=== PATIENT | male | born 1950 | race Caucasian/White ===

== ENCOUNTER 2016-11-08 12:42 | Inpatient (IN) | payer OTHER ==
[~2016-11-08] VITALS: Ht 193 cm; Wt 137.9 kg
[~2016-11-08 12:42] MED LIST: CMD10 PO; CPR250 PO; CRG125 PO; FLM4 PO; LCTXP PO; LSN5 PO; Labs; MTR500 PO; RIZA10TA18 PO; TRIA0.1C20 TOP
--- NOTE | 2016-11-08 13:46 | DIAGNOSTIC IMAGING REPORT ---
SINGLE VIEW CHEST CLINICAL HISTORY: Dyspnea. FINDINGS: An AP, portable, upright chest radiograph is compared to study dated 05/29/2015. The examination is degraded by portable technique, large body habitus, and patient rotation. The heart is mildly enlarged. The pulmonary vasculature is noncongested. Minimal bibasilar atelectasis is observed. The lungs and pleural spaces are otherwise clear. No pneumothorax is seen. The bony thorax is grossly intact. IMPRESSION: Mild cardiac enlargement with no acute cardiopulmonary abnormality. Electronically signed by: Jason Villegas M.D. 11/08/2016 1:45 PM Dictated Date/Time: 11/08/2016 1:44 PM
[2016-11-08 13:55] LABS: BASO % 0.2 %; BASO ABS # 0.01 K/uL (0-0.2); COMPLETE YES; EOS % 1.6 %; HEMATOCRIT 46.2 % (42-52); IG% 0.4 %; LYMPH % 29.8 %; LYMPH ABS # 1.51 K/uL (1.2-3.4); MEAN CELL VOLUME 90.9 fL (80-100); MEAN CORPUSCULAR HEMOGLOBIN 29.5 pg (25-34); MEAN CORPUSCULAR HGB CONC 32.5 g/dl (32-36); MEAN PLATELET VOLUME 9.2 fL (7.4-10.4); MONO % 7.5 %; NEUT % 60.5 %; PLATELET COUNT 206 K/uL (130-400); RED BLOOD COUNT 5.08 M/uL (4.7-6.1); WHITE BLOOD COUNT 5.06 K/uL (4.8-10.8)
[2016-11-08 14:04] LABS: PARTIAL THROMBOPLASTIN RATIO 1.1; PROTHROMBIN TIME (PATIENT) 10.7 SECONDS (9.0-12.0)
[2016-11-08] MEDS ORDERED: ACETAMINOPHEN 500 MG TAB PO STA (14:08)
[2016-11-08 14:14] LABS: ALT/SGPT 42 U/L (12-78); AST/SGOT 25 U/L (15-37); BLOOD UREA NITROGEN 14 mg/dl (7-18); BUN/CREATININE RATIO 11.4 (10-20); CALCIUM 9.4 mg/dl (8.5-10.1); CARBON DIOXIDE 30 mmol/L (21-32); CHLORIDE 107 mmol/L (98-107); GLUCOSE 106 mg/dl (70-99); MAGNESIUM 1.9 mg/dl (1.8-2.4); POTASSIUM 4.4 mmol/L (3.5-5.1); SODIUM 141 mmol/L (136-145)
[2016-11-08 14:25] LABS: ALKALINE PHOSPHATASE 70 U/L (45-117); CKMB/CK RATIO 1.8 (0-3.0); THYROID STIMULATING HORMONE 0.275 uIu/ml (0.300-4.500)
--- NOTE | 2016-11-08 14:35 | DIAGNOSTIC IMAGING REPORT ---
ULTRASOUND RIGHT LOWER EXTREMITY VENOUS CLINICAL HISTORY: Right leg pain and swelling. COMPARISON STUDY: Bilateral lower extremity venous ultrasound dated 05/29/2015. TECHNIQUE: Real-time, grayscale, and color Doppler sonography of the deep veins of the right lower extremity was performed from the inguinal crease to the calf. Compression and augmentation were utilized. FINDINGS: There is chronic appearing nonocclusive deep venous thrombosis identified within the right popliteal vein. This is similar to the 05/29/2015 examination. Age indeterminant thrombus is also seen within the right calf in the peroneal vein. The remaining calf vessels are clear. The common femoral and superficial femoral veins are patent and normally compressible. The greater saphenous vein and the profunda femoris vein at the junction with the common femoral vein are clear. IMPRESSION: 1. There is chronic-appearing and nonocclusive deep venous thrombosis identified within the right popliteal vein. This is similar to the 05/29/2015 examination. 2. Age indeterminant thrombus is also seen in the right calf within the peroneal vein. Electronically signed by: Jason Villegas M.D. 11/08/2016 2:33 PM Dictated Date/Time: 11/08/2016 2:31 PM
[2016-11-08 14:36] LABS: URINE APPEARANCE CLEAR (CLEAR); URINE BILIRUBIN NEG (NEG); URINE COLOR YELLOW; URINE NITRITE NEG (NEG); URINE PH 5.5 (4.5-7.5); URINE SPECIFIC GRAVITY 1.021 (1.000-1.030); UROBILINOGEN NEG (NEG)
[2016-11-08 14:43] LABS: MANUAL MICROSCOPIC REQUIRED? NO; REVIEW REQ? NO
[2016-11-08] MEDS ORDERED: OPTIRAY 320 IV PRN (15:15)
--- NOTE | 2016-11-08 15:31 | DIAGNOSTIC IMAGING REPORT ---
CT ANGIOGRAM OF THE CHEST CLINICAL HISTORY: Atypical chest pain. COMPARISON STUDY: Chest x-ray dated 11/08/2016. TECHNIQUE: Following the IV administration of 94 cc of Optiray 320, CT angiogram of the chest was performed from the upper abdomen to the thoracic inlet utilizing the pulmonary embolus protocol. Images are reviewed in the axial, sagittal, and coronal planes. 3-D MIPS images are created and assessed. IV contrast was administered without complication. A dose lowering technique was utilized adhering to the principles of ALARA. The examination is degraded by motion artifact, as well as by streak artifact from the left arm which could not be elevated above the chest. CT DOSE: 718.78 mGy.cm FINDINGS: Thyroid: Imaged portions of the thyroid gland are normal in size and attenuation. Thoracic aorta: The thoracic aorta is normal in caliber and demonstrates standard 3-vessel arch anatomy. No dissection is seen. Pulmonary vasculature: The pulmonary trunk is normal in caliber. There are no filling defects identified in main, lobar, or segmental pulmonary branches to suggest pulmonary embolus. Heart: The heart is mildly enlarged and without pericardial effusion. The coronary arteries are densely calcified. Lungs and pleural spaces: Evaluation of the lung parenchyma is modestly degraded by respiratory motion artifact. There is no airspace consolidation or pleural effusion. The trachea and central airways are clear. Mediastinum: There is no mediastinal lymphadenopathy. Demi: Clear. Axillae: There is no axillary lymphadenopathy. Upper abdomen: The liver is steatotic. A tiny hiatal hernia is noted. Partially visualized upper abdominal viscera is otherwise within normal limits. Skeletal structures: The skeletal structures appear osteopenic. No lytic or blastic bony lesions are seen. IMPRESSION: 1. There is no evidence of pulmonary embolus in the main, lobar, or segmental pulmonary arteries. 2. There is no airspace consolidation or pleural effusion. 3. Mild cardiac enlargement. 4. Additional findings as above. Electronically signed by: Jason Villegas M.D. 11/08/2016 3:30 PM Dictated Date/Time: 11/08/2016 3:26 PM
[2016-11-08] MEDS ORDERED: LSX40 PO (15:43)
[2016-11-08] MEDS ORDERED: WARF-281 PO (15:43)
[2016-11-08] MEDS ORDERED: VNTHFA/IN INH (15:43)
[2016-11-08] MEDS ORDERED: FUROSEMIDE 40 MG TAB PO PRN (18:00)
[2016-11-08] MEDS ORDERED: ALUMINUM/MAGNESIUM/SIMETH (MAALOX MAX) 30 ML UDC PO PRN (18:00)
[2016-11-08] MEDS ORDERED: POLYETHYLENE (MIRALAX) 17 GM PACK PO PRN (18:00)
[2016-11-08] MEDS ORDERED: MAGNESIUM HYDROXIDE SUSP 30 ML UDC PO PRN (18:00)
[2016-11-08] MEDS ORDERED: ONDANSETRON INJ 2 MG/ML 2 ML VIAL IV PRN (18:00)
[2016-11-08] MEDS ORDERED: HEPARIN 25000 UNIT/500 ML D5W ONE (18:12)
[2016-11-08] MEDS ORDERED: HEPARIN SOD 5000 UNIT/0.5 ML CARP ONE (18:12)
[2016-11-08 19:15] VITALS: BP 160/106; PULSE 69; TEMP 36.3; O2SAT 97; Ht 193 cm; Wt 137.9 kg
--- NOTE | 2016-11-08 19:16 | DIAGNOSTIC IMAGING REPORT ---
LEFT SHOULDER 3 VIEWS CLINICAL HISTORY: Left shoulder pain. FINDINGS: 3 views of left shoulder are obtained. No prior studies are available for comparison at the time of dictation. The skeletal structures are well mineralized. No fracture or dislocation is seen. Mild productive degenerative change is identified at the acromioclavicular joint. The overlying soft tissues are within normal limits. The visualized left upper lobe lung parenchyma appears clear. IMPRESSION: No acute bony abnormality is seen in the left shoulder. Electronically signed by: Jason Villegas M.D. 11/08/2016 7:15 PM Dictated Date/Time: 11/08/2016 7:13 PM
--- NOTE | 2016-11-08 19:21 | History and Physical ---
History & Physical Date & Time of Service: Nov 08, 2016 at 18:40 Chief Complaint: Sob, Pain In Left Arm, John, Rt Leg Hard Primary Care Physician: Zna Monsalve M.D. 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 of migraines - presented to the ER due to L sided shoulder and neck pain, associated with some shortness of breath. States that the pain began three days ago, does not recall doing anything unusual or heavy lifting. States that he became worried today when his R leg became swollen and hard - he described it as the same type of pain when he had a clot. Came in to the ER for further eval. Had Chest CTA performed to r/ o PE, which was ruled out. Bilateral Doppler suggest an age indeterminate thrombus in the R calf and an old, chronic thrombus in the left. States that he' s had problems with Coumadin, and is taking a Coumadin dose of 70mg. Past Medical/Surgical History Medical Problems: (1) Arthritis Status: Chronic (2) DVT (deep venous thrombosis) Permanent Comment: After knee surgery Status: Chronic (3) Hyperhomocysteinemia Status: Chronic (4) Hypertension Status: Chronic (5) IBS (irritable bowel syndrome) Status: Chronic (6) Migraine Status: Chronic Surgical Problems: (1) H/O arthroscopic knee surgery Permanent Comment: for meniscus repair on 08/29/13 Status: Resolved (2) H/O hernia repair Permanent Comment: Incarcerated umbilical hernia 08/03/2014 Status: Chronic (3) History of carpal tunnel surgery Status: Chronic (4) S/P cholecystectomy Status: Resolved Family History Hypertension Social History Smoking Status: Former Smoker Drug Use: none Marital Status: Housing status: lives with family Occupational Status: retired Multi-Drug Resistant Organisms History of MDRO: No Allergies Coded Allergies: Morphine (Verified Allergy, Unknown, anxiety, 11/08/16) Home Medications Scheduled Lisinopril (Lisinopril), 5 MG PO QAM Warfarin Sodium (Warfarin Sodium), 65 MG PO QPM Scheduled PRN Albuterol Hfa (Ventolin Hfa), 2 PUFFS INH Q6H PRN for SOB/Wheezing Furosemide (Furosemide), 1 TAB PO BID PRN for FLUID ACCUMULATION Rizatriptan Benzoate (Maxalt), 10 MG PO Q2H PRN for Migraine Review of Systems Constitutional: No fever, No chills Respiratory: + shortness of breath, No cough, No sputum, No dyspnea on exertion , No dyspnea at rest Cardiovascular: + edema, No chest pain, No palpitations Abdomen: No pain, No nausea, No vomiting, No diarrhea Musculoskeletal: + joint pain (L shoulder pain), + muscle pain (L neck pain), + calf pain Genitourinary - Male: No hematuria, No dysuria, No urinary frequency, No urinary urgency Neurologic: + numbness/tingling (L arm), No vertigo, No balance problems Psychiatric: No depression symptoms, No anxiety, No insomnia Hematologic / Lymphatic: No abnormal bleeding/bruising Integumentary: No rash Allergic / Immunologic: No environmental allergies, No seasonal allergies Physical Exam Vital Signs Date Time Temp Pulse Resp B/P (MAP) Pulse Ox O2 Delivery O2 Flow Rate FiO2 11/08/16 17:47 66 20 142/73 94 Room Air 11/08/16 15:27 72 152/70 Room Air 11/08/16 14:34 71 20 156/89 95 Room Air 11/08/16 13:33 95 Room Air 11/08/16 13:08 97 Room Air 11/08/16 13:08 76 11/08/16 13:07 97 Room Air 11/08/16 12:43 36.5 80 18 164/91 97 General Appearance: no apparent distress, + obese Head: normocephalic, atraumatic Eyes: normal inspection ENT: hearing grossly normal Neck: supple Respiratory/Chest: chest non-tender, lungs clear, normal breath sounds, no respiratory distress, no accessory muscle use Cardiovascular: regular rate, rhythm, no murmur Abdomen/GI: normal bowel sounds, non tender, soft Back: no muscle spasm Extremities/Musculoskelatal: + calf tenderness, + swelling (swelling of the L lateral neck, pain ROM of the L upper extremity), + pertinent finding (R LE hard and swollen calf) Diagnostics Laboratory Results Results Past 24 Hours Test 11/08/16 13:37 11/08/16 14:00 Range/Units White Blood Count 5.06 4.8-10.8 K/uL Red Blood Count 5.08 4.7-6.1 M/uL Hemoglobin 15.0 14.0-18.0 g/dL Hematocrit 46.2 42-52 % Mean Corpuscular Volume 90.9 80-100 fL Mean Corpuscular Hemoglobin 29.5 25-34 pg Mean Corpuscular Hemoglobin Concent 32.5 32-36 g/dl Platelet Count 206 130-400 K/uL Mean Platelet Volume 9.2 7.4-10.4 fL Neutrophils (%) (Auto) 60.5 % Lymphocytes (%) (Auto) 29.8 % Monocytes (%) (Auto) 7.5 % Eosinophils (%) (Auto) 1.6 % Basophils (%) (Auto) 0.2 % Neutrophils # (Auto) 3.06 1.4-6.5 K/uL Lymphocytes # (Auto) 1.51 1.2-3.4 K/uL Monocytes # (Auto) 0.38 0.11-0.59 K/uL Eosinophils # (Auto) 0.08 0-0.5 K/uL Basophils # (Auto) 0.01 0-0.2 K/uL RDW Standard Deviation 43.9 36.4-46.3 fL RDW Coefficient of Variation 13.2 11.5-14.5 % Immature Granulocyte % (Auto) 0.4 % Immature Granulocyte # (Auto) 0.02 0.00-0.02 K/uL Prothrombin Time 10.7 9.0-12.0 SECONDS Prothromb Time International Ratio 1.0 0.9-1.1 Activated Partial Thromboplast Time 27.8 21.0-31.0 SECONDS Partial Thromboplastin Ratio 1.1 Sodium Level 141 136-145 mmol/L Potassium Level 4.4 3.5-5.1 mmol/L Chloride Level 107 98-107 mmol/L Carbon Dioxide Level 30 21-32 mmol/L Anion Gap 4.0 3-11 mmol/L Blood Urea Nitrogen 14 7-18 mg/dl Creatinine 1.20 0.60-1.40 mg/dl Est Creatinine Clear Calc Drug Dose 89.4 ml/min Estimated GFR () 71.6 Estimated GFR (Non- 61.8 BUN/Creatinine Ratio 11.4 10-20 Random Glucose 106 70-99 mg/dl Calcium Level 9.4 8.5-10.1 mg/dl Magnesium Level 1.9 1.8-2.4 mg/dl Total Bilirubin 0.8 0.2-1 mg/dl Direct Bilirubin 0.2 0-0.2 mg/dl Aspartate Amino Transf (AST/SGOT) 25 15-37 U/L Alanine Aminotransferase (ALT/SGPT) 42 12-78 U/L Alkaline Phosphatase 70 45-117 U/L Total Creatine Kinase 177 39-308 U/L Creatine Kinase MB 3.1 0.5-3.6 ng/ml Creatine Kinase MB Ratio 1.8 0-3.0 Troponin I < 0.015 0-0.045 ng/ml Total Protein 7.7 6.4-8.2 gm/dl Albumin 3.8 3.4-5.0 gm/dl Thyroid Stimulating Hormone (TSH) 0.275 0.300-4.500 uIu/ml Free Thyroxine 1.07 0.80-1.60 ng/dl Free Triiodothyronine 3.21 2.30-4.20 pg/ml Urine Color YELLOW Urine Appearance CLEAR CLEAR Urine pH 5.5 4.5-7.5 Urine Specific [place] 1.021 1.000-1.030 Urine Protein NEG NEG Urine Glucose (UA) NEG NEG Urine Ketones NEG NEG Urine Occult Blood NEG NEG Urine Nitrite NEG NEG Urine Bilirubin NEG NEG Urine Urobilinogen NEG NEG Urine Leukocyte Esterase NEG NEG Diagnostic Radiology CT ANGIOGRAM OF THE CHEST CLINICAL HISTORY: Atypical chest pain. COMPARISON STUDY: Chest x-ray dated 11/08/2016. TECHNIQUE: Following the IV administration of 94 cc of Optiray 320, CT angiogram of the chest was performed from the upper abdomen to the thoracic inlet utilizing the pulmonary embolus protocol. Images are reviewed in the axial, sagittal, and coronal planes. 3-D MIPS images are created and assessed. IV contrast was administered without complication. A dose lowering technique was utilized adhering to the principles of ALARA. The examination is degraded by motion artifact, as well as by streak artifact from the left arm which could not be elevated above the chest. CT DOSE: 718.78 mGy.cm FINDINGS: Thyroid: Imaged portions of the thyroid gland are normal in size and attenuation. Thoracic aorta: The thoracic aorta is normal in caliber and demonstrates standard 3-vessel arch anatomy. No dissection is seen. Pulmonary vasculature: The pulmonary trunk is normal in caliber. There are no filling defects identified in main, lobar, or segmental pulmonary branches to suggest pulmonary embolus. Heart: The heart is mildly enlarged and without pericardial effusion. The coronary arteries are densely calcified. Lungs and pleural spaces: Evaluation of the lung parenchyma is modestly degraded by respiratory motion artifact. There is no airspace consolidation or pleural effusion. The trachea and central airways are clear. Mediastinum: There is no mediastinal lymphadenopathy. Demi: Clear. Axillae: There is no axillary lymphadenopathy. Upper abdomen: The liver is steatotic. A tiny hiatal hernia is noted. Partially visualized upper abdominal viscera is otherwise within normal limits. Skeletal structures: The skeletal structures appear osteopenic. No lytic or blastic bony lesions are seen. IMPRESSION: 1. There is no evidence of pulmonary embolus in the main, lobar, or segmental pulmonary arteries. 2. There is no airspace consolidation or pleural effusion. 3. Mild cardiac enlargement. 4. Additional findings as above. ULTRASOUND RIGHT LOWER EXTREMITY VENOUS CLINICAL HISTORY: Right leg pain and swelling. COMPARISON STUDY: Bilateral lower extremity venous ultrasound dated 05/29/2015. TECHNIQUE: Real-time, grayscale, and color Doppler sonography of the deep veins of the right lower extremity was performed from the inguinal crease to the calf. Compression and augmentation were utilized. FINDINGS: There is chronic appearing nonocclusive deep venous thrombosis identified within the right popliteal vein. This is similar to the 05/29/2015 examination. Age indeterminant thrombus is also seen within the right calf in the peroneal vein. The remaining calf vessels are clear. The common femoral and superficial femoral veins are patent and normally compressible. The greater saphenous vein and the profunda femoris vein at the junction with the common femoral vein are clear. IMPRESSION: 1. There is chronic-appearing and nonocclusive deep venous thrombosis identified within the right popliteal vein. This is similar to the 05/29/2015 examination. 2. Age indeterminant thrombus is also seen in the right calf within the peroneal vein. SINGLE VIEW CHEST CLINICAL HISTORY: Dyspnea. FINDINGS: An AP, portable, upright chest radiograph is compared to study dated 05/29/2015. The examination is degraded by portable technique, large body habitus, and patient rotation. The heart is mildly enlarged. The pulmonary vasculature is noncongested. Minimal bibasilar atelectasis is observed. The lungs and pleural spaces are otherwise clear. No pneumothorax is seen. The bony thorax is grossly intact. IMPRESSION: Mild cardiac enlargement with no acute cardiopulmonary abnormality. 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 of migraines - presented to the ER due to L sided shoulder and neck pain, associated with some shortness of breath. Acute R DVT Doppler: IMPRESSION: 1. There is chronic-appearing and nonocclusive deep venous thrombosis identified within the right popliteal vein. This is similar to the 05/29/2015 examination. 2. Age indeterminant thrombus is also seen in the right calf within the peroneal vein. INR is 1.0 patient has had issues with Coumadin in the past, takes up to 70mg of Coumadin daily has had INR of 4.0 and was told to decrease to 65mg daily - now INR is 1.0 plan is to start IV heparin will discuss with case management regarding Lovenox injections cannot use NOAC due to patient's weight L shoulder pain unsure of the cause of the L shoulder pain CT chest did not show anything new does have muscle spasms/swelling of the L lateral neck will start baclofen check shoulder radiograph PT for shoulder HTN BP stable, continue Lisinopril DVT ppx IV heparin FULL CODE VTE Prophylaxis VTE Risk Assessment Done? Y/N: Yes Risk Level: Moderate Given or contraindicated: Other Anticoagulation
--- NOTE | 2016-11-08 19:25 | EMERGENCY ROOM VISIT NOTE ---
History Report prepared by Tiburcio: Chapincito Patel Under the Supervision of: Dr. Jeff Sadler M.D. First contact with patient: 13:09 Chief Complaint: SHORTNESS OF BREATH Stated Complaint: SOB, PAIN IN LEFT ARM, DYE, RT LEG HARD Nursing Triage Summary: pt to the ED with c/o left arm pain and shoulder around neck with SOB and bad DYE since last night "not like a migriane", selling in left side of neck and c/o teeth and jaw pain has hx of DVT in right leg and now its "hard as a rock", started 2 days ago INR was 5 on the 10th see orange sheet History of Present Illness The patient is a 66 year old male who presents to the Emergency Room with complaints of persistent shortness of breath beginning a few days ago. The patient also complains of left chest and arm pain that radiates into his neck, jaw and around to his right arm. He states that he has had some swelling in his left neck area. He has a history of similar symptoms occurring with blood clots. The patient is on Coumadin for his previous blood clots. He also states "my right leg is hard". The patient also notes some left-sided headache which feels like it may develop into a migraine. He has a history of migraines but this is not quite there yet. He did not take his migraine medication as he notes it makes him sleepy. He states that it feels like the pain is in the area above the left clavicle and radiates up into the left side of his head. He does note that the pain is worsened by taking a deep breath in the left chest , shoulder, and side of his neck. He has had difficulty in the past with being therapeutic on Coumadin and has been on very high doses, up to 70 mg daily. He states that he occasionally gets dizzy with exertion. Pt denies LOC, fevers, chills, diaphoresis, visual changes, neck pain, chest pain, breathing difficulties, nausea, vomiting, abdominal pain, back pain, melena, hematochezia , urinary symptoms, numbness, weakness, rash, or other complaints. His INR was most recently checked 10 days ago. Source of History: patient Onset: A few days ago Quality: other (shortness of breath) Timing: other (persistent) Note: Additional symptoms: left arm pain that radiates into his neck, jaw and around to his right arm. Dizziness with exertion. Review of Systems See HPI for pertinent positives and negatives. A total of ten systems were reviewed and were otherwise negative. Past Medical & Surgical Medical Problems: (1) Arthritis (2) DVT (deep venous thrombosis) (3) Homocysteinemia (4) Hyperhomocysteinemia (5) Hypertension (6) IBS (irritable bowel syndrome) (7) Migraine Surgical Problems: (1) H/O arthroscopic knee surgery (2) H/O hernia repair (3) History of carpal tunnel surgery (4) S/P cholecystectomy Family History Hypertension Social History Smoking Status: Former Smoker Alcohol Use: none Drug Use: none Marital Status: Housing Status: lives with significant other Occupation Status: retired Current/Historical Medications Scheduled Lisinopril (Lisinopril), 5 MG PO QAM Warfarin Sodium (Warfarin Sodium), 65 MG PO QPM Scheduled PRN Albuterol Hfa (Ventolin Hfa), 2 PUFFS INH Q6H PRN for SOB/Wheezing Furosemide (Furosemide), 1 TAB PO BID PRN for FLUID ACCUMULATION Rizatriptan Benzoate (Maxalt), 10 MG PO Q2H PRN for Migraine Allergies Coded Allergies: Morphine (Verified Allergy, Unknown, anxiety, 11/08/16) Physical Exam Vital Signs Date Time Temp Pulse Resp B/P (MAP) Pulse Ox O2 Delivery O2 Flow Rate FiO2 11/08/16 17:47 66 20 142/73 94 Room Air 11/08/16 15:27 72 152/70 Room Air 11/08/16 14:34 71 20 156/89 95 Room Air 11/08/16 13:33 95 Room Air 11/08/16 13:08 97 Room Air 11/08/16 13:08 76 11/08/16 13:07 97 Room Air 11/08/16 12:43 36.5 80 18 164/91 97 Physical Exam GENERAL: Awake, alert, well-appearing, in no distress HENT: Normocephalic, atraumatic. Oropharynx unremarkable. EYES: Normal conjunctiva. Sclera non-icteric. NECK: Supple. No nuchal rigidity. FROM. No JVD. RESPIRATORY: Clear to auscultation. CARDIAC: Regular rate, normal rhythm. Extremities warm and well perfused. Pulses equal. ABDOMEN: Soft, non-distended. No tenderness to palpation. No rebound or guarding. No masses. RECTAL: Deferred. MUSCULOSKELETAL: Chest examination reveals no tenderness. Mild swelling to the left supraclavicular area. The back is symmetrical on inspection without obvious abnormality. There is no CVA tenderness to palpation. No joint edema. LOWER EXTREMITIES: Calves are equal size bilaterally and non-tender. 1+ pitting edema to the left leg. 2+ pitting edema to the right leg. No discoloration. NEURO: Normal sensorium. No sensory or motor deficits noted. SKIN: No rash or jaundice noted. Medical Decision & Procedures ER Provider Diagnostic Interpretation: Radiology results as stated below per my review and radiologist interpretation: SINGLE VIEW CHEST FINDINGS: An AP, portable, upright chest radiograph is compared to study dated 05/29/2015. The examination is degraded by portable technique, large body habitus, and patient rotation. The heart is mildly enlarged. The pulmonary vasculature is noncongested. Minimal bibasilar atelectasis is observed. The lungs and pleural spaces are otherwise clear. No pneumothorax is seen. The bony thorax is grossly intact. IMPRESSION: Mild cardiac enlargement with no acute cardiopulmonary abnormality. Electronically signed by: Jason Villegas M.D. ULTRASOUND RIGHT LOWER EXTREMITY VENOUS FINDINGS: There is chronic appearing nonocclusive deep venous thrombosis identified within the right popliteal vein. This is similar to the 05/29/2015 examination. Age indeterminant thrombus is also seen within the right calf in the peroneal vein. The remaining calf vessels are clear. The common femoral and superficial femoral veins are patent and normally compressible. The greater saphenous vein and the profunda femoris vein at the junction with the common femoral vein are clear. IMPRESSION: 1. There is chronic-appearing and nonocclusive deep venous thrombosis identified within the right popliteal vein. This is similar to the 05/29/2015 examination. 2. Age indeterminant thrombus is also seen in the right calf within the peroneal vein. Electronically signed by: Jason Villegas M.D. CT ANGIOGRAM OF THE CHEST FINDINGS: Thyroid: Imaged portions of the thyroid gland are normal in size and attenuation. Thoracic aorta: The thoracic aorta is normal in caliber and demonstrates standard 3-vessel arch anatomy. No dissection is seen. Pulmonary vasculature: The pulmonary trunk is normal in caliber. There are no filling defects identified in main, lobar, or segmental pulmonary branches to suggest pulmonary embolus. Heart: The heart is mildly enlarged and without pericardial effusion. The coronary arteries are densely calcified. Lungs and pleural spaces: Evaluation of the lung parenchyma is modestly degraded by respiratory motion artifact. There is no airspace consolidation or pleural effusion. The trachea and central airways are clear. Mediastinum: There is no mediastinal lymphadenopathy. Demi: Clear. Axillae: There is no axillary lymphadenopathy. Upper abdomen: The liver is steatotic. A tiny hiatal hernia is noted. Partially visualized upper abdominal viscera is otherwise within normal limits. Skeletal structures: The skeletal structures appear osteopenic. No lytic or blastic bony lesions are seen. IMPRESSION: 1. There is no evidence of pulmonary embolus in the main, lobar, or segmental pulmonary arteries. 2. There is no airspace consolidation or pleural effusion. 3. Mild cardiac enlargement. 4. Additional findings as above. Electronically signed by: Jason Villegas M.D. Laboratory Results 11/08/16 13:37 Red Blood Count 5.08, Mean Corpuscular Volume 90.9, Mean Corpuscular Hemoglobin 29.5, Mean Corpuscular Hemoglobin Concent 32.5, Mean Platelet Volume 9.2, Neutrophils (%) (Auto) 60.5, Lymphocytes (%) (Auto) 29.8, Monocytes (%) (Auto) 7.5, Eosinophils (%) (Auto) 1.6, Basophils (%) (Auto) 0.2, Neutrophils # (Auto) 3.06, Lymphocytes # (Auto) 1.51, Monocytes # (Auto) 0.38, Eosinophils # (Auto) 0.08, Basophils # (Auto) 0.01 11/08/16 13:37 Test 11/08/16 13:37 11/08/16 14:00 White Blood Count 5.06 K/uL (4.8-10.8) Red Blood Count 5.08 M/uL (4.7-6.1) Hemoglobin 15.0 g/dL (14.0-18.0) Hematocrit 46.2 % (42-52) Mean Corpuscular Volume 90.9 fL (80-100) Mean Corpuscular Hemoglobin 29.5 pg (25-34) Mean Corpuscular Hemoglobin Concent 32.5 g/dl (32-36) Platelet Count 206 K/uL (130-400) Mean Platelet Volume 9.2 fL (7.4-10.4) Neutrophils (%) (Auto) 60.5 % Lymphocytes (%) (Auto) 29.8 % Monocytes (%) (Auto) 7.5 % Eosinophils (%) (Auto) 1.6 % Basophils (%) (Auto) 0.2 % Neutrophils # (Auto) 3.06 K/uL (1.4-6.5) Lymphocytes # (Auto) 1.51 K/uL (1.2-3.4) Monocytes # (Auto) 0.38 K/uL (0.11-0.59) Eosinophils # (Auto) 0.08 K/uL (0-0.5) Basophils # (Auto) 0.01 K/uL (0-0.2) RDW Standard Deviation 43.9 fL (36.4-46.3) RDW Coefficient of Variation 13.2 % (11.5-14.5) Immature Granulocyte % (Auto) 0.4 % Immature Granulocyte # (Auto) 0.02 K/uL (0.00-0.02) Prothrombin Time 10.7 SECONDS (9.0-12.0) Prothromb Time International Ratio 1.0 (0.9-1.1) Activated Partial Thromboplast Time 27.8 SECONDS (21.0-31.0) Partial Thromboplastin Ratio 1.1 Anion Gap 4.0 mmol/L (3-11) Est Creatinine Clear Calc Drug Dose 89.4 ml/min Estimated GFR () 71.6 Estimated GFR (Non- 61.8 BUN/Creatinine Ratio 11.4 (10-20) Calcium Level 9.4 mg/dl (8.5-10.1) Magnesium Level 1.9 mg/dl (1.8-2.4) Total Bilirubin 0.8 mg/dl (0.2-1) Direct Bilirubin 0.2 mg/dl (0-0.2) Aspartate Amino Transf (AST/SGOT) 25 U/L (15-37) Alanine Aminotransferase (ALT/SGPT) 42 U/L (12-78) Alkaline Phosphatase 70 U/L (45-117) Total Creatine Kinase 177 U/L (39-308) Creatine Kinase MB 3.1 ng/ml (0.5-3.6) Creatine Kinase MB Ratio 1.8 (0-3.0) Troponin I < 0.015 ng/ml (0-0.045) Total Protein 7.7 gm/dl (6.4-8.2) Albumin 3.8 gm/dl (3.4-5.0) Thyroid Stimulating Hormone (TSH) 0.275 uIu/ml (0.300-4.500) Free Thyroxine 1.07 ng/dl (0.80-1.60) Free Triiodothyronine 3.21 pg/ml (2.30-4.20) Urine Color YELLOW Urine Appearance CLEAR (CLEAR) Urine pH 5.5 (4.5-7.5) Urine Specific [place] 1.021 (1.000-1.030) Urine Protein NEG (NEG) Urine Glucose (UA) NEG (NEG) Urine Ketones NEG (NEG) Urine Occult Blood NEG (NEG) Urine Nitrite NEG (NEG) Urine Bilirubin NEG (NEG) Urine Urobilinogen NEG (NEG) Urine Leukocyte Esterase NEG (NEG) Laboratory results reviewed by me Medications Administered Medications (Trade) Dose Ordered Sig/Denny Route Start Time Stop Time Status Last Admin Dose Admin Acetaminophen (Tylenol Tab) 1,000 mg NOW STAT PO 11/08/16 14:08 11/08/16 14:09 DC 11/08/16 14:33 1,000 MG ECG Indication: SOB/dyspnea Rate (beats per minute): 70 Rhythm: normal sinus Findings: RBBB (incomplete), no acute ischemic change ED Course 1319: The patient was evaluated in room C12B. A complete history and physical exam was performed. 1408: Ordered Tylenol Tab 1000 mg PO. 1457: I reassessed the patient and discussed his test results with him. 1746: Ordered Heparin Sodium/Dextrose. 1748: Upon reexamination, the patient was resting comfortably. I discussed the test results and treatment plan with him. The patient will be evaluated for further management. Medical Decision Triage Nursing notes reviewed. The patient's presentation and history were concerning for leg swelling, chest pain, shortness of breath, and neck pain. Etiologies such as DVT, PE, infection, trauma, muscular, lymphedema, idiopathic , cardiac ischemia, herniated disc, migraine, as well as others were entertained. The patient was evaluated. Neurologically he was intact. His right leg symptoms were reproducible. Given his history this is concerning. His left arm and shoulder symptoms were reproducible with movement, especially abduction greater than 45. The patient had normal internal and external rotation as long as his arm was fully adducted. The patient declined analgesia at first but then asked for some Tylenol. He did not want anything stronger. I offered analgesia several times. Blood work was obtained. His CBC was unremarkable. Chemstrip panel, cardiac markers, magnesium, LFTs and coags were unremarkable as well. His INR was normal at 1.0. He notes that he recently went from 70 mg to 65 mg of Coumadin. The patient underwent ultrasound imaging as well as CT imaging of the chest. The ultrasound was concerning for a chronic thrombus as well as an age-indeterminate thrombus. The patient had no clear evidence of pulmonary emboli but there was some respiratory motion. The left shoulder area appeared to be normal. There is no evidence of tumor or mass. There is no evidence of dissection. I discussed the case with the resident surgeon on-call, Dr. Garcia. Given the findings of the patient's difficult outpatient management she recommended inpatient treatment for anticoagulation. IV heparin ordered. I discussed this with the patient and family. They were in agreement. The patient had a consultation placed with internal medicine. The patient was evaluated in the Emergency Room for further management. Consults Time Called: 1710 Consulting Physician: Dr. Garcia -Hematology Returned Call: [phone] Discussed the patient's case. Dr. Garcia. She recommends that the patient be admitted to the hospital to regulate his INR. Additional Consults: Time Called: 1740 Consulted Physician: Dr. Cristino Rivera Returned Call: 1748 Additional Comments: Discussed the patient's case. The patient will be evaluated for further treatment and disposition. Impression Primary Impression: Left sided chest pain Additional Impressions: Left shoulder pain Right leg DVT Scribe Attestation The scribe's documentation has been prepared under my direction and personally reviewed by me in its entirety. I confirm that the note above accurately reflects all work, treatment, procedures, and medical decision making performed by me. Departure Information Dispostion Being Evaluated By Hospitalist Referrals Zan Monsalve M.D. (PCP) Patient Instructions [facility] Problem Qualifiers
[2016-11-08] MEDS: BACLOFEN 10 MG TAB PO SCH (20:09)
[2016-11-08] MEDS: ACETAMINOPHEN 325 MG TAB PO PRN (23:06)
[2016-11-09] VITALS (8 sets, daily range): BP systolic 129–156; BP diastolic 60–82; PULSE 54–79; TEMP 36.4–36.8; O2SAT 95–99
[2016-11-09 00:50] LABS: CKMB/CK RATIO 1.4 (0-3.0)
[2016-11-09 01:06] LABS: PARTIAL THROMBOPLASTIN RATIO 1.9
[2016-11-09] MEDS: ACETAMINOPHEN 325 MG TAB PO PRN (05:24)
[2016-11-09 05:51] LABS: CALCIUM 8.9 mg/dl (8.5-10.1); CREATININE 1.2 mg/dl (0.60-1.40); POTASSIUM 4.4 mmol/L (3.5-5.1)
[2016-11-09 05:54] LABS: PARTIAL THROMBOPLASTIN RATIO 2.8
[2016-11-09] MEDS: HEPARIN 25,000 UNIT/500ML D5W 500 ML IV PRN ×4 (06:04→21:17)
[2016-11-09 06:11] LABS: HEMATOCRIT 41.3 % (42-52); MEAN CELL VOLUME 90.6 fL (80-100); MEAN CORPUSCULAR HEMOGLOBIN 31.6 pg (25-34); MEAN CORPUSCULAR HGB CONC 34.9 g/dl (32-36); MEAN PLATELET VOLUME 9.7 fL (7.4-10.4); PLATELET COUNT 204 K/uL (130-400); RED BLOOD COUNT 4.56 M/uL (4.7-6.1); WHITE BLOOD COUNT 6.37 K/uL (4.8-10.8)
[2016-11-09] MEDS ORDERED: PERFLUTREN LIPID MICROSPHERE (DEFINITY) IV ONE (07:22)
[2016-11-09] MEDS: BACLOFEN 10 MG TAB PO SCH ×2 (08:19→20:00)
[2016-11-09] MEDS: LISINOPRIL 5 MG TAB PO SCH (08:20)
[2016-11-09 08:21] LABS: CKMB/CK RATIO 1.7 (0-3.0)
[2016-11-09] MEDS ORDERED: RIZATRIPTAN BENZOATE 10 MG TAB PO PRN (11:30)
[2016-11-09 12:32] LABS: PARTIAL THROMBOPLASTIN RATIO 2.5
--- NOTE | 2016-11-09 13:13 | Progress Note ---
Subjective Date of Service: Nov 09, 2016. Subjective Pt evaluation today including: conversation w/ patient, physical exam, lab review, review of studies, review of inpatient medication list Saw/examined the patient in room 232 L shoulder pain improving slightly, down to 7/10 does c/o headache R LE calf pain persists no fevers/chills Problem List Medical Problems: (1) Acute renal failure Status: Acute (2) Left shoulder pain Status: Acute (3) Left sided chest pain Status: Acute (4) Right leg DVT Status: Acute Review of Systems Constitutional: No fever, No chills Respiratory: No cough, No sputum, No shortness of breath Cardiac: No chest pain Abdomen: No pain, No nausea Musculoskeletal: + joint pain (L shoulder, R calf), + muscle pain Heme: No abnormal bleeding/bruising Medications Current Inpatient Medications Medications (Trade) Dose Ordered Sig/Denny Route Start Time Stop Time Status Last Admin Dose Admin Ioversol (Optiray 320) 100 ml UD PRN IV 11/08/16 15:15 11/12/16 15:14 Acetaminophen (Tylenol Tab) 650 mg Q4H PRN PO 11/08/16 18:00 12/08/16 17:59 11/09/16 05:24 650 MG Al Hydrox/Mg Hydrox/Simethicone (Maalox Max Susp) 15 ml Q4H PRN PO 11/08/16 18:00 12/08/16 17:59 Magnesium Hydroxide (Milk Of Magnesia Susp) 30 ml Q12H PRN PO 11/08/16 18:00 12/08/16 17:59 Ondansetron HCl (Zofran Inj) 4 mg Q6H PRN IV 11/08/16 18:00 12/08/16 17:59 Polyethylene (Miralax Powder Packet) 17 gm DAILY PRN PO 11/08/16 18:00 12/08/16 17:59 Furosemide (Lasix Tab) 40 mg BID PRN PO 11/08/16 18:00 12/08/16 17:59 Lisinopril (Zestril Tab) 5 mg QAM PO 11/09/16 09:00 12/09/16 08:59 11/09/16 08:20 5 MG Baclofen (Lioresal Tab) 10 mg BID PO 11/08/16 21:00 12/08/16 20:59 11/09/16 08:19 10 MG Heparin Sodium/ Dextrose 500 ml @ 37 mls/hr [id number] PRN IV 11/08/16 22:00 12/08/16 21:59 11/09/16 08:19 37 MLS/HR Rizatriptan Benzoate (Maxalt Tab) 10 mg Q2H PRN PO 11/09/16 11:30 12/09/16 11:29 Warfarin Sodium (Coumadin Tab) 20 mg DAILY@16 PO 11/09/16 16:00 12/09/16 15:59 Objective Vital Signs Date Time Temp Pulse Resp B/P (MAP) Pulse Ox O2 Delivery O2 Flow Rate FiO2 11/09/16 12:13 36.8 73 18 129/64 (85) 96 11/09/16 12:00 96 Room Air 11/09/16 08:02 36.8 79 18 141/60 (87) 99 11/09/16 08:00 99 Room Air 11/09/16 04:08 36.4 54 20 156/82 (106) 95 Room Air 11/09/16 04:00 Room Air 11/09/16 00:00 36.7 63 19 154/68 (96) 96 Room Air 11/08/16 23:59 Room Air 11/08/16 20:00 Room Air 11/08/16 19:15 36.3 69 20 160/106 97 Room Air 11/08/16 17:47 66 20 142/73 94 Room Air 11/08/16 15:27 72 152/70 Room Air 11/08/16 14:34 71 20 156/89 95 Room Air 11/08/16 13:33 95 Room Air 11/08/16 13:08 97 Room Air 11/08/16 13:08 76 11/08/16 13:07 97 Room Air Physical Exam General Appearance: no apparent distress, + obese Respiratory/Chest: chest non-tender, lungs clear, normal breath sounds, no respiratory distress, no accessory muscle use Cardiovascular: regular rate, rhythm, no edema, no murmur Extremities: + pertinent finding (L shoulder pain, decreased and painful ROM - R calf, mildly swollen, tight) Laboratory Results Last 24 Hours Test 11/08/16 13:37 11/08/16 14:00 11/08/16 23:48 11/09/16 00:33 White Blood Count 5.06 K/uL Red Blood Count 5.08 M/uL Hemoglobin 15.0 g/dL Hematocrit 46.2 % Mean Corpuscular Volume 90.9 fL Mean Corpuscular Hemoglobin 29.5 pg Mean Corpuscular Hemoglobin Concent 32.5 g/dl Platelet Count 206 K/uL Mean Platelet Volume 9.2 fL Neutrophils (%) (Auto) 60.5 % Lymphocytes (%) (Auto) 29.8 % Monocytes (%) (Auto) 7.5 % Eosinophils (%) (Auto) 1.6 % Basophils (%) (Auto) 0.2 % Neutrophils # (Auto) 3.06 K/uL Lymphocytes # (Auto) 1.51 K/uL Monocytes # (Auto) 0.38 K/uL Eosinophils # (Auto) 0.08 K/uL Basophils # (Auto) 0.01 K/uL RDW Standard Deviation 43.9 fL RDW Coefficient of Variation 13.2 % Immature Granulocyte % (Auto) 0.4 % Immature Granulocyte # (Auto) 0.02 K/uL Prothrombin Time 10.7 SECONDS Prothromb Time International Ratio 1.0 Activated Partial Thromboplast Time 27.8 SECONDS 50.0 SECONDS Partial Thromboplastin Ratio 1.1 1.9 Sodium Level 141 mmol/L Potassium Level 4.4 mmol/L Chloride Level 107 mmol/L Carbon Dioxide Level 30 mmol/L Anion Gap 4.0 mmol/L Blood Urea Nitrogen 14 mg/dl Creatinine 1.20 mg/dl Est Creatinine Clear Calc Drug Dose 89.4 ml/min Estimated GFR () 71.6 Estimated GFR (Non- 61.8 BUN/Creatinine Ratio 11.4 Random Glucose 106 mg/dl Calcium Level 9.4 mg/dl Magnesium Level 1.9 mg/dl Total Bilirubin 0.8 mg/dl Direct Bilirubin 0.2 mg/dl Aspartate Amino Transf (AST/SGOT) 25 U/L Alanine Aminotransferase (ALT/SGPT) 42 U/L Alkaline Phosphatase 70 U/L Total Creatine Kinase 177 U/L 190 U/L Creatine Kinase MB 3.1 ng/ml 2.6 ng/ml Creatine Kinase MB Ratio 1.8 1.4 Troponin I < 0.015 ng/ml < 0.015 ng/ml Total Protein 7.7 gm/dl Albumin 3.8 gm/dl Thyroid Stimulating Hormone (TSH) 0.275 uIu/ml Free Thyroxine 1.07 ng/dl Free Triiodothyronine 3.21 pg/ml Hepatitis C Antibody Screen NEG Urine Color YELLOW Urine Appearance CLEAR Urine pH 5.5 Urine Specific [place] 1.021 Urine Protein NEG Urine Glucose (UA) NEG Urine Ketones NEG Urine Occult Blood NEG Urine Nitrite NEG Urine Bilirubin NEG Urine Urobilinogen NEG Urine Leukocyte Esterase NEG Test 11/09/16 05:06 11/09/16 07:47 11/09/16 12:03 White Blood Count 6.37 K/uL Red Blood Count 4.56 M/uL Hemoglobin 14.4 g/dL Hematocrit 41.3 % Mean Corpuscular Volume 90.6 fL Mean Corpuscular Hemoglobin 31.6 pg Mean Corpuscular Hemoglobin Concent 34.9 g/dl RDW Standard Deviation 43.6 fL RDW Coefficient of Variation 13.3 % Platelet Count 204 K/uL Mean Platelet Volume 9.7 fL Prothrombin Time 11.0 SECONDS Prothromb Time International Ratio 1.0 Activated Partial Thromboplast Time 71.7 SECONDS 64.4 SECONDS Partial Thromboplastin Ratio 2.8 2.5 Sodium Level 140 mmol/L Potassium Level 4.4 mmol/L Chloride Level 106 mmol/L Carbon Dioxide Level 30 mmol/L Anion Gap 4.0 mmol/L Blood Urea Nitrogen 14 mg/dl Creatinine 1.20 mg/dl Est Creatinine Clear Calc Drug Dose 89.7 ml/min Estimated GFR () 71.6 Estimated GFR (Non- 61.8 BUN/Creatinine Ratio 12.0 Random Glucose 109 mg/dl Calcium Level 8.9 mg/dl Total Creatine Kinase 177 U/L Creatine Kinase MB 3.0 ng/ml Creatine Kinase MB Ratio 1.7 Troponin I < 0.015 ng/ml Assessment and Plan This is a 66 year old obese male with a 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 of migraines - presented to the ER due to L sided shoulder and neck pain, associated with some shortness of breath. Acute R DVT 11/09 continue IV heparin for now spoke with Dr. Garcia, compliance may be an issue due to the dose of Coumadin will load the patient with 20mg of Coumadin for two days and check INR daily attempted to call [facility] - he is away today, and will return to the office in AM 8/22; will call him in the AM ([phone]) can transfer from tele to med/surg 11/08 Doppler: IMPRESSION: 1. There is chronic-appearing and nonocclusive deep venous thrombosis identified within the right popliteal vein. This is similar to the 05/29/2015 examination. 2. Age indeterminant thrombus is also seen in the right calf within the peroneal vein. INR is 1.0 patient has had issues with Coumadin in the past, takes up to 70mg of Coumadin daily has had INR of 4.0 and was told to decrease to 65mg daily - now INR is 1.0 plan is to start IV heparin will discuss with case management regarding Lovenox injections cannot use NOAC due to patient's weight L shoulder pain 11/09 continue PT L shoulder radiograph negative Toradol PRN baclofen K-pad 11/08 unsure of the cause of the L shoulder pain CT chest did not show anything new does have muscle spasms/swelling of the L lateral neck will start baclofen check shoulder radiograph PT for shoulder HTN BP stable, continue Lisinopril DVT ppx IV heparin FULL CODE
[2016-11-09] MEDS ORDERED: KETOROLAC TROMETHAMINE 15 MG/ML VIAL IV. PRN (13:15)
--- NOTE | 2016-11-09 13:30 | ECHOCARDIOGRAM REPORT ---
*NOTICE TO RECEIVING [facility] This information is strictly Confidential and protected under [place] law. [place] law prohibits you from making any further disclosure of this information unless further disclosure is expressly permitted by the written consent of the person to whom it pertains or is authorized by law. A general authorization for the release of medical or other information is not sufficient for this purpose. Hospital accepts no responsibility if the information is made available to any other person, INCLUDING THE PATIENT. Interpretation Summary * Name: RENETTA WITT Study Date: 11/09/2016 06:52 AM BP: 141/60 mmHg * Patient Location: C.2T\S\S232\S\1 HR: 79 * : 1950 (M/d/yyyy) Gender: Male Height: 76 in * Age: 66 yrs Ethnicity: [place] Weight: 304 lb * Ordering Physician: William Gregg * Referring Physician: Self, Referred * Performed By: Justina Houston RDCS * * Reason For Study: CHEST PAIN * BSA: 2.6 m2 * The study was technically adequate. * Compared to prior study, there is no significant change. * -- Conclusions -- * Ejection Fraction = 55-60%. * The left ventricular wall motion is normal. * There is mild concentric left ventricular hypertrophy. * Diastolic dysfunction, Grade II (pseudonormalization pattern). Procedure Details * A contrast injection of Definity was performed to improve assessment of LV function. * Contrast was injected into an intravenous site in the right arm. * One vial of Definity ultrasound contrast was diluted in normal saline to a total volume of 10 ml. A total of '2' ml of solution was administered during imaging. * Lot # [id number] of Definity utilized for procedure. * Expiration date NOV 06. * The attending nurse who injected the contrast agent was RIZWAN ZHONG RN. * A complete two-dimensional transthoracic echocardiogram was performed (2D, M-mode, Doppler and color flow Doppler). Left Ventricle * The left ventricle is normal in size. * There is no thrombus. * There is mild concentric left ventricular hypertrophy. * Ejection Fraction = 55-60%. * Left ventricular systolic function is normal. * The left ventricular wall motion is normal. Right Ventricle * The right ventricle is normal size. * The right ventricular systolic function is normal as assessed by tricuspid annular plane systolic excursion (TAPSE) (normal >1.5 cm). Atria * The left atrial size is normal. * Right atrial size is normal. * There is no evidence of atrial septal defect, but resolution does not allow assessment for a patent foramen ovale. Mitral Valve * There is mild mitral annular calcification. * There is no mitral valve stenosis. * Significant mitral regurgitation is absent. Tricuspid Valve * The tricuspid valve is normal. * There is no tricuspid stenosis. * Significant tricuspid regurgitation is absent. Aortic Valve * The aortic valve is trileaflet. * Aortic stenosis is absent. * There is no significant aortic regurgitation. Pulmonic Valve * The pulmonary valve is not well seen, but the Doppler examination is normal without significant regurgitation or stenosis. Great Vessels * The aortic root and proximal ascending aorta are normal sized. Pericardium/Pleural * There is no pericardial effusion. Great Vessels * Normal inferior vena cava diameter and respiratory variation suggests normal central venous pressure. Left Ventricular Diastolic Function * Diastolic dysfunction, Grade II (pseudonormalization pattern). MMode 2D Measurements and Calculations IVSd 1.4 cm IVSs 1.9 cm LVIDd 4.0 cm LVIDs 2.8 cm LVPWd 1.4 cm LVPWs 1.8 cm IVS/LVPW 0.99 FS 30.0 % EDV(Teich) 69.9 ml ESV(Teich) 29.5 ml EF(Teich) 57.8 % EDV(cubed) 63.8 ml ESV(cubed) 21.9 ml EF(cubed) 65.8 % % IVS thick 33.7 % % LVPW thick 29.1 % LV mass(C)d 211.2 grams LV mass(C)dI 79.8 grams/m\S\2 LV mass(C)s 211.3 grams LV mass(C)sI 79.8 grams/m\S\2 SV(Teich) 40.4 ml SI(Teich) 15.3 ml/m\S\2 SV(cubed) 42.0 ml SI(cubed) 15.9 ml/m\S\2 Ao root diam 3.8 cm Ao root area 11.4 cm\S\2 LA dimension 3.4 cm LA/Ao 0.90 LVAd ap4 38.2 cm\S\2 LVLd ap4 9.8 cm EDV(MOD-sp4) 119.1 ml EDV(sp4-el) 125.8 ml LVAs ap4 23.0 cm\S\2 LVLs ap4 8.3 cm ESV(MOD-sp4) 52.0 ml ESV(sp4-el) 54.6 ml EF(MOD-sp4) 56.4 % EF(sp4-el) 56.6 % LVAd ap2 35.5 cm\S\2 LVLd ap2 9.6 cm EDV(MOD-sp2) 105.1 ml EDV(sp2-el) 111.5 ml LVAs ap2 22.1 cm\S\2 LVLs ap2 8.2 cm ESV(MOD-sp2) 47.7 ml ESV(sp2-el) 50.6 ml EF(MOD-sp2) 54.6 % EF(sp2-el) 54.7 % LVLd %diff -2.90 % EDV(MOD-bp) 113.8 ml LVLs %diff -0.53 % ESV(MOD-bp) 50.6 ml EF(MOD-bp) 55.6 % SV(MOD-sp4) 67.1 ml SI(MOD-sp4) 25.4 ml/m\S\2 SV(MOD-sp2) 57.4 ml SI(MOD-sp2) 21.7 ml/m\S\2 SV(MOD-bp) 63.3 ml SI(MOD-bp) 23.9 ml/m\S\2 SV(sp4-el) 71.1 ml SI(sp4-el) 26.9 ml/m\S\2 SV(sp2-el) 61.0 ml SI(sp2-el) 23.0 ml/m\S\2 Doppler Measurements and Calculations MV E max petr 68.9 cm/sec MV A max petr 53.4 cm/sec MV E/A 1.3 MV dec time 0.23 sec Ao V2 max 98.2 cm/sec Ao max PG 3.9 mmHg Ao max PG (full) 0.05 mmHg LV V1 max PG 3.8 mmHg LV V1 max 97.5 cm/sec
[2016-11-09] MEDS: WARFARIN SOD 10 MG TAB PO SCH (17:13)
[2016-11-10 00:20] VITALS: BP 162/98; PULSE 68; TEMP 36.5; O2SAT 95
[2016-11-10 04:16] LABS: HEMATOCRIT 43.1 % (42-52); MEAN CELL VOLUME 90.4 fL (80-100); MEAN CORPUSCULAR HEMOGLOBIN 30.4 pg (25-34); MEAN PLATELET VOLUME 9.3 fL (7.4-10.4); PLATELET COUNT 201 K/uL (130-400); RED BLOOD COUNT 4.77 M/uL (4.7-6.1); WHITE BLOOD COUNT 6.24 K/uL (4.8-10.8)
[2016-11-10 04:39] LABS: PARTIAL THROMBOPLASTIN RATIO 2.7; PROTHROMBIN TIME (PATIENT) 11.1 SECONDS (9.0-12.0)
[2016-11-10 04:43] LABS: MEAN CORPUSCULAR HGB CONC 33.6 g/dl (32-36)
[2016-11-10 05:14] LABS: BLOOD UREA NITROGEN 17 mg/dl (7-18); BUN/CREATININE RATIO 12.8 (10-20); CALCIUM 8.9 mg/dl (8.5-10.1); CARBON DIOXIDE 31 mmol/L (21-32); CHLORIDE 106 mmol/L (98-107); GLUCOSE 114 mg/dl (70-99); SODIUM 139 mmol/L (136-145)
[2016-11-10 07:37] VITALS: BP 125/80; PULSE 68; TEMP 36.4; O2SAT 93
[2016-11-10] MEDS: BACLOFEN 10 MG TAB PO SCH ×2 (08:00→20:40)
[2016-11-10] MEDS: LISINOPRIL 5 MG TAB PO SCH (08:46)
[2016-11-10] MEDS: ACETAMINOPHEN 325 MG TAB PO PRN (08:46)
[2016-11-10] MEDS: HEPARIN 25,000 UNIT/500ML D5W 500 ML IV PRN (11:17)
--- NOTE | 2016-11-10 15:08 | Progress Note ---
Subjective Date of Service: Nov 10, 2016. Subjective Pt evaluation today including: conversation w/ patient, physical exam, lab review, review of studies, review of inpatient medication list Saw/examined the patient in room 457 L shoulder pain persists around a 6/10 Has come cervical neck pain and decreased ROM Problem List Medical Problems: (1) Acute renal failure Status: Acute (2) Left shoulder pain Status: Acute (3) Left sided chest pain Status: Acute (4) Right leg DVT Status: Acute Review of Systems Respiratory: No shortness of breath Cardiac: No chest pain Musculoskeletal: + joint pain (L shoulder/neck) Medications Current Inpatient Medications Medications (Trade) Dose Ordered Sig/Denny Route Start Time Stop Time Status Last Admin Dose Admin Ioversol (Optiray 320) 100 ml UD PRN IV 11/08/16 15:15 11/12/16 15:14 Acetaminophen (Tylenol Tab) 650 mg Q4H PRN PO 11/08/16 18:00 12/08/16 17:59 11/10/16 08:46 650 MG Al Hydrox/Mg Hydrox/Simethicone (Maalox Max Susp) 15 ml Q4H PRN PO 11/08/16 18:00 12/08/16 17:59 Magnesium Hydroxide (Milk Of Magnesia Susp) 30 ml Q12H PRN PO 11/08/16 18:00 12/08/16 17:59 Ondansetron HCl (Zofran Inj) 4 mg Q6H PRN IV 11/08/16 18:00 12/08/16 17:59 Polyethylene (Miralax Powder Packet) 17 gm DAILY PRN PO 11/08/16 18:00 12/08/16 17:59 Furosemide (Lasix Tab) 40 mg BID PRN PO 11/08/16 18:00 12/08/16 17:59 Lisinopril (Zestril Tab) 5 mg QAM PO 11/09/16 09:00 12/09/16 08:59 11/10/16 08:46 5 MG Baclofen (Lioresal Tab) 10 mg BID PO 11/08/16 21:00 12/08/16 20:59 11/09/16 08:19 10 MG Heparin Sodium/ Dextrose 500 ml @ 37 mls/hr [id number] PRN IV 11/08/16 22:00 12/08/16 21:59 11/10/16 11:17 37 MLS/HR Warfarin Sodium (Coumadin Tab) 20 mg DAILY@16 PO 11/09/16 16:00 12/09/16 15:59 11/09/16 17:13 20 MG Ketorolac Tromethamine (Toradol Inj) 15 mg Q6H PRN IV. 11/09/16 13:15 11/14/16 13:14 Rizatriptan Benzoate (Maxalt Tab) 10 mg DAILY PRN PO 11/11/16 08:00 12/09/16 11:29 Objective Vital Signs Date Time Temp Pulse Resp B/P (MAP) Pulse Ox O2 Delivery O2 Flow Rate FiO2 11/10/16 08:00 Room Air 11/10/16 07:37 36.4 68 18 125/80 (95) 93 Room Air 11/10/16 00:20 36.5 68 18 162/98 (119) 95 Room Air 11/10/16 00:00 Room Air 11/09/16 16:00 Room Air 11/09/16 15:53 36.6 71 18 145/78 (100) 96 Room Air Physical Exam General Appearance: no apparent distress, + obese Respiratory/Chest: lungs clear, normal breath sounds, no respiratory distress, no accessory muscle use Cardiovascular: regular rate, rhythm, no edema, no murmur Abdomen: normal bowel sounds, non tender, soft Laboratory Results Last 24 Hours Test 11/10/16 04:06 11/10/16 05:18 White Blood Count 6.24 K/uL Red Blood Count 4.77 M/uL Hemoglobin 14.5 g/dL Hematocrit 43.1 % Mean Corpuscular Volume 90.4 fL Mean Corpuscular Hemoglobin 30.4 pg Mean Corpuscular Hemoglobin Concent 33.6 g/dl RDW Standard Deviation 43.2 fL RDW Coefficient of Variation 13.1 % Platelet Count 201 K/uL Mean Platelet Volume 9.3 fL Prothrombin Time 11.1 SECONDS Prothromb Time International Ratio 1.0 Activated Partial Thromboplast Time 69.9 SECONDS Partial Thromboplastin Ratio 2.7 Sodium Level 139 mmol/L Potassium Level mmol/L 3.9 mmol/L Chloride Level 106 mmol/L Carbon Dioxide Level 31 mmol/L Anion Gap 2.0 mmol/L Blood Urea Nitrogen 17 mg/dl Creatinine 1.30 mg/dl Est Creatinine Clear Calc Drug Dose 82.8 ml/min Estimated GFR () 65.0 Estimated GFR (Non- 56.1 BUN/Creatinine Ratio 12.8 Random Glucose 114 mg/dl Calcium Level 8.9 mg/dl Assessment and Plan This is a 66 year old obese male with a 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 of migraines - presented to the ER due to L sided shoulder and neck pain, associated with some shortness of breath. Acute R DVT 11/10 continue IV heparin Coumadin 20mg tonight recheck INR in AM 11/09 continue IV heparin for now spoke with Dr. Garcia, compliance may be an issue due to the dose of Coumadin will load the patient with 20mg of Coumadin for two days and check INR daily attempted to call Som Arizmendi [facility] - he is away today, and will return to the office in AM 11/10; will call him in the AM ([phone]) can transfer from tele to med/surg 11/08 Doppler: IMPRESSION: 1. There is chronic-appearing and nonocclusive deep venous thrombosis identified within the right popliteal vein. This is similar to the 05/29/2015 examination. 2. Age indeterminant thrombus is also seen in the right calf within the peroneal vein. INR is 1.0 patient has had issues with Coumadin in the past, takes up to 70mg of Coumadin daily has had INR of 4.0 and was told to decrease to 65mg daily - now INR is 1.0 plan is to start IV heparin will discuss with case management regarding Lovenox injections cannot use NOAC due to patient's weight L shoulder pain 11/10 check cervical spine radiograph continue baclofen, Toradol PRN, heat pack 11/09 continue PT L shoulder radiograph negative Toradol PRN baclofen K-pad 11/08 unsure of the cause of the L shoulder pain CT chest did not show anything new does have muscle spasms/swelling of the L lateral neck will start baclofen check shoulder radiograph PT for shoulder HTN BP stable, continue Lisinopril DVT ppx IV heparin FULL CODE
--- NOTE | 2016-11-10 15:41 | DIAGNOSTIC IMAGING REPORT ---
CERVICAL SPINE 5 VIEWS HISTORY: decreased, painful ROM, radiating neck pain COMPARISON: None. FINDINGS: The cervical spine is visualized from C1 through the superior endplate of T1. There is no fracture. No subluxation. Mild reversal of the normal lordotic curvature. Moderate disc space narrowing at C3-C4, C4-C5, and C6-C7 with small endplate osteophytes. There is congenital fusion of the C5-C6 vertebral bodies. Mild to moderate bilateral neural foraminal narrowing at C3-C4, C4-C5, and C6-C7. Prevertebral soft tissues and the atlantodens interval are intact. IMPRESSION: 1. No fracture or subluxation within the cervical spine. 2. Multilevel [id number]-[id number]-[id number] degenerative changes as described above. 3. 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 4. Mild reversal of the normal lordotic curvature. Electronically signed by: Francis Logan M.D. 11/10/2016 3:40 PM Dictated Date/Time: 11/10/2016 3:37 PM
[2016-11-10] MEDS: WARFARIN SOD 10 MG TAB PO SCH (15:54)
[2016-11-10 16:51] VITALS: BP 166/72; PULSE 72; TEMP 36.8; O2SAT 94
[2016-11-11] MEDS: HEPARIN 25,000 UNIT/500ML D5W 500 ML IV PRN ×3 (00:22→16:57)
[2016-11-11 00:45] VITALS: BP 133/70; PULSE 72; TEMP 36.6; O2SAT 96
[2016-11-11 05:49] LABS: PARTIAL THROMBOPLASTIN RATIO 3.4
[2016-11-11 07:23] VITALS: BP 124/75; PULSE 60; TEMP 36.5; O2SAT 95
[2016-11-11] MEDS: BACLOFEN 10 MG TAB PO SCH ×2 (07:54→20:00)
[2016-11-11] MEDS: LISINOPRIL 5 MG TAB PO SCH (07:54)
[2016-11-11] MEDS ORDERED: RIZATRIPTAN BENZOATE 10 MG TAB PO PRN (08:00)
[2016-11-11 08:30] LABS: INR 1.2 (0.9-1.1); PROTHROMBIN TIME (PATIENT) 13.1 SECONDS (9.0-12.0)
[2016-11-11 13:35] LABS: PARTIAL THROMBOPLASTIN RATIO 2.4
--- NOTE | 2016-11-11 13:54 | Progress Note ---
Subjective Date of Service: Nov 11, 2016. Subjective Pt evaluation today including: conversation w/ patient, physical exam, lab review, review of studies, review of inpatient medication list Saw/examined the patient in room 457 He's doing okay today; L shoulder pain persists No R LE pain, no shortness of breath or chest pain Problem List Medical Problems: (1) Acute renal failure Status: Acute (2) Right leg DVT Status: Acute Review of Systems Constitutional: No fever, No chills Respiratory: No shortness of breath Cardiac: No chest pain Abdomen: No pain, No nausea, No vomiting, No diarrhea Musculoskeletal: + joint pain (L shoulder) Medications Current Inpatient Medications Medications (Trade) Dose Ordered Sig/Denny Route Start Time Stop Time Status Last Admin Dose Admin Ioversol (Optiray 320) 100 ml UD PRN IV 11/08/16 15:15 11/12/16 15:14 Acetaminophen (Tylenol Tab) 650 mg Q4H PRN PO 11/08/16 18:00 12/08/16 17:59 11/10/16 08:46 650 MG Al Hydrox/Mg Hydrox/Simethicone (Maalox Max Susp) 15 ml Q4H PRN PO 11/08/16 18:00 12/08/16 17:59 Magnesium Hydroxide (Milk Of Magnesia Susp) 30 ml Q12H PRN PO 11/08/16 18:00 12/08/16 17:59 Ondansetron HCl (Zofran Inj) 4 mg Q6H PRN IV 11/08/16 18:00 12/08/16 17:59 Polyethylene (Miralax Powder Packet) 17 gm DAILY PRN PO 11/08/16 18:00 12/08/16 17:59 Furosemide (Lasix Tab) 40 mg BID PRN PO 11/08/16 18:00 12/08/16 17:59 Lisinopril (Zestril Tab) 5 mg QAM PO 11/09/16 09:00 12/09/16 08:59 11/11/16 07:54 5 MG Baclofen (Lioresal Tab) 10 mg BID PO 11/08/16 21:00 12/08/16 20:59 11/11/16 07:54 10 MG Heparin Sodium/ Dextrose 500 ml @ 33 mls/hr [id number] PRN IV 11/08/16 22:00 12/08/16 21:59 11/11/16 06:49 33 MLS/HR Ketorolac Tromethamine (Toradol Inj) 15 mg Q6H PRN IV. 11/09/16 13:15 11/14/16 13:14 Rizatriptan Benzoate (Maxalt Tab) 10 mg DAILY PRN PO 11/11/16 08:00 12/09/16 11:29 Warfarin Sodium (Coumadin Tab) 25 mg DAILY@16 PO 11/11/16 16:00 12/11/16 15:59 Objective Vital Signs Date Time Temp Pulse Resp B/P (MAP) Pulse Ox O2 Delivery O2 Flow Rate FiO2 11/11/16 08:00 Room Air 11/11/16 07:23 36.5 60 17 124/75 (91) 95 Room Air 11/11/16 00:45 36.6 72 18 133/70 (91) 96 Room Air 11/11/16 00:00 Room Air 11/10/16 19:19 Room Air 11/10/16 16:51 36.8 72 17 166/72 (103) 94 Room Air Physical Exam General Appearance: no apparent distress, + obese Respiratory/Chest: lungs clear, normal breath sounds, no respiratory distress, no accessory muscle use Cardiovascular: regular rate, rhythm, no edema, no murmur Extremities: + pertinent finding (decreased ROM of the L shoulder secondary to pain, tenderness at the AC joint area) Laboratory Results Last 24 Hours Test 11/11/16 04:59 11/11/16 07:58 11/11/16 12:52 Activated Partial Thromboplast Time 88.5 SECONDS Partial Thromboplastin Ratio 3.4 Prothrombin Time 13.1 SECONDS Prothromb Time International Ratio 1.2 Assessment and Plan This is a 66 year old obese male with a 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 of migraines - presented to the ER due to L sided shoulder and neck pain, associated with some shortness of breath. Acute R DVT 11/11 continue IV heparin Coumadin 25mg tonight INR is ~ 1.2 check INR in AM 11/10 continue IV heparin Coumadin 20mg tonight recheck INR in AM 11/09 continue IV heparin for now spoke with Dr. Garcia, compliance may be an issue due to the dose of Coumadin will load the patient with 20mg of Coumadin for two days and check INR daily attempted to call Som Arizmendi, [facility] - he is away today, and will return to the office in AM 11/10; will call him in the AM ([phone]) can transfer from tele to med/surg 11/08 Doppler: IMPRESSION: 1. There is chronic-appearing and nonocclusive deep venous thrombosis identified within the right popliteal vein. This is similar to the 05/29/2015 examination. 2. Age indeterminant thrombus is also seen in the right calf within the peroneal vein. INR is 1.0 patient has had issues with Coumadin in the past, takes up to 70mg of Coumadin daily has had INR of 4.0 and was told to decrease to 65mg daily - now INR is 1.0 plan is to start IV heparin will discuss with case management regarding Lovenox injections cannot use NOAC due to patient's weight L shoulder pain 11/11 baclofen, Toradol PRN C-spine no acute issues PT of the shoulder 11/10 check cervical spine radiograph continue baclofen, Toradol PRN, heat pack 11/09 continue PT L shoulder radiograph negative Toradol PRN baclofen K-pad 11/08 unsure of the cause of the L shoulder pain CT chest did not show anything new does have muscle spasms/swelling of the L lateral neck will start baclofen check shoulder radiograph PT for shoulder HTN BP stable, continue Lisinopril DVT ppx IV heparin FULL CODE
[2016-11-11 15:48] VITALS: BP 112/71; PULSE 78; TEMP 36.7; O2SAT 92
[2016-11-11] MEDS: WARFARIN PO SCH ×2 (15:49)
[2016-11-11 16:00] VITALS: O2SAT 94
[2016-11-11] MEDS ORDERED: WARFARIN SOD 10 MG TAB PO SCH (16:00)
[2016-11-12 00:14] VITALS: BP 135/80; PULSE 72; TEMP 36.4; O2SAT 95
[2016-11-12 05:06] LABS: HEMATOCRIT 42.3 % (42-52); MEAN CELL VOLUME 91.8 fL (80-100); MEAN CORPUSCULAR HEMOGLOBIN 30.8 pg (25-34); MEAN CORPUSCULAR HGB CONC 33.6 g/dl (32-36); MEAN PLATELET VOLUME 9.2 fL (7.4-10.4); PLATELET COUNT 186 K/uL (130-400); RED BLOOD COUNT 4.61 M/uL (4.7-6.1); WHITE BLOOD COUNT 6.33 K/uL (4.8-10.8)
[2016-11-12 05:24] LABS: BUN/CREATININE RATIO 15.6 (10-20); CALCIUM 8.9 mg/dl (8.5-10.1); CREATININE 1.3 mg/dl (0.60-1.40); INR 1.6 (0.9-1.1); PARTIAL THROMBOPLASTIN RATIO 2.5; POTASSIUM 4.4 mmol/L (3.5-5.1); PROTHROMBIN TIME (PATIENT) 17.5 SECONDS (9.0-12.0)
[2016-11-12] MEDS: LISINOPRIL 5 MG TAB PO SCH (07:47)
[2016-11-12] MEDS: BACLOFEN 10 MG TAB PO SCH ×2 (07:47→20:00)
[2016-11-12 07:51] VITALS: BP 124/79; PULSE 72; TEMP 36.6; O2SAT 94
[2016-11-12] MEDS: HEPARIN 25,000 UNIT/500ML D5W 500 ML IV PRN (08:38)
[2016-11-12] MEDS ORDERED: LOVENOX TEACHING KIT PRN (15:00)
--- NOTE | 2016-11-12 15:06 | Progress Note ---
Subjective Date of Service: Nov 12, 2016. Subjective Pt evaluation today including: conversation w/ patient, physical exam, lab review, review of studies, review of inpatient medication list Saw/examined the patient in room 457 He's doing well today No complaints; eager to get home L shoulder is doing okay R LE pain is improved Problem List Medical Problems: (1) Acute renal failure Status: Acute (2) Right leg DVT Status: Acute Review of Systems Constitutional: No fever, No chills Respiratory: No cough, No sputum, No shortness of breath Cardiac: No chest pain Heme: No abnormal bleeding/bruising Medications Current Inpatient Medications Medications (Trade) Dose Ordered Sig/Denny Route Start Time Stop Time Status Last Admin Dose Admin Ioversol (Optiray 320) 100 ml UD PRN IV 11/08/16 15:15 11/12/16 15:14 Acetaminophen (Tylenol Tab) 650 mg Q4H PRN PO 11/08/16 18:00 12/08/16 17:59 11/10/16 08:46 650 MG Al Hydrox/Mg Hydrox/Simethicone (Maalox Max Susp) 15 ml Q4H PRN PO 11/08/16 18:00 12/08/16 17:59 Magnesium Hydroxide (Milk Of Magnesia Susp) 30 ml Q12H PRN PO 11/08/16 18:00 12/08/16 17:59 Ondansetron HCl (Zofran Inj) 4 mg Q6H PRN IV 11/08/16 18:00 12/08/16 17:59 Polyethylene (Miralax Powder Packet) 17 gm DAILY PRN PO 11/08/16 18:00 12/08/16 17:59 Furosemide (Lasix Tab) 40 mg BID PRN PO 11/08/16 18:00 12/08/16 17:59 Lisinopril (Zestril Tab) 5 mg QAM PO 11/09/16 09:00 12/09/16 08:59 11/12/16 07:47 5 MG Baclofen (Lioresal Tab) 10 mg BID PO 11/08/16 21:00 12/08/16 20:59 11/11/16 07:54 10 MG Heparin Sodium/ Dextrose 500 ml @ 33 mls/hr [id number] PRN IV 11/08/16 22:00 12/08/16 21:59 11/12/16 08:38 33 MLS/HR Ketorolac Tromethamine (Toradol Inj) 15 mg Q6H PRN IV. 11/09/16 13:15 11/14/16 13:14 Rizatriptan Benzoate (Maxalt Tab) 10 mg DAILY PRN PO 11/11/16 08:00 12/09/16 11:29 Warfarin Sodium (Coumadin Tab) 25 mg DAILY@16 PO 11/11/16 16:00 12/11/16 15:59 11/11/16 15:49 25 MG Objective Vital Signs Date Time Temp Pulse Resp B/P (MAP) Pulse Ox O2 Delivery O2 Flow Rate FiO2 11/12/16 08:00 Room Air 11/12/16 07:51 36.6 72 20 124/79 (94) 94 Room Air 11/12/16 00:14 36.4 72 20 135/80 (98) 95 Room Air 11/12/16 00:00 Room Air 11/11/16 16:00 94 Room Air 11/11/16 15:48 36.7 78 18 112/71 (85) 92 Room Air Physical Exam General Appearance: no apparent distress Respiratory/Chest: chest non-tender, lungs clear, normal breath sounds, no respiratory distress, no accessory muscle use Cardiovascular: regular rate, rhythm, no edema, no murmur Laboratory Results Last 24 Hours Test 11/12/16 04:56 White Blood Count 6.33 K/uL Red Blood Count 4.61 M/uL Hemoglobin 14.2 g/dL Hematocrit 42.3 % Mean Corpuscular Volume 91.8 fL Mean Corpuscular Hemoglobin 30.8 pg Mean Corpuscular Hemoglobin Concent 33.6 g/dl RDW Standard Deviation 44.7 fL RDW Coefficient of Variation 13.5 % Platelet Count 186 K/uL Mean Platelet Volume 9.2 fL Prothrombin Time 17.5 SECONDS Prothromb Time International Ratio 1.6 Activated Partial Thromboplast Time 65.3 SECONDS Partial Thromboplastin Ratio 2.5 Sodium Level 138 mmol/L Potassium Level 4.4 mmol/L Chloride Level 107 mmol/L Carbon Dioxide Level 29 mmol/L Anion Gap 2.0 mmol/L Blood Urea Nitrogen 20 mg/dl Creatinine 1.30 mg/dl Est Creatinine Clear Calc Drug Dose 82.5 ml/min Estimated GFR () 65.0 Estimated GFR (Non- 56.1 BUN/Creatinine Ratio 15.6 Random Glucose 129 mg/dl Calcium Level 8.9 mg/dl Assessment and Plan This is a 66 year old obese male with a 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 of migraines - presented to the ER due to L sided shoulder and neck pain, associated with some shortness of breath. Acute R DVT 11/12 plan to keep patient overnight d/c IV heparin start Lovenox 1mg/kg q12 dosing Lovenox teaching kit plan for d/c tomorrow with Lovenox and Coumadin bridge spoke with Som Arizmendi who is the pharmacist at [facility], who manages his Coumadin - plan is to d/c with Coumadin 25mg daily with Lovenox, outpatient f/u on November 16 for an INR check 11/11 continue IV heparin Coumadin 25mg tonight INR is ~ 1.2 check INR in AM 11/10 continue IV heparin Coumadin 20mg tonight recheck INR in AM 11/09 continue IV heparin for now spoke with Dr. Garcia, compliance may be an issue due to the dose of Coumadin will load the patient with 20mg of Coumadin for two days and check INR daily attempted to call Som Arizmendi, [facility] - he is away today, and will return to the office in AM 11/10; will call him in the AM ([phone]) can transfer from tele to med/surg 11/08 Doppler: IMPRESSION: 1. There is chronic-appearing and nonocclusive deep venous thrombosis identified within the right popliteal vein. This is similar to the 05/29/2015 examination. 2. Age indeterminant thrombus is also seen in the right calf within the peroneal vein. INR is 1.0 patient has had issues with Coumadin in the past, takes up to 70mg of Coumadin daily has had INR of 4.0 and was told to decrease to 65mg daily - now INR is 1.0 plan is to start IV heparin will discuss with case management regarding Lovenox injections cannot use NOAC due to patient's weight L shoulder pain 11/11 baclofen, Toradol PRN C-spine no acute issues PT of the shoulder 11/10 check cervical spine radiograph continue baclofen, Toradol PRN, heat pack 11/09 continue PT L shoulder radiograph negative Toradol PRN baclofen K-pad 11/08 unsure of the cause of the L shoulder pain CT chest did not show anything new does have muscle spasms/swelling of the L lateral neck will start baclofen check shoulder radiograph PT for shoulder HTN BP stable, continue Lisinopril DVT ppx IV heparin FULL CODE
[2016-11-12 16:00] VITALS: O2SAT 94
[2016-11-12] MEDS: ENOXAPARIN 150 MG/1ML SYR SQ SCH (16:10)
[2016-11-12] MEDS: WARFARIN PO SCH ×2 (16:13)
[2016-11-12 16:24] VITALS: BP 125/78; PULSE 68; TEMP 36.3; O2SAT 95
[2016-11-13 00:19] VITALS: BP 129/81; PULSE 69; TEMP 36.6; O2SAT 96
[2016-11-13] MEDS: ENOXAPARIN 150 MG/1ML SYR SQ SCH ×2 (04:14→15:49)
[2016-11-13 05:30] LABS: INR 2.7 (0.9-1.1); PARTIAL THROMBOPLASTIN RATIO 1.8; PROTHROMBIN TIME (PATIENT) 29.6 SECONDS (9.0-12.0)
[2016-11-13 07:46] VITALS: BP 116/63; PULSE 66; TEMP 36.6; O2SAT 95
[2016-11-13] MEDS: BACLOFEN 10 MG TAB PO SCH (08:00)
[2016-11-13] MEDS: LISINOPRIL 5 MG TAB PO SCH (08:34)
[2016-11-13] MEDS: ACETAMINOPHEN 325 MG TAB PO PRN (13:28)
--- NOTE | 2016-11-13 15:16 | Progress Note ---
Subjective Date of Service: Nov 13, 2016. Subjective Pt evaluation today including: conversation w/ patient, physical exam, lab review, review of studies, review of inpatient medication list Saw/examined the patient in room 457 He is doing well, no problems/issues to note today no bleeding/bruising, pain subsided, eager to go home Problem List Medical Problems: (1) Acute renal failure Status: Acute (2) Right leg DVT Status: Acute Review of Systems Constitutional: No fever, No chills Respiratory: No shortness of breath Cardiac: No chest pain Abdomen: No pain, No nausea, No vomiting, No diarrhea Heme: No abnormal bleeding/bruising Medications Current Inpatient Medications Medications (Trade) Dose Ordered Sig/Denny Route Start Time Stop Time Status Last Admin Dose Admin Acetaminophen (Tylenol Tab) 650 mg Q4H PRN PO 11/08/16 18:00 12/08/16 17:59 11/13/16 13:28 650 MG Al Hydrox/Mg Hydrox/Simethicone (Maalox Max Susp) 15 ml Q4H PRN PO 11/08/16 18:00 12/08/16 17:59 Magnesium Hydroxide (Milk Of Magnesia Susp) 30 ml Q12H PRN PO 11/08/16 18:00 12/08/16 17:59 Ondansetron HCl (Zofran Inj) 4 mg Q6H PRN IV 11/08/16 18:00 12/08/16 17:59 Polyethylene (Miralax Powder Packet) 17 gm DAILY PRN PO 11/08/16 18:00 12/08/16 17:59 Furosemide (Lasix Tab) 40 mg BID PRN PO 11/08/16 18:00 12/08/16 17:59 Lisinopril (Zestril Tab) 5 mg QAM PO 11/09/16 09:00 12/09/16 08:59 11/13/16 08:34 5 MG Baclofen (Lioresal Tab) 10 mg BID PO 11/08/16 21:00 12/08/16 20:59 11/11/16 07:54 10 MG Ketorolac Tromethamine (Toradol Inj) 15 mg Q6H PRN IV. 11/09/16 13:15 11/14/16 13:14 Rizatriptan Benzoate (Maxalt Tab) 10 mg DAILY PRN PO 11/11/16 08:00 12/09/16 11:29 Warfarin Sodium (Coumadin Tab) 25 mg DAILY@16 PO 11/11/16 16:00 12/11/16 15:59 11/12/16 16:13 25 MG Enoxaparin Sodium (Lovenox Inj) 141 mg Q12@0400,1600 SQ 11/12/16 16:00 12/12/16 15:59 11/13/16 04:14 141 MG Miscellaneous (Lovenox Teaching Kit) 1 ea PRN PRN N/A 11/12/16 15:00 12/12/16 14:59 Objective Vital Signs Date Time Temp Pulse Resp B/P (MAP) Pulse Ox O2 Delivery O2 Flow Rate FiO2 11/13/16 14:33 36.6 66 20 95 Room Air 11/13/16 08:00 Room Air 11/13/16 07:46 36.6 66 20 116/63 (80) 95 Room Air 11/13/16 00:19 36.6 69 20 129/81 (97) 96 Room Air 11/13/16 00:00 Room Air 11/12/16 16:24 36.3 68 20 125/78 (94) 95 Room Air 11/12/16 16:00 94 Room Air Physical Exam General Appearance: no apparent distress, + obese Cardiovascular: regular rate, rhythm, no edema, no murmur Abdomen: normal bowel sounds, non tender, soft Laboratory Results Last 24 Hours Test 11/13/16 04:58 Prothrombin Time 29.6 SECONDS Prothromb Time International Ratio 2.7 Activated Partial Thromboplast Time 46.5 SECONDS Partial Thromboplastin Ratio 1.8 Assessment and Plan This is a 66 year old obese male with a 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 of migraines - presented to the ER due to L sided shoulder and neck pain, associated with some shortness of breath. Acute R DVT 11/13 INR is now up to 2.7 with the following doses: 20mg, 20mg, 25mg and 25mg will decrease to 20mg compliance may be an issue as he was taking up to 65-70mg as outpatient which does not correlate with what he is taking here will also d/c with Lovenox injections to overlap with Coumadin close follow-up with Som Arizmendi, pharmacist at [facility] 11/12 plan to keep patient overnight d/c IV heparin start Lovenox 1mg/kg q12 dosing Lovenox teaching kit plan for d/c tomorrow with Lovenox and Coumadin bridge spoke with Som Arizmendi who is the pharmacist at [facility], who manages his Coumadin - plan is to d/c with Coumadin 25mg daily with Lovenox, outpatient f/u on November 16 for an INR check 11/11 continue IV heparin Coumadin 25mg tonight INR is ~ 1.2 check INR in AM 11/10 continue IV heparin Coumadin 20mg tonight recheck INR in AM 11/09 continue IV heparin for now spoke with Dr. Garcia, compliance may be an issue due to the dose of Coumadin will load the patient with 20mg of Coumadin for two days and check INR daily attempted to call Som Arizmendi, [facility] - he is away today, and will return to the office in AM 11/10; will call him in the AM ([phone]) can transfer from tele to med/surg 11/08 Doppler: IMPRESSION: 1. There is chronic-appearing and nonocclusive deep venous thrombosis identified within the right popliteal vein. This is similar to the 05/29/2015 examination. 2. Age indeterminant thrombus is also seen in the right calf within the peroneal vein. INR is 1.0 patient has had issues with Coumadin in the past, takes up to 70mg of Coumadin daily has had INR of 4.0 and was told to decrease to 65mg daily - now INR is 1.0 plan is to start IV heparin will discuss with case management regarding Lovenox injections cannot use NOAC due to patient's weight L shoulder pain 11/11 baclofen, Toradol PRN C-spine no acute issues PT of the shoulder 11/10 check cervical spine radiograph continue baclofen, Toradol PRN, heat pack 11/09 continue PT L shoulder radiograph negative Toradol PRN baclofen K-pad 11/08 unsure of the cause of the L shoulder pain CT chest did not show anything new does have muscle spasms/swelling of the L lateral neck will start baclofen check shoulder radiograph PT for shoulder HTN BP stable, continue Lisinopril DVT ppx IV heparin FULL CODE
[2016-11-13] MEDS ORDERED: WARF10TA PO (15:17)
[2016-11-13] MEDS ORDERED: LVNIS150 SQ (15:17)
--- NOTE | 2016-11-13 15:25 | Discharge Instructions ---
Discharge Instructions Date of Service Nov 13, 2016. Admission Reason for Admission: Dvt, Homocysteinemia Discharge Discharge Diagnosis / Problem: acute right lower extremity dvt Discharge Goals Goal(s): Decrease discomfort, Improve function, Diagnostic testing, Therapeutic intervention Activity Recommendations Activity Limitations: resume your previous activity . Instructions / Follow-Up Instructions / Follow-Up Please follow-up with Dr. Monsalve on November 18 at 12:45PM Please follow-up with the INR clinic on November 16 at 5:15PM You will be discharged with 20mg of Coumadin daily You will be discharged on Lovenox twice a day Current Hospital Diet Patient's current hospital diet: Regular Diet Discharge Diet Recommended Diet: Regular Diet Pending Studies Studies pending at discharge: no Medical Emergencies . Who to Call and When: Medical Emergencies: If at any time you feel your situation is an emergency, please call 911 immediately. . Non-Emergent Contact Non-Emergency issues call your: Primary Care Provider . . "Provider Documentation" section prepared by William Gregg. . VTE Core Measure Inpt VTE Proph given/why not?: Warfarin (Coumadin), Other Anticoagulation (IV heparin and then Lovenox)
--- NOTE | 2016-11-13 15:33 | Discharge Summary ---
Discharge Summary Date of Service Nov 13, 2016. Discharge Summary Admission Date: Nov 08, 2016 at 18:11 Discharge Date: Nov 13, 2016 Discharge Disposition: Home Principal Diagnosis: Acute R popliteal DVT Medication Reconciliation New Medications: Warfarin Sodium (Coumadin) 10 Mg Tab 20 MG PO DAILY for 10 Days, #20 TAB Enoxaparin (Lovenox) 150 Mg/1 Ml Inj 141 MG SQ Q12 for 7 Days, #13 ML Continued Medications: Albuterol Hfa (Ventolin Hfa) 200 Puffs/43317 Mcg Aers 2 PUFFS INH Q6H PRN for SOB/Wheezing, #18 Furosemide (Furosemide) 40 Mg Tab 1 TAB PO BID PRN for FLUID ACCUMULATION, #60 Lisinopril (Lisinopril) 5 Mg Tab 5 MG PO QAM, #30 TAB Rizatriptan Benzoate (Maxalt) 10 Mg Tab 10 MG PO Q2H PRN for Migraine, #6 Discontinued Medications: Warfarin Sodium (Warfarin Sodium) 10 Mg Tab 65 MG PO QPM, #210 Admission Information HPI (per Admitting provider): This is a 66 year old obese male with a 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 of migraines - presented to the ER due to L sided shoulder and neck pain, associated with some shortness of breath. States that the pain began three days ago, does not recall doing anything unusual or heavy lifting. States that he became worried today when his R leg became swollen and hard - he described it as the same type of pain when he had a clot. Came in to the ER for further eval. Had Chest CTA performed to r/ o PE, which was ruled out. Bilateral Doppler suggest an age indeterminate thrombus in the R calf and an old, chronic thrombus in the left. States that he' s had problems with Coumadin, and is taking a Coumadin dose of 70mg. Physical Exam (per Admitting): General Appearance: no apparent distress, + obese Head: normocephalic, atraumatic Eyes: normal inspection ENT: hearing grossly normal Neck: supple Respiratory/Chest: chest non-tender, lungs clear, normal breath sounds, no respiratory distress, no accessory muscle use Cardiovascular: regular rate, rhythm, no murmur Abdomen/GI: normal bowel sounds, non tender, soft Back: no muscle spasm Extremities/Musculoskelatal: + calf tenderness, + swelling (swelling of the L lateral neck, pain ROM of the L upper extremity), + pertinent finding (R LE hard and swollen calf) Hospital Course This is a 66 year old obese male with a 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 of migraines - presented to the ER due to L sided shoulder and neck pain, associated with some shortness of breath. Acute R DVT 11/13 INR is now up to 2.7 with the following doses: 20mg, 20mg, 25mg and 25mg will decrease to 20mg compliance may be an issue as he was taking up to 65-70mg as outpatient which does not correlate with what he is taking here will also d/c with Lovenox injections to overlap with Coumadin close follow-up with Som Arizmendi, pharmacist at [facility] 11/12 plan to keep patient overnight d/c IV heparin start Lovenox 1mg/kg q12 dosing Lovenox teaching kit plan for d/c tomorrow with Lovenox and Coumadin bridge spoke with Som Arizmendi who is the pharmacist at [facility], who manages his Coumadin - plan is to d/c with Coumadin 25mg daily with Lovenox, outpatient f/u on November 16 for an INR check 11/11 continue IV heparin Coumadin 25mg tonight INR is ~ 1.2 check INR in AM 11/10 continue IV heparin Coumadin 20mg tonight recheck INR in AM 11/09 continue IV heparin for now spoke with Dr. Garcia, compliance may be an issue due to the dose of Coumadin will load the patient with 20mg of Coumadin for two days and check INR daily attempted to call Som Arizmendi, [facility] - he is away today, and will return to the office in AM 11/10; will call him in the AM ([phone]) can transfer from tele to med/surg 11/08 Doppler: IMPRESSION: 1. There is chronic-appearing and nonocclusive deep venous thrombosis identified within the right popliteal vein. This is similar to the 05/29/2015 examination. 2. Age indeterminant thrombus is also seen in the right calf within the peroneal vein. INR is 1.0 patient has had issues with Coumadin in the past, takes up to 70mg of Coumadin daily has had INR of 4.0 and was told to decrease to 65mg daily - now INR is 1.0 plan is to start IV heparin will discuss with case management regarding Lovenox injections cannot use NOAC due to patient's weight L shoulder pain 11/11 baclofen, Toradol PRN C-spine no acute issues PT of the shoulder 11/10 check cervical spine radiograph continue baclofen, Toradol PRN, heat pack 11/09 continue PT L shoulder radiograph negative Toradol PRN baclofen K-pad 11/08 unsure of the cause of the L shoulder pain CT chest did not show anything new does have muscle spasms/swelling of the L lateral neck will start baclofen check shoulder radiograph PT for shoulder HTN BP stable, continue Lisinopril DVT ppx IV heparin FULL CODE Total time spent on discharge = 40 minutes This includes examination of the patient, discharge planning, medication reconciliation, and communication with other providers. Discharge Instructions Please follow-up with Dr. Monsalve on November 18 at 12:45PM Please follow-up with the INR clinic on November 16 at 5:15PM You will be discharged with 20mg of Coumadin daily You will be discharged on Lovenox twice a day
[2016-11-13] MEDS: WARFARIN PO SCH ×2 (15:48)
[2016-11-13 15:54] VITALS: BP 139/84; PULSE 95; TEMP 36.2; O2SAT 96
== END 2016-11-13 16:00 | disposition home or self-care (01) | DRG 300 ==
LOC: C.EDB 12:46 → C.2T 18:11 → ENRESERV 18:20 → C.MS4W 11-09 14:28
PROVIDERS: ADMIT Family Medicine; ATTEND Family Medicine
DX: I82.431 Acute embolism and thrombosis of right popliteal vein (principal); E72.11 Homocystinuria; M25.512 Pain in left shoulder; I10 Essential (primary) hypertension; G43.909 Migraine, unspecified, not intractable, without status migrainosus; E66.9 Obesity, unspecified; Z51.81 Encounter for therapeutic drug level monitoring; Z79.899 Other long term (current) drug therapy; Z79.01 Long term (current) use of anticoagulants; Z86.718 Personal history of other venous thrombosis and embolism; Z68.37 Body mass index [BMI] 37.0-37.9, adult; Z87.891 Personal history of nicotine dependence; Z82.49 Family history of ischemic heart disease and other diseases of the circulatory system

== ENCOUNTER 2017-04-02 17:04 | Inpatient (IN) | payer OTHER ==
[~2017-04-02] VITALS: Ht 193 cm; Wt 132.5 kg
[~2017-04-02 17:04] MED LIST changes: -CMD10 PO; -CPR250 PO; -CRG125 PO; -FLM4 PO; -LCTXP PO; +LSX40 PO; +LVNIS150 SQ; -Labs; -MTR500 PO; -TRIA0.1C20 TOP; +VNTHFA/IN INH
[2017-04-02] MEDS ORDERED: BENZ100C84 PO (18:05)
[2017-04-02] MEDS ORDERED: WARF10TA4 PO (18:05)
[2017-04-02] MEDS ORDERED: ASPIRIN 81 MG CHEW PO STA (18:08)
[2017-04-02 18:59] LABS: BASO % 0.3 %; BASO ABS # 0.02 K/uL (0-0.2); EOS % 0.7 %; EOS ABS # 0.05 K/uL (0-0.5); HEMATOCRIT 44.5 % (42-52); HEMOGLOBIN 15.5 g/dL (14.0-18.0); IG# 0.01 K/uL (0.00-0.02); LYMPH % 29.9 %; LYMPH ABS # 2.26 K/uL (1.2-3.4); MEAN CELL VOLUME 90.4 fL (80-100); MEAN CORPUSCULAR HEMOGLOBIN 31.5 pg (25-34); MEAN CORPUSCULAR HGB CONC 34.8 g/dl (32-36); MEAN PLATELET VOLUME 9.6 fL (7.4-10.4); MONO % 8.5 %; MONO ABS # 0.64 K/uL (0.11-0.59); NEUT % 60.5 %; NEUT ABS # 4.58 K/uL (1.4-6.5); PLATELET COUNT 219 K/uL (130-400); RED CELL DISTRIBUTION WIDTH CV 13.5 % (11.5-14.5); RED CELL DISTRIBUTION WIDTH SD 44.3 fL (36.4-46.3); WHITE BLOOD COUNT 7.56 K/uL (4.8-10.8)
[2017-04-02 19:10] LABS: PTT PATIENT 27.8 SECONDS (21.0-31.0)
--- NOTE | 2017-04-02 19:16 | DIAGNOSTIC IMAGING REPORT ---
CHEST ONE VIEW PORTABLE CLINICAL HISTORY: CHEST PAIN dyspnea COMPARISON STUDY: 11/08/2016 FINDINGS: The bones soft tissues and hemidiaphragms are normal. The cardiomediastinal silhouette is normal. The lungs are clear. The pulmonary vasculature is normal. IMPRESSION: Negative chest. The above report was generated using voice recognition software. It may contain grammatical, syntax or spelling errors. Electronically signed by: Alexy Frank M.D. 04/02/2017 7:14 PM Dictated Date/Time: 04/02/2017 7:14 PM
[2017-04-02] MEDS ORDERED: OPTIRAY 320 IV PRN (19:30)
[2017-04-02 19:35] LABS: ALBUMIN 4.1 gm/dl (3.4-5.0); ALT/SGPT 46 U/L (12-78); AST/SGOT 36 U/L (15-37); BLOOD UREA NITROGEN 26 mg/dl (7-18); CALCIUM 9.4 mg/dl (8.5-10.1); CARBON DIOXIDE 25 mmol/L (21-32); CREATININE 1.34 mg/dl (0.60-1.40); GLUCOSE 98 mg/dl (70-99); LIPASE 160 U/L (73-393); POTASSIUM 4.2 mmol/L (3.5-5.1); SODIUM 135 mmol/L (136-145)
[2017-04-02 19:40] LABS: ALKALINE PHOSPHATASE 82 U/L (45-117); TOTAL PROTEIN 8.1 gm/dl (6.4-8.2)
[2017-04-02] MEDS ORDERED: LORAZEPAM 2 MG/ML 1 ML VIAL IV STA (20:49)
--- NOTE | 2017-04-02 21:49 | DIAGNOSTIC IMAGING REPORT ---
BILATERAL LOWER EXTREMITY VENOUS DOPPLER HISTORY: Shortness of breath. r/o DVT COMPARISON STUDY: Right leg venous Doppler 11/08/2016. FINDINGS: No significant change in the chronic thrombus seen within the right popliteal vein. There is also thrombus identified within one of 2 left posterior tibial veins. This was not present on the prior studies. No additional sites of trauma is identified within the bilateral lower extremities. IMPRESSION: 1. Thrombus identified within one of 2 left posterior tibial veins which is new from the prior studies. Therefore, this favors acute thrombus. 2. 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 Electronically signed by: Francis Logan M.D. 04/02/2017 9:48 PM Dictated Date/Time: 04/02/2017 9:39 PM
--- NOTE | 2017-04-02 22:14 | DIAGNOSTIC IMAGING REPORT ---
CHEST CTA for PULMONARY ARTERIES CT DOSE: 713.44 mGy.cm HISTORY: Short of breath. TECHNIQUE: Multiaxial CT images of the chest were performed following the intravenous administration of contrast to evaluate the pulmonary arteries. Maximal intensity projection images were also obtained. A dose lowering technique was utilized adhering to the principles of ALARA. COMPARISON STUDY: Chest CTA 11/08/2016. FINDINGS: Normal caliber thoracic aorta with no evidence for dissection. Hepatic steatosis. The visualized spleen and adrenal glands are unremarkable. No mediastinal or hilar lymphadenopathy. The heart is normal in size. No pleural or pericardial effusions. Respiratory motion artifact results in suboptimal evaluation of some of the segmental pulmonary arteries. However, no definite filling defects identified within the visualized pulmonary arteries to suggest pulmonary embolus. No suspicious lytic or blastic osseous lesions. No pneumothorax. The central airways are patent. Bibasilar linear densities likely represent subsegmental atelectasis. Otherwise, no focal lung consolidations to suggest pneumonia. IMPRESSION: Mild respiratory motion artifact. However, no definite evidence for pulmonary embolus. Electronically signed by: Francis Logan M.D. 04/02/2017 10:12 PM Dictated Date/Time: 04/02/2017 10:06 PM
[2017-04-02] MEDS ORDERED: ENOXAPARIN 1 MG/KG SQ SCH (23:30)
--- NOTE | 2017-04-02 23:45 | EMERGENCY ROOM VISIT NOTE ---
History Report prepared by Tiburcio: Chapincito Patel Under the Supervision of: Dr. Edison Chatterjee M.D. First contact with patient: 18:01 Chief Complaint: SHORTNESS OF BREATH Stated Complaint: SHORTNESS OF BREAT Nursing Triage Summary: Patient with SOB and cough and chest pain. States he has DVT in right leg , on coumadin. History of Present Illness The patient is a 66 year old male who presents to the Emergency Room with complaints of persistent shortness of breath beginning five days ago. He complains of a dry cough and chest pain additionally. Patient reports his pain occurs more with inspiration and coughing. Pain is sharp. He is on Coumadin for DVT of his right knee. His most recent INR was 1.8 last week, but he does not believe he had his dosage increased. The patient states that he has had a problem keeping his INR therapeutic since being started on Coumadin. He notes that he currently has some "burning" pain in his right knee around the area of his previous DVT. The patient also complains of generalized abdominal pain. He has a history of umbilical hernia and has had a hernia repair of the area. He states that his abdominal pain began four days ago. Source of History: patient Onset: Five days ago Quality: other (shortness of breath) Timing: other (persistent) Associated Symptoms: + cough (dry), + chest pain (with coughing) Review of Systems See HPI for pertinent positives and negatives. A total of ten systems were reviewed and were otherwise negative. Past Medical & Surgical Medical Problems: (1) Arthritis (2) Chronic prostatitis (3) CKD (chronic kidney disease), stage III (4) DVT (deep venous thrombosis) (5) Dyslipidemia (6) Fatty liver (7) GERD (gastroesophageal reflux disease) (8) History of Clostridium difficile colitis (9) History of Coumadin therapy (10) Hyperhomocysteinemia (11) Hypertension (12) IBS (irritable bowel syndrome) (13) Migraine (14) Obesity (BMI 30-39.9) (15) Shortness of breath Surgical Problems: (1) H/O arthroscopic knee surgery (2) H/O hernia repair (3) History of carpal tunnel surgery (4) S/P cholecystectomy Family History Hypertension Social History Smoking Status: Never Smoker Alcohol Use: none Drug Use: none Marital Status: Housing Status: lives with significant other Occupation Status: retired Current/Historical Medications Scheduled Lisinopril (Lisinopril), 5 MG PO QAM Warfarin Sod (Jantoven), 20 MG PO QPM Scheduled PRN Benzonatate (Tessalon Perles), 100 MG PO TID PRN for Cough Furosemide (Furosemide), 40 MG PO BID PRN for FLUID ACCUMULATION Rizatriptan Benzoate (Maxalt), 10 MG PO Q2H PRN for Migraine Allergies Coded Allergies: Morphine (Verified Allergy, Unknown, anxiety, 04/02/17) Physical Exam Vital Signs Date Time Temp Pulse Resp B/P (MAP) Pulse Ox O2 Delivery O2 Flow Rate FiO2 04/03/17 00:08 79 18 127/76 94 Room Air 04/02/17 22:56 72 04/02/17 22:30 81 28 110/76 94 Room Air 04/02/17 22:00 85 21 114/85 93 Room Air 04/02/17 21:39 87 20 134/81 96 Room Air 04/02/17 18:41 84 04/02/17 18:33 96 Room Air 04/02/17 18:29 89 20 143/83 95 Room Air 04/02/17 18:29 92 Room Air 04/02/17 17:11 Room Air 04/02/17 17:09 36.4 93 16 137/86 94 Room Air Physical Exam GENERAL: Awake, alert, well-appearing, in no distress HENT: Normocephalic, Atraumatic. no hemotympanum bilaterally, byers sign negative bilaterally. Oropharynx unremarkable. EYES: Normal conjunctiva. Sclera non-icteric. PERRL bilaterally. EOMI bilaterally. NECK: Supple. No nuchal rigidity. FROM. No JVD. No C-spine tenderness. RESPIRATORY: Clear to auscultation. No wheezes rales or rhonchi bilaterally. CARDIAC: Regular rate, normal rhythm. Extremities warm and well perfused. Equal palpable radial pulses to the bilateral upper extremities. Equal palpable DP pulses to the bilateral lower extremities. ABDOMEN: Soft, non-distended. No tenderness to palpation. No rebound or guarding. No masses. Rovsig Negative. RECTAL: Deferred. MUSCULOSKELETAL: Chest examination reveals no tenderness. The back is symmetrical on inspection without obvious abnormality. There is no CVA tenderness to palpation. No joint edema. LOWER EXTREMITIES: Calves are equal size bilaterally and non-tender. Mild swelling of the RLE. No discoloration. NEURO: Normal sensorium. No sensory or motor deficits noted. No pronator drift. No facial droop. No dysarthria. SKIN: No rash or jaundice noted. Medical Decision & Procedures ER Provider Diagnostic Interpretation: Radiology results as stated below per my review and radiologist interpretation: CHEST ONE VIEW PORTABLE FINDINGS: The bones soft tissues and hemidiaphragms are normal. The cardiomediastinal silhouette is normal. The lungs are clear. The pulmonary vasculature is normal. IMPRESSION: Negative chest. The above report was generated using voice recognition software. It may contain grammatical, syntax or spelling errors. Electronically signed by: Alexy Frank M.D. 04/02/2017 7:14 PM BILATERAL LOWER EXTREMITY VENOUS DOPPLER FINDINGS: No significant change in the chronic thrombus seen within the right popliteal vein. There is also thrombus identified within one of 2 left posterior tibial veins. This was not present on the prior studies. No additional sites of trauma is identified within the bilateral lower extremities. IMPRESSION: 1. Thrombus identified within one of 2 left posterior tibial veins which is new from the prior studies. Therefore, this favors acute thrombus. 2. 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 Electronically signed by: Francis Logan M.D. 04/02/2017 9:48 PM CHEST CTA for PULMONARY ARTERIES FINDINGS: Normal caliber thoracic aorta with no evidence for dissection. Hepatic steatosis. The visualized spleen and adrenal glands are unremarkable. No mediastinal or hilar lymphadenopathy. The heart is normal in size. No pleural or pericardial effusions. Respiratory motion artifact results in suboptimal evaluation of some of the segmental pulmonary arteries. However, no definite filling defects identified within the visualized pulmonary arteries to suggest pulmonary embolus. No suspicious lytic or blastic osseous lesions. No pneumothorax. The central airways are patent. Bibasilar linear densities likely represent subsegmental atelectasis. Otherwise, no focal lung consolidations to suggest pneumonia. IMPRESSION: Mild respiratory motion artifact. However, no definite evidence for pulmonary embolus. Electronically signed by: Francis Logan M.D. 04/02/2017 10:12 PM Laboratory Results 04/02/17 18:30 Red Blood Count 4.92, Mean Corpuscular Volume 90.4, Mean Corpuscular Hemoglobin 31.5, Mean Corpuscular Hemoglobin Concent 34.8, Mean Platelet Volume 9.6, Neutrophils (%) (Auto) 60.5, Lymphocytes (%) (Auto) 29.9, Monocytes (%) (Auto) 8.5, Eosinophils (%) (Auto) 0.7, Basophils (%) (Auto) 0.3, Neutrophils # (Auto) 4.58, Lymphocytes # (Auto) 2.26, Monocytes # (Auto) 0.64, Eosinophils # (Auto) 0.05, Basophils # (Auto) 0.02 04/02/17 18:30 Test 04/02/17 18:30 04/02/17 22:28 White Blood Count 7.56 K/uL (4.8-10.8) Red Blood Count 4.92 M/uL (4.7-6.1) Hemoglobin 15.5 g/dL (14.0-18.0) Hematocrit 44.5 % (42-52) Mean Corpuscular Volume 90.4 fL (80-100) Mean Corpuscular Hemoglobin 31.5 pg (25-34) Mean Corpuscular Hemoglobin Concent 34.8 g/dl (32-36) Platelet Count 219 K/uL (130-400) Mean Platelet Volume 9.6 fL (7.4-10.4) Neutrophils (%) (Auto) 60.5 % Lymphocytes (%) (Auto) 29.9 % Monocytes (%) (Auto) 8.5 % Eosinophils (%) (Auto) 0.7 % Basophils (%) (Auto) 0.3 % Neutrophils # (Auto) 4.58 K/uL (1.4-6.5) Lymphocytes # (Auto) 2.26 K/uL (1.2-3.4) Monocytes # (Auto) 0.64 K/uL (0.11-0.59) Eosinophils # (Auto) 0.05 K/uL (0-0.5) Basophils # (Auto) 0.02 K/uL (0-0.2) RDW Standard Deviation 44.3 fL (36.4-46.3) RDW Coefficient of Variation 13.5 % (11.5-14.5) Immature Granulocyte % (Auto) 0.1 % Immature Granulocyte # (Auto) 0.01 K/uL (0.00-0.02) Prothrombin Time 10.4 SECONDS (9.0-12.0) Prothromb Time International Ratio 1.0 (0.9-1.1) Activated Partial Thromboplast Time 27.8 SECONDS (21.0-31.0) Partial Thromboplastin Ratio 1.1 Anion Gap 6.0 mmol/L (3-11) Est Creatinine Clear Calc Drug Dose 79.7 ml/min Estimated GFR () 62.6 Estimated GFR (Non- 54.1 BUN/Creatinine Ratio 19.0 (10-20) Calcium Level 9.4 mg/dl (8.5-10.1) Total Bilirubin 1.1 mg/dl (0.2-1) Direct Bilirubin 0.3 mg/dl (0-0.2) Aspartate Amino Transf (AST/SGOT) 36 U/L (15-37) Alanine Aminotransferase (ALT/SGPT) 46 U/L (12-78) Alkaline Phosphatase 82 U/L (45-117) Total Protein 8.1 gm/dl (6.4-8.2) Albumin 4.1 gm/dl (3.4-5.0) Lipase 160 U/L (73-393) Troponin I < 0.015 ng/ml (0-0.045) Laboratory results reviewed by me Medications Administered Medications (Trade) Dose Ordered Sig/Denny Route Start Time Stop Time Status Last Admin Dose Admin Aspirin (Aspirin Chew) 324 mg NOW STAT PO 04/02/17 18:08 04/02/17 18:10 DC 04/02/17 18:28 324 MG Lorazepam (Ativan Inj) 1 mg NOW STAT IV 04/02/17 20:49 04/02/17 20:54 DC 04/02/17 20:49 1 MG Enoxaparin Sodium (Lovenox Inj) 141 mg NOW STAT SQ 04/02/17 23:51 04/02/17 23:52 DC 04/03/17 00:03 141 MG ECG Indication: SOB/dyspnea Rate (beats per minute): 90 Rhythm: sinus rhythm Findings: no acute ischemic change, no ectopy, other (ND, QRS, and QTC inervals within normal limits. No ST elevations or depressions. ) Comparison ECG Date: October 2016 Change: no significant change ED Course 1804: The patient was evaluated in room C1B. A complete history and physical exam was performed. 1808: Ordered Aspirin Chew 324 mg PO. 1814: I reviewed the patients EMR. He had an echocardiogram done on November 09 which showed an EF of 55-60%, normal LV wall motion, and grade II diastolic dysfunction. Additionally, the patient was seen in the ED in October and had a subtheraputic INR at this time. He had a negative CT chest, and was admitted to the hospital for DVT. He was discharged on Lovenox injections. 2224: I spoke with the on-call family medicine physician from [facility]. We discussed the patient's case. Given the patient's age, risk factors, presenting chief complaint of chest pain,chronic DVT, and inability to properly anticoagulate, he recommends the patient be admitted to the hospital to rule out ACS, and to help with setting up proper anticoagulation. 5: Upon reexamination, the patient was resting comfortably. I discussed the test results and treatment plan with him. The patient will be evaluated for further management. Medical Decision I reviewed the patients EMR. He had an echocardiogram done on November 09 which showed an EF of 55-60%, normal LV wall motion, and grade II diastolic dysfunction. Additionally, the patient was seen in the ED in October and had a subtheraputic INR at this time. He had a negative CT chest, and was admitted to the hospital for DVT. He was discharged on Lovenox injections. I spoke with the on-call family medicine physician from [facility]. We discussed the patient's case. Given the patient's age, risk factors, presenting chief complaint of chest pain,chronic DVT, and inability to properly anticoagulate, he recommends the patient be admitted to the hospital to rule out ACS, and to help with setting up proper anticoagulation. I spoke with Dr. Hadley of the [facility] Hospitalist Service. Given the patient's history with anticoagulation problems, the patient should be anticoagulated now with Lovenox. Dr. Hadley will assist with following up for proper senior care anticoagulation. Medication Reconcilliation Current Medication List: was personally reviewed by me Blood Pressure Screening Patient's blood pressure: Normal blood pressure Blood pressure disposition: Did not require urgent referral Consults Time Called: [phone] Consulting Physician: Dr. Hadley - [facility] Hospitalist Returned Call: [phone] Discussed the patient's case. The patient will be evaluated for further treatment and disposition. Impression Primary Impression: Chest pain, rule out acute myocardial infarction Scribe Attestation The scribe's documentation has been prepared under my direction and personally reviewed by me in its entirety. I confirm that the note above accurately reflects all work, treatment, procedures, and medical decision making performed by me. The chart was completed utilizing [employer] Speech voice recognition software. Grammatical errors, random word insertions, pronoun errors, and incomplete sentences are an occasional consequence of this system due to software limitations, ambient noise, and hardware issues. Any formal questions or concerns about the content, text, or information contained within the body of this dictation should be directly addressed to the physician for clarification. Departure Information Dispostion Being Evaluated By Hospitalist Referrals Zan Monslave M.D. (PCP) Patient Instructions My [facility]
[2017-04-02] MEDS ORDERED: ENOXAPARIN 150 MG/1ML SYR SQ STA (23:51)
[2017-04-03] VITALS (7 sets, daily range): BP systolic 116–149; BP diastolic 72–84; PULSE 63–81; TEMP 36.3–36.9; O2SAT 92–100; Ht 193 cm; Wt 132.5 kg
[2017-04-03] MEDS ORDERED: FUROSEMIDE 40 MG TAB PO PRN (00:30)
[2017-04-03] MEDS ORDERED: RIZATRIPTAN BENZOATE 10 MG TAB PO PRN (00:30)
[2017-04-03] MEDS ORDERED: BENZONATATE 100MG CAP PO PRN (00:30)
[2017-04-03] MEDS ORDERED: IV FLUIDS COMPLETED PRN (01:00)
[2017-04-03] MEDS ORDERED: NURSING DECISION MEDICATION ORDER SCH (01:15)
[2017-04-03] MEDS ORDERED: NITROGLYCERIN 0.4 MG SL PER TAB CHARGE ONE (01:17)
[2017-04-03] MEDS ORDERED: NITROGLYCERIN 0.4 MG SL PER TAB CHARGE SL PRN (01:30)
--- NOTE | 2017-04-03 03:30 | History and Physical ---
History & Physical Date & Time of Service: Apr 03, 2017 at 03:12 Chief Complaint: Dvt, Hx Of Coumadin Therapy, Sob Primary Care Physician: Zan Monsalve M.D. History of Present Illness Source: patient 66 year old M who reports that he has been having symptoms on exertion. Describes having difficulties ambulating short distances. Activities may lead to sensation of chest tightness and then dry cough and shortness of breath. Patient denies smoking history. In the ED, patient had CTA chest which did not find evidence of pulmonary embolism. However patient has history of recurrent deep vein thrombosis for which he has been on coumadin. Patient reports that he he has lower extremity DVTs since 2013. However, he has trouble with obtaining therapeutic coumadin levels and INR on this admission is 1 and the ultrasound of his legs shows "1) Thrombus identified within one of 2 left posterior tibial veins which is new from the prior studies. Therefore, this favors acute thrombus. 2. 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 " In the emergency room patient was given Lovenox 1 mg/kg. Patient also received aspirin 325 mg in the ED as there was concern whether patient was having acute coronary syndrome but troponins were negative x 2 when patient was evaluated by hospitalist physician. Of note, patient was previously admitted at [facility] in October 2016 with DVT of legs and subtherapeutic INR but patient reported that his insurance denied him Lovenox on discharge Past Medical/Surgical History Medical Problems: (1) Arthritis Status: Chronic (2) Chronic prostatitis Status: Chronic (3) CKD (chronic kidney disease), stage III Status: Chronic (4) DVT (deep venous thrombosis) Permanent Comment: After knee surgery Status: Chronic (5) Dyslipidemia Status: Chronic (6) Fatty liver Status: Chronic (7) GERD (gastroesophageal reflux disease) Status: Chronic (8) History of Clostridium difficile colitis Status: Chronic (9) Hyperhomocysteinemia Status: Chronic (10) Hypertension Status: Chronic (11) IBS (irritable bowel syndrome) Status: Chronic (12) Migraine Status: Chronic (13) Obesity (BMI 30-39.9) Status: Chronic Surgical Problems: (1) H/O arthroscopic knee surgery Permanent Comment: for meniscus repair on 08/29/13 Status: Resolved (2) H/O hernia repair Permanent Comment: Incarcerated umbilical hernia 08/03/2014 Status: Chronic (3) History of carpal tunnel surgery Status: Chronic (4) S/P cholecystectomy Status: Resolved Family History Hypertension Social History Smoking Status: Never Smoker Drug Use: none Marital Status: Housing status: lives with family Occupational Status: retired Multi-Drug Resistant Organisms History of MDRO: No Allergies Coded Allergies: Morphine (Verified Allergy, Unknown, anxiety, 04/02/17) Home Medications Scheduled Lisinopril (Lisinopril), 5 MG PO QAM Warfarin Sod (Jantoven), 20 MG PO QPM Scheduled PRN Benzonatate (Tessalon Perles), 100 MG PO TID PRN for Cough Furosemide (Furosemide), 40 MG PO BID PRN for FLUID ACCUMULATION Rizatriptan Benzoate (Maxalt), 10 MG PO Q2H PRN for Migraine Review of Systems Constitutional: No fever Eyes: No worsening of vision ENT: No hearing loss, No sore throat, No trouble swallowing Respiratory: + cough, + shortness of breath, + dyspnea on exertion, No sputum Cardiovascular: + chest pain, No edema, No palpitations Abdomen: No pain, No nausea, No vomiting, No diarrhea, No constipation Musculoskeletal: + joint pain (knee pain), + swelling (legs swelling), No muscle pain, No calf pain Genitourinary - Male: No hematuria, No dysuria Neurologic: No paralysis, No numbness/tingling Psychiatric: No substance abuse Endocrine: No fatigue Hematologic / Lymphatic: No abnormal bleeding/bruising Integumentary: No rash, No itch Physical Exam Vital Signs Date Time Temp Pulse Resp B/P (MAP) Pulse Ox O2 Delivery O2 Flow Rate FiO2 04/03/17 00:55 36.4 81 22 135/78 93 Room Air 04/03/17 00:55 36.4 80 22 135/78 (97) 93 Room Air 04/03/17 00:30 82 16 147/94 96 Room Air 04/03/17 00:08 79 18 127/76 94 Room Air 04/02/17 22:56 72 04/02/17 22:30 81 28 110/76 94 Room Air 04/02/17 22:00 85 21 114/85 93 Room Air 04/02/17 21:39 87 20 134/81 96 Room Air 04/02/17 18:41 84 04/02/17 18:33 96 Room Air 04/02/17 18:29 89 20 143/83 95 Room Air 04/02/17 18:29 92 Room Air 04/02/17 17:11 Room Air 04/02/17 17:09 36.4 93 16 137/86 94 Room Air General Appearance: no apparent distress, + obese Head: normocephalic, atraumatic Eyes: normal inspection, EOMI, sclerae normal ENT: normal ENT inspection, hearing grossly normal, pharynx normal Neck: supple, no adenopathy, no JVD, trachea midline Respiratory/Chest: chest non-tender, lungs clear, normal breath sounds, no respiratory distress, no accessory muscle use Cardiovascular: regular rate, rhythm, no edema, no JVD, no murmur, normal peripheral pulses Abdomen/GI: normal bowel sounds, non tender, soft, no organomegaly, no pulsatile mass Back: normal inspection, no CVA tenderness, no muscle spasm, normal range of motion Extremities/Musculoskelatal: no calf tenderness, normal capillary refill, normal range of motion, non-tender, pelvis stable, + swelling (right leg more swollen than left leg), + pertinent finding (no knee swelling or erythema) 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, no motor/sensory deficits, alert, normal mood/affect, oriented x 3 Skin: normal color, warm/dry, no rash Diagnostics Laboratory Results Results Past 24 Hours Test 04/02/17 18:30 04/02/17 22:28 Range/Units White Blood Count 7.56 4.8-10.8 K/uL Red Blood Count 4.92 4.7-6.1 M/uL Hemoglobin 15.5 14.0-18.0 g/dL Hematocrit 44.5 42-52 % Mean Corpuscular Volume 90.4 80-100 fL Mean Corpuscular Hemoglobin 31.5 25-34 pg Mean Corpuscular Hemoglobin Concent 34.8 32-36 g/dl Platelet Count 219 130-400 K/uL Mean Platelet Volume 9.6 7.4-10.4 fL Neutrophils (%) (Auto) 60.5 % Lymphocytes (%) (Auto) 29.9 % Monocytes (%) (Auto) 8.5 % Eosinophils (%) (Auto) 0.7 % Basophils (%) (Auto) 0.3 % Neutrophils # (Auto) 4.58 1.4-6.5 K/uL Lymphocytes # (Auto) 2.26 1.2-3.4 K/uL Monocytes # (Auto) 0.64 0.11-0.59 K/uL Eosinophils # (Auto) 0.05 0-0.5 K/uL Basophils # (Auto) 0.02 0-0.2 K/uL RDW Standard Deviation 44.3 36.4-46.3 fL RDW Coefficient of Variation 13.5 11.5-14.5 % Immature Granulocyte % (Auto) 0.1 % Immature Granulocyte # (Auto) 0.01 0.00-0.02 K/uL Prothrombin Time 10.4 9.0-12.0 SECONDS Prothromb Time International Ratio 1.0 0.9-1.1 Activated Partial Thromboplast Time 27.8 21.0-31.0 SECONDS Partial Thromboplastin Ratio 1.1 Sodium Level 135 136-145 mmol/L Potassium Level 4.2 3.5-5.1 mmol/L Chloride Level 104 98-107 mmol/L Carbon Dioxide Level 25 21-32 mmol/L Anion Gap 6.0 3-11 mmol/L Blood Urea Nitrogen 26 7-18 mg/dl Creatinine 1.34 0.60-1.40 mg/dl Est Creatinine Clear Calc Drug Dose 79.7 ml/min Estimated GFR () 62.6 Estimated GFR (Non- 54.1 BUN/Creatinine Ratio 19.0 10-20 Random Glucose 98 70-99 mg/dl Calcium Level 9.4 8.5-10.1 mg/dl Total Bilirubin 1.1 0.2-1 mg/dl Direct Bilirubin 0.3 0-0.2 mg/dl Aspartate Amino Transf (AST/SGOT) 36 15-37 U/L Alanine Aminotransferase (ALT/SGPT) 46 12-78 U/L Alkaline Phosphatase 82 45-117 U/L Troponin I < 0.015 < 0.015 0-0.045 ng/ml Total Protein 8.1 6.4-8.2 gm/dl Albumin 4.1 3.4-5.0 gm/dl Lipase 160 73-393 U/L Normal EKG Impression Assessment and Plan 66 year old M who reports that he has been having symptoms on exertion. Describes having difficulties ambulating short distances. Activities may lead to sensation of chest tightness and then dry cough and shortness of breath. Patient denies smoking history. In the ED, patient had CTA chest which did not find evidence of pulmonary embolism. However patient has history of recurrent deep vein thrombosis for which he has been on coumadin. Patient reports that he he has lower extremity DVTs since 2013. However, he has trouble with obtaining therapeutic coumadin levels and INR on this admission is 1 and the ultrasound of his legs shows "1) Thrombus identified within one of 2 left posterior tibial veins which is new from the prior studies. Therefore, this favors acute thrombus. 2. 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 " In the emergency room patient was given Lovenox 1 mg/kg. Patient also received aspirin 325 mg in the ED as there was concern whether patient was having acute coronary syndrome but troponins were negative x 2 when patient was evaluated by hospitalist physician. recurrent DVT of lower extremities and subtherapeutic INR while on warfarin -given Lovenox 1 mg/kg at night time on 04/02/17 -no pulmonary embolism identified -fecal occult blood to rule out bleeding from history of outpatient anticoagulants -further evaluation in anticoagulation management -patient was previously admitted at [facility] in October 2016 with DVT of legs and subtherapeutic INR but patient reported that his insurance denied him Lovenox on discharge Dyspnea on exertion /chest discomfort -no focal lung consolidations to suggest pneumonia -no pulmonary embolism identified -denies smoking history -October 2016 echocardiogram Ejection Fraction = 55-60%. left ventricular wall motion is normal. mild concentric left ventricular hypertrophy. 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 Y/N: Yes Risk Level: High
[2017-04-03] MEDS: LISINOPRIL 5 MG TAB PO SCH (08:11)
[2017-04-03 09:12] LABS: BASO % 0.3 %; BASO ABS # 0.02 K/uL (0-0.2); EOS % 1.2 %; EOS ABS # 0.07 K/uL (0-0.5); HEMATOCRIT 43.6 % (42-52); HEMOGLOBIN 14.8 g/dL (14.0-18.0); IG# 0.02 K/uL (0.00-0.02); LYMPH % 28.1 %; LYMPH ABS # 1.65 K/uL (1.2-3.4); MEAN CELL VOLUME 92.8 fL (80-100); MEAN CORPUSCULAR HEMOGLOBIN 31.5 pg (25-34); MEAN CORPUSCULAR HGB CONC 33.9 g/dl (32-36); MEAN PLATELET VOLUME 9.8 fL (7.4-10.4); MONO % 9.5 %; MONO ABS # 0.56 K/uL (0.11-0.59); NEUT % 60.6 %; NEUT ABS # 3.56 K/uL (1.4-6.5); PLATELET COUNT 200 K/uL (130-400); RED CELL DISTRIBUTION WIDTH CV 13.6 % (11.5-14.5); RED CELL DISTRIBUTION WIDTH SD 45.8 fL (36.4-46.3); WHITE BLOOD COUNT 5.88 K/uL (4.8-10.8)
[2017-04-03 09:50] LABS: ALBUMIN 3.8 gm/dl (3.4-5.0); ALT/SGPT 43 U/L (12-78); AST/SGOT 31 U/L (15-37); BLOOD UREA NITROGEN 24 mg/dl (7-18); CALCIUM 9.2 mg/dl (8.5-10.1); CARBON DIOXIDE 29 mmol/L (21-32); GLUCOSE 107 mg/dl (70-99); POTASSIUM 4.2 mmol/L (3.5-5.1); SODIUM 136 mmol/L (136-145)
[2017-04-03 09:56] LABS: ALKALINE PHOSPHATASE 78 U/L (45-117); TOTAL PROTEIN 7.5 gm/dl (6.4-8.2)
[2017-04-03] MEDS ORDERED: PERFLUTREN LIPID MICROSPHERE (DEFINITY) IV ONE (10:46)
--- NOTE | 2017-04-03 14:50 | ECHOCARDIOGRAM REPORT ---
*NOTICE TO RECEIVING [facility] This information is strictly Confidential and protected under [place] law. [place] law prohibits you from making any further disclosure of this information unless further disclosure is expressly permitted by the written consent of the person to whom it pertains or is authorized by law. A general authorization for the release of medical or other information is not sufficient for this purpose. Hospital accepts no responsibility if the information is made available to any other person, INCLUDING THE PATIENT. Interpretation Summary * Name: RENETTA WITT Study Date: 04/03/2017 10:14 AM BP: 116/73 mmHg * Patient Location: [facility]\S\N275\S\1 HR: 75 * : 1950 (M/d/yyyy) Gender: Male Height: 76 in * Age: 66 yrs Ethnicity: [place] Weight: 301 lb * Ordering Physician: Reji Hadley * Referring Physician: Self, Referred * Performed By: Scott Lala RDCS * * Reason For Study: Chest pain * BSA: 2.6 m2 * Compared to prior study, there is no significant change. * -- Conclusions -- * The left ventricle is normal in size. * There is mild concentric left ventricular hypertrophy. * The left ventricular wall motion is normal. * Ejection Fraction = 60-65%. * Aortic valve sclerosis mild, without significant aortic valvular stenosis. * Grade I diastolic dysfunction, (abnormal relaxation pattern). Procedure Details * A complete two-dimensional transthoracic echocardiogram was performed (2D, M-mode, Doppler and color flow Doppler). * The study was technically difficult, but visualization was adequate with the administration of Definity ultrasound contrast. * A contrast injection of Definity was performed to improve assessment of LV function. * Contrast was injected into an intravenous site in the left arm. * One vial of Definity ultrasound contrast was diluted in normal saline to a total volume of 10 ml. A total of '3' ml of solution was administered during imaging. * Lot # [id number] of Definity utilized for procedure. * Expiration date . * The attending nurse who injected the contrast agent was MARIA ISABEL Hastings. Left Ventricle * The left ventricle is normal in size. * There is mild concentric left ventricular hypertrophy. * Ejection Fraction = 60-65%. * Left ventricular systolic function is normal. * The left ventricular wall motion is normal. Right Ventricle * The right ventricle is normal in size and function. Atria * The left atrial size is normal. * Right atrial size is normal. * No ASD detected; PFO is not assessed. Mitral Valve * The mitral valve anatomy is normal. * There is no mitral valve stenosis. * There is trace mitral regurgitation. Tricuspid Valve * The tricuspid valve anatomy is normal. * There is no tricuspid stenosis. * There is trace tricuspid regurgitation. Aortic Valve * The aortic valve is trileaflet. * Aortic valve sclerosis mild, without significant aortic valvular stenosis. * No aortic regurgitation is present. Pulmonic Valve * The pulmonic valve is not well visualized. Great Vessels * The aortic root is normal size. Pericardium/Pleural * There is no pericardial effusion. Great Vessels * Normal inferior vena cava diameter and respiratory variation suggests normal central venous pressure. Left Ventricular Diastolic Function * Grade I diastolic dysfunction, (abnormal relaxation pattern). MMode 2D Measurements and Calculations IVSd 1.3 cm IVSs 1.9 cm LVIDd 4.9 cm LVIDs 2.5 cm LVPWd 1.3 cm LVPWs 1.9 cm IVS/LVPW 0.99 FS 49.9 % EDV(Teich) 113.3 ml ESV(Teich) 21.4 ml EF(Teich) 81.1 % EDV(cubed) 118.3 ml ESV(cubed) 14.9 ml EF(cubed) 87.4 % % IVS thick 42.8 % % LVPW thick 41.1 % LV mass(C)d 266.0 grams LV mass(C)dI 100.9 grams/m\S\2 LV mass(C)s 192.9 grams LV mass(C)sI 73.2 grams/m\S\2 SV(Teich) 91.9 ml SI(Teich) 34.8 ml/m\S\2 SV(cubed) 103.4 ml SI(cubed) 39.2 ml/m\S\2 Ao root diam 3.9 cm Ao root area 11.7 cm\S\2 ACS 2.6 cm LA dimension 3.9 cm asc Aorta Diam 3.4 cm LA/Ao 1.0 LVOT diam 2.1 cm LVOT area 3.6 cm\S\2 LVAd ap4 22.9 cm\S\2 LVLd ap4 7.2 cm EDV(MOD-sp4) 58.3 ml EDV(sp4-el) 61.6 ml LVAs ap4 10.0 cm\S\2 LVLs ap4 4.7 cm ESV(MOD-sp4) 17.5 ml ESV(sp4-el) 17.8 ml EF(MOD-sp4) 70.0 % EF(sp4-el) 71.1 % LVAd ap2 20.6 cm\S\2 LVLd ap2 6.7 cm EDV(MOD-sp2) 50.6 ml EDV(sp2-el) 53.4 ml LVAs ap2 11.1 cm\S\2 LVLs ap2 7.0 cm ESV(MOD-sp2) 15.1 ml ESV(sp2-el) 15.1 ml EF(MOD-sp2) 70.1 % EF(sp2-el) 71.8 % LVLd %diff -7.02 % EDV(MOD-bp) 56.0 ml LVLs %diff 32.4 % ESV(MOD-bp) 18.0 ml EF(MOD-bp) 67.9 % SV(MOD-sp4) 40.9 ml SI(MOD-sp4) 15.5 ml/m\S\2 SV(MOD-sp2) 35.5 ml SI(MOD-sp2) 13.5 ml/m\S\2 SV(MOD-bp) 38.0 ml SI(MOD-bp) 14.4 ml/m\S\2 SV(sp4-el) 43.9 ml SI(sp4-el) 16.6 ml/m\S\2 SV(sp2-el) 38.3 ml SI(sp2-el) 14.5 ml/m\S\2 Doppler Measurements and Calculations MV E max petr 57.8 cm/sec MV A max petr 60.6 cm/sec MV E/A 0.95 Ao V2 max 113.2 cm/sec Ao max PG 5.1 mmHg Ao max PG (full) 1.5 mmHg TOSIN(V,A) 3.0 cm\S\2 TOSIN(V,D) 3.0 cm\S\2 LV V1 max PG 3.6 mmHg LV V1 max 95.3 cm/sec PA V2 max 109.6 cm/sec PA max PG 4.8 mmHg PI end-d petr 107.8 cm/sec
[2017-04-03] MEDS ORDERED: WARFARIN SOD 5 MG TAB PO SCH (16:00)
--- NOTE | 2017-04-03 19:38 | Progress Note ---
Medicine Progress Note Date & Time of Visit: Apr 03, 2017 at 18:59 . Subjective CC: Follow-up visit for dyspnea, DVT, and other problems. HPI: Admitted last night with dyspnea on exertion. Found to have DVT left calf, but CTA chest negative for PE or other obvious pulmonary disease. Continues to have dyspnea on exertion in room. Experiencing mid / upper sternal discomfort that has been fairly constant for last 5 days. Coughs when he eats / drinks. Has not been eating solids for several days, but able to swallow meds. No emesis, melena, hematochezia. ROS: General- no fever, no chills; no wt loss Resp- as noted above in HPI Cardiac- as noted above in HPI GI- as noted above in HPI . Objective Last 8 Hrs Date Time Temp Pulse Resp B/P (MAP) Pulse Ox O2 Delivery O2 Flow Rate FiO2 04/03/17 15:20 36.6 68 18 128/84 (99) 94 04/03/17 12:00 Room Air 04/03/17 11:28 36.9 63 18 131/84 (100) 93 Physical Exam: General- lying in bed, no acute distress Eyes- anicteric Lungs- clear; no respiratory distress Cardiovascular- RRR, no gallop; no JVD; no pretibial edema Abdomen- + BS, soft, nontender Extremities- no cyanosis; mild left calf tenderness Neuro- alert Skin- warm & dry . Laboratory Results: Last 24 Hours Test 04/02/17 22:28 04/03/17 07:55 Troponin I < 0.015 ng/ml < 0.015 ng/ml White Blood Count 5.88 K/uL Red Blood Count 4.70 M/uL Hemoglobin 14.8 g/dL Hematocrit 43.6 % Mean Corpuscular Volume 92.8 fL Mean Corpuscular Hemoglobin 31.5 pg Mean Corpuscular Hemoglobin Concent 33.9 g/dl Platelet Count 200 K/uL Mean Platelet Volume 9.8 fL Neutrophils (%) (Auto) 60.6 % Lymphocytes (%) (Auto) 28.1 % Monocytes (%) (Auto) 9.5 % Eosinophils (%) (Auto) 1.2 % Basophils (%) (Auto) 0.3 % Neutrophils # (Auto) 3.56 K/uL Lymphocytes # (Auto) 1.65 K/uL Monocytes # (Auto) 0.56 K/uL Eosinophils # (Auto) 0.07 K/uL Basophils # (Auto) 0.02 K/uL RDW Standard Deviation 45.8 fL RDW Coefficient of Variation 13.6 % Immature Granulocyte % (Auto) 0.3 % Immature Granulocyte # (Auto) 0.02 K/uL Prothrombin Time 10.7 SECONDS Prothromb Time International Ratio 1.0 Sodium Level 136 mmol/L Potassium Level 4.2 mmol/L Chloride Level 102 mmol/L Carbon Dioxide Level 29 mmol/L Anion Gap 5.0 mmol/L Blood Urea Nitrogen 24 mg/dl Creatinine 1.30 mg/dl Est Creatinine Clear Calc Drug Dose 81.1 ml/min Estimated GFR () 65.0 Estimated GFR (Non- 56.1 BUN/Creatinine Ratio 18.3 Random Glucose 107 mg/dl Calcium Level 9.2 mg/dl Total Bilirubin 1.2 mg/dl Aspartate Amino Transf (AST/SGOT) 31 U/L Alanine Aminotransferase (ALT/SGPT) 43 U/L Alkaline Phosphatase 78 U/L Total Protein 7.5 gm/dl Albumin 3.8 gm/dl Globulin 3.7 gm/dl Albumin/Globulin Ratio 1.0 Other Studies: EKG performed at 09:45 reviewed and demonstrated baseline artifact, NSR at 70 / minute, early repolarization, no acute changes. . Assessment & Plan CHEST DISCOMFORT Troponins neg x 3. EKG without acute findings. No segmental wall motion abnormalities on echo. PE ruled out per CTA chest. Suspect esophageal pathology as discussed below. DYSPHAGIA Seems to be experiencing dysphagia to solids, associated with coughing. Consider mass, stricture, dysmotility. Nothing apparent on CTA chest. Will need GI evaluation- ? barium esophogram vs EGD. Discuss with GI. DYSPNEA ON EXERTION O2 sats good on RA. Chest exam unremarkable. No pulmonary emboli or infiltrates on CT. Has diastolic dysfunction per echo, but no overt CHF clinically or radiographically. May be aspirating due to esophageal disease. Consider stress test or PFT's if ongoing symptoms. DVT (present on admission) Found to have DVT left calf. CTA chest negative for PE. 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 INR subtherapeutic @ 1.0. Patient reports that he has been taking warfarin as prescribed despite GI symptoms. Received SQ enoxaparin last night. Will treat with IV heparin pending GI evaluation. alf management to be determined. VTE PROPHYLAXIS Management of acute DVT as discussed above. DISPOSITION Expected discharge to home. Family Medicine follow-up with Dr. Monsalve. . Current Inpatient Medications: Current Inpatient Medications Medications (Trade) Dose Ordered Sig/Denny Route Start Time Stop Time Status Last Admin Dose Admin Ioversol (Optiray 320) 100 ml UD PRN IV 04/02/17 19:30 04/06/17 19:29 Benzonatate (Tessalon Perles Cap) 100 mg TID PRN PO 04/03/17 00:30 05/03/17 00:29 Furosemide (Lasix Tab) 40 mg BID PRN PO 04/03/17 00:30 05/03/17 00:29 Lisinopril (Zestril Tab) 5 mg QAM PO 04/03/17 09:00 05/03/17 08:59 04/03/17 08:11 5 MG Rizatriptan Benzoate (Maxalt Tab) 10 mg Q2H PRN PO 04/03/17 00:30 05/03/17 00:29 Warfarin Sodium (Coumadin Tab) 10 mg DAILY@16 PO 04/03/17 16:00 05/03/17 15:59 04/03/17 16:02 10 MG Miscellaneous (Iv Fluids Completed) 1 ea PRN PRN N/A 04/03/17 01:00 04/03/18 00:59 Nitroglycerin (Nitrostat Tab) 0.4 mg UD PRN SL 04/03/17 01:30 05/03/17 01:29
[2017-04-03 19:39] LABS: BASO % 0.3 %; BASO ABS # 0.02 K/uL (0-0.2); EOS % 2.4 %; EOS ABS # 0.14 K/uL (0-0.5); HEMATOCRIT 43.5 % (42-52); IG# 0.01 K/uL (0.00-0.02); LYMPH % 28.9 %; LYMPH ABS # 1.66 K/uL (1.2-3.4); MEAN CELL VOLUME 91.6 fL (80-100); MEAN CORPUSCULAR HEMOGLOBIN 31.6 pg (25-34); MEAN PLATELET VOLUME 9.3 fL (7.4-10.4); MONO % 11.5 %; MONO ABS # 0.66 K/uL (0.11-0.59); NEUT % 56.7 %; NEUT ABS # 3.26 K/uL (1.4-6.5); PLATELET COUNT 195 K/uL (130-400); RED CELL DISTRIBUTION WIDTH CV 13.3 % (11.5-14.5); RED CELL DISTRIBUTION WIDTH SD 44.4 fL (36.4-46.3); WHITE BLOOD COUNT 5.75 K/uL (4.8-10.8)
[2017-04-03 19:43] LABS: MEAN CORPUSCULAR HGB CONC 34.5 g/dl (32-36)
[2017-04-03 19:55] LABS: PTT PATIENT 29.3 SECONDS (21.0-31.0)
[2017-04-03] MEDS ORDERED: HEPARIN IV BOLUS 8,000 UNIT in SYRINGE 0 ML IV ONE (20:00)
[2017-04-03] MEDS: HEPARIN 25,000 UNIT/500ML D5W 500 ML IV PRN (20:13)
[2017-04-04 02:49] LABS: PTT PATIENT 105.5 SECONDS (21.0-31.0)
[2017-04-04] MEDS: HEPARIN 25,000 UNIT/500ML D5W 500 ML IV PRN ×2 (04:07→11:15)
[2017-04-04 04:53] VITALS: BP 115/68; PULSE 67; TEMP 36.5; O2SAT 96
[2017-04-04 06:45] LABS: HEMATOCRIT 43.1 % (42-52); HEMOGLOBIN 14.8 g/dL (14.0-18.0); MEAN CELL VOLUME 90.9 fL (80-100); MEAN CORPUSCULAR HEMOGLOBIN 31.2 pg (25-34); MEAN CORPUSCULAR HGB CONC 34.3 g/dl (32-36); MEAN PLATELET VOLUME 9.7 fL (7.4-10.4); PLATELET COUNT 182 K/uL (130-400); RED CELL DISTRIBUTION WIDTH CV 13.3 % (11.5-14.5); RED CELL DISTRIBUTION WIDTH SD 43.8 fL (36.4-46.3); WHITE BLOOD COUNT 6.08 K/uL (4.8-10.8)
[2017-04-04 07:00] VITALS: BP 128/81; PULSE 67; TEMP 36.5; O2SAT 97
[2017-04-04 07:19] LABS: CALCIUM 8.6 mg/dl (8.5-10.1); CREATININE 1.15 mg/dl (0.60-1.40)
[2017-04-04 07:50] LABS: PTT PATIENT 68.2 SECONDS (21.0-31.0)
[2017-04-04] MEDS: LISINOPRIL 5 MG TAB PO SCH (08:11)
[2017-04-04 10:40] LABS: PTT PATIENT 66.9 SECONDS (21.0-31.0)
[2017-04-04 11:28] VITALS: BP 122/77; PULSE 75; TEMP 36.5; O2SAT 94
[2017-04-04 14:17] VITALS: BP 138/75; PULSE 70; TEMP 36.6; O2SAT 96
[2017-04-04 18:49] VITALS: BP 120/80; PULSE 73; TEMP 36.8; O2SAT 94
[2017-04-04 22:39] VITALS: BP 113/69; PULSE 71; TEMP 36.7; O2SAT 97
--- NOTE | 2017-04-04 23:31 | Progress Note ---
Medicine Progress Note Date & Time of Visit: Apr 04, 2017 at 16:20 . Subjective CC: Follow-up visit for chest discomfort and dyspnea. HPI: Feels the same. Persistent substernal chest pressure. Persistent coughing when drinking. Still dyspneic with exertion. No nausea or vomiting. No melena or hematochezia. ROS: General- no fever, no chills Resp- as noted above in HPI Cardiac- as noted above in HPI GI- as noted above in HPI - no dysuria, no difficulty voiding . Objective Last 8 Hrs Date Time Temp Pulse Resp B/P (MAP) Pulse Ox O2 Delivery O2 Flow Rate FiO2 04/04/17 22:39 36.7 71 18 113/69 (84) 97 Room Air 04/04/17 20:00 Room Air 04/04/17 18:49 36.8 73 20 120/80 (93) 94 Room Air 04/04/17 16:00 Room Air Physical Exam: General- lying in bed, no acute distress Lungs- clear; no respiratory distress Cardiovascular- RRR, no gallop; no JVD; no pretibial edema Abdomen- + BS, soft, nontender Extremities- no cyanosis; no calf tenderness Neuro- alert Skin- warm & dry . Laboratory Results: Last 24 Hours Test 04/04/17 02:12 04/04/17 06:02 04/04/17 10:08 Activated Partial Thromboplast Time 105.5 SECONDS 68.2 SECONDS 66.9 SECONDS Partial Thromboplastin Ratio 4.1 2.6 2.6 White Blood Count 6.08 K/uL Red Blood Count 4.74 M/uL Hemoglobin 14.8 g/dL Hematocrit 43.1 % Mean Corpuscular Volume 90.9 fL Mean Corpuscular Hemoglobin 31.2 pg Mean Corpuscular Hemoglobin Concent 34.3 g/dl RDW Standard Deviation 43.8 fL RDW Coefficient of Variation 13.3 % Platelet Count 182 K/uL Mean Platelet Volume 9.7 fL Sodium Level 135 mmol/L Potassium Level 4.0 mmol/L Chloride Level 102 mmol/L Carbon Dioxide Level 27 mmol/L Anion Gap 6.0 mmol/L Blood Urea Nitrogen 18 mg/dl Creatinine 1.15 mg/dl Est Creatinine Clear Calc Drug Dose 91.8 ml/min Estimated GFR () 75.4 Estimated GFR (Non- 65.0 BUN/Creatinine Ratio 15.7 Random Glucose 111 mg/dl Calcium Level 8.6 mg/dl Assessment & Plan CHEST DISCOMFORT Troponins neg x 3. EKG without acute findings. No segmental wall motion abnormalities on echo. PE ruled out per CTA chest. Possible esophageal pathology as discussed below. DYSPHAGIA Seems to be experiencing dysphagia to solids, associated with coughing. Consider food impaction, mass, stricture, dysmotility. Nothing apparent on CTA chest. Will need GI evaluation- ? barium esophogram vs EGD. Discussed with GI. EGD recommended. DYSPNEA ON EXERTION O2 sats good on RA. Chest exam unremarkable. No pulmonary emboli or infiltrates on CT. Has diastolic dysfunction per echo, but no overt CHF clinically or radiographically. May be aspirating due to esophageal disease. Consider stress test or PFT's if ongoing symptoms. DVT (present on admission) Found to have DVT left calf. CTA chest negative for PE. 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 INR subtherapeutic @ 1.0. Patient reports that he has been taking warfarin as prescribed despite GI symptoms. Received SQ enoxaparin initially, then transitioned to IV heparin. Hold heparin tonight for possible EGD tomorrow. 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 VTE PROPHYLAXIS Management of acute DVT as discussed above. DISPOSITION Expected discharge to home. Family Medicine follow-up with Dr. Monsalve. . Current Inpatient Medications: Current Inpatient Medications Medications (Trade) Dose Ordered Sig/Denny Route Start Time Stop Time Status Last Admin Dose Admin Ioversol (Optiray 320) 100 ml UD PRN IV 04/02/17 19:30 04/06/17 19:29 Benzonatate (Tessalon Perles Cap) 100 mg TID PRN PO 04/03/17 00:30 05/03/17 00:29 Lisinopril (Zestril Tab) 5 mg QAM PO 04/03/17 09:00 05/03/17 08:59 04/04/17 08:11 5 MG Rizatriptan Benzoate (Maxalt Tab) 10 mg Q2H PRN PO 04/03/17 00:30 05/03/17 00:29 Miscellaneous (Iv Fluids Completed) 1 ea PRN PRN N/A 04/03/17 01:00 04/03/18 00:59 Nitroglycerin (Nitrostat Tab) 0.4 mg UD PRN SL 04/03/17 01:30 05/03/17 01:29 Heparin Sodium/ Dextrose 500 ml @ 34 mls/hr [id number] PRN IV 04/03/17 20:00 05/03/17 19:59 04/04/17 11:15 34 MLS/HR
[2017-04-05] VITALS (10 sets, daily range): BP systolic 122–143; BP diastolic 73–89; PULSE 63–138; TEMP 36.2–37; O2SAT 91–96
[2017-04-05] MEDS: D5W AND LACTATED RINGERS 1,000 ML IV SCH ×2 (00:28→08:11)
[2017-04-05] MEDS: LISINOPRIL 5 MG TAB PO SCH ×2 (07:39→12:24)
[2017-04-05 08:00] LABS: HEMATOCRIT 44.1 % (42-52); HEMOGLOBIN 14.9 g/dL (14.0-18.0); MEAN CORPUSCULAR HEMOGLOBIN 30.4 pg (25-34); MEAN CORPUSCULAR HGB CONC 33.8 g/dl (32-36); MEAN PLATELET VOLUME 9.6 fL (7.4-10.4); PLATELET COUNT 186 K/uL (130-400); RED CELL DISTRIBUTION WIDTH CV 13.1 % (11.5-14.5); RED CELL DISTRIBUTION WIDTH SD 42.8 fL (36.4-46.3); WHITE BLOOD COUNT 4.96 K/uL (4.8-10.8)
[2017-04-05 08:27] LABS: PTT PATIENT 28.5 SECONDS (21.0-31.0)
[2017-04-05 08:31] LABS: CALCIUM 8.8 mg/dl (8.5-10.1); CREATININE 1.02 mg/dl (0.60-1.40); POTASSIUM 3.8 mmol/L (3.5-5.1)
--- NOTE | 2017-04-05 10:03 | Endo History and Physical ---
History & Physical Date of Service: Apr 05, 2017. Chief Complaint: SOB while eating Referring Physician: History of Present Illness SOB while eating Past Medical History Hypertension Past Surgical History Hx Cardiac Surgery: No Hx Abdominal Surgery: Yes Hx Post-Op Nausea and Vomiting: No Hx Cancer Surgery: No Hx Thoracic Surgery: No Hx Orthopedic: Yes Hx Urinary Tract Surgery: No Social History Smoking Status: Never Smoker Hx Substance Use: No Hx Alcohol Use: No Allergies Coded Allergies: Morphine (Verified Allergy, Unknown, anxiety, 04/02/17) Current Medications Reported Home Medications Medications Dose Route/Sig Max Daily Dose Days Date Category Dose Instructions Tessalon Perles (Benzonatate) 100 Mg Cap 100 Mg PO TID PRN 04/02/17 Reported Jantoven (Warfarin Sodium) 10 Mg Tab 20 Mg PO QPM 04/02/17 Reported TWO 10 MG TABLETS Furosemide 40 Mg Tab 40 Mg PO BID PRN 11/08/16 Reported Lisinopril 5 Mg Tab 5 Mg PO QAM 06/05/15 Rx Maxalt (Rizatriptan Benzoate) 10 Mg Tab 10 Mg PO Q2H PRN 05/29/15 Reported Vital Signs Weight (Kilograms): 134.400 Height (Feet): 6 Height (Inches): 4.00 Date Time Temp Pulse Resp B/P (MAP) Pulse Ox O2 Delivery O2 Flow Rate FiO2 04/05/17 09:52 36.5 76 18 165/84 (111) 97 Room Air 04/05/17 08:00 Room Air 04/05/17 06:48 36.5 64 18 137/75 (95) 92 Room Air 04/05/17 04:44 36.5 63 18 125/73 (90) 96 Room Air 04/05/17 04:00 Room Air 04/05/17 00:00 Room Air 04/04/17 22:39 36.7 71 18 113/69 (84) 97 Room Air 04/04/17 20:00 Room Air 04/04/17 18:49 36.8 73 20 120/80 (93) 94 Room Air 04/04/17 16:00 Room Air 04/04/17 14:17 36.6 70 18 138/75 (96) 96 Room Air 04/04/17 12:00 Room Air 04/04/17 11:28 36.5 75 18 122/77 (92) 94 Room Air Physical Exam General Appearance: no apparent distress Respiratory/Chest: Respiratory effort: no dyspnea Auscultation: breath sounds normal Cardiovascular: Heart Auscultation: RRR Abdomen: Inspection & Palpation: soft Assessment and Plan EGD
--- NOTE | 2017-04-05 10:06 | Gastrointestinal Consultation ---
Gastrointestinal Consultation Date of Consultation: Apr 05, 2017 Attending Physician: Isaak Consulting Physician: Huey Reason for Consultation: dysphagia History of Present Illness Patient is a 66 year old male w/ history of DVT on coumadin, IBS, HTN other listed below who presented through the ED for evaluation of chest tightness, SOB and new onset dysphagia. Pt was seen and evaluated, chart reviewed. Cardiac and pulmonary source of discomfort have been ruled out given his history. Pt notes chronic lower abdominal pain, at site of previously repaired hernia, this is unchanged, but can flare at times. Notes he continues to have alternating BM , was feeling bloated over the weekend w/ constipation. Had a BM this morning, that was small, brown, non-bloody. He notes over the past week he has developed acute UGI symptoms. He does have a history of GERD. He notes he ate last Wednesday , felt sensation of food sticking and some SOB, this has since persisted. He tells me he did not feel the food drop but did drink a lot of water. Tells me has had not had any food since because he was afraid of this occurring again. Is tolerating liquids, but can have coughing after. No nausea, vomiting. No change in voice, hoarseness. + chronic cough. No weight loss. Chest CTA: Mild respiratory motion artifact. However, no definite evidence for pulmonary embolus. Venous Duplex: Thrombus identified within one of 2 left posterior tibial veins which is new from the prior studies. Therefore, this favors acute thrombus. 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 Chest XR: negative Past Medical/Surgical History Medical Problems: (1) Acute renal failure Status: Acute (2) Chest pain, rule out acute myocardial infarction Status: Acute (3) Right leg DVT Status: Acute Past Medical History: CKD, DVT, dyslipdemia, fatty liver, GERD, history c.diff, IBS, HTN, Past Surgical History: Colonoscopy, H/O hernia repair, carpal tunnel surgery, cholecystectomy Family History Hypertension Social History Smoking Status: Never Smoker Alcohol Use: none Drug Use: none Marital Status: Housing Status: lives with significant other Occupation Status: retired Allergies Coded Allergies: Morphine (Verified Allergy, Unknown, anxiety, 04/02/17) Current Medications Home Meds and Scripts Medications Dose Route/Sig Max Daily Dose Days Date Category Dose Instructions Tessalon Perles (Benzonatate) 100 Mg Cap 100 Mg PO TID PRN 04/02/17 Reported Jantoven (Warfarin Sodium) 10 Mg Tab 20 Mg PO QPM 04/02/17 Reported TWO 10 MG TABLETS Furosemide 40 Mg Tab 40 Mg PO BID PRN 11/08/16 Reported Lisinopril 5 Mg Tab 5 Mg PO QAM 06/05/15 Rx Maxalt (Rizatriptan Benzoate) 10 Mg Tab 10 Mg PO Q2H PRN 05/29/15 Reported Review of Systems Constitutional: No fever Respiratory: No cough, No shortness of breath Cardiac: No chest pain Abdomen: No pain, No nausea, No vomiting, No GI bleeding Physical Exam Date Time Temp Pulse Resp B/P (MAP) Pulse Ox O2 Delivery O2 Flow Rate FiO2 04/05/17 09:52 36.5 76 18 165/84 (111) 97 Room Air 04/05/17 08:00 Room Air 04/05/17 06:48 36.5 64 18 137/75 (95) 92 Room Air 04/05/17 04:44 36.5 63 18 125/73 (90) 96 Room Air 04/05/17 04:00 Room Air 04/05/17 00:00 Room Air 04/04/17 22:39 36.7 71 18 113/69 (84) 97 Room Air 04/04/17 20:00 Room Air 04/04/17 18:49 36.8 73 20 120/80 (93) 94 Room Air 04/04/17 16:00 Room Air 04/04/17 14:17 36.6 70 18 138/75 (96) 96 Room Air 04/04/17 12:00 Room Air 04/04/17 11:28 36.5 75 18 122/77 (92) 94 Room Air General Appearance: no apparent distress Eyes: normal inspection ENT: hearing grossly normal Neck: supple Respiratory/Chest: lungs clear, normal breath sounds Cardiovascular: regular rate, rhythm Abdomen: normal bowel sounds, soft, no organomegaly Neurologic/Psych: alert, normal mood/affect, oriented x 3 Skin: normal color, warm/dry Laboratory Results Last 24 Hours Test 04/04/17 10:08 04/05/17 07:21 Activated Partial Thromboplast Time 66.9 SECONDS 28.5 SECONDS Partial Thromboplastin Ratio 2.6 1.1 White Blood Count 4.96 K/uL Red Blood Count 4.90 M/uL Hemoglobin 14.9 g/dL Hematocrit 44.1 % Mean Corpuscular Volume 90.0 fL Mean Corpuscular Hemoglobin 30.4 pg Mean Corpuscular Hemoglobin Concent 33.8 g/dl RDW Standard Deviation 42.8 fL RDW Coefficient of Variation 13.1 % Platelet Count 186 K/uL Mean Platelet Volume 9.6 fL Prothrombin Time 10.6 SECONDS Prothromb Time International Ratio 1.0 Sodium Level 135 mmol/L Potassium Level 3.8 mmol/L Chloride Level 102 mmol/L Carbon Dioxide Level 23 mmol/L Anion Gap 11.0 mmol/L Blood Urea Nitrogen 14 mg/dl Creatinine 1.02 mg/dl Est Creatinine Clear Calc Drug Dose 103.7 ml/min Estimated GFR () 87.1 Estimated GFR (Non- 75.2 BUN/Creatinine Ratio 13.4 Random Glucose 125 mg/dl Calcium Level 8.8 mg/dl Impression Patient is a 66 year old male w/ history DVT on coumadin, imaging suggest of new DVT, who was on heparin given subtherapeutic response to coumadin, admitted through the ED for chest pressure, SOB w/ eating and acute onset dysphagia. Pt notes sensation of food sticking last Wednesday, associated w/ cough. Has been tolerating liquids since. Plan NPO for EGD today. Additional recommendation pending results of EGD.
[2017-04-05] MEDS ORDERED: LIDOCAINE HCL 2% 2 ML VIAL (20MG/ML) ONE (10:54)
[2017-04-05] MEDS ORDERED: KETAMINE HCL INJ 50 MG/ML 10 ML VIAL ONE (10:54)
[2017-04-05] MEDS ORDERED: PROPOFOL IV EMULSION 10 MG/ML 20 ML VIAL IV ONE (10:54)
[2017-04-05] MEDS ORDERED: MIDAZOLAM HCL 1 MG/ML 2ML VIAL ONE (11:02)
--- NOTE | 2017-04-05 11:36 | GI REPORT ---
Procedure Date: 04/05/2017 11:01 AM Procedure: Upper GI endoscopy Indications: Dysphagia Medicines: General Anesthesia Complications: No immediate complications. Estimated Blood Loss: Estimated blood loss: none. Procedure: Pre-Anesthesia Assessment: - ASA Grade Assessment: III - A patient with severe systemic disease. After obtaining informed consent, the endoscope was passed under direct vision. Throughout the procedure, the patient's blood pressure, pulse, and oxygen saturations were monitored continuously. The scope was introduced through the mouth, and advanced to the second part of duodenum. The upper GI endoscopy was accomplished without difficulty. The patient tolerated the procedure well. Findings: There was a mild to moderate ring at the GE junction that is not likely causing the patients symptoms. There was no esophagitis. There was a small hiatal hernia. There was patchy linear erosions in the fundus of the stomach, likely related to retching. The remainder of the stomach was normal. The duodenum was normal. Recommendation: - Discharge patient to floor. Joe Barney MD 04/05/2017 11:36:31 AM This report has been signed electronically. Note Initiated On: 04/05/2017 11:01 AM I attest to the content of the Intraoperative Record and orders documented therein, exceptions below
--- NOTE | 2017-04-05 12:11 | Anesthesiology Progress Note ---
Anesthesia Post Op Note Date & Time Apr 05, 2017 at 12:11 Vital Signs Pain Intensity: 0.0 Vital Signs Past 12 Hours Date Time Temp Pulse Resp B/P (MAP) Pulse Ox O2 Delivery O2 Flow Rate FiO2 04/05/17 12:00 Room Air 04/05/17 11:51 71 18 146/94 (111) 95 Room Air 04/05/17 11:36 91 18 148/85 (106) 95 Room Air 04/05/17 11:21 87 16 151/88 (109) 98 Mask 10 04/05/17 09:52 36.5 76 18 165/84 (111) 97 Room Air 04/05/17 08:00 Room Air 04/05/17 06:48 36.5 64 18 137/75 (95) 92 Room Air 04/05/17 04:44 36.5 63 18 125/73 (90) 96 Room Air 04/05/17 04:00 Room Air Notes Mental Status: alert / awake / arousable, participated in evaluation Pt Amnestic to Procedure: Yes Nausea / Vomiting: adequately controlled Pain: adequately controlled Airway Patency, RR, SpO2: stable & adequate BP & HR: stable & adequate Hydration State: stable & adequate Anesthetic Complications: no major complications apparent
[2017-04-05] MEDS: HEPARIN 25,000 UNIT/500ML D5W 500 ML IV PRN ×2 (12:58→21:20)
[2017-04-05] MEDS ORDERED: HEPARIN IV BOLUS 8,000 UNIT in SYRINGE 0 ML IV ONE (13:00)
[2017-04-05 13:02] LABS: BASO % 0.2 %; BASO ABS # 0.01 K/uL (0-0.2); EOS % 1.2 %; EOS ABS # 0.07 K/uL (0-0.5); HEMATOCRIT 43.5 % (42-52); HEMOGLOBIN 15.1 g/dL (14.0-18.0); IG# 0.01 K/uL (0.00-0.02); LYMPH % 16.8 %; LYMPH ABS # 1.01 K/uL (1.2-3.4); MEAN CELL VOLUME 90.4 fL (80-100); MEAN CORPUSCULAR HEMOGLOBIN 31.4 pg (25-34); MEAN PLATELET VOLUME 9.8 fL (7.4-10.4); MONO % 9.3 %; MONO ABS # 0.56 K/uL (0.11-0.59); NEUT % 72.3 %; NEUT ABS # 4.34 K/uL (1.4-6.5); PLATELET COUNT 174 K/uL (130-400); RED CELL DISTRIBUTION WIDTH CV 13.2 % (11.5-14.5); RED CELL DISTRIBUTION WIDTH SD 43.2 fL (36.4-46.3)
[2017-04-05 13:07] LABS: MEAN CORPUSCULAR HGB CONC 34.7 g/dl (32-36)
--- NOTE | 2017-04-05 18:05 | PULMONARY CONSULTATION ---
DATE OF CONSULTATION: 04/05/2017 REASON FOR CONSULTATION: Progressive dyspnea/postprandial chronic cough. HISTORY OF PRESENT ILLNESS: A 66-year-old obese white male who was admitted on 04/03/2017 through the Emergency Room because of progressive dyspnea with exertion and a chronic cough. He states 5 days prior to admission, he developed this dry cough that was often postprandial in nature. He would chew food and tried to swallow or even liquids, he would hear a gurgling sound in his throat and then start to cough. He would try to forced cough in order to clear his throat. He some time has noted 2-pillow orthopnea and cannot lay flat without severe shortness of breath. He states that prior to a week ago, he did not have this cough and postprandial issue, although his who was sitting by the bedside confirmed that he has had a chronic cough for some time now. He is a nonsmoker. He has had a history of chronic DVT involving the deep veins of his right calf, has a history of umbilical hernia with an infected mesh that required additional surgery in the remote past. He said he has been on and off anticoagulant therapy since 2013 and has had trouble having his PT/INR achieved in the therapeutic range without high dose of Coumadin. He has also been on a combination of Lovenox/Coumadin. His troponins have been negative x3. There are no EKG changes to suggest ischemia and no segmental wall motion abnormalities by echo. Because of this dysphagia and possible food impaction or stricture, Dr. Miles was asked to see patient in consultation and did so and performed upper endoscopy today. There was a mild to moderate ring at the GE junction that he felt was not causing the patient's symptoms. There was no evidence for esophagitis or obstruction and perhaps a small hiatal hernia was noted. There were some patchy linear erosions in the fundus of the stomach, possibly related to frequent emesis. The patient complains of lower retrosternal chest soreness that appears to be from severe coughing, and not exertional in nature. He states even walking to the bathroom some 10 feet away makes him dyspnea with exertion. He does have a history of GERD. His chronic lower abdominal pain exists at the previous site of a repaired hernia by Dr. Stuart Douglass in the [place] area. The patient underwent a CTA on April 02 with no evidence of acute pulmonary thromboembolic disease. There was some evidence of bibasilar subsegmental atelectasis but no other significant abnormalities were noted. As stated earlier, the patient was a nonsmoker. The DVT study done also on the showed thrombus within the 2 left posterior tibial veins on the right but with no acute findings noted. Previous CTA in October of 2016 showed no evidence of pulmonary thromboembolic disease or evidence for consolidation. The patient's H&H was 15 and 43.5 today; BUN and creatinine 14 and 1. His PT and PTT/INR was 1.0 and 1.1 respectively this morning. I was asked to see the patient in consultation because of ongoing symptomatology. For details of past medical history, medications, family and social history, I refer you to current and past record. PHYSICAL EXAMINATION: GENERAL: Reveals a well-developed, obese white male in no obvious distress at rest. CURRENT VITAL SIGNS: Temperature 36.2, pulse 73 and regular, respiratory rate 17, blood pressure 134/81, O2 sat 94% on room air. SKIN: Without lesion. HEENT: Atraumatic, normocephalic. PERRLA, EOMI. Conjunctivae pale. Sclerae nonicteric. Fundi poorly visualized. NECK: Neck veins are not distended at 45 degrees. No evidence of adenopathy in the supra or infraclavicular areas. LUNGS: Distant P&A. No obvious inspiratory stridor or palpable stridor, tender in the lower retrosternal area to palpation. CARDIAC: Regular rate and rhythm. I do not appreciate a gallop. ABDOMEN: Soft, protuberant. EXTREMITIES: Trace to +1 pitting edema, right greater than the left. NEUROLOGIC: No obvious calf tenderness. NEUROLOGIC: Intact. No lateralizing signs. IMAGING DATA: Echocardiogram shows grade 1 diastolic dysfunction, EF of 60-65%, no ASD detected, the right ventricle was normal in size and function, there was no obvious indirect evidence to suggest pulmonary hypertension, and grade 1 diastolic dysfunction noted. OVERALL ASSESSMENT AND PLAN: A 66-year-old morbidly obese white male with a history of chronic deep venous thrombosis, right lower extremity; previous right umbilical hernia repair with infected mesh, now with progressive symptoms of dyspnea with exertion as well as a chronic cough that appears to be postprandial in nature to some degree. A 66-year-old with progressive symptoms, well enumerated above. It is unclear to me what is transpiring. His cough appears to be for the most part postprandial in nature, but there is no evidence for esophageal lesion or stricture or food impaction. I think what remains to be done is to take a good look at his vocal cords, pharynx and tracheobronchial tree to see we can determine where this cough and persistent symptom complex is coming from. I believe the chest pain is costochondral in nature given his strong paroxysms of coughing and does not represent any cardiopulmonary etiology. We will hold his anticoagulant therapy and consider bronchoscopy for either tomorrow or the next day. Thank you very much for this consultation. ANASTASIA
[2017-04-05 20:03] LABS: PTT PATIENT 95.6 SECONDS (21.0-31.0)
--- NOTE | 2017-04-05 20:24 | Progress Note ---
Medicine Progress Note Date & Time of Visit: Apr 05, 2017 at 14:03 . Subjective CC: Follow-up visit for chest discomfort, dyspnea, dysphagia. HPI: EGD performed today- only significant finding was Schatzki ring. Experienced significant coughing during the procedure. Ongoing swallowing difficulties. Ongoing chest discomfort and dyspnea with minimal exertion. ROS: General- no fever, no chills Resp- as noted above in HPI Cardiac- as noted above in HPI GI- as noted above in HPI - no dysuria, no difficulty voiding . Objective Last 8 Hrs Date Time Temp Pulse Resp B/P (MAP) Pulse Ox O2 Delivery O2 Flow Rate FiO2 04/05/17 13:00 36.2 73 17 134/81 (98) 94 Room Air 04/05/17 12:43 36.5 68 18 127/89 (102) 95 Room Air 04/05/17 12:25 36.5 77 17 134/84 (101) 92 Room Air 04/05/17 12:05 36.5 71 18 143/87 (105) 94 Room Air 04/05/17 12:00 Room Air 04/05/17 11:51 71 18 146/94 (111) 95 Room Air 04/05/17 11:36 91 18 148/85 (106) 95 Room Air 04/05/17 11:21 87 16 151/88 (109) 98 Mask 10 04/05/17 09:52 36.5 76 18 165/84 (111) 97 Room Air 04/05/17 08:00 Room Air 04/05/17 06:48 36.5 64 18 137/75 (95) 92 Room Air Physical Exam: General- lying in bed, no acute distress Lungs- clear; no respiratory distress Cardiovascular- RRR, no gallop; no JVD; no pretibial edema Abdomen- + BS, soft, nontender Extremities- no cyanosis; no calf tenderness Neuro- alert Skin- warm & dry . Laboratory Results: Last 24 Hours Test 04/05/17 07:21 04/05/17 12:48 White Blood Count 4.96 K/uL 6.00 K/uL Red Blood Count 4.90 M/uL 4.81 M/uL Hemoglobin 14.9 g/dL 15.1 g/dL Hematocrit 44.1 % 43.5 % Mean Corpuscular Volume 90.0 fL 90.4 fL Mean Corpuscular Hemoglobin 30.4 pg 31.4 pg Mean Corpuscular Hemoglobin Concent 33.8 g/dl 34.7 g/dl RDW Standard Deviation 42.8 fL 43.2 fL RDW Coefficient of Variation 13.1 % 13.2 % Platelet Count 186 K/uL 174 K/uL Mean Platelet Volume 9.6 fL 9.8 fL Prothrombin Time 10.6 SECONDS 10.8 SECONDS Prothromb Time International Ratio 1.0 1.0 Activated Partial Thromboplast Time 28.5 SECONDS 28.0 SECONDS Partial Thromboplastin Ratio 1.1 1.1 Sodium Level 135 mmol/L Potassium Level 3.8 mmol/L Chloride Level 102 mmol/L Carbon Dioxide Level 23 mmol/L Anion Gap 11.0 mmol/L Blood Urea Nitrogen 14 mg/dl Creatinine 1.02 mg/dl Est Creatinine Clear Calc Drug Dose 103.7 ml/min Estimated GFR () 87.1 Estimated GFR (Non- 75.2 BUN/Creatinine Ratio 13.4 Random Glucose 125 mg/dl Calcium Level 8.8 mg/dl Neutrophils (%) (Auto) 72.3 % Lymphocytes (%) (Auto) 16.8 % Monocytes (%) (Auto) 9.3 % Eosinophils (%) (Auto) 1.2 % Basophils (%) (Auto) 0.2 % Neutrophils # (Auto) 4.34 K/uL Lymphocytes # (Auto) 1.01 K/uL Monocytes # (Auto) 0.56 K/uL Eosinophils # (Auto) 0.07 K/uL Basophils # (Auto) 0.01 K/uL Immature Granulocyte % (Auto) 0.2 % Immature Granulocyte # (Auto) 0.01 K/uL Assessment & Plan CHEST DISCOMFORT Troponins neg x 3. EKG without acute findings. No segmental wall motion abnormalities on echo. PE ruled out per CTA chest. GI evaluation as discussed below. DYSPHAGIA Seems to be experiencing dysphagia to solids, associated with coughing. Considered food impaction, mass, stricture, dysmotility. Nothing apparent on CTA chest. GI consulted. EGD demonstrated Schatzki ring; dilatation not attempted due to severe coughing during procedure. Start PPI. May need dilatation in future once pulmonary symptoms improve. DYSPNEA ON EXERTION / COUGH O2 sats good on RA. Chest exam unremarkable. No pulmonary emboli or infiltrates on CT. Has diastolic dysfunction per echo, but no overt CHF clinically or radiographically. May be aspirating due to esophageal disease. Consult Pulmonary Medicine. DVT (present on admission) Found to have DVT left calf. CTA chest negative for PE. 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 INR subtherapeutic @ 1.0. Patient reports that he has been taking warfarin as prescribed despite GI symptoms. Received SQ enoxaparin initially, then transitioned to IV heparin. Hold heparin for procedures. FDC management to be determined. VTE PROPHYLAXIS Management of acute DVT as discussed above. DISPOSITION Expected discharge to home. Family Medicine follow-up with Dr. Monsalve. . Current Inpatient Medications: Current Inpatient Medications Medications (Trade) Dose Ordered Sig/Denny Route Start Time Stop Time Status Last Admin Dose Admin Ioversol (Optiray 320) 100 ml UD PRN IV 04/02/17 19:30 04/06/17 19:29 Benzonatate (Tessalon Perles Cap) 100 mg TID PRN PO 04/03/17 00:30 05/03/17 00:29 Lisinopril (Zestril Tab) 5 mg QAM PO 04/03/17 09:00 05/03/17 08:59 04/05/17 12:24 5 MG Rizatriptan Benzoate (Maxalt Tab) 10 mg Q2H PRN PO 04/03/17 00:30 05/03/17 00:29 Miscellaneous (Iv Fluids Completed) 1 ea PRN PRN N/A 04/03/17 01:00 04/03/18 00:59 Nitroglycerin (Nitrostat Tab) 0.4 mg UD PRN SL 04/03/17 01:30 05/03/17 01:29 Heparin Sodium/ Dextrose 1 ea Q10M N/A 04/05/17 12:15 05/05/17 12:14 04/05/17 12:58 1 EA Heparin Sodium/ Dextrose 500 ml @ 38 mls/hr [id number] PRN IV 04/05/17 12:45 05/05/17 12:44 04/05/17 12:58 38 MLS/HR
[2017-04-06] VITALS (9 sets, daily range): BP systolic 117–151; BP diastolic 70–84; PULSE 64–97; TEMP 36.3–37; O2SAT 91–95
[2017-04-06 06:34] LABS: HEMATOCRIT 42.6 % (42-52); HEMOGLOBIN 14.5 g/dL (14.0-18.0); MEAN PLATELET VOLUME 9.7 fL (7.4-10.4); PLATELET COUNT 168 K/uL (130-400); RED CELL DISTRIBUTION WIDTH CV 13.4 % (11.5-14.5); RED CELL DISTRIBUTION WIDTH SD 43.6 fL (36.4-46.3); WHITE BLOOD COUNT 5.04 K/uL (4.8-10.8)
[2017-04-06 06:46] LABS: PTT PATIENT 28.8 SECONDS (21.0-31.0)
[2017-04-06 07:01] LABS: CALCIUM 8.4 mg/dl (8.5-10.1); CREATININE 1.11 mg/dl (0.60-1.40)
[2017-04-06] MEDS ORDERED: LIDOCAINE HCL 2% LOCAL 50ML VIAL INSTIL ONE (10:30)
[2017-04-06] MEDS ORDERED: LEVALBUTEROL 1.25MG/3ML NEB INH ONE (10:30)
[2017-04-06] MEDS ORDERED: LIDOCAINE 4% INH SOLN 4 ML BTL TOP ONE (10:30)
[2017-04-06] MEDS ORDERED: MIDAZOLAM HCL 5 MG/ML 1 ML VIAL IV ONE (10:30)
[2017-04-06] MEDS ORDERED: LIDOCAINE VISCOUS 2% 100ML TOP ONE (10:30)
[2017-04-06] MEDS ORDERED: OXYMETAZOLINE HCL 0.05% NA SPR 15 ML BTL ONE (10:30)
[2017-04-06] MEDS ORDERED: FENTANYL CITRATE INJ 50 MCG/1 ML 2 ML VIAL IV ONE (10:30)
--- NOTE | 2017-04-06 10:32 | Clinical Documentation Query ---
CLINICAL DOCUMENTATION QUERY 66 yo male admitted with chest pain. Echocardiogram results with Mild concentric left ventricular hypertrophy and Grade II diastolic dysfunction. EF = 60-65%. In your clinical opinion is this patient being managed for: ( ) Chronic diastolic CHF ( x ) Not Agree ( ) Other explanation of clinical findings (Please Explain) ( ) Unable to determine (Please Define) ( ) Need to Discuss The medical record reflects the following clinical findings, treatment, and risk factors. Clinical Indicators: As above Treatment: Home Lasix 40mg PO PRN, CXR, Echo Risk Factors: Age, HTN, obesity, CKD III Please clarify and document your clinical opinion in the progress notes and discharge summary. Terms such as "probable", "suspected", "likely", "questionable", "possible", or "still to be ruled out" are acceptable. IF IN AGREEMENT, YOU MUST DOCUMENT ABOVE DIAGNOSTIC STATEMENT IN DAILY PROGRESS NOTES AND DISCHARGE SUMMARY. This document is not part of the patient's record. Thank You, Lorri Macdonald RN [phone]
--- NOTE | 2017-04-06 11:35 | History & Physical Bridge Note ---
H&P Re-Evaluation Bridge Note: I have examined the patient, reviewed the History & Physical and in the interval since the performance of the History & Physical I have noted the following changes of clinical significance: No changes noted
--- NOTE | 2017-04-06 11:36 | Pre Sedation Assessment ---
Pre Sedation Assessment General Date of Sedation: Apr 06, 2017. Vital Signs Past 12 Hours Date Time Temp Pulse Resp B/P (MAP) Pulse Ox O2 Delivery O2 Flow Rate FiO2 04/06/17 11:25 85 20 118/76 (90) 92 Nasal Cannula 4.0 04/06/17 10:51 36.5 97 20 148/83 (104) 91 Nasal Cannula 4.0 04/06/17 10:35 97 16 146/89 95 Nasal Cannula 4 04/06/17 10:30 99 16 154/91 95 Nasal Cannula 4 04/06/17 10:25 89 14 151/83 97 Mask 6 04/06/17 10:20 93 14 158/96 92 Mask 6 04/06/17 10:15 90 16 157/90 96 Mask 6 04/06/17 10:10 95 24 178/95 98 Mask 6 04/06/17 10:05 93 26 175/96 98 Mask 6 04/06/17 10:00 95 26 155/97 96 Mask 6 04/06/17 09:39 94 22 150/85 99 Mask 6 04/06/17 08:00 Room Air 04/06/17 06:38 36.5 64 18 130/76 (94) 95 Room Air 04/06/17 04:41 36.6 69 22 151/71 (97) 95 Room Air 04/06/17 04:00 Room Air 04/06/17 00:00 Room Air Pre-Sedation Airway Assessment Smoking Status: Never Smoker Hx of Sleep Apnea: No Short Thick Neck: No Thyro-mental Distance: > 3 Finger Breadths Oral Cavity: WNL Mallampati Classification: Class III ASA Classification: Class III NPO Status Date of Last Intake of Fluids: Apr 05, 2017 Time of Last Intake of Fluids: 1700 Date of Last Intake of Solids: Mar 29, 2017 Time of Last Intake of Solids: 0900 Procedure Planning Contraindications for Sedation: None Current Medications Reviewed: Yes Notes The planned sedation has been discussed with the patient. Informed Consent was obtained. I have identified the patient, determined the appropriateness of sedation and have assessed the patient immediately prior to the procedure. All medicine(s) and interventions are by my order.
--- NOTE | 2017-04-06 11:53 | PULMONARY PROGRESS NOTE ---
DATE: 04/06/2017 PULMONARY MEDICINE PROGRESS NOTE REASON FOR CONSULTATION: Progressive dyspnea/post prandial chronic cough. SUBJECTIVE: The patient was seen immediately post-bronchoscopy. I discussed with him the findings of the bronchoscopy. While there was no demonstrable area of obstruction. The vocal cords were mobile and the upper airway or oropharynx and nasopharynx looked well within normal limits. The area involving the subglottic region down to close to the jamee showed areas of endoscopic dynamic airway collapse or EDAC that was significant in my opinion and may very well be contributing to patient's symptomatology. I believe the patient would be a candidate for BiPAP therapy, both nocturnally and p.r.n. during the day. This may help him alleviate some of his symptoms of air hunger and chest tightness and allow him to resume daily activities including eating which is critical given that he has not had any significant calorie consumption in a week's time. While cultures were taken from the right and left tracheobronchial tree and sent off to the lab, I do not believe patient showed signs of active infection, although there was some mild global inflammatory with mucosal change seen throughout the right and left tracheobronchial tree. 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
--- NOTE | 2017-04-06 12:19 | OPERATIVE REPORT ---
DATE OF OPERATION: 04/06/2017 PROCEDURE: Fiberoptic bronchoscopy with bronchoalveolar lavage. INDICATIONS: Persistent postprandial cough/air hunger refractory to aggressive inpatient management. ANESTHESIA PREOPERATIVELY: None. ANESTHESIA DURING PROCEDURE: 5 mg IV Versed, 50 mcg IV fentanyl, 20 mL 2% Xylocaine spray above and below the cords, 4% viscous Xylocaine intranasally. PROCEDURE: Fiberoptic bronchoscope was inserted into the left naris without difficulty and passed to the level of the true vocal cords. The cords appeared to approximate normally with phonation without evidence for lesions or paralysis. No upper airway obstruction was noted. There was no stridorous breathing encountered. The cords were freely mobile and there was no sign of vocal cord dyskinesia. Once anesthetized the scope was safely passed to the area of the cords into the subglottic region. Immediately visible was a significant EDAC or endoscopic dynamic airway collapse involving the posterior tracheal wall with a "ballooning" of the posterior wall in several areas suggesting significant tracheomalacia. The airway never fully was obstructed, but appeared to be compromised maximally at 80% of his usual customary diameter. The scope was able to be navigated past these areas into the right and left tracheobronchial tree. The jamee was sharp. The right main stem bronchus was entered and no endobronchial lesions were seen. The right upper lobe, the apical posterior and anterior segments, bronchus intermedius, right middle lobe and the medial and lateral segments and all basilar segments right lower lobe were found to be free of endobronchial lesions. A moderate amount of secretion was lavaged from all lobar segments, especially right lower lobe until clear. A mild degree of global inflammatory mucosal change was seen but no endobronchial lesions were seen. The left tracheobronchial tree was explored and no endobronchial lesion was seen. Thin secretions were seen pooling at the base of the arch of the left lower lobe bronchus and lavaged until clear and sent for appropriate studies. Left upper lobe, the apical-posterior and anterior segments, lingual subdivision and left lower lobe were free of endobronchial lesions down to the segmental and subsegmental bronchi. The scope was then withdrawn to the level of the subglottic region and once again this area of endoscopic dynamic airway compromise was noted and photographed and the procedure was then terminated with the patient being administered a nebulizer treatment with Xopenex 1.25 mg and then transferred back to the medical floor, hemodynamically stable with no signs of respiratory compromise. Will await microbiological and cytologic examination of the bronchial washings. I attest to the content of the Intraoperative Record and any orders documented therein. Any exception s are noted below.
[2017-04-06] MEDS ORDERED: FENTANYL CITRATE INJ 50 MCG/1 ML 2 ML VIAL ONE (15:47)
[2017-04-06] MEDS ORDERED: PROPOFOL IV EMULSION 10 MG/ML 20 ML VIAL IV ONE (15:47)
[2017-04-06] MEDS ORDERED: LIDOCAINE HCL 2% 2 ML VIAL (20MG/ML) ONE (15:47)
[2017-04-06] MEDS ORDERED: EpHEDrine SULFATE 50MG/5ML SYR ONE (15:47)
--- NOTE | 2017-04-06 20:51 | Progress Note ---
Medicine Progress Note Date & Time of Visit: Apr 06, 2017 at ~ 20:00 . Subjective CC: Follow-up visit for dyspnea, cough, difficulty swallowing. HPI: Bronchoscopy went well this morning. Persistent dyspnea with minimal exertion. Persistent nonproductive cough. Intermittent substernal pressure. No pleuritic chest pain. Ongoing difficulty with swallowing. No emesis. ROS: General- no fever, no chills Resp- as noted above in HPI Cardiac- as noted above in HPI GI- as noted above in HPI - no dysuria, no difficulty voiding . Objective Last 8 Hrs Date Time Temp Pulse Resp B/P (MAP) Pulse Ox O2 Delivery O2 Flow Rate FiO2 04/06/17 20:00 Room Air 04/06/17 19:28 36.3 87 22 143/84 (103) 94 Room Air 04/06/17 16:00 92 Room Air 04/06/17 15:01 37.0 85 20 120/76 (91) 92 Physical Exam: General- lying in bed, no acute distress Lungs- clear; no respiratory distress Cardiovascular- RRR, no gallop; no JVD; no pretibial edema Abdomen- + BS, soft, nontender Extremities- no cyanosis; no calf tenderness Neuro- alert Skin- warm & dry . Laboratory Results: Last 24 Hours Test 04/06/17 06:14 04/06/17 10:20 White Blood Count 5.04 K/uL Red Blood Count 4.68 M/uL Hemoglobin 14.5 g/dL Hematocrit 42.6 % Mean Corpuscular Volume 91.0 fL Mean Corpuscular Hemoglobin 31.0 pg Mean Corpuscular Hemoglobin Concent 34.0 g/dl RDW Standard Deviation 43.6 fL RDW Coefficient of Variation 13.4 % Platelet Count 168 K/uL Mean Platelet Volume 9.7 fL Activated Partial Thromboplast Time 28.8 SECONDS Partial Thromboplastin Ratio 1.1 Sodium Level 135 mmol/L Potassium Level 4.0 mmol/L Chloride Level 104 mmol/L Carbon Dioxide Level 25 mmol/L Anion Gap 6.0 mmol/L Blood Urea Nitrogen 12 mg/dl Creatinine 1.11 mg/dl Est Creatinine Clear Calc Drug Dose 95.2 ml/min Estimated GFR () 78.7 Estimated GFR (Non- 67.9 BUN/Creatinine Ratio 10.9 Random Glucose 99 mg/dl Calcium Level 8.4 mg/dl Date/Time Source Procedure Growth Status 04/06/17 10:20 Bronchial Washings Right & Left Lower Lobe Fungal Smear Pending Received 04/06/17 10:20 Bronchial Washings Right & Left Lower Lobe Fungal Culture Pending Received 04/06/17 10:20 Bronchial Washings Right & Left Lower Lobe Acid Fast Stain Pending Received 04/06/17 10:20 Bronchial Washings Right & Left Lower Lobe Mycobacterial Culture Pending Received 04/06/17 10:20 Bronchial Washings Right & Left Lower Lobe Gram Stain Pending Received 04/06/17 10:20 Bronchial Washings Right & Left Lower Lobe Bronchoalveolar Lavage Culture Pending Received Assessment & Plan CHEST DISCOMFORT Troponins neg x 3. EKG without acute findings. No segmental wall motion abnormalities on echo. PE ruled out per CTA chest. GI and pulmonary evaluations as discussed below. DYSPHAGIA Seems to be experiencing dysphagia to solids, associated with coughing. Considered food impaction, mass, stricture, dysmotility. Nothing apparent on CTA chest. GI consulted. EGD demonstrated Schatzki ring; dilatation not attempted due to severe coughing during procedure. Start PPI. May need dilatation in future once pulmonary symptoms improve. Bronchoscopy demonstrated tracheomalacia. Could tracheomalacia be affecting swallowing?? Consult MODEL MAKER APPRENTICE. DYSPNEA ON EXERTION / COUGH O2 sats good on RA. Chest exam unremarkable. No pulmonary emboli or infiltrates on CT. Has diastolic dysfunction per echo, but no overt CHF clinically or radiographically. May be aspirating due to esophageal disease. Pulmonary Medicine consulted. Bronchoscopy demonstrated tracheomalacia, no other significant findings. Trial of BiPAP recommended. May need to consider further options if significant symptoms persist. DVT (present on admission) Found to have DVT left calf. CTA chest negative for PE. 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 INR subtherapeutic @ 1.0. Patient reports that he has been taking warfarin as prescribed despite GI symptoms. Received SQ enoxaparin initially, then transitioned to IV heparin. Held heparin for procedures. Resume SQ enoxaparin tonight. 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 VTE PROPHYLAXIS Management of acute DVT as discussed above. DISPOSITION Expected discharge to home. Family Medicine follow-up with Dr. Monsalve. . Current Inpatient Medications: Current Inpatient Medications Medications (Trade) Dose Ordered Sig/Denny Route Start Time Stop Time Status Last Admin Dose Admin Benzonatate (Tessalon Perles Cap) 100 mg TID PRN PO 04/03/17 00:30 05/03/17 00:29 Lisinopril (Zestril Tab) 5 mg QAM PO 04/03/17 09:00 05/03/17 08:59 04/05/17 12:24 5 MG Rizatriptan Benzoate (Maxalt Tab) 10 mg Q2H PRN PO 04/03/17 00:30 05/03/17 00:29 Miscellaneous (Iv Fluids Completed) 1 ea PRN PRN N/A 04/03/17 01:00 04/03/18 00:59 Nitroglycerin (Nitrostat Tab) 0.4 mg UD PRN SL 04/03/17 01:30 05/03/17 01:29 Enoxaparin Sodium (Lovenox 1 Mg/Kg) 1 ea Q12@0900,2100 SQ 04/06/17 21:00 05/06/17 20:59 UNV Lansoprazole (Prevacid Solutab) 30 mg BID PO 04/06/17 21:00 05/06/17 20:59 UNV
[2017-04-06] MEDS: LANSOPRAZOLE SOLUTAB 30 MG PO SCH (21:48)
[2017-04-06] MEDS: ENOXAPARIN 150 MG/1ML SYR SQ SCH (21:49)
[2017-04-07 03:00] VITALS: BP 129/72; PULSE 66; TEMP 36.6; O2SAT 94
[2017-04-07 07:36] VITALS: BP 135/80; PULSE 65; TEMP 36.4; O2SAT 95
[2017-04-07 08:18] LABS: PTT PATIENT 32.7 SECONDS (21.0-31.0)
[2017-04-07] MEDS: LISINOPRIL 5 MG TAB PO SCH (08:51)
[2017-04-07] MEDS: ENOXAPARIN 150 MG/1ML SYR SQ SCH ×2 (08:52→21:10)
[2017-04-07] MEDS: LANSOPRAZOLE SOLUTAB 30 MG PO SCH ×2 (09:41→21:10)
[2017-04-07 11:34] VITALS: BP 118/74; PULSE 63; TEMP 36.7
[2017-04-07 15:26] VITALS: BP 108/69; PULSE 69; TEMP 36.4; O2SAT 94
[2017-04-07 19:36] VITALS: BP 138/84; PULSE 66; TEMP 36.7; O2SAT 95
[2017-04-07] MEDS ORDERED: ACETAMINOPHEN 325 MG TAB PO PRN (21:30)
[2017-04-07 23:19] VITALS: BP 121/77; PULSE 67; TEMP 36.7; O2SAT 95
--- NOTE | 2017-04-07 23:40 | Progress Note ---
Medicine Progress Note Date & Time of Visit: Apr 07, 2017 . Subjective CC: Follow-up visit for dyspnea, cough, difficulty swallowing. HPI: Persistent dyspnea with exertion. Occasional nonproductive cough. Intermittent substernal pressure. Ongoing difficulty with swallowing. No emesis. ROS: General- no fever, no chills Resp- as noted above in HPI Cardiac- as noted above in HPI GI- as noted above in HPI - no dysuria . Objective Last 8 Hrs Date Time Temp Pulse Resp B/P (MAP) Pulse Ox O2 Delivery O2 Flow Rate FiO2 04/07/17 23:19 36.7 67 19 121/77 (92) 95 Room Air 04/07/17 20:06 Room Air 04/07/17 19:36 36.7 66 18 138/84 (102) 95 Room Air 04/07/17 16:08 Room Air Physical Exam: General- sitting in chair; no distress Lungs- clear; no respiratory distress Cardiovascular- RRR, no gallop; no JVD; no pretibial edema Abdomen- + BS, soft, nontender Extremities- no cyanosis; no calf tenderness Neuro- alert Skin- warm & dry . Laboratory Results: Last 24 Hours Test 04/07/17 07:53 Activated Partial Thromboplast Time 32.7 SECONDS Partial Thromboplastin Ratio 1.3 Assessment & Plan CHEST DISCOMFORT Troponins neg x 3. EKG without acute findings. No segmental wall motion abnormalities on echo. PE ruled out per CTA chest. GI and pulmonary evaluations as discussed below. DYSPHAGIA Seems to be experiencing dysphagia to solids, associated with coughing. Considered food impaction, mass, stricture, dysmotility. Nothing apparent on CTA chest. GI consulted. EGD demonstrated Schatzki ring; dilatation not attempted due to severe coughing during procedure. Start PPI. May need dilatation in future once pulmonary symptoms improve. Bronchoscopy demonstrated tracheomalacia. Could tracheomalacia be affecting swallowing?? Consulted FINANCIAL SECRETARY. Barium esophagram and possible video swallow recommended. DYSPNEA ON EXERTION / COUGH O2 sats good on RA. Chest exam unremarkable. No pulmonary emboli or infiltrates on CT. Has diastolic dysfunction per echo, but no overt CHF clinically or radiographically. May be aspirating due to esophageal disease. Pulmonary Medicine consulted. Bronchoscopy demonstrated tracheomalacia, no other significant findings. Trial of BiPAP recommended. May need to consider further options if significant symptoms persist. DVT (present on admission) Found to have DVT left calf. CTA chest negative for PE. 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 INR subtherapeutic @ 1.0. Patient reports that he has been taking warfarin as prescribed despite GI symptoms. Received SQ enoxaparin initially, then transitioned to IV heparin. Held heparin for procedures. Resumed SQ enoxaparin. detention management to be determined. VTE PROPHYLAXIS Management of acute DVT as discussed above. DISPOSITION Expected discharge to home. Family Medicine follow-up with Dr. Monsalve. . Current Inpatient Medications: Current Inpatient Medications Medications (Trade) Dose Ordered Sig/Denny Route Start Time Stop Time Status Last Admin Dose Admin Benzonatate (Tessalon Perles Cap) 100 mg TID PRN PO 04/03/17 00:30 05/03/17 00:29 Lisinopril (Zestril Tab) 5 mg QAM PO 04/03/17 09:00 05/03/17 08:59 04/07/17 08:51 5 MG Rizatriptan Benzoate (Maxalt Tab) 10 mg Q2H PRN PO 04/03/17 00:30 05/03/17 00:29 Miscellaneous (Iv Fluids Completed) 1 ea PRN PRN N/A 04/03/17 01:00 04/03/18 00:59 Nitroglycerin (Nitrostat Tab) 0.4 mg UD PRN SL 04/03/17 01:30 05/03/17 01:29 Enoxaparin Sodium (Lovenox Inj) 129 mg Q12@0900,2100 SQ 04/06/17 21:30 05/06/17 21:29 04/07/17 21:10 129 MG Lansoprazole (Prevacid Solutab) 30 mg BID PO 04/06/17 22:00 05/06/17 21:59 04/07/17 21:10 30 MG Acetaminophen (Tylenol Tab) 650 mg Q6H PRN PO 04/07/17 21:30 05/07/17 21:29 04/07/17 22:00 650 MG
[2017-04-08 05:17] VITALS: BP 109/75; PULSE 68; TEMP 36.8; O2SAT 94
[2017-04-08 06:39] LABS: HEMATOCRIT 42.4 % (42-52); HEMOGLOBIN 14.8 g/dL (14.0-18.0); MEAN CORPUSCULAR HEMOGLOBIN 31.8 pg (25-34); MEAN CORPUSCULAR HGB CONC 34.9 g/dl (32-36); MEAN PLATELET VOLUME 9.9 fL (7.4-10.4); PLATELET COUNT 175 K/uL (130-400); RED CELL DISTRIBUTION WIDTH CV 13.6 % (11.5-14.5); RED CELL DISTRIBUTION WIDTH SD 44.7 fL (36.4-46.3); WHITE BLOOD COUNT 5.53 K/uL (4.8-10.8)
[2017-04-08 07:32] VITALS: BP 121/77; PULSE 66; TEMP 36.4; O2SAT 95
[2017-04-08] MEDS: LISINOPRIL 5 MG TAB PO SCH (08:43)
[2017-04-08] MEDS: LANSOPRAZOLE SOLUTAB 30 MG PO SCH ×2 (08:43→20:25)
[2017-04-08] MEDS: ENOXAPARIN 150 MG/1ML SYR SQ SCH ×2 (08:45→20:27)
[2017-04-08 11:48] VITALS: BP 119/74; PULSE 69; TEMP 36.7; O2SAT 91
--- NOTE | 2017-04-08 14:24 | DIAGNOSTIC IMAGING REPORT ---
(BARIUM SWALLOW) ESOPHAGUS CLINICAL HISTORY: dysphagia. Chest tightness. COMPARISON STUDY: Chest CTA 04/02/2017. FLUOROSCOPY TIME: 0.9 minutes.. FINDINGS: 21 fluoroscopic spot images submitted. The patient swallowed barium without difficulty. The esophagus is normal in course and caliber. There is mild esophageal dysmotility. The contours of the hypopharynx are within normal limits. No hiatus hernia. No gastroesophageal reflux. The barium tablet passed without difficulty. IMPRESSION: Mild esophageal dysmotility. Otherwise, normal barium swallow. Electronically signed by: Francis Logan M.D. 04/08/2017 2:23 PM Dictated Date/Time: 04/08/2017 2:20 PM
[2017-04-08 14:40] LABS: HERPES SIMPLEX VIRUS CULT NOT ISOLATED (NOT ISOLATED)
[2017-04-08 15:42] VITALS: BP 115/73; PULSE 64; TEMP 36.3; O2SAT 93
[2017-04-08 16:00] VITALS: O2SAT 93
--- NOTE | 2017-04-08 16:00 | PULMONARY PROGRESS NOTE ---
DATE: 04/08/2017 SUBJECTIVE: The patient was sleeping in bed comfortably. He states that the retrosternal chest tightness that he experiences is less that has been in the past and he is having no postprandial symptoms. He is scheduled for a video swallow later today. He did go to the bathroom and come back and said that the retrosternal tightness was present. He appears to be intolerant of the BiPAP, utilizing a full face mask at current settings and states that he could never sleep with that device and took the mask off after 20 minutes. He felt claustrophobic. OBJECTIVE: CURRENT VITAL SIGNS: Temperature 36.7, pulse 69 and regular, respiratory rate 16, blood pressure 119/74, and O2 sat 91% on room air. SKIN: Without lesion. HEENT: Atraumatic and normocephalic. PERRLA. LUNGS: Distant P&A. CARDIAC: Unchanged. ABDOMEN: Soft. EXTREMITIES: No pedal edema. Video swallow pending. 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 It may be possible to try the patient on a nasal mask or nasal pillows with a chin strap, so that he can better tolerate the BiPAP therapy, although it is questionable to me whether he will tolerate it given his current bias against the device. I would ask respiratory if they can try to accommodate the patient with a nasal device or nasal mask and/or pillow to assure better compliance.
--- NOTE | 2017-04-08 19:57 | Progress Note ---
Medicine Progress Note Date & Time of Visit: Apr 08, 2017 at 19:20 . Subjective CC: Follow-up visit for dyspnea, cough, difficulty swallowing. HPI: Tried BiPAP, but could not tolerate it because of claustrophobia. Persistent dyspnea with minimal exertion. Occasional nonproductive cough. Intermittent substernal pressure. Ongoing difficulty with swallowing, but eating some solids. No emesis. ROS: General- no fever, no chills Resp- as noted above in HPI Cardiac- as noted above in HPI GI- as noted above in HPI - no dysuria . Objective Last 8 Hrs Date Time Temp Pulse Resp B/P (MAP) Pulse Ox O2 Delivery O2 Flow Rate FiO2 04/08/17 16:00 93 Room Air BiPAP 04/08/17 15:42 36.3 64 18 115/73 (87) 93 04/08/17 12:00 Room Air Physical Exam: General- lying in bed; no distress Lungs- clear; no respiratory distress Cardiovascular- RRR, no gallop; no JVD; no pretibial edema Abdomen- + BS, soft, nontender Extremities- no cyanosis; no calf tenderness Neuro- alert Skin- warm & dry . Laboratory Results: Last 24 Hours Test 04/08/17 06:06 White Blood Count 5.53 K/uL Red Blood Count 4.66 M/uL Hemoglobin 14.8 g/dL Hematocrit 42.4 % Mean Corpuscular Volume 91.0 fL Mean Corpuscular Hemoglobin 31.8 pg Mean Corpuscular Hemoglobin Concent 34.9 g/dl RDW Standard Deviation 44.7 fL RDW Coefficient of Variation 13.6 % Platelet Count 175 K/uL Mean Platelet Volume 9.9 fL Assessment & Plan CHEST DISCOMFORT Troponins neg x 3. EKG without acute findings. No segmental wall motion abnormalities on echo. PE ruled out per CTA chest. GI and pulmonary evaluations as discussed below. Check treadmill stress echo tomorrow. DYSPHAGIA Seems to be experiencing dysphagia to solids, associated with coughing. Considered food impaction, mass, stricture, dysmotility. Nothing apparent on CTA chest. GI consulted. EGD demonstrated Schatzki ring; dilatation not attempted due to severe coughing during procedure. Start PPI. May need dilatation in future once pulmonary symptoms improve. Bronchoscopy demonstrated tracheomalacia. Could tracheomalacia be affecting swallowing?? Consulted SUPERVISOR HOME ENERGY CONSULTANT. Barium esophagram showed esophageal dysmotility, no reflux, no aspiration. Slippery diet, aspiration precautions, GERD precautions recommended. DYSPNEA ON EXERTION / COUGH O2 sats good on RA. Chest exam unremarkable. No pulmonary emboli or infiltrates on CT. Has diastolic dysfunction per echo, but no overt CHF clinically or radiographically. May be aspirating due to esophageal disease. Pulmonary Medicine consulted. Bronchoscopy demonstrated tracheomalacia, no other significant findings. BiPAP recommended, but pt could not tolerate it. Check 2-step pulse oximetry prior to discharge. Outpt PFT's recommended. DVT (present on admission) Found to have DVT left calf. CTA chest negative for PE. 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 INR subtherapeutic @ 1.0. Patient reports that he has been taking warfarin as prescribed despite GI symptoms. Received SQ enoxaparin initially, then transitioned to IV heparin. Held heparin for procedures. Resumed SQ enoxaparin. superintendent terminal management discussed with pt's clinic pharmacist. Will discharge on rivaroxaban since therapeutic INR's have been very difficult to maintain. VTE PROPHYLAXIS Management of acute DVT as discussed above. DISPOSITION Expected discharge to home. Family Medicine follow-up with Dr. Monsalve. . Current Inpatient Medications: Current Inpatient Medications Medications (Trade) Dose Ordered Sig/Denny Route Start Time Stop Time Status Last Admin Dose Admin Benzonatate (Tessalon Perles Cap) 100 mg TID PRN PO 04/03/17 00:30 05/03/17 00:29 Lisinopril (Zestril Tab) 5 mg QAM PO 04/03/17 09:00 05/03/17 08:59 04/08/17 08:43 5 MG Rizatriptan Benzoate (Maxalt Tab) 10 mg Q2H PRN PO 04/03/17 00:30 05/03/17 00:29 Miscellaneous (Iv Fluids Completed) 1 ea PRN PRN N/A 04/03/17 01:00 04/03/18 00:59 Nitroglycerin (Nitrostat Tab) 0.4 mg UD PRN SL 04/03/17 01:30 05/03/17 01:29 Enoxaparin Sodium (Lovenox Inj) 129 mg Q12@0900,2100 SQ 04/06/17 21:30 05/06/17 21:29 04/08/17 08:45 129 MG Lansoprazole (Prevacid Solutab) 30 mg BID PO 04/06/17 22:00 05/06/17 21:59 04/08/17 08:43 30 MG Acetaminophen (Tylenol Tab) 650 mg Q6H PRN PO 04/07/17 21:30 05/07/17 21:29 04/07/17 22:00 650 MG
[2017-04-08 23:22] VITALS: BP 115/77; PULSE 72; TEMP 36.6; O2SAT 95
[2017-04-09 03:58] VITALS: BP 130/83; PULSE 77; TEMP 36.6; O2SAT 99
[2017-04-09] MEDS ORDERED: TRAMADOL HCL 50 MG TAB PO PRN (04:15)
[2017-04-09] MEDS ORDERED: TRAMADOL HCL 50 MG TAB ONE (04:28)
[2017-04-09 05:09] LABS: PTT PATIENT 43.2 SECONDS (21.0-31.0)
[2017-04-09 07:41] VITALS: BP 118/77; PULSE 76; TEMP 36.9; O2SAT 97
[2017-04-09] MEDS: RIVAROXABAN TAB 15 MG TAB PO SCH ×2 (07:57→18:14)
[2017-04-09] MEDS: LANSOPRAZOLE SOLUTAB 30 MG PO SCH (07:58)
[2017-04-09 08:00] VITALS: O2SAT 97
[2017-04-09] MEDS ORDERED: ATROPINE SULFATE 0.1 MG/ML 5ML SYR ONE (12:30)
[2017-04-09] MEDS ORDERED: METOPROLOL TARTRATE 1 MG/ML VIAL ONE (12:30)
[2017-04-09] MEDS ORDERED: DOBUTamine HCL 12.5 MG/ML 20 ML VIAL ONE (12:30)
--- NOTE | 2017-04-09 13:30 | DOBUTAMINE ECHO ---
*NOTICE TO RECEIVING CONSTITUTION PARTY AGENCY This information is strictly Confidential and protected under [place] law. [place] law prohibits you from making any further disclosure of this information unless further disclosure is expressly permitted by the written consent of the person to whom it pertains or is authorized by law. A general authorization for the release of medical or other information is not sufficient for this purpose. Hospital accepts no responsibility if the information is made available to any other person, INCLUDING THE PATIENT. Interpretation Summary * Name: RENETTA WITT Study Date: 04/09/2017 11:52 AM BP: 167/90 mmHg * Patient Location: [facility]\S\N275\S\1 HR: 79 * : 1950 (M/d/yyyy) Gender: Male Height: 76 in * Age: 66 yrs Ethnicity: [place] Weight: 292 lb * Ordering Physician: Jeff Mulligan * Referring Physician: Self, Referred * Performed By: Bryant Lacy RCS * * Reason For Study: SOL * BSA: 2.6 m2 * -- Conclusions -- * Nonischemic dobutamine stress echocardiogram. * No arrhythmias. * Normal HR and BP response to dobutamine infusion. * No symptoms were reproduced with dobutamine infusion. * Resting images suggest enlargement of RV chamber size. Procedure Details * DOBUTAMINE ECHO, CPT#46983 * A contrast injection of Definity was performed to improve assessment of LV function. * Contrast was injected into an intravenous site in the left arm. * One vial of Definity ultrasound contrast was diluted in normal saline to a total volume of 10 ml. A total of '4' ml of solution was administered during imaging. * Lot # [id number] of Definity utilized for procedure. * Expiration date . * The attending nurse who injected the contrast agent was Ross Finney RN. Stress Parameters * Normal baseline electrocardiogram. * No arrhythmia were noted with stress. * Stress ECG: No ST changes. No arrhythmias. * The stress portion of this study was personally supervised by the undersigned interpreting physician. * Rest heart rate was '79' BPM. * Rest blood pressure was '167/90' * Maximum heart rate achieved was 141 bpm. * Maximum heart rate was 92 % of maximum age-predicted heart rate. * Maximum blood pressure was '184/34' * Maximum Dobutamine infusion rate was '40' mcg/kg/min. * Dobutamine infusion was terminated due to achieving target heart rate * A total of 5 mg of IV Metoprolol was administered to reverse Dobutamine-induced tachycardia. * The patient did not exhibit any symptoms during drug infusion. * Normal blood pressure response to exercise.
[2017-04-09] MEDS ORDERED: PERFLUTREN LIPID MICROSPHERE (DEFINITY) IV ONE (14:20)
[2017-04-09 15:35] VITALS: BP 123/79; PULSE 72; TEMP 36.7; O2SAT 96
[2017-04-09 16:00] VITALS: O2SAT 96
--- NOTE | 2017-04-09 17:14 | Progress Note ---
Medicine Progress Note Date & Time of Visit: Apr 09, 2017 at 17:14 . Subjective Dyspnea on exertion unchanged. Occasional nonproductive cough. No oxygen desaturation with ambulation during 2-step assessment. Dobutamine stress echo performed- no stress-induced ischemia. Eating with mild discomfort, no significant dysphagia. . Objective Last 8 Hrs Date Time Temp Pulse Resp B/P (MAP) Pulse Ox O2 Delivery O2 Flow Rate FiO2 04/09/17 16:00 96 Room Air 04/09/17 15:35 36.7 72 20 123/79 (94) 96 Room Air Physical Exam: General- no distress Lungs- clear; no respiratory distress Cardiovascular- RRR, no gallop; no JVD; no pretibial edema Abdomen- + BS, soft, nontender Extremities- no cyanosis; no calf tenderness Neuro- alert Skin- warm & dry . Laboratory Results: Last 24 Hours Test 04/09/17 04:35 Activated Partial Thromboplast Time 43.2 SECONDS Partial Thromboplastin Ratio 1.7 Troponin I < 0.015 ng/ml Assessment & Plan CHEST DISCOMFORT Troponins neg x 3. EKG without acute findings. No segmental wall motion abnormalities on echo. PE ruled out per CTA chest. GI and pulmonary evaluations as discussed below. Dobutamine stress echo did not show any evidence of ischemia. DYSPHAGIA Seemed to be experiencing dysphagia to solids, associated with coughing. Considered food impaction, mass, stricture, dysmotility. Nothing apparent on CTA chest. GI consulted. EGD demonstrated Schatzki ring; dilatation not attempted due to severe coughing during procedure. Started PPI. May need dilatation in future once pulmonary symptoms improve. Bronchoscopy demonstrated tracheomalacia. Consulted WAREHOUSE ASSOCIATE DRIVER. Barium esophagram showed esophageal dysmotility, no reflux, no aspiration. Slippery diet, aspiration precautions, GERD precautions recommended. DYSPNEA ON EXERTION / COUGH O2 sats good on RA. Chest exam unremarkable. No pulmonary emboli or infiltrates on CT. Has diastolic dysfunction per echo, but no overt CHF clinically or radiographically. May be aspirating due to esophageal disease. Pulmonary Medicine consulted. Bronchoscopy demonstrated tracheomalacia, no other significant findings. BiPAP recommended, but pt could not tolerate it. 2-step pulse oximetry performed; O2 sats remained in 90's during exercise. Discontinue lisinopril. Outpt PFT's recommended. HYPERTENSION Discontinue lisinopril because of persistent cough. Follow and titrate therapy. DVT (present on admission) Found to have DVT left calf. CTA chest negative for PE. 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 INR subtherapeutic @ 1.0. Patient reports that he has been taking warfarin as prescribed despite GI symptoms. Received SQ enoxaparin initially, then transitioned to IV heparin. Held heparin for procedures. Resumed SQ enoxaparin. actimize architect management discussed with pt's clinic pharmacist. Changed therapy to rivaroxaban since therapeutic INR's have been very difficult to maintain. VTE PROPHYLAXIS Management of acute DVT as discussed above. DISPOSITION Discharge to home. Family Medicine follow-up with Dr. Monsalve. Pulmonary follow-up with Dr. Dukes. . Current Inpatient Medications: Current Inpatient Medications Medications (Trade) Dose Ordered Sig/Denny Route Start Time Stop Time Status Last Admin Dose Admin Benzonatate (Tessalon Perles Cap) 100 mg TID PRN PO 04/03/17 00:30 05/03/17 00:29 Rizatriptan Benzoate (Maxalt Tab) 10 mg Q2H PRN PO 04/03/17 00:30 05/03/17 00:29 Miscellaneous (Iv Fluids Completed) 1 ea PRN PRN N/A 04/03/17 01:00 04/03/18 00:59 Nitroglycerin (Nitrostat Tab) 0.4 mg UD PRN SL 04/03/17 01:30 05/03/17 01:29 Lansoprazole (Prevacid Solutab) 30 mg BID PO 04/06/17 22:00 05/06/17 21:59 04/09/17 07:58 30 MG Acetaminophen (Tylenol Tab) 650 mg Q6H PRN PO 04/07/17 21:30 05/07/17 21:29 04/07/17 22:00 650 MG Rivaroxaban (Xarelto Tab) 15 mg BID PO 04/09/17 08:00 05/09/17 07:59 04/09/17 07:57 15 MG Tramadol HCl (Ultram Tab) not relieved by tylenol @ Q6H PRN PO 04/09/17 04:15 05/09/17 04:14
[2017-04-09] MEDS ORDERED: RIVA1TAB4 PO (17:20)
[2017-04-09] MEDS ORDERED: OMEP40CA41 PO (17:20)
[2017-04-09] MEDS ORDERED: TRAM-10 PO (17:20)
[2017-04-09] MEDS ORDERED: RIVA1TAB7 PO (17:20)
[2017-04-09] MEDS ORDERED: ACET-1257 PO (17:20)
--- NOTE | 2017-04-09 17:32 | Discharge Instructions ---
Discharge Instructions Date of Service Apr 09, 2017. Admission Reason for Admission: chest discomfort, trouble breathing, trouble swallowing . Discharge Discharge Diagnosis / Problem: no sign of heart attack or blood clot in lungs Discharge Goals Goal(s): Decrease discomfort Activity Recommendations Activity Limitations: resume your previous activity . Instructions / Follow-Up Instructions / Follow-Up APPOINTMENTS: FAMILY MEDICINE 04/16/2017 10:00 AM Zan Monsalve MD OTHER INSTRUCTIONS: Eat slowly with small bites. Avoid eating or drinking extremely cold food or beverages too quickly. Soft / slippery foods. Keep head elevated when sleeping. Dr. Dukes's office will contact you with follow-up appointment. Stop warfarin (Coumadin) - it has been too difficult to regulate. Start rivaroxaban (Xarelto) for blood clots. Take 15 mg twice a day with food for 21 days, then 20 mg once a day with food. No need to check INR. Lisinopril (Prinivil or Zestril) can cause coughing. Stop it for now. Dr. Monsalve will check your blood pressure when you see him. Seek medical attention if you have: * temperature above 101 * severe chest pain or trouble breathing * abdominal pain, nausea, vomiting, food getting stuck * diarrhea, dark stools or bloody stools * any unanswered questions or concerns Call 911 if symptoms are severe. Call if you have any questions or problems. My cell # is [phone]. You can also reach a [facility] hospitalist on duty at [facility] 24 hours a day by calling [phone]. Please take good care of yourself. Jeff Mulligan . Current Hospital Diet Patient's current hospital diet: AHA Diet (Heart Healthy) Discharge Diet Recommended Diet: AHA Diet (Heart Healthy) (soft / slippery) Procedures Procedures Performed: CT scan of chest- no blood clots ultrasound of legs- small blood clot in left calf blood tests- no sign of heart attack endoscopy- ring in lower esophagus bronchoscopy- tracheomalacia (partial collapse of windpipe) barium swallow- poor coordination of muscles in esophagus Pending Studies Studies pending at discharge: no Medical Emergencies . Who to Call and When: Medical Emergencies: If at any time you feel your situation is an emergency, please call 911 immediately. . Non-Emergent Contact Non-Emergency issues call your: Primary Care Provider, Hospital Doctor, Technical Account Representative . . "Provider Documentation" section prepared by Jeff Mulligan. . VTE Core Measure Inpt VTE Proph given/why not?: Enoxaparin (Lovenox)SQ, Unfractionated heparin SQ [place] Drug Monitoring Program Search Results: patient reviewed within database, no issues identified
[2017-04-09 17:58] VITALS: BP 123/79; PULSE 72; TEMP 36.7; O2SAT 96
--- NOTE | 2017-04-10 18:29 | Discharge Summary ---
Discharge Summary Date of Service Apr 10, 2017. Discharge Summary Admission Date: Apr 03, 2017 at 00:38 Discharge Date: Apr 09, 2017 Discharge Disposition: Home Principal Diagnosis: chest pain- NV and pulmonary embolism ruled out OTHER ACUTE / NEW DIAGNOSES: dyspnea on exertion cough tracheomalacia dysphagia secondary to esophageal dysmotility DVT left calf (present on admission) . Secondary Diagnoses/Problems: Chronic and Resolved Medical Problems: (1) Arthritis Status: Chronic (2) Chronic prostatitis Status: Chronic (3) CKD (chronic kidney disease), stage III Status: Chronic (4) DVT (deep venous thrombosis), history of Permanent Comment: After knee surgery Status: Chronic (5) Dyslipidemia Status: Chronic (6) Fatty liver Status: Chronic (7) GERD (gastroesophageal reflux disease) Status: Chronic (8) History of Clostridium difficile colitis Status: Chronic (9) Hyperhomocysteinemia Status: Chronic (10) Hypertension Status: Chronic (11) IBS (irritable bowel syndrome) Status: Chronic (12) Migraine Status: Chronic (13) Obesity (BMI 30-39.9) Status: Chronic Surgical Problems: (1) H/O arthroscopic knee surgery Permanent Comment: for meniscus repair on 08/29/13 Status: Resolved (2) H/O hernia repair Permanent Comment: Incarcerated umbilical hernia 08/03/2014 Status: Chronic (3) History of carpal tunnel surgery Status: Chronic (4) S/P cholecystectomy Status: Resolved . Procedures: cardiac monitoring echo CTA chest venous duplex lower extremities EGD bronchoscopy barium esophagram dobutamine stress echo . Consultations: GI with BALDO Pulido and Dr. Miles. Pulmonary with Dr. Dukes. . Medication Reconciliation New Medications: Acetaminophen (Tylenol Extra Strength) 500 Mg Tab 1000 MG PO Q8 PRN for Pain, #60 TAB take 2 pills every 8 hrs as needed for moderate pain Omeprazole (Prilosec) 40 Mg Cap 40 MG PO DAILY, #30 CAP 5 Refills Rivaroxaban (Xarelto Starter Pack 15 & 20 mg) 1 Tab Tab 0 PO UD, #1 PKT 15 mg twice a day for 21 days then 20 mg once a day take with food Rivaroxaban (Xarelto) 20 Mg Tab 20 MG PO DAILY, #30 TAB 5 Refills take with food Tramadol (Ultram) 50 Mg Tab 100 MG PO Q8H PRN for Pain, #20 TAB 1 Refill take 2 pills every 8 hrs as needed for severe pain Continued Medications: Benzonatate (Tessalon Perles) 100 Mg Cap 100 MG PO TID PRN for Cough Furosemide (Furosemide) 40 Mg Tab 40 MG PO BID PRN for FLUID ACCUMULATION Rizatriptan Benzoate (Maxalt) 10 Mg Tab 10 MG PO Q2H PRN for Migraine, #6 Discontinued Medications: Lisinopril (Lisinopril) 5 Mg Tab 5 MG PO QAM, #30 TAB Warfarin Sod (Jantoven) 10 Mg Tab 20 MG PO QPM TWO 10 MG TABLETS Admission Information HPI (per Admitting provider): 66 year old M who reports that he has been having symptoms on exertion. Describes having difficulties ambulating short distances. Activities may lead to sensation of chest tightness and then dry cough and shortness of breath. Patient denies smoking history. In the ED, patient had CTA chest which did not find evidence of pulmonary embolism. However patient has history of recurrent deep vein thrombosis for which he has been on coumadin. Patient reports that he he has lower extremity DVTs since 2013. However, he has trouble with obtaining therapeutic coumadin levels and INR on this admission is 1 and the ultrasound of his legs shows "1) Thrombus identified within one of 2 left posterior tibial veins which is new from the prior studies. Therefore, this favors acute thrombus. 2. 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 " In the emergency room patient was given Lovenox 1 mg/kg. Patient also received aspirin 325 mg in the ED as there was concern whether patient was having acute coronary syndrome but troponins were negative x 2 when patient was evaluated by hospitalist physician. Of note, patient was previously admitted at [facility] in October 2016 with DVT of legs and subtherapeutic INR but patient reported that his insurance denied him Lovenox on discharge . Physical Exam (per Admitting): General Appearance: no apparent distress, + obese Head: normocephalic, atraumatic Eyes: normal inspection, EOMI, sclerae normal ENT: normal ENT inspection, hearing grossly normal, pharynx normal Neck: supple, no adenopathy, no JVD, trachea midline Respiratory/Chest: chest non-tender, lungs clear, normal breath sounds, no respiratory distress, no accessory muscle use Cardiovascular: regular rate, rhythm, no edema, no JVD, no murmur, normal peripheral pulses Abdomen/GI: normal bowel sounds, non tender, soft, no organomegaly, no pulsatile mass Back: normal inspection, no CVA tenderness, no muscle spasm, normal range of motion Extremities/Musculoskelatal: no calf tenderness, normal capillary refill, normal range of motion, non-tender, pelvis stable, + swelling (right leg more swollen than left leg), + pertinent finding (no knee swelling or erythema) Neurologic/Psych: personal injury paralegal II-XII nml as tested, no motor/sensory deficits, alert , normal mood/affect, oriented x 3 Skin: normal color, warm/dry, no rash Hospital Course CHEST DISCOMFORT Troponins neg x 3. EKG without acute findings. No segmental wall motion abnormalities on echo. PE ruled out per CTA chest. GI and pulmonary evaluations as discussed below. Dobutamine stress echo did not show any evidence of ischemia. DYSPHAGIA Seemed to be experiencing dysphagia to solids, associated with coughing. Considered food impaction, mass, stricture, dysmotility. Nothing apparent on CTA chest. GI consulted. EGD demonstrated Schatzki ring; dilatation not attempted due to severe coughing during procedure. Started PPI. May need dilatation in future once pulmonary symptoms improve. Bronchoscopy demonstrated tracheomalacia. Consulted DENTAL SURGEON. Barium esophagram showed esophageal dysmotility, no reflux, no aspiration. Slippery diet, aspiration precautions, GERD precautions recommended. DYSPNEA ON EXERTION / COUGH O2 sats good on RA. Chest exam unremarkable. No pulmonary emboli or infiltrates on CT. Has diastolic dysfunction per echo, but no overt CHF clinically or radiographically. May be aspirating due to esophageal disease. Pulmonary Medicine consulted. Bronchoscopy demonstrated tracheomalacia, no other significant findings. BiPAP recommended, but pt could not tolerate it. 2-step pulse oximetry performed; O2 sats remained in 90's during exercise. Discontinue lisinopril. Outpt PFT's recommended. HYPERTENSION Discontinue lisinopril because of persistent cough. Follow and titrate therapy. DVT (present on admission) Found to have DVT left calf. CTA chest negative for PE. 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 INR subtherapeutic @ 1.0. Patient reports that he has been taking warfarin as prescribed. Received SQ enoxaparin initially, then transitioned to IV heparin. Held heparin for procedures, then resumed SQ enoxaparin. correction management discussed with pt's clinic pharmacist. Changed anticoagulation therapy to rivaroxaban since therapeutic INR's have been very difficult to maintain. VTE PROPHYLAXIS Management of acute DVT as discussed above. DISPOSITION Discharge to home. Family Medicine follow-up with Dr. Monsalve. Pulmonary follow-up with Dr. Dukes. . Total time spent on discharge = 40 min. This includes examination of the patient, discharge planning, medication reconciliation, and communication with other providers. . Discharge Instructions Date of Service Apr 09, 2017. Admission Reason for Admission: chest discomfort, trouble breathing, trouble swallowing . Discharge Discharge Diagnosis / Problem: no sign of heart attack or blood clot in lungs Discharge Goals Goal(s): Decrease discomfort Activity Recommendations Activity Limitations: resume your previous activity . Instructions / Follow-Up Instructions / Follow-Up APPOINTMENTS: FAMILY MEDICINE 04/16/2017 10:00 AM Zan Monsalve MD OTHER INSTRUCTIONS: Eat slowly with small bites. Avoid eating or drinking extremely cold food or beverages too quickly. Soft / slippery foods. Keep head elevated when sleeping. Dr. Dukes's office will contact you with follow-up appointment. Stop warfarin (Coumadin) - it has been too difficult to regulate. Start rivaroxaban (Xarelto) for blood clots. Take 15 mg twice a day with food for 21 days, then 20 mg once a day with food. No need to check INR. Lisinopril (Prinivil or Zestril) can cause coughing. Stop it for now. Dr. Monsalve will check your blood pressure when you see him. Seek medical attention if you have: * temperature above 101 * severe chest pain or trouble breathing * abdominal pain, nausea, vomiting, food getting stuck * diarrhea, dark stools or bloody stools * any unanswered questions or concerns Call 911 if symptoms are severe. Call if you have any questions or problems. My cell # is [phone]. You can also reach a [facility] hospitalist on duty at [facility] 24 hours a day by calling [phone]. Please take good care of yourself. Jeff Mulligan . Current Hospital Diet Patient's current hospital diet: AHA Diet (Heart Healthy) Discharge Diet Recommended Diet: AHA Diet (Heart Healthy) (soft / slippery) Procedures Procedures Performed: CT scan of chest- no blood clots ultrasound of legs- small blood clot in left calf blood tests- no sign of heart attack endoscopy- ring in lower esophagus bronchoscopy- tracheomalacia (partial collapse of windpipe) barium swallow- poor coordination of muscles in esophagus Pending Studies Studies pending at discharge: no Medical Emergencies . Who to Call and When: Medical Emergencies: If at any time you feel your situation is an emergency, please call 911 immediately. . Non-Emergent Contact Non-Emergency issues call your: Primary Care Provider, Hospital Doctor, Wine Sales Representative . . "Provider Documentation" section prepared by Jeff Mulligan. . VTE Core Measure Inpt VTE Proph given/why not?: Enoxaparin (Lovenox)SQ, Unfractionated heparin SQ [place] Drug Monitoring Program Search Results: patient reviewed within database, no issues identified Additional Copies To Zan Monsalve M.D.; Catrachito Dukes M.D.
--- NOTE | 2017-04-13 14:52 | EDITING REQUIRED CODING QUERY ---
CODING QUERY To promote full compliance with coding requirements relating to patient care, provider participation is requested in all cases of bulb assembler uncertainty. Please assist us with the question(s) below: Coding Question(s): Patient admitted with cough, shortness of breath and dyspnea on exertion. Bronchoscopy revealed tracheomalacia. Please document the etiology of patient's admitting symptoms , if known or suspected. Thank you. Tommie Mari [facility] Physician's Response(s): Unusual presentation with multiple symptoms. Exact cause(s) of presenting symptoms not determined after extensive evaluation and consultation. Principal Diagnosis: "_that condition established after study, to be chiefly responsible for occasioning the admission of the patient to the hospital for care." Co-Existing Principal Diagnosis: "_when two or more diagnoses equally meet the criteria for principal diagnosis as determined by the circumstances of admission, diagnostic work up, and/or therapy provided, and the Alphabetic Index, Tabular List, or another coding guideline does not provide sequencing direction, any one of the diagnoses may be sequenced first." "When the physician has documented what appears to be a current diagnosis in the body of the record, but has not included the diagnosis in the final diagnostic statement, the physician should be asked whether the diagnosis should be added." (Source Coding Clinic 2 QTR90. p3-4)
== END 2017-04-09 18:39 | disposition home or self-care (01) | DRG 167 ==
LOC: C.EDB 17:05 → ENRESERV 04-03 00:37 → C.MED 04-03 00:38 → EDBEDREQ 04-03 00:45 → C.4E 04-08 22:05
PROVIDERS: ADMIT Hospitalist; ATTEND Hospitalist
PROC: 0DJ08ZZ Inspection of Upper Intestinal Tract, Via Natural or Artificial Opening Endoscopic (ICD-10-PCS; 2017-04-05)
PROC: 0B9J8ZX Drainage of Left Lower Lung Lobe, Via Natural or Artificial Opening Endoscopic, Diagnostic (ICD-10-PCS; principal; 2017-04-06 08:59)
PROC: 0B9K8ZX Drainage of Right Lung, Via Natural or Artificial Opening Endoscopic, Diagnostic (ICD-10-PCS; principal; 2017-04-06 08:59)
DX: R05 Cough (principal); I82.532 Chronic embolism and thrombosis of left popliteal vein; R07.9 Chest pain, unspecified; N41.1 Chronic prostatitis; Z86.718 Personal history of other venous thrombosis and embolism; K76.0 Fatty (change of) liver, not elsewhere classified; K21.9 Gastro-esophageal reflux disease without esophagitis; I12.9 Hypertensive chronic kidney disease with stage 1 through stage 4 chronic kidney disease, or unspecified chronic kidney disease; Z79.01 Long term (current) use of anticoagulants; R06.00 Dyspnea, unspecified; J39.8 Other specified diseases of upper respiratory tract; N18.3 Chronic kidney disease, stage 3 (moderate); K58.9 Irritable bowel syndrome, unspecified; E66.9 Obesity, unspecified; Z68.30 Body mass index [BMI] 30.0-30.9, adult; K22.2 Esophageal obstruction; R79.1 Abnormal coagulation profile

== ENCOUNTER 2020-04-11 12:11 | Inpatient (IN) ==
[2020-04-11] MEDS ORDERED: ASPIRIN CHEW 324 MG PO STA (12:24)
[2020-04-11 12:34] LABS: Basophils # (auto) 0.01 K/uL (0-0.2); Basophils % (auto) 0.1 %; Eosinophils # (auto) 0.05 K/uL (0-0.5); Eosinophils % (auto) 0.7 %; Hemoglobin 15.7 g/dL (14.0-18.0); Immature Granulocytes # (auto) 0.01 K/uL (0.00-0.02); Immature Granulocytes % (auto) 0.1 %; Lymphocytes # (auto) 1.24 K/uL (1.2-3.4); Lymphocytes % (auto) 16.9 %; Mean Corpuscular Hemoglobin 31.2 pg (25-34); Mean Corpuscular Hgb Conc 34.1 g/dL (32-36); Mean Corpuscular Volume 91.5 fL (80-100); Mean Platelet Volume 9.3 fL (7.4-10.4); Monocytes # (auto) 0.47 K/uL (0.11-0.59); Monocytes % (auto) 6.4 %; Neutrophils # (auto) 5.56 K/uL (1.4-6.5); Neutrophils % (auto) 75.8 %; Platelet Count 203 K/uL (130-400); RDW Coefficient of Variation 13.4 % (11.5-14.5); RDW Standard Deviation 45.1 fL (36.4-46.3); Red Blood Count 5.03 M/uL (4.7-6.1); White Blood Count 7.34 K/uL (4.8-10.8)
[2020-04-11 12:48] LABS: D Dimer 280 ug/L FEU (0-500); INR 1.1 (0.9-1.1); Partial Thromboplastin Time 27.6 Seconds (21.0-31.0); Prothrombin Time 11.1 Seconds (9.0-12.0)
--- NOTE | 2020-04-11 12:49 | XRay Report ---
XR chest 1V portable HISTORY: Atypical Chest Pain COMPARISON: None. FINDINGS: The lungs are clear. Cardiac silhouette is normal in size. No pleural effusions. No pneumot horax. IMPRESSION: No acute process. ACT 112: Negative or not required by law. Electronically signed by: Francis Logan M.D. 04/11/2020 12:48 PM
[2020-04-11 12:57] LABS: BUN Creatinine Ratio 12.7 (10-20); Blood Urea Nitrogen 20 mg/dl (7-18); Calcium 9.4 mg/dl (8.5-10.1); Carbon Dioxide 30 mmol/L (21-32); Chloride 102 mmol/L (98-107); Creatinine Clr Calc Pharmacy 62.9 ml/min; Est GFR (African American) 49.5; Est GFR (Non-African American) 42.7; Glucose 104 mg/dl (70-99); Lipase 137 U/L (73-393); Sodium 137 mmol/L (136-145)
[2020-04-11 13:01] LABS: Troponin I < 0.015 ng/ml (0-0.045)
--- NOTE | 2020-04-11 13:40 | Emergency Department Note ---
History of Present Illness General Chief Complaint: Chest Pain Time Seen by Provider: 04/11/20 12:17 History of Present Illness Provider Complaint: chest pain Onset (ago): week(s) Onset (Weeks): 3 Duration: intermittent Onset: during rest Pain Location: substernal Pain Radiation: none Maximum Pain Intensity: 8 Current Pain Intensity: 2 Quality: + aching Relieved By: + nothing Exacerbated By: + nothing Associated symptoms: + dyspnea; no nausea, no vomiting, no diaphoresis, no syncope, no palpitations, no fever, no cough and no leg swelling Home Medications Medication Instructions Recorded Confirmed Type chlorthalidone 25 mg PO QAM 03/26/18 04/03/20 History furosemide 40 mg PO BID PRN 03/26/18 04/03/20 History warfarin 25 mg PO DAILY 03/26/18 04/03/20 History cimetidine 400 mg PO BID 03/23/20 04/03/20 History omeprazole magnesium [Prilosec OTC] 20 mg PO DAILY 42 Days #42 tab 03/23/20 04/03/20 Rx rizatriptan [Maxalt-HOME INSURANCE AGENT] 10 mg PO DIRECTED PRN 04/03/20 04/03/20 History Allergies Allergy/AdvReac Type Severity Reaction Status Date / Time morphine AdvReac Intermediate anxiety Verified 04/03/20 15:57 Past Med/Surg History Medical History Arthritis Chronic prostatitis CKD (chronic kidney disease), stage III Claustrophobia DVT (deep venous thrombosis) "After knee surgery" Dyslipidemia Fatty liver GERD (gastroesophageal reflux disease) History of Clostridium difficile colitis Hyperhomocysteinemia Hypertension IBS (irritable bowel syndrome) Migraine Obesity (BMI 30-39.9) Surgical History H/O arthroscopic knee surgery "for meniscus repair on 08/29/13" H/O hernia repair "Incarcerated umbilical hernia 08/03/2014" History of carpal tunnel surgery S/P cholecystectomy Social History Smoking Status: Never smoker Preferred Language: Bengali Communication Ability: Effective Visual Impairment: No Limitations Hearing Ability: Normal marital status: current occupational status: retired Feels Safe at Home: Yes Review of Systems A total of 10 systems reviewed and were otherwise negative Physical Exam Vital Signs Vital Signs - 24 hr 04/11/20 12:18 04/11/20 13:35 Temperature 36.7 C Temperature Source Oral Pulse Rate 79 Pulse Rate [Right Finger] 72 Respiratory Rate 18 18 Respiratory Effort / Characteristics Non-Labored Non-Labored Spontaneous Respiratory Depth Normal Normal Blood Pressure 176/90 H Blood Pressure [Right Arm] 142/85 H Blood Pressure Mean 118 Blood Pressure Mean [Right Arm] 104 Blood Pressure Position [Right Arm] Sitting Pulse Oximetry 98 95 Oxygen Delivery Method Room Air Room Air Sepsis Recent Fever Within 48 Hours No Sepsis New/Unexplained Change in Mental Status No Sepsis Action Taken by Nursing No Action Required Physical Exam GENERAL: He is oriented to person, place, and time. He appears well-developed and well-nourished. He does not appear distressed. HENT: Exam performed. - Head: Normocephalic and atraumatic. - Right Ear: External ear normal. No mastoid tenderness. - Left Ear: External ear normal. No mastoid tenderness. - Mouth/Throat: The oropharynx is clear and moist. No trismus in the jaw. No dental abscesses or uvula swelling. No oropharyngeal exudate or tonsillar abscesses. EYES: Conjunctivae and EOM are normal. Pupils are equal, round, and reactive to light. Right eye exhibits no discharge. Left eye exhibits no discharge. No scleral icterus. NECK: Normal range of motion. Neck supple. No JVD present. No spinous process tenderness present. No carotid bruit present. No rigidity. No tracheal deviation and normal range of motion present. No Brudzinski's sign and no Kernig's sign noted. CV: Normal rate, regular rhythm, normal heart sounds and intact distal pulses. There is no peripheral edema. Palpable radial pulses bue. PULM/CHEST: Effort normal and breath sounds normal. No respiratory distress. No stridor. He has no wheezes. He has no rales. - Chest Wall: He exhibits no tenderness. ABD: The abdomen is soft. Bowel sounds are normal. He has no distension. No mass is present. There is no tenderness. There is no rebound, no guarding, no Bloom's sign and no tenderness at McBurney's point. Rovsig negative. MUSC/SKEL: Normal range of motion. There is no peripheral edema, tenderness or deformity. LYMPH: No cervical adenopathy. NEURO: He is alert and oriented to person, place, and time. He has normal strength. No cranial nerve deficit or sensory deficit. Coordination and gait normal. GCS eye subscore is 4. GCS verbal subscore is 5. GCS motor subscore is 6. Cerebellar tests wnl. SKIN: Skin is warm and dry. He is not diaphoretic. PSYCH: He has a normal mood and affect. Behavior is normal. Judgment and thought content normal. Course Course 1217: The patient was evaluated in room C12. A complete history and physical exam was performed. Cardiac monitoring: An order was placed for continuous cardiac monitoring. The monitor shows a rate of 80 with sinus rhythm EMR reviewed. 1330: Vital signs stable. Labs and imaging within normal limits including negative D-dimer and negative troponin. Given that this is the patient's third visit for chest pain to the ER in the last 3 weeks, the patient will be admitted to the hospital service for rule out ACS. The [facility] hospitalist Anjali Buck states to admit to Dr. López. Administered Medications Discontinued Medications Aspirin (Aspirin Chew 324 Mg) 324 mg PO NOW STA Stop: 04/11/20 12:25 Last Admin: 04/11/20 12:57 Dose: 324 mg Documented by: [id number] Medical Decision Making Laboratory Data Result diagrams: 04/11/20 12:24 04/11/20 12:24 Labs: Lab Results 04/11/20 04/11/20 04/11/20 Range/Units 12:24 12:24 12:24 WBC 7.34 (4.8-10.8) K/uL RBC 5.03 (4.7-6.1) M/uL Hgb 15.7 (14.0-18.0) g/dL Hct 46.0 (42-52) % MCV 91.5 (80-100) fL MCH 31.2 (25-34) pg MCHC 34.1 (32-36) g/dL RDW Std Deviation 45.1 (36.4-46.3) fL RDW Coeff of Ed 13.4 (11.5-14.5) % Plt Count 203 (130-400) K/uL MPV 9.3 (7.4-10.4) fL Immature Gran % (Auto) 0.1 % Neut % (Auto) 75.8 % Lymph % (Auto) 16.9 % Converse % (Auto) 6.4 % Eos % (Auto) 0.7 % Baso % (Auto) 0.1 % Neut # (Auto) 5.56 (1.4-6.5) K/uL Lymph # (Auto) 1.24 (1.2-3.4) K/uL Converse # (Auto) 0.47 (0.11-0.59) K/uL Eos # (Auto) 0.05 (0-0.5) K/uL Baso # (Auto) 0.01 (0-0.2) K/uL Immature Gran # (Auto) 0.01 (0.00-0.02) K/uL PT 11.1 (9.0-12.0) Seconds INR 1.1 (0.9-1.1) APTT 27.6 (21.0-31.0) Seconds PTT Ratio 1.0 D-Dimer 280 (0-500) ug/L FEU Sodium 137 (136-145) mmol/L Potassium 4.0 (3.5-5.1) mmol/L Chloride 102 (98-107) mmol/L Carbon Dioxide 30 (21-32) mmol/L Anion Gap 5.0 (3-11) BUN 20 H (7-18) mg/dl Creatinine 1.60 H (0.6-1.4) mg/dl Est Cr Clr Drug Dosing 62.9 ml/min Est GFR ( Amer) 49.5 Est GFR (Non-Af Amer) 42.7 BUN/Creatinine Ratio 12.7 (10-20) Glucose 104 H (70-99) mg/dl Calcium 9.4 (8.5-10.1) mg/dl Troponin I < 0.015 (0-0.045) ng/ml Lipase 137 (73-393) U/L COVID-19 Eval Order 04/11/20 Range/Units 13:37 WBC (4.8-10.8) K/uL RBC (4.7-6.1) M/uL Hgb (14.0-18.0) g/dL Hct (42-52) % MCV (80-100) fL MCH (25-34) pg MCHC (32-36) g/dL RDW Std Deviation (36.4-46.3) fL RDW Coeff of Ed (11.5-14.5) % Plt Count (130-400) K/uL MPV (7.4-10.4) fL Immature Gran % (Auto) % Neut % (Auto) % Lymph % (Auto) % Converse % (Auto) % Eos % (Auto) % Baso % (Auto) % Neut # (Auto) (1.4-6.5) K/uL Lymph # (Auto) (1.2-3.4) K/uL Converse # (Auto) (0.11-0.59) K/uL Eos # (Auto) (0-0.5) K/uL Baso # (Auto) (0-0.2) K/uL Immature Gran # (Auto) (0.00-0.02) K/uL PT (9.0-12.0) Seconds INR (0.9-1.1) APTT (21.0-31.0) Seconds PTT Ratio D-Dimer (0-500) ug/L FEU Sodium (136-145) mmol/L Potassium (3.5-5.1) mmol/L Chloride (98-107) mmol/L Carbon Dioxide (21-32) mmol/L Anion Gap (3-11) BUN (7-18) mg/dl Creatinine (0.6-1.4) mg/dl Est Cr Clr Drug Dosing ml/min Est GFR ( Amer) Est GFR (Non-Af Amer) BUN/Creatinine Ratio (10-20) Glucose (70-99) mg/dl Calcium (8.5-10.1) mg/dl Troponin I (0-0.045) ng/ml Lipase (73-393) U/L COVID-19 Eval Order Covid19 to [facility] Imaging Data Chest x-ray: Radiologist's impression: XR chest 1V portable HISTORY: Atypical Chest Pain COMPARISON: None. FINDINGS: The lungs are clear. Cardiac silhouette is normal in size. No pleural effusions. No pneumothorax. IMPRESSION: No acute process. ACT 112: Negative or not required by law. Electronically signed by: Francis Logan M.D. 04/11/2020 12:48 PM Dictated: 04/11/20 1246Transcribed: 04/11/20 1246 ECG Data Indication: chest pain Rate (beats per minute): 76 Rhythm: normal sinus Findings: no ST depression, no ST elevation and no prolonged QT [facility] Narrative 1217: The patient was evaluated in room C12. A complete history and physical exam was performed. Cardiac monitoring: An order was placed for continuous cardiac monitoring. The monitor shows a rate of 80 with sinus rhythm EMR reviewed. 1330: Vital signs stable. Labs and imaging within normal limits including negative D-dimer and negative troponin. Given that this is the patient's third visit for chest pain to the ER in the last 3 weeks, the patient will be admitted to the hospital service for rule out ACS. The [facility] hospitalist Anjali Buck states to admit to Dr. López. Impression & Plan Chest pain Discharge Plan Visit Data Chief Complaint: Chest Pain ED Provider: Edison Chatterjee Discharge Problem: Chest pain Patient Disposition: Being Evaluated by Hospitalist Forms Stand Alone Forms: [facility] Prescriptions Prescriptions: No Action furosemide 40 mg tablet 40 mg PO BID PRN (Reason: Fluid Accumulation or Weight Gain) RF: 0 warfarin 10 mg tablet 25 mg PO DAILY RF: 0 chlorthalidone 25 mg tablet 25 mg PO QAM RF: 0 cimetidine 400 mg tablet 400 mg PO BID RF: 0 omeprazole magnesium [Prilosec OTC] 20 mg tablet,delayed release (DR/EC) 20 mg PO DAILY 42 Days Qty: 42 RF: 2 rizatriptan [Maxalt-HOME INSURANCE AGENT] 10 mg Tablet,Disintegrating 10 mg PO DIRECTED PRN (Reason: Migraine Headache) RF: 0 Referrals Referrals: Zan Monsalve MD [Primary Care Provider] - Discharge Problem: Chest pain Qualifiers: Chest pain type: unspecified Qualified Code(s): R07.9 - Chest pain, unspecified
--- NOTE | 2020-04-11 14:11 | History & Physical Report ---
Date of Service April 11, 2020 Assessment & Plan (1) Chest pain: (2) Epigastric burning sensation: (3) Tracheomalacia: (4) GERD (gastroesophageal reflux disease): This is a 69 yr old M who has a significant pmh of HTN, HLD, hx of DVT, hyper homocysteinemia, tracheomalacia, IBS, Fibromyalgia, CKD 3, hx of migraine, GERD who presents to ED 2/ to off an on chest pain and burning in stomach x several weeks. Work-up in ED generally unremarkable. Mildly hypertensive with a BP of 142/85. He also appears anxious. Initial troponin unremarkable and EKG without ischemic change. Symptoms have been ongoing for several weeks. Appears that chest pain is different than the burning sensation he describes in his stomach. Chest pain does appear to have musculoskeletal component as it is reproducible. Not related to exertion. Feel ACS less likely but does need ruled out. Last stress echo 2018 unremarkable. He does have history of tracheomalacia which he does follow with pulmonology/ENT. Last scope and hospitalization was 04/2019 at [facility] [place]. Appears he does not have adequate control of GERD, which is the current recommendation for tracheomalacia. We will give GI cocktail x1 now and start on IV PPI. Monitor for benefit. His home regimen consist of Tagamet, and inconsistent PPI intake Cycle troponin and monitor EKG CT scan of chest without contrast given creatinine to rule out any musculoskeletal abnormality given history of fall (5) History of DVT (deep vein thrombosis): (6) Hyperhomocysteinemia: hx of DVT has been on warfarin therapy, very difficult to control INR INR today 1.1 on 25mg Wednesday and Wed and 30mg all other days last dose 2 days ago Ddimer negative continue current warfarin regimen, monitor INR daily he may need to follow up with hematology as outpt for anticoagulation management and possible DOAC (7) CKD (chronic kidney disease), stage III: baseline cr 1.4 bun/cr 20 and 1.60 today Avoid nephrotoxic agents FULL CODE Disposition: Admit to med telemetry; pt likely will need outpatient follow up with GI Follow-up: PCP Dr. Andrea upon discharge Patient was seen and examined in collaboration with Dr. Manzo, please see addendum History of Present Illness Chief Complaint: Off an on chest pain and burning in stomach x several weeks. Primary Care Provider: Zan Monsalve MD This is a 69 yr old M who has a significant pmh of HTN, HLD, hx of DVT, hyper homocysteinemia, tracheomalacia, IBS, Fibromyalgia, CKD 3, hx of migraine, GERD who presents to ED 2/2 to off an on chest pain and burning in stomach x several weeks. Was seen 3 weeks ago due to burning in stomach and having burning chest pain to right and left side. He was prescribed prilosec and has been taking it with out relief. Was then seen in clinic by Dr. Monsalve and Vivien Moreno. He had a full lab work up and CXR which was negative for fracture. He was recently treated with azithromycin and prednisone for possible infection. He started to feel better but then came back. He states chest pain is left sided an radiates to R side and goes down into abdomen. Feels burning in his epigastrum constantly for the past 3 days ago. The chest pain comes and goes. Does not get worse with activity or laying down. He hasn't ate since Wednesday ( 4 days ago) and has not slept either. When he lays down feels like he can't breathe. When we had snow storm several weeks ago symptoms started a week after. He thought maybe he pulled something, but never improved. He denies fever, chills, cough, nausea, vomit, change in stool, melena, hematochezia, dysuria, increased urg/freq with urination. Overall poor appetite because of the burning. Nothing makes him symptoms better or worse. He has tried peptobismal and PPI and no relief. Sx worse at night. "I feel like burning in stomach is causing tightness in chest." He does admit to a fall and hit head after falling backwards on step. Chest pain occurred prior to this fall. He takes coumadin 2/2 to hx of DVT. Dx with dvt in 2014 after knee surgery. Last dose was 2 days ago. Dx with tracheomalacia 1 year ago and was felt 2/2 to prolonged GERD. He did not have any surgical procedure to correct. He had a dobutamine stress test in 2018 which was unremarkable. Allergies Allergy/AdvReac Type Severity Reaction Status Date / Time morphine AdvReac Intermediate anxiety Verified 04/03/20 15:57 Home Medications Medication Instructions Recorded Confirmed Type chlorthalidone 25 mg PO DAILY 04/11/20 04/11/20 History cimetidine [Tagamet] 400 mg PO BID 04/11/20 04/11/20 History omeprazole 20 mg PO DAILY 04/11/20 04/11/20 History warfarin 25 mg PO MOFR 04/11/20 04/11/20 History warfarin 30 mg PO SUTUWETHSA 04/11/20 04/11/20 History Past Med/Surg History Medical History Arthritis Chronic prostatitis CKD (chronic kidney disease), stage III Claustrophobia DVT (deep venous thrombosis) "After knee surgery" Dyslipidemia Fatty liver GERD (gastroesophageal reflux disease) History of Clostridium difficile colitis Hyperhomocysteinemia Hypertension IBS (irritable bowel syndrome) Migraine Obesity (BMI 30-39.9) Surgical History H/O arthroscopic knee surgery "for meniscus repair on 08/29/13" H/O hernia repair "Incarcerated umbilical hernia 08/03/2014" History of carpal tunnel surgery S/P cholecystectomy Family History (Updated 04/11/20 @ 14:26 by Anjali Schreiber PA-C) Father , 97 No problems noted. Mother , 90 No problems noted. Social History (Updated 04/11/20 @ 14:21 by Anjali Schreiber PA-C) Smoking Status: Never smoker Hx Alcohol Use: No Hx Substance Use: No Preferred Language: Georgian Communication Ability: Effective Visual Impairment: No Limitations Hearing Ability: Normal Beliefs That Will Affect Care: None marital status: Current Living Situation: Spouse current occupational status: retired Other Information That Helps Us Care for You: No Feels Safe at Home: Yes Safety Concerns: Feels Safe At This Time Assistive Devices: None Review of Systems Review of Systems: All systems reviewed & are unremarkable except as noted in HPI & below Physical Exam Physical Exam: Constitutional: WD/WN, vitals as above, NAD, sitting up in bed, pleasant, conversing easily Head: Normocephalic, Atraumatic Eyes: PERRL, conjunctivae normal, anicteric sclerae ENMT: external ear and nose normal, oropharynx normal Neck: trachea midline, no thyromegaly normal visual inspection Respiratory: normal respiratory effort, lungs clear to auscultation, no wheeze, rales, rhonchi. Normal insp/exp effort, no accessory muscle use Cardiovascular: RRR, no murmur, no edema Vessels: no JVD or carotid bruit Chest: Pain to palpation to left upper chest wall and left posterior thorax, normal inspection of chest Abdomen: normal bowel sounds, soft, nontender, no hepatosplenomegaly Musculoskeletal: no cyanosis or clubbing, extremities motor strength 5/5 Skin: no rashes, warm and dry normal turgor Neurologic: PERRL, EOMI, accommodation nl, no face palsy, no dysarthria CN's II-XI intact bilaterally and moves all extremities Psychiatric: A+Ox3, euthymic affect : deferred Results & Data Results & Data ([facility]) Vital Signs (Past 12 Hours) Vital Signs Temp Pulse Pulse Resp BP BP Pulse Ox 04/11/20 13:35 72 18 142/85 H 95 04/11/20 12:18 36.7 C 79 18 176/90 H 98 Diagnostic Findings CXR: IMPRESSION: No acute process. Medications Administered Discontinued Medications Aspirin (Aspirin Chew 324 Mg) 324 mg PO NOW STA Stop: 04/11/20 12:25 Last Admin: 04/11/20 12:57 Dose: 324 mg Documented by: [id number] ECG Rate (beats per minute): 76 Rhythm: normal sinus COVID-19 Results Results COVID-19 Adm Lab Results: RBC 5.03 M/uL (4.7-6.1) 04/11/20 WBC 7.34 K/uL (4.8-10.8) 04/11/20 Hgb 15.7 g/dL (14.0-18.0) 04/11/20 Hct 46.0 % (42-52) 04/11/20 Plt Count 203 K/uL (130-400) 04/11/20 Neutrophils (%) (Auto) 75.8 % 04/11/20 Lymphocytes (%) (Auto) 16.9 % 04/11/20 Monocytes # (Auto) 0.47 K/uL (0.11-0.59) 04/11/20 Eosinophils # (Auto) 0.05 K/uL (0-0.5) 04/11/20 Immature Granulocyte % (Auto) 0.1 % 04/11/20 Neutrophils # (Auto) 5.56 K/uL (1.4-6.5) 04/11/20 Lymphocytes # (Auto) 1.24 K/uL (1.2-3.4) 04/11/20 Monocytes # (Auto) 0.47 K/uL (0.11-0.59) 04/11/20 Eosinophils # (Auto) 0.05 K/uL (0-0.5) 04/11/20 Basophils # (Auto) 0.01 K/uL (0-0.2) 04/11/20 Immature Granulocyte # (Auto) 0.01 K/uL (0.00-0.02) 04/11/20 Na 137 mmol/L (136-145) 04/11/20 K 4.0 mmol/L (3.5-5.1) 04/11/20 Cl 102 mmol/L (98-107) 04/11/20 CO2 30 mmol/L (21-32) 04/11/20 Anion Gap 5.0 (3-11) 04/11/20 BUN 20 mg/dl (7-18) H 04/11/20 Creatinine 1.60 mg/dl (0.6-1.4) H 04/11/20 BUN/Creatinine Ratio 12.7 (10-20) 04/11/20 Glucose Level 104 mg/dl (70-99) H 04/11/20 Ca 9.4 mg/dl (8.5-10.1) 04/11/20 Troponin I < 0.015 ng/ml (0-0.045) 04/11/20 D-Dimer 280 ug/L FEU (0-500) 04/11/20 PTT 27.6 Seconds (21.0-31.0) 04/11/20 INR 1.1 (0.9-1.1) 04/11/20 COVID-19 PCR NEGATIVE (Negative) 04/11/20 Influenza Virus Type A (PCR) Negative (Neg) 04/11/20 Influenza Virus Type B (PCR) Negative (Neg) 04/11/[address] 04/11/20 Chest X-Ray 04/11/20 Code Status & VTE Plan Code Status Full Code VTE Prophylaxis Plan VTE Prophylaxis will be ordered: Yes Supervising Physician Co-Signing Physician Notes 69 yr old M who has a significant pmh of HTN, HLD, hx of DVT, hyper homocysteinemia, tracheomalacia, IBS, Fibromyalgia, CKD 3, hx of migraine, GERD who presents to ED 2/2 to intermittent chest pain and burning in stomach x several weeks History as detailed above, notable for intermittent chest pain, occasionally presents as "chest tightness", not associated with activity, associated occasionally with SOB. Chest pain occasionally appears to be independent and occasionally related to epigastric pain. Denied relief with home Prilosec. Physical exam notable for left-sided chest wall tenderness, mild epigastric tenderness Lab work only notable for creatinine of 1.6 [from baseline of 1.4] -Chest pain, atypical Differentials include GERD, musculoskeletal Review of the previous work-up showed negative stress test in 2018 D-dimers is 280, hence unlikely PE Patient was diagnosed with tracheomalacia last year by PCP records and was extensively evaluated in [place]. Records also show history of GERD Will do IV PPI twice daily for now with Maalox and see if this helps CT chest did not show any acute process within the chest but reported a severe calcified plaque within the left coronary artery. Will appreciate cardiology evaluation based on this as patient may need further evaluation Patient takes high doses of warfarin INR has surprisingly been subtherapeutic. May be a case of warfarin resistance. May need to follow-up with hematology on discharge for proper management and anticoagulation Other plans as above (1) Chest pain Chest pain type: unspecified Qualified Code(s): R07.9 - Chest pain, unspecified
[2020-04-11] MEDS ORDERED: LORazepam 0.5 MG/1 ML VIAL IV SCH (14:30)
--- NOTE | 2020-04-11 15:14 | CT Scan Report ---
CT chest diagnostic wo con CT DOSE: 914.26 mGy.cm HISTORY: Atypical chest pain TECHNIQUE: Multiaxial CT images of the chest were performed without contrast. A dose lowering techni que was utilized adhering to the principles of ALARA. COMPARISON: Chest CTA 04/02/2017. FINDINGS: No mediastinal or hilar lymphadenopathy. Normal caliber thoracic aorta. Severe calcified pl aque within the left coronary artery. The heart is normal in size. No pleural or pericardial effusion s. Normal esophagus. Hepatic steatosis. The visualized unenhanced spleen and adrenal glands are unrem arkable. There is a partially visualized exophytic hypodense lesion within the upper pole the right k idney. This is likely stable compared to 09/29/[address] No suspicious lytic or eber tic osseous lesions. No pneumothorax. The central airways are patent. There is a punctate calcified g ranuloma within the left lower lobe. Otherwise, the lungs are clear. No focal lung consolidations to suggest pneumonia. IMPRESSION: 1. No acute process within the chest. 2. Hepatic steatosis. 3. Severe calcified plaque within the left coronary artery. ACT 112: Negative or not required by law. Electronically signed by: Francis Logan M.D. 04/11/2020 3:13 PM
[2020-04-11] MEDS: PANTOprazole 40 MG in SYRINGE 0 ML IV SCH ×2 (15:33→21:53)
[2020-04-11 15:42] LABS: Influenza A virus by PCR Negative (Neg); Influenza B virus by PCR Negative (Neg); RSV by PCR Negative (Neg); SARS CoV2 RNA(COVID-19) InHosp NEGATIVE (Negative)
[2020-04-11] MEDS ORDERED: ONDANSETRON INJ 2 MG/ML 2 ML VIAL IV PRN (18:34)
[2020-04-11] MEDS ORDERED: MAGNESIUM HYDROXIDE SUSP 30 ML UDC PO PRN (18:34)
[2020-04-11] MEDS ORDERED: ALUMINUM/MAGNESIUM SUSP 30 ML UDC PO PRN (18:34)
[2020-04-11] MEDS ORDERED: POLYETHYLENE (MIRALAX) 17 GM PACK PO PRN (18:34)
[2020-04-11] MEDS ORDERED: ACETAMINOPHEN 325 MG TAB PO PRN (18:34)
[2020-04-11] MEDS ORDERED: WARFARIN SOD 10 MG TAB PO SCH (19:30)
[2020-04-11] MEDS ORDERED: SODIUM CHLORIDE 0.9% 1000ML 1,000 ML IV SCH (23:15)
[2020-04-12 04:50] LABS: Appearance Urine Clear (Clear); Bilirubin Urine Negative (Negative); Blood Urine Negative (Negative); Color Urine Yellow; Glucose Urine UA Negative (Negative); Ketones Urine 1+ (Negative); Leukocyte Esterase Urine Negative (Negative); Nitrite Urine Negative (Negative); Protein Urine Negative (Negative); Specific Gravity Urine 1.022 (1.000-1.030); Urobilinogen Urine Negative (Negative)
--- NOTE | 2020-04-12 06:13 | Electrocardiogram Report ---
Test Reason : Blood Pressure : / mmHG Vent. Rate : 076 BPM Atrial Rate : 076 BPM P-R Int : 172 ms QRS Dur : 094 ms QT Int : 388 ms P-R-T Axes : 034 034 041 degrees QTc Int : 436 ms Normal sinus rhythm Normal ECG When compared with ECG of 24-MAR-2020 00:47, No significant change was found Confirmed by Vincent Dominique ([id number]) on 04/12/2020 6:13:17 AM Referred By: Confirmed By:Vincent Dominique
[2020-04-12 06:40] LABS: Hematocrit (blood only) 46.7 % (42-52); Hemoglobin 16.1 g/dL (14.0-18.0); Mean Corpuscular Hemoglobin 31.3 pg (25-34); Mean Corpuscular Hgb Conc 34.5 g/dL (32-36); Mean Corpuscular Volume 90.9 fL (80-100); Mean Platelet Volume 9.5 fL (7.4-10.4); Platelet Count 181 K/uL (130-400); RDW Coefficient of Variation 13.3 % (11.5-14.5); RDW Standard Deviation 44.1 fL (36.4-46.3); Red Blood Count 5.14 M/uL (4.7-6.1)
[2020-04-12 06:49] LABS: INR 1.1 (0.9-1.1); Prothrombin Time 11.5 Seconds (9.0-12.0)
[2020-04-12 07:02] LABS: Albumin Level 4.1 gm/dl (3.4-5.0); Calcium 9.5 mg/dl (8.5-10.1); Creatinine Clr Calc Pharmacy 74.8 ml/min; Est GFR (African American) 61.9; Est GFR (Non-African American) 53.4; Magnesium 2.1 mg/dl (1.8-2.4); Potassium 3.6 mmol/L (3.5-5.1)
[2020-04-12 07:05] LABS: Bilirubin,Total 1.6 mg/dl (0.2-1); Globulin 4.1 gm/dl (2.5-4.0); Total Protein 8.2 gm/dl (6.4-8.2)
[2020-04-12] MEDS ORDERED: PERFLUTREN LIPID MICROSPHERE (DEFINITY) IV ONE (07:08)
[2020-04-12] MEDS: PANTOprazole 40 MG in SYRINGE 0 ML IV SCH (08:38)
[2020-04-12] MEDS ORDERED: FAMOTIDINE 40 MG TABLET PO SCH (09:00)
--- NOTE | 2020-04-12 09:11 | Gastrointestinal Consultation ---
Date of Consultation April 12, 2020 Assessment & Plan (1) Epigastric burning sensation: Differentials considered include esophagitis, ulcer disease, esophageal spasms (causing episodes of worsened chest pain). Biliary colic is also considered but less likely as pt has normal LFTs, lipase and is post cholecystectomy. Will check urgent biliary US and abd x-ray prior to EGD. EGD this afternoon by Dr. Evans. Further recommendations to follow. Present on Admission?: Yes Supervising Physician Co-Signing Physician Notes I performed a history and physical examination of the patient today, including specifically on physical exam - soft abdomen. I have discussed the patient's management with the advanced practitioner. Please refer to the nurse practitioner's note for the documented findings and plan of care. History of Present Illness Reason for Consultation: Esophagitis Requesting Physician: Dr. Leyva Attending Physician: Dot Leyva, DO History of Present Illness Mr Hill is a 69 yr old male pt of Dr. Andrea with a hx of HTN, prostatitis, migraines, fibromyalgia, hyperhomocysteinemia, PE, DVT on coumadin who presented to the ED yesterday for chest and epigastric pain. The pt tells me that "this all started," with a pain under his left arm 3 wks ago, then pain changed to 2 different areas: a central anterior, lower chest tightness that is constantly present x 3 wks and an epigastric burning constantly present x 2 wks. He had worsened chest and abdominal pain yesterday while he was trying to sleep (non exertional) and this prompted his presentation to the ED. He denies any nausea/vomiting, black or red BMs. He does not have a feeling of reflux into the throat or chest and has not had any chest burning. He mentions being told by an ENT that he has reflux. He is maintained on Tagament 400mg BID and omeprazole 20mg daily was added 2 wks ago w/o change in symptoms. He was placed on a brief prednisone taper recently treating possibly pleuritis - also w/o change in symptoms. He tells me that he is very anxious in general. On arrival, though on Coumadin, his INR is only 1.1 today. Also, CBC, CMP, LFTs, Lipase w/o significant abnormalities. Chest CT w/o acute changes. Troponins and EGD normal. I spoke with Dr. Batista (cardiology) who evaluated the pt this morning and provided verbal clearance to go forward with EGD today. Most recent EGD in [address] Miles for dysphagia was normal. Allergies Allergy/AdvReac Type Severity Reaction Status Date / Time morphine AdvReac Intermediate anxiety Verified 04/03/20 15:57 Home Medications Medication Instructions Recorded Confirmed Type chlorthalidone 25 mg PO DAILY 04/11/20 04/11/20 History cimetidine [Tagamet] 400 mg PO BID 04/11/20 04/11/20 History omeprazole 20 mg PO DAILY 04/11/20 04/11/20 History warfarin 25 mg PO MOFR 04/11/20 04/11/20 History warfarin 30 mg PO SUTUWETHSA 04/11/20 04/11/20 History Patient History Medical History Arthritis Chronic prostatitis CKD (chronic kidney disease), stage III Claustrophobia DVT (deep venous thrombosis) "After knee surgery" Dyslipidemia Fatty liver GERD (gastroesophageal reflux disease) History of Clostridium difficile colitis Hyperhomocysteinemia Hypertension IBS (irritable bowel syndrome) Migraine Obesity (BMI 30-39.9) Surgical History H/O arthroscopic knee surgery "for meniscus repair on 08/29/13" H/O hernia repair "Incarcerated umbilical hernia 08/03/2014" History of carpal tunnel surgery S/P cholecystectomy Family History Father , 97 No problems noted. Mother , 90 No problems noted. Social History Smoking Status: Never smoker Hx Alcohol Use: No Hx Substance Use: No Preferred Language: Montserratian Communication Ability: Effective Visual Impairment: No Limitations Hearing Ability: Normal Beliefs That Will Affect Care: None marital status: Current Living Situation: Spouse current occupational status: retired Other Information That Helps Us Care for You: No Feels Safe at Home: Yes Safety Concerns: Feels Safe At This Time Assistive Devices: None Review of Systems Review of Systems: ROS: Gen: Denies weakness, fevers, weight loss Eyes:No eye redness, or pain, no recent vision changes Resp: No SOB, no cough Cardio: No palpitations/irregular beats GI: See HPI : Denies pain on urination Skin: No jaundice, itching or new rashes Physical Exam Constitutional: WD/WN, vitals as above + overweight Eyes: PERRL, conjunctivae normal, anicteric sclerae ENMT: external ear and nose normal, oropharynx normal Neck: trachea midline, no thyromegaly Respiratory: normal respiratory effort, lungs clear to auscultation Cardiovascular: RRR, no murmur, no edema Gastrointestinal (Abdomen): Inspection/Auscultation: abdomen not distended Percussion/Palpation: + abdomen tender (epigastric area) and abdomen soft Skin: no rashes, warm and dry Neurologic: PERRL, EOMI, accommodation nl, no face palsy, no dysarthria Psychiatric: Orientation: alert and oriented x 3 Eye Contact: good eye contact Affect: + anxious affect Lymphatic: no cervical or axillary lymphadenopathy Results & Data ([facility]) Vital Signs (Past 12 Hours) Vital Signs Temp Pulse Pulse Resp BP Pulse Ox 04/12/20 08:33 77 04/12/20 07:00 36.4 C L 65 20 114/79 96 04/12/20 03:21 36.5 C 67 20 149/79 H 96 04/11/20 23:04 36.3 C L 72 18 122/80 94 04/11/20 22:20 70 Laboratory Results INR 1.1. WBC 8, Hb 16, Hct 46, Platlets 181, Na 133, K 3.6, Cl 101 CO2 24, BUN 20, Cr 1.33, glucose 114. Diagnostic Findings CT chest 04/11/20: 1. No acute process within the chest. 2. Hepatic steatosis. 3. Severe calcified plaque within the left coronary artery.
--- NOTE | 2020-04-12 09:32 | Cardiology Consultation ---
Date of Consultation April 12, 2020 Assessment & Plan (1) Epigastric burning sensation: (2) Chest pain: (3) Tracheomalacia: (4) History of DVT (deep vein thrombosis): I believe this is noncardiac chest pain. It does have somewhat of a pleuritic component and for completeness I am going to order an echocardiogram. With his longstanding history of GERD and tracheomalacia I think it is reasonable to have a GI service see and evaluate him. If the patient requires endoscopy then he should proceed with an acceptable low risk of cardiovascular event. History of Present Illness Attending Physician: Dot Leyva DO History of Present Illness This is a 69-year-old male patient with no prior history of heart disease. He does have a history of a DVT approximately 5 or 6 years ago following arthroscopic knee surgery. He was placed on Coumadin for several months and then it was discontinued. Approximately a year later he had a second DVT in the same lower extremity and now he has been on lifetime warfarin. He also has a history of GERD and esophagitis with associated tracheal malacia. The patient has had more or less continuous chest pain for approximately a month. At times it seems to be in the epigastric area with fullness and radiating into the chest. He also describes chest pain on the left side of his chest which is increased with movement and deep inspiration. He has had no nausea or vomiting. He denies dysphagia. No melena or hematochezia. He is not short of breath. After admission his EKGs have been normal. His cardiac troponins are negative. Allergies Allergy/AdvReac Type Severity Reaction Status Date / Time morphine AdvReac Intermediate anxiety Verified 04/03/20 15:57 Home Medications Medication Instructions Recorded Confirmed Type chlorthalidone 25 mg PO DAILY 04/11/20 04/11/20 History cimetidine [Tagamet] 400 mg PO BID 04/11/20 04/11/20 History omeprazole 20 mg PO DAILY 04/11/20 04/11/20 History warfarin 25 mg PO MOFR 04/11/20 04/11/20 History warfarin 30 mg PO SUTUWETHSA 04/11/20 04/11/20 History Patient History Medical History Arthritis Chronic prostatitis CKD (chronic kidney disease), stage III Claustrophobia DVT (deep venous thrombosis) "After knee surgery" Dyslipidemia Fatty liver GERD (gastroesophageal reflux disease) History of Clostridium difficile colitis Hyperhomocysteinemia Hypertension IBS (irritable bowel syndrome) Migraine Obesity (BMI 30-39.9) Surgical History H/O arthroscopic knee surgery "for meniscus repair on 08/29/13" H/O hernia repair "Incarcerated umbilical hernia 08/03/2014" History of carpal tunnel surgery S/P cholecystectomy Family History Father , 97 No problems noted. Mother , 90 No problems noted. Social History Smoking Status: Never smoker Hx Alcohol Use: No Hx Substance Use: No Preferred Language: Romansh Communication Ability: Effective Visual Impairment: No Limitations Hearing Ability: Normal Beliefs That Will Affect Care: None marital status: Current Living Situation: Spouse current occupational status: retired Other Information That Helps Us Care for You: No Feels Safe at Home: Yes Safety Concerns: Feels Safe At This Time Assistive Devices: None Review of Systems Review of Systems: All systems reviewed & are unremarkable except as noted in HPI & below Nothing additional to add. Physical Exam Physical Exam: General: no acute distress and stated age Head: normocephalic, no masses, lesions, tenderness or abnormalities Eyes: conjunctiva are pink and non-injected, sclera clear Neck: supple, no adenopathy, no bruits, normal jugular venous pulse, no hepatojugular reflux Chest: normal shape and normal respiratory effort Lungs: clear to auscultation and percussion Cardiac Exam: - regular rate & rhythm, no murmurs gallops or rubs - normal S1, normal S2 Pulses: 2(+) throughout Abdomen: abdomen soft, non-tender, no abnormal masses and no hepatosplenomegaly Musculoskeletal: no gait disturbance, no joint inflammation, no deforming arthritis Extremities: no edema and no cyanosis Neuro: grossly normal exam Results & Data ([facility]) Vital Signs (Past 12 Hours) Vital Signs Temp Pulse Pulse Resp BP Pulse Ox 04/12/20 08:33 77 04/12/20 07:00 36.4 C L 65 20 114/79 96 04/12/20 03:21 36.5 C 67 20 149/79 H 96 04/11/20 23:04 36.3 C L 72 18 122/80 94 04/11/20 22:20 70 Laboratory Results Laboratory Results - last 24 hr 04/11/20 04/11/20 04/11/20 12:24 12:24 12:24 WBC 7.34 RBC 5.03 Hgb 15.7 Hct 46.0 MCV 91.5 MCH 31.2 MCHC 34.1 RDW Std Deviation 45.1 RDW Coeff of Ed 13.4 Plt Count 203 MPV 9.3 Immature Gran % (Auto) 0.1 Neut % (Auto) 75.8 Lymph % (Auto) 16.9 [place] % (Auto) 6.4 Eos % (Auto) 0.7 Baso % (Auto) 0.1 Neut # (Auto) 5.56 Lymph # (Auto) 1.24 [place] # (Auto) 0.47 Eos # (Auto) 0.05 Baso # (Auto) 0.01 Immature Gran # (Auto) 0.01 PT 11.1 INR 1.1 APTT 27.6 PTT Ratio 1.0 D-Dimer 280 Sodium 137 Potassium 4.0 Chloride 102 Carbon Dioxide 30 Anion Gap 5.0 BUN 20 H Creatinine 1.60 H Est Cr Clr Drug Dosing 62.9 Est GFR ( Amer) 49.5 Est GFR (Non-Af Amer) 42.7 BUN/Creatinine Ratio 12.7 Glucose 104 H Calcium 9.4 Magnesium Total Bilirubin AST ALT Alkaline Phosphatase Troponin I < 0.015 Total Protein Albumin Globulin Albumin/Globulin Ratio Lipase 137 Urine Color Urine Appearance Urine pH Ur Specific [place] Urine Protein Urine Glucose (UA) Urine Ketones Urine Blood Urine Nitrite Urine Bilirubin Urine Urobilinogen Ur Leukocyte Esterase COVID-19 Eval Order SARS-CoV-2 (PCR) Influenza Type A (PCR) Influenza Type B (PCR) RSV (RT-PCR) 04/11/20 04/11/20 04/11/20 13:37 13:37 13:37 WBC RBC Hgb Hct MCV MCH MCHC RDW Std Deviation RDW Coeff of Ed Plt Count MPV Immature Gran % (Auto) Neut % (Auto) Lymph % (Auto) [place] % (Auto) Eos % (Auto) Baso % (Auto) Neut # (Auto) Lymph # (Auto) [place] # (Auto) Eos # (Auto) Baso # (Auto) Immature Gran # (Auto) PT INR APTT PTT Ratio D-Dimer Sodium Potassium Chloride Carbon Dioxide Anion Gap BUN Creatinine Est Cr Clr Drug Dosing Est GFR ( Amer) Est GFR (Non-Af Amer) BUN/Creatinine Ratio Glucose Calcium Magnesium Total Bilirubin AST ALT Alkaline Phosphatase Troponin I Total Protein Albumin Globulin Albumin/Globulin Ratio Lipase Urine Color Urine Appearance Urine pH Ur Specific [place] Urine Protein Urine Glucose (UA) Urine Ketones Urine Blood Urine Nitrite Urine Bilirubin Urine Urobilinogen Ur Leukocyte Esterase COVID-19 Eval Order Covid19 to [facility] SARS-CoV-2 (PCR) Cancelled NEGATIVE Influenza Type A (PCR) Negative Influenza Type B (PCR) Negative RSV (RT-PCR) Negative 04/11/20 04/12/20 04/12/20 18:32 00:40 04:32 WBC RBC Hgb Hct MCV MCH MCHC RDW Std Deviation RDW Coeff of Ed Plt Count MPV Immature Gran % (Auto) Neut % (Auto) Lymph % (Auto) [place] % (Auto) Eos % (Auto) Baso % (Auto) Neut # (Auto) Lymph # (Auto) [place] # (Auto) Eos # (Auto) Baso # (Auto) Immature Gran # (Auto) PT INR APTT PTT Ratio D-Dimer Sodium Potassium Chloride Carbon Dioxide Anion Gap BUN Creatinine Est Cr Clr Drug Dosing Est GFR ( Amer) Est GFR (Non-Af Amer) BUN/Creatinine Ratio Glucose Calcium Magnesium Total Bilirubin AST ALT Alkaline Phosphatase Troponin I < 0.015 < 0.015 Total Protein Albumin Globulin Albumin/Globulin Ratio Lipase Urine Color Yellow Urine Appearance Clear Urine pH 5.0 Ur Specific [place] 1.022 Urine Protein Negative Urine Glucose (UA) Negative Urine Ketones 1+ H Urine Blood Negative Urine Nitrite Negative Urine Bilirubin Negative Urine Urobilinogen Negative Ur Leukocyte Esterase Negative COVID-19 Eval Order SARS-CoV-2 (PCR) Influenza Type A (PCR) Influenza Type B (PCR) RSV (RT-PCR) 04/12/20 04/12/20 04/12/20 06:18 06:18 06:18 WBC 8.20 RBC 5.14 Hgb 16.1 Hct 46.7 MCV 90.9 MCH 31.3 MCHC 34.5 RDW Std Deviation 44.1 RDW Coeff of Ed 13.3 Plt Count 181 MPV 9.5 Immature Gran % (Auto) Neut % (Auto) Lymph % (Auto) [place] % (Auto) Eos % (Auto) Baso % (Auto) Neut # (Auto) Lymph # (Auto) [place] # (Auto) Eos # (Auto) Baso # (Auto) Immature Gran # (Auto) PT 11.5 INR 1.1 APTT PTT Ratio D-Dimer Sodium 133 L Potassium 3.6 Chloride 101 Carbon Dioxide 24 Anion Gap 8.0 BUN 20 H Creatinine 1.33 Est Cr Clr Drug Dosing 74.8 Est GFR ( Amer) 61.9 Est GFR (Non-Af Amer) 53.4 BUN/Creatinine Ratio 15.0 Glucose 114 H Calcium 9.5 Magnesium 2.1 Total Bilirubin 1.6 H AST 22 ALT 40 Alkaline Phosphatase 75 Troponin I Total Protein 8.2 Albumin 4.1 Globulin 4.1 H Albumin/Globulin Ratio 1.0 Lipase Urine Color Urine Appearance Urine pH Ur Specific [place] Urine Protein Urine Glucose (UA) Urine Ketones Urine Blood Urine Nitrite Urine Bilirubin Urine Urobilinogen Ur Leukocyte Esterase COVID-19 Eval Order SARS-CoV-2 (PCR) Influenza Type A (PCR) Influenza Type B (PCR) RSV (RT-PCR) Medications Administered Current Inpatient Medications Acetaminophen (Acetaminophen 325 Mg Tab) 650 mg PO Q4H PRN PRN Reason: Pain or Fever Stop: 05/11/20 18:33 Last Admin: 04/12/20 06:05 Dose: 650 mg Documented by: Al Hydrox/Mg Hydrox/Simethicone (Aluminum/Magnesium Susp 30 Ml Udc) 15 ml PO Q4H PRN PRN Reason: Dyspepsia Stop: 05/11/20 18:33 Chlorthalidone (Chlorthalidone 25 Mg Tab) 25 mg PO DAILY [facility] Stop: 05/12/20 08:59 Famotidine (Famotidine 40 Mg Tablet) 40 mg PO DAILY [facility] Stop: 05/12/20 08:59 Last Admin: 04/12/20 08:01 Dose: 40 mg Documented by: Pantoprazole Sodium 40 mg/ (Syringe) 10 mls @ 5 mls/min IV BID [facility] Stop: 05/11/20 14:19 Last Admin: 04/12/20 08:38 Dose: 5 mls/min Documented by: Magnesium Hydroxide (Magnesium Hydroxide Susp 30 Ml Udc) 30 ml PO Q12H PRN PRN Reason: Constipation Stop: 05/11/20 18:33 Ondansetron HCl (Ondansetron Inj 2 Mg/Ml 2 Ml Vial) 4 mg IV Q6H PRN PRN Reason: Nausea Stop: 05/11/20 18:33 Polyethylene Glycol (Polyethylene (Miralax) 17 Gm Pack) 17 gm PO DAILY PRN PRN Reason: Constipation Stop: 05/11/20 18:33 Warfarin Sodium (Warfarin Sod 5 Mg Tab) 25 mg PO MoFr@1600 [facility] Stop: 05/12/20 15:59 Warfarin Sodium (Warfarin Sod 10 Mg Tab) 30 mg PO SuTuWeThSa@1600 [facility] Stop: 05/11/20 19:29 Last Admin: 04/11/20 21:16 Dose: 30 mg Documented by: (1) Chest pain Chest pain type: unspecified Qualified Code(s): R07.9 - Chest pain, unspecified
--- NOTE | 2020-04-12 10:52 | Anesthesiology Consultation ---
Date of Service April 12, 2020 Covid 19 negative on 04/11/20. Assessment & Plan (1) Encounter for pre-operative examination: Chart Review Chart Review: Acceptable Risk for Surgery and Patient NOT seen in Pre Admission Testing Consults Requested none History Surgery Operation Date: 04/12/20 16:00 Proposed Procedures p Esophagogastroduodenoscopy Dr Evans - Zoey Evans MD Height/Weight Height: 6 ft 4 in Weight: 129.3 kg Allergies Allergy/AdvReac Type Severity Reaction Status Date / Time morphine AdvReac Intermediate anxiety Verified 04/03/20 15:57 Medications Home Medications Medication Instructions Recorded Confirmed Last Taken chlorthalidone 25 mg PO DAILY 04/11/20 04/11/20 Unknown cimetidine [Tagamet] 400 mg PO BID 04/11/20 04/11/20 Unknown omeprazole 20 mg PO DAILY 04/11/20 04/11/20 Unknown warfarin 25 mg PO MOFR 04/11/20 04/11/20 Unknown warfarin 30 mg PO SUTUWETHSA 04/11/20 04/11/20 Unknown Active Medications Generic Name Dose Route Start Last Admin Trade Name Freq PRN Reason Stop Dose Admin Acetaminophen 650 mg 04/11/20 18:34 04/12/20 06:05 Acetaminophen 325 Mg Tab PO 05/11/20 18:33 650 mg Q4H PRN Administration Pain or Fever Famotidine 40 mg 04/12/20 09:00 04/12/20 08:01 Famotidine 40 Mg Tablet PO 05/12/20 08:59 40 mg DAILY TRACY Administration Pantoprazole Sodium 40 mg/ 10 mls @ 5 mls/min 04/11/20 14:20 04/12/20 08:38 Syringe IV 05/11/20 14:19 5 mls/min BID TRACY Administration Warfarin Sodium 30 mg 04/11/20 19:30 04/11/20 21:16 Warfarin Sod 10 Mg Tab PO 05/11/20 19:29 30 mg [id number]@1600 TRACY Administration Past Medical History Medical History Arthritis Chronic prostatitis CKD (chronic kidney disease), stage III Claustrophobia DVT (deep venous thrombosis) "After knee surgery" Dyslipidemia Fatty liver GERD (gastroesophageal reflux disease) History of Clostridium difficile colitis Hyperhomocysteinemia Hypertension IBS (irritable bowel syndrome) Migraine Obesity (BMI 30-39.9) Past Family History Family History Father , 97 No problems noted. Mother , 90 No problems noted. Past Surgical History Surgical History H/O arthroscopic knee surgery "for meniscus repair on 08/29/13" H/O hernia repair "Incarcerated umbilical hernia 08/03/2014" History of carpal tunnel surgery S/P cholecystectomy Social History Smoking Status: Never smoker Hx Alcohol Use: No Hx Substance Use: No Physical Exam Vital Signs Last Vital Signs Temp 36.4 C L 04/12/20 07:00 Pulse 77 04/12/20 08:33 Resp 20 04/12/20 07:00 BP 114/79 04/12/20 07:00 Pulse Ox 96 04/12/20 07:00 Testing Laboratory Results 04/12/20 06:18 04/12/20 06:18 PT 11.5 Seconds (9.0-12.0) 04/12/20 06:18 INR 1.1 (0.9-1.1) 04/12/20 06:18 APTT 27.6 Seconds (21.0-31.0) 04/11/20 12:24 Urine Color Yellow 04/12/20 04:32 Urine Appearance Clear (Clear) 04/12/20 04:32 Urine pH 5.0 (4.5-7.5) 04/12/20 04:32 Ur Specific [place] 1.022 (1.000-1.030) 04/12/20 04:32 Urine Protein Negative (Negative) 04/12/20 04:32 Urine Glucose (UA) Negative (Negative) 04/12/20 04:32 Urine Ketones 1+ (Negative) H 04/12/20 04:32 Urine Nitrite Negative (Negative) 04/12/20 04:32 Ur Leukocyte Esterase Negative (Negative) 04/12/20 04:32 Electrocardiogram Date: 04/12/20 Findings: + NSR @ (64) Other Testing CT chest diagnostic wo con CT DOSE: 914.26 mGy.cm HISTORY: Atypical chest pain TECHNIQUE: Multiaxial CT images of the chest were performed without contrast. A dose lowering technique was utilized adhering to the principles of ALARA. COMPARISON: Chest CTA 04/02/2017. FINDINGS: No mediastinal or hilar lymphadenopathy. Normal caliber thoracic aorta. Severe calcified plaque within the left coronary artery. The heart is normal in size. No pleural or pericardial effusions. Normal esophagus. Hepatic steatosis. The visualized unenhanced spleen and adrenal glands are unremarkable. There is a partially visualized exophytic hypodense lesion within the upper pole the right kidney. This is likely stable compared to 09/29/[address] No suspicious lytic or blastic osseous lesions. No pneumothorax. The central airways are patent. There is a punctate calcified granuloma within the left lower lobe. Otherwise, the lungs are clear. No focal lung consolidations to suggest pneumonia. IMPRESSION: 1. No acute process within the chest. 2. Hepatic steatosis. 3. Severe calcified plaque within the left coronary artery. ACT 112: Negative or not required by law. Electronically signed by: Francis Logan M.D. 04/11/2020 3:13 PM Dictated: 04/11/20 1502
[2020-04-12] MEDS ORDERED: PROPOFOL IV EMULSION 10 MG/ML 20 ML VIAL IV ONE (11:17)
[2020-04-12] MEDS ORDERED: LIDOCAINE HCL 2% 2 ML VIAL/AMP(20MG/ML) INFIL ONE (11:17)
--- NOTE | 2020-04-12 11:38 | History & Physical Bridge Note ---
Date of Service April 12, 2020 History & Physical Bridge Note I have examined the patient, reviewed the History & Physical and in the interval since the performance of the History & Physical I have noted the following changes of clinical significance: no changes noted EGD today
--- NOTE | 2020-04-12 11:56 | Gastroenterology Progress Note ---
Date of Service April 12, 2020 Assessment & Plan Admission and Anticipated Discharge Date Admission Date: April 11, 2020 Subjective EGD normal. Please recall GI if needed. Results & Data ([facility]) Vital Signs (Past 12 Hours) Vital Signs Temp Pulse Pulse Resp BP Pulse Ox 04/12/20 10:56 36.5 C 72 20 173/87 H 98 04/12/20 08:33 77 04/12/20 07:00 36.4 C L 65 20 114/79 96 04/12/20 03:21 36.5 C 67 20 149/79 H 96
--- NOTE | 2020-04-12 11:59 | GI REPORT ---
Patient Name: Valerio Hill Procedure Date: 04/12/2020 11:36 AM Date of : 1950 Admit Type: Inpatient Age: 69 Gender: Male Attending MD: Zoey Evans MD Procedure: Upper GI endoscopy Providers: Zoey Evans MD Referring MD: Dot Leyva Do Indications: Suspected gastro-esophageal reflux disease, chest pain Medicines: Propofol per Anesthesia Complications: No immediate complications. Estimated Blood Loss: Estimated blood loss: none. Procedure: Pre-Anesthesia Assessment: - Prior to the procedure, a History and Physical was performed, and patient medications, allergies and sensitivities were reviewed. The patient's tolerance of previous anesthesia was reviewed. - The risks and benefits of the procedure and the sedation options and risks were discussed with the patient. All questions were answered and informed consent was obtained. - Patient identification and proposed procedure were verified prior to the procedure by the physician and the nurse. The procedure was verified in the procedure room. - Pre-procedure physical examination revealed no contraindications to sedation. After obtaining informed consent, the endoscope was passed under direct vision. Throughout the procedure, the patient's blood pressure, pulse, and oxygen saturations were monitored continuously. The Endoscope was introduced through the mouth, and advanced to the second part of duodenum. The upper GI endoscopy was accomplished without difficulty. The patient tolerated the procedure well. Findings: The examined esophagus was normal. Mildly erythematous mucosa was found in the gastric antrum. Biopsies were taken with a cold forceps for Helicobacter pylori testing. Verification of patient identification for the specimen was done by the physician and nurse using the patient's name and date. The duodenal bulb and second portion of the duodenum were normal. Biopsies were taken with a cold forceps for histology. Impression: - Normal esophagus. - Erythematous mucosa in the antrum. Biopsied. - Normal duodenal bulb and second portion of the duodenum. Biopsied. Recommendation: - Await pathology results. - Return patient to [facility] for ongoing care. - Recall Gi if needed. Zoey Evans MD 04/12/2020 11:58:42 AM This report has been signed electronically. Note Initiated On: 04/12/2020 11:36 AM Number of Addenda: 0 I attest to the content of the Intraoperative Record and orders documented therein, exceptions below {[id number]}
--- NOTE | 2020-04-12 12:16 | Anesthesiology Progress Note ---
Date of Service April 12, 2020 Anesthesia Post Procedure Vital Signs Vital Signs: Temp Pulse Pulse Resp BP BP BP 04/12/20 12:10 69 16 132/82 04/12/20 11:58 36.5 C 72 16 119/69 04/12/20 10:56 36.5 C 72 20 173/87 H 04/12/20 08:33 77 04/12/20 07:00 36.4 C L 65 20 114/79 04/12/20 03:21 36.5 C 67 20 149/79 H 04/11/20 23:04 36.3 C L 72 18 122/80 04/11/20 22:20 70 04/11/20 19:58 36.6 C 71 20 134/80 04/11/20 19:20 04/11/20 17:33 36.9 C 84 18 167/82 H 04/11/20 16:30 69 20 157/88 H 04/11/20 16:00 77 18 164/88 H 04/11/20 15:30 69 18 139/80 04/11/20 15:05 75 20 160/76 H 04/11/20 14:30 75 25 H 145/89 H 04/11/20 14:00 76 18 150/77 H 04/11/20 13:35 72 18 142/85 H 04/11/20 13:30 72 25 H 142/85 H 04/11/20 13:00 72 23 150/88 H 04/11/20 12:30 75 25 H 148/88 H 04/11/20 12:18 36.7 C 79 18 176/90 H Pulse Ox 04/12/20 12:10 95 04/12/20 11:58 97 04/12/20 10:56 98 04/12/20 08:33 04/12/20 07:00 96 04/12/20 03:21 96 04/11/20 23:04 94 04/11/20 22:20 04/11/20 19:58 97 04/11/20 19:20 97 04/11/20 17:33 97 04/11/20 16:30 98 04/11/20 16:00 98 04/11/20 15:30 97 04/11/20 15:05 98 04/11/20 14:30 96 04/11/20 14:00 96 04/11/20 13:35 95 04/11/20 13:30 94 04/11/20 13:00 96 04/11/20 12:30 96 04/11/20 12:18 98 Pain Intensity Chest: Pain Intensity: 2 Transfer of Care Handoff Completed per policy Notes Mental Status: alert / awake / arousable Patient Amnestic to Procedure: Yes Nausea / Vomiting: adequately controlled Pain: adequately controlled Airway Patency, RR, SpO2: stable & adequate BP & HR: stable & adequate Hydration State: stable & adequate Anesthetic Complications: no major complications apparent and Pt Satisfied with anesthetic care
[2020-04-12] MEDS: CHLORTHALIDONE 25 MG TAB PO SCH (12:46)
--- NOTE | 2020-04-12 12:46 | XRay Report ---
KUB HISTORY: Acute epigastric abdominal pain epigastric pain; r/o abnormal before EGD COMPARISON: CT abdomen and pelvis 09/29/2019 FINDINGS: Nonobstructive bowel gas pattern. Nondilated air-filled loops of large and small bowel. Olivier ateral nephrolithiasis without ureteral calculi identified. Pelvic basin calcifications redemonstrate d. No renal calculi. No ureteral calculi. No pneumoperitoneum or pneumatosis. No fracture. IMPRESSION: 1. Nonobstructive bowel gas pattern. 2. Bilateral nephrolithiasis. ACT 112: Negative or not required by law. The above report was generated using voice recognition software. It may contain grammatical, syntax o r spelling errors. Electronically signed by: Vamsi Rosales M.D. 04/12/2020 12:45 PM
[2020-04-12] MEDS ORDERED: FAMOTIDINE 20 MG TAB PO PRN (15:33)
--- NOTE | 2020-04-12 15:35 | Hospitalist Progress Note ---
Date of Service April 12, 2020 Assessment & Plan (1) Chest pain: Lateral side wall pain is likely a musculoskeletal etiology per history and clinical TTP on palpation. CT chest performed last night without contrast without evidence of acute or displaced rib fractures. No pleural or pericardial effusions present. Will treat supportively with Myoflex sports cream, scheduled Tylenol and heat PRN (2) Epigastric burning sensation: This is an atypical abdominal burning discomfort described by the patient as radiating into his substernal area for the past two weeks. This started "out of nowhere." He is significantly short of breath with exertion and exertion worsens his symptoms. Overnight ACS was ruled out with negative serial troponins, and serial EKGs are not revealing acute ischemia. However, this patient has clear coronary artery calcification on CT imaging, meaning he has at least some stable plaque present in his coronaries. Will obtain echo to evaluate for pump function and also look for any valvulopathies that may be cont ributing. He did have some gastritis seen on EGD imaging today and a biopsy was taken to rule out H pylori, but no ulcers were seen or other pathology. It is still uncertain if the cause of this pain may be GI related. GI cocktail PRN ordered and he will continue on scheduled PPI with PRN H2 blockers for reflux or burning symptoms. He did suggest that food seemed to make the burning worse to some degree and appears to be avoiding food because of this. Also, this patient has a h/o incarcerated umbilical hernia in July 2014 and underwent a hernia repair at that time. He has some sensitivity around this scar area that he says is chronic. CT abd pel with IV contrast tonight and surgery consultation requested. (3) Chronic deep vein thrombosis (DVT): chronic DVT present in RLE. Continues on warfarin with subtherapeutic INR. Heparin drip while hospitalized. Of note, despite h/o hyperhomocysteinemia,per my review of outpatient records, the patient underwent a hypercoagulable workup per Dr. Dickson ([facility]) in 2013 that was negative. Will discuss with hematology whether or not persistent, long-term anticoagulation is needed. Pt appears to be a high metabolizer of warfarin, typically requiring very high doses. He states that NOACs were offered in the past but not covered under insurance. (4) GERD (gastroesophageal reflux disease): cont PPI scheduled with H2 osorio PRN (5) CKD (chronic kidney disease), stage III: at baseline and improved creatinine since admission. (6) Tracheomalacia: chronic (7) HTN (hypertension): at goal, cont chlorthalidone per home regimen. (8) Obesity (BMI 30.0-34.9): (9) DVT prophylaxis: heparin/warfarin Full Code Dispo-uncertain at this time with ongoing workup of symptom etiology. Would like to see him reliably eating food and symptoms improved prior to returning home. Dot Leyva DO [facility] Hospitalist Admission and Anticipated Discharge Date Admission Date: April 11, 2020 Subjective cc: burning sensation in central chest region with involvement of abdomen x 2-3 weeks 69-year-old man non-smoker with history of hypertension presented with substernal burning in his chest associated with generalized abdominal burning discomfort. The burning discomfort is consistently present and per history, this appears to be worse with exertion, better with rest, and possibly worse with food. He has been avoiding food per his report since Wednesday, approximately 5 days ago now. He reports when he steps out into the cold or tries to exert himself in the last couple of weeks, he has become profoundly short of breath with chest discomfort worsening and it is taking him a couple of hours to recover from this. For this reason he has been more averse to performing tasks such as walking the dog. Separate from this 4 weeks ago he developed a lateral chest sidewall discomfort from using the snowblower excessively during a heavy snow. This improved but then became worse after a repeat fall in his daughter's basement 2 weeks ago. This lateral chest sidewall discomfort appears to be separate issue from the central burning abdominal/chest pain which is new and persistent as of the last 2 weeks. No other classic ACS symptoms are associated with this centralized chest pain including no diaphoresis palpitations nausea, vomiting, lightheadedness. He denies a history of CAD or chest pain in the past, however, CT scan reveals calcified coronary arteries. He reports being a lifelong non-smoker. Cardiology evaluated him and felt that current symptoms were not consistent with a cardiac etiology. Gastroenterology performed EGD on him this morning revealing mild erythematous mucosa in the gastric antrum with biopsies taken for H. pylori testing. Outside of this erythema the esophagus and stomach as well as the duodenum were normal. Review of Systems Review of Systems: All systems reviewed & are unremarkable except as noted in Subjective Physical Exam Physical Exam: CONSTITUTIONAL: WNWD, vitals as above, generally well- appearing EYES: normal conjunctivae, no scleral icterus ENT: external ear and nose normal, oropharynx clear, MMM RESPIRATORY: clear to auscultation bilaterally, no crackles, rales or wheezes, normal respiratory effort CARDIOVASCULAR: regular rate and rhythm, S1 and 2 heard without murmurs, gallops or rubs, no JVD, no peripheral edema CHEST: inspection of chest was normal GASTROINTESTINAL: soft, TTP over well-healed scar in RLQ, some guarding, nondistended MUSCULOSKELETAL: strength 5/5 throughout, head is normocephalic and atraumatic, left lateral chest wall very TTP in intercostal spaces laterally along mid- axillary line and around to the posterior intercostal area. SKIN: warm and dry, no ecchymosis. NEUROLOGIC: CN 2-12 grossly intact, normal cognition, normal speech, no gross focal deficits. PSYCHIATRIC: alert cooperative and oriented Results & Data Results & Data ([facility]) Vital Signs (Past 12 Hours) Vital Signs Temp Pulse Pulse Resp BP Pulse Ox 04/12/20 12:26 68 16 140/86 99 04/12/20 12:10 69 16 132/82 95 04/12/20 11:58 36.5 C 72 16 119/69 97 04/12/20 10:56 36.5 C 72 20 173/87 H 98 04/12/20 08:33 77 04/12/20 07:00 36.4 C L 65 20 114/79 96 Laboratory Results Short CBC 04/11/20 04/11/20 04/11/20 Range/Units 12:24 12:24 12:24 WBC (4.8-10.8) K/uL RBC 5.03 (4.7-6.1) M/uL Hgb (14.0-18.0) g/dL Hct (42-52) % MCV 91.5 (80-100) fL MCH 31.2 (25-34) pg MCHC 34.1 (32-36) g/dL RDW Std Deviation 45.1 (36.4-46.3) fL RDW Coeff of Ed 13.4 (11.5-14.5) % Plt Count (130-400) K/uL MPV 9.3 (7.4-10.4) fL Immature Gran % (Auto) 0.1 % Neut % (Auto) 75.8 % Lymph % (Auto) 16.9 % Cannon % (Auto) 6.4 % Eos % (Auto) 0.7 % Baso % (Auto) 0.1 % Neut # (Auto) 5.56 (1.4-6.5) K/uL Lymph # (Auto) 1.24 (1.2-3.4) K/uL Cannon # (Auto) 0.47 (0.11-0.59) K/uL Eos # (Auto) 0.05 (0-0.5) K/uL Baso # (Auto) 0.01 (0-0.2) K/uL Immature Gran # (Auto) 0.01 (0.00-0.02) K/uL PT 11.1 (9.0-12.0) Seconds INR 1.1 (0.9-1.1) APTT 27.6 (21.0-31.0) Seconds PTT Ratio 1.0 D-Dimer 280 (0-500) ug/L FEU Sodium 137 (136-145) mmol/L Potassium 4.0 (3.5-5.1) mmol/L Chloride 102 (98-107) mmol/L Carbon Dioxide 30 (21-32) mmol/L Anion Gap 5.0 (3-11) BUN 20 H (7-18) mg/dl Creatinine 1.60 H (0.6-1.4) mg/dl Est Cr Clr Drug Dosing 62.9 ml/min Est GFR ( Amer) 49.5 Est GFR (Non-Af Amer) 42.7 BUN/Creatinine Ratio 12.7 (10-20) Glucose 104 H (70-99) mg/dl Calcium 9.4 (8.5-10.1) mg/dl Magnesium (1.8-2.4) mg/dl Total Bilirubin (0.2-1) mg/dl AST (15-37) U/L ALT (12-78) U/L Alkaline Phosphatase (45-117) U/L Troponin I < 0.015 (0-0.045) ng/ml Total Protein (6.4-8.2) gm/dl Albumin (3.4-5.0) gm/dl Globulin (2.5-4.0) gm/dl Albumin/Globulin Ratio (0.9-2) Lipase 137 (73-393) U/L Urine Color Urine Appearance (Clear) Urine pH (4.5-7.5) Ur Specific [place] (1.000-1.030) Urine Protein (Negative) Urine Glucose (UA) (Negative) Urine Ketones (Negative) Urine Blood (Negative) Urine Nitrite (Negative) Urine Bilirubin (Negative) Urine Urobilinogen (Negative) Ur Leukocyte Esterase (Negative) COVID-19 Eval Order SARS-CoV-2 (PCR) Influenza Type A (PCR) (Neg) Influenza Type B (PCR) (Neg) RSV (RT-PCR) (Neg) 04/11/20 04/11/20 04/11/20 Range/Units 13:37 13:37 13:37 WBC (4.8-10.8) K/uL RBC (4.7-6.1) M/uL Hgb (14.0-18.0) g/dL Hct (42-52) % MCV (80-100) fL MCH (25-34) pg MCHC (32-36) g/dL RDW Std Deviation (36.4-46.3) fL RDW Coeff of Ed (11.5-14.5) % Plt Count (130-400) K/uL MPV (7.4-10.4) fL Immature Gran % (Auto) % Neut % (Auto) % Lymph % (Auto) % Cannon % (Auto) % Eos % (Auto) % Baso % (Auto) % Neut # (Auto) (1.4-6.5) K/uL Lymph # (Auto) (1.2-3.4) K/uL Cannon # (Auto) (0.11-0.59) K/uL Eos # (Auto) (0-0.5) K/uL Baso # (Auto) (0-0.2) K/uL Immature Gran # (Auto) (0.00-0.02) K/uL PT (9.0-12.0) Seconds INR (0.9-1.1) APTT (21.0-31.0) Seconds PTT Ratio D-Dimer (0-500) ug/L FEU Sodium (136-145) mmol/L Potassium (3.5-5.1) mmol/L Chloride (98-107) mmol/L Carbon Dioxide (21-32) mmol/L Anion Gap (3-11) BUN (7-18) mg/dl Creatinine (0.6-1.4) mg/dl Est Cr Clr Drug Dosing ml/min Est GFR ( Amer) Est GFR (Non-Af Amer) BUN/Creatinine Ratio (10-20) Glucose (70-99) mg/dl Calcium (8.5-10.1) mg/dl Magnesium (1.8-2.4) mg/dl Total Bilirubin (0.2-1) mg/dl AST (15-37) U/L ALT (12-78) U/L Alkaline Phosphatase (45-117) U/L Troponin I (0-0.045) ng/ml Total Protein (6.4-8.2) gm/dl Albumin (3.4-5.0) gm/dl Globulin (2.5-4.0) gm/dl Albumin/Globulin Ratio (0.9-2) Lipase (73-393) U/L Urine Color Urine Appearance (Clear) Urine pH (4.5-7.5) Ur Specific [place] (1.000-1.030) Urine Protein (Negative) Urine Glucose (UA) (Negative) Urine Ketones (Negative) Urine Blood (Negative) Urine Nitrite (Negative) Urine Bilirubin (Negative) Urine Urobilinogen (Negative) Ur Leukocyte Esterase (Negative) COVID-19 Eval Order Covid19 to [facility] SARS-CoV-2 (PCR) Cancelled NEGATIVE Influenza Type A (PCR) Negative (Neg) Influenza Type B (PCR) Negative (Neg) RSV (RT-PCR) Negative (Neg) 04/11/20 04/12/20 04/12/20 Range/Units 18:32 00:40 04:32 WBC (4.8-10.8) K/uL RBC (4.7-6.1) M/uL Hgb (14.0-18.0) g/dL Hct (42-52) % MCV (80-100) fL MCH (25-34) pg MCHC (32-36) g/dL RDW Std Deviation (36.4-46.3) fL RDW Coeff of Ed (11.5-14.5) % Plt Count (130-400) K/uL MPV (7.4-10.4) fL Immature Gran % (Auto) % Neut % (Auto) % Lymph % (Auto) % Cannon % (Auto) % Eos % (Auto) % Baso % (Auto) % Neut # (Auto) (1.4-6.5) K/uL Lymph # (Auto) (1.2-3.4) K/uL Cannon # (Auto) (0.11-0.59) K/uL Eos # (Auto) (0-0.5) K/uL Baso # (Auto) (0-0.2) K/uL Immature Gran # (Auto) (0.00-0.02) K/uL PT (9.0-12.0) Seconds INR (0.9-1.1) APTT (21.0-31.0) Seconds PTT Ratio D-Dimer (0-500) ug/L FEU Sodium (136-145) mmol/L Potassium (3.5-5.1) mmol/L Chloride (98-107) mmol/L Carbon Dioxide (21-32) mmol/L Anion Gap (3-11) BUN (7-18) mg/dl Creatinine (0.6-1.4) mg/dl Est Cr Clr Drug Dosing ml/min Est GFR ( Amer) Est GFR (Non-Af Amer) BUN/Creatinine Ratio (10-20) Glucose (70-99) mg/dl Calcium (8.5-10.1) mg/dl Magnesium (1.8-2.4) mg/dl Total Bilirubin (0.2-1) mg/dl AST (15-37) U/L ALT (12-78) U/L Alkaline Phosphatase (45-117) U/L Troponin I < 0.015 < 0.015 (0-0.045) ng/ml Total Protein (6.4-8.2) gm/dl Albumin (3.4-5.0) gm/dl Globulin (2.5-4.0) gm/dl Albumin/Globulin Ratio (0.9-2) Lipase (73-393) U/L Urine Color Yellow Urine Appearance Clear (Clear) Urine pH 5.0 (4.5-7.5) Ur Specific [place] 1.022 (1.000-1.030) Urine Protein Negative (Negative) Urine Glucose (UA) Negative (Negative) Urine Ketones 1+ H (Negative) Urine Blood Negative (Negative) Urine Nitrite Negative (Negative) Urine Bilirubin Negative (Negative) Urine Urobilinogen Negative (Negative) Ur Leukocyte Esterase Negative (Negative) COVID-19 Eval Order SARS-CoV-2 (PCR) Influenza Type A (PCR) (Neg) Influenza Type B (PCR) (Neg) RSV (RT-PCR) (Neg) 04/12/20 04/12/20 04/12/20 Range/Units 06:18 06:18 06:18 WBC 8.20 (4.8-10.8) K/uL RBC 5.14 (4.7-6.1) M/uL Hgb 16.1 (14.0-18.0) g/dL Hct 46.7 (42-52) % MCV 90.9 (80-100) fL MCH 31.3 (25-34) pg MCHC 34.5 (32-36) g/dL RDW Std Deviation 44.1 (36.4-46.3) fL RDW Coeff of Ed 13.3 (11.5-14.5) % Plt Count 181 (130-400) K/uL MPV 9.5 (7.4-10.4) fL Immature Gran % (Auto) % Neut % (Auto) % Lymph % (Auto) % Cannon % (Auto) % Eos % (Auto) % Baso % (Auto) % Neut # (Auto) (1.4-6.5) K/uL Lymph # (Auto) (1.2-3.4) K/uL Cannon # (Auto) (0.11-0.59) K/uL Eos # (Auto) (0-0.5) K/uL Baso # (Auto) (0-0.2) K/uL Immature Gran # (Auto) (0.00-0.02) K/uL PT 11.5 (9.0-12.0) Seconds INR 1.1 (0.9-1.1) APTT (21.0-31.0) Seconds PTT Ratio D-Dimer (0-500) ug/L FEU Sodium 133 L (136-145) mmol/L Potassium 3.6 (3.5-5.1) mmol/L Chloride 101 (98-107) mmol/L Carbon Dioxide 24 (21-32) mmol/L Anion Gap 8.0 (3-11) BUN 20 H (7-18) mg/dl Creatinine 1.33 (0.6-1.4) mg/dl Est Cr Clr Drug Dosing 74.8 ml/min Est GFR ( Amer) 61.9 Est GFR (Non-Af Amer) 53.4 BUN/Creatinine Ratio 15.0 (10-20) Glucose 114 H (70-99) mg/dl Calcium 9.5 (8.5-10.1) mg/dl Magnesium 2.1 (1.8-2.4) mg/dl Total Bilirubin 1.6 H (0.2-1) mg/dl AST 22 (15-37) U/L ALT 40 (12-78) U/L Alkaline Phosphatase 75 (45-117) U/L Troponin I (0-0.045) ng/ml Total Protein 8.2 (6.4-8.2) gm/dl Albumin 4.1 (3.4-5.0) gm/dl Globulin 4.1 H (2.5-4.0) gm/dl Albumin/Globulin Ratio 1.0 (0.9-2) Lipase (73-393) U/L Urine Color Urine Appearance (Clear) Urine pH (4.5-7.5) Ur Specific [place] (1.000-1.030) Urine Protein (Negative) Urine Glucose (UA) (Negative) Urine Ketones (Negative) Urine Blood (Negative) Urine Nitrite (Negative) Urine Bilirubin (Negative) Urine Urobilinogen (Negative) Ur Leukocyte Esterase (Negative) COVID-19 Eval Order SARS-CoV-2 (PCR) Influenza Type A (PCR) (Neg) Influenza Type B (PCR) (Neg) RSV (RT-PCR) (Neg) BMP 04/12/20 06:18 Sodium 133 L Potassium 3.6 Chloride 101 Carbon Dioxide 24 BUN 20 H Creatinine 1.33 Glucose 114 H Calcium 9.5 Cardiac Enzymes 04/11/20 04/12/20 Range/Units 18:32 00:40 Troponin I < 0.015 < 0.015 (0-0.045) ng/ml Liver Function 04/12/20 Range/Units 06:18 Total Bilirubin 1.6 H (0.2-1) mg/dl AST 22 (15-37) U/L ALT 40 (12-78) U/L Alkaline Phosphatase 75 (45-117) U/L Albumin 4.1 (3.4-5.0) gm/dl Urine 04/12/20 Range/Units 04:32 Urine Color Yellow Urine Appearance Clear (Clear) Urine pH 5.0 (4.5-7.5) Ur Specific [place] 1.022 (1.000-1.030) Urine Protein Negative (Negative) Urine Glucose (UA) Negative (Negative) Medications Administered Current Inpatient Medications Acetaminophen (Acetaminophen 325 Mg Tab) 650 mg PO Q4H PRN PRN Reason: Pain or Fever Stop: 05/11/20 18:33 Last Admin: 04/12/20 06:05 Dose: 650 mg Documented by: Acetaminophen (Acetaminophen 500 Mg Tab) 1,000 mg PO Q8H [facility] Stop: 05/12/20 15:29 Al Hydrox/Mg Hydrox/Simethicone (Aluminum/Magnesium Susp 30 Ml Udc) 15 ml PO Q4H PRN PRN Reason: Dyspepsia Stop: 05/11/20 18:33 Chlorthalidone (Chlorthalidone 25 Mg Tab) 25 mg PO DAILY [facility] Stop: 05/12/20 08:59 Last Admin: 04/12/20 12:46 Dose: 25 mg Documented by: Al Hydrox/Mg Hydrox/Simethicone 72 ml/ Lidocaine HCl 24 ml/ BARCODE IDENTIFIER 1 ea 0 ml PO Q8H PRN PRN Reason: abdominal burning Stop: 05/12/20 15:29 Famotidine (Famotidine 20 Mg Tab) 20 mg PO Q12H PRN PRN Reason: breakthrough heartburn Stop: 05/12/20 15:32 Magnesium Hydroxide (Magnesium Hydroxide Susp 30 Ml Udc) 30 ml PO Q12H PRN PRN Reason: Constipation Stop: 05/11/20 18:33 Ondansetron HCl (Ondansetron Inj 2 Mg/Ml 2 Ml Vial) 4 mg IV Q6H PRN PRN Reason: Nausea Stop: 05/11/20 18:33 Pantoprazole Sodium (Pantoprazole 40 Mg Tab) 40 mg PO BID [facility] Stop: 05/12/20 20:59 Polyethylene Glycol (Polyethylene (Miralax) 17 Gm Pack) 17 gm PO DAILY PRN PRN Reason: Constipation Stop: 02/20/21 18:33 Trolamine Salicylate (Trolamine Salicylate 10% Crm 255 Appln/85 Gm Tube) 1 appln EXT BID [facility] Stop: 05/12/20 20:59 Warfarin Sodium (Warfarin Sod 5 Mg Tab) 25 mg PO [id number]@1600 [facility] Stop: 05/12/20 15:59 Warfarin Sodium (Warfarin Sod 10 Mg Tab) 30 mg PO [id number]@1600 [facility] Stop: 05/11/20 19:29 Last Admin: 04/11/20 21:16 Dose: 30 mg Documented by: (1) Chest pain Chest pain type: unspecified Qualified Code(s): R07.9 - Chest pain, unspecified
[2020-04-12] MEDS ORDERED: WARFARIN SOD 5 MG TAB PO SCH (16:00)
[2020-04-12] MEDS: ACETAMINOPHEN 500 MG TAB PO SCH (16:07)
--- NOTE | 2020-04-12 17:09 | Ultrasound Report ---
BILATERAL LOWER EXTREMITY VENOUS DOPPLER HISTORY: Follow up study in a patient with history of DVT. History of prior thrombus within the left posterior tibial vein with chronic thrombus of the right popliteal vein h/o recurrent DVT, r/o dvt COMPARISON STUDY: Duplex venous Doppler study 04/02/2017 FINDINGS: Chronic nonocclusive thrombus of the right popliteal vein redemonstrated. Chronic nonocclus iglesia thrombus is also again noted involving one of the duplicated left posterior tibial veins. No acut e deep venous thrombosis identified. IMPRESSION: 1. No acute deep venous thrombus. 2. Chronic nonocclusive deep venous thrombi of the right popliteal and left posterior tibial veins re demonstrated. ACT 112: Negative or not required by law. Electronically signed by: Vamsi Rosales M.D. 04/12/2020 5:08 PM
[2020-04-12] MEDS ORDERED: LORazepam 1 MG TAB SL PRN (18:30)
--- NOTE | 2020-04-12 18:36 | Ultrasound Report ---
ULTRASOUND RIGHT UPPER QUADRANT ABDOMEN CLINICAL HISTORY: Epigastric abdominal pain. COMPARISON STUDY: Abdominal CT dated 09/29/2019. TECHNIQUE: Real-time, grayscale, and color flow sonography of the right upper quadrant of the abdomen was performed. Images are reviewed in the transverse and longitudinal planes. FINDINGS: Liver: The liver is normal in size and demonstrates heterogeneously increased echotexture consistent with hepatic steatosis. There is no intrahepatic biliary ductal dilatation. The main portal vein is p atent. Gallbladder: The gallbladder is surgically absent. The common bile duct measures up to 0.4 cm in diam eter. Pancreas: Not visualized due to overlying bowel gas. Right kidney: Survey images of the right kidney demonstrate mild cortical atrophy. Renal calculi are noted. There is no hydronephrosis. Ascites: None. IMPRESSION: 1. No acute sonographic abnormality is seen in the right upper quadrant noting status post cholecyste ctomy. 2. Right-sided nephrolithiasis. 3. Hepatic steatosis. ACT 112: Negative or not required by law. Electronically signed by: Jason Villegas M.D. 04/12/2020 6:35 PM
[2020-04-12] MEDS ORDERED: OPTIRAY 320 125ml IV ONE ×2 (18:56→19:03)
--- NOTE | 2020-04-12 19:22 | CT Scan Report ---
CT ANGIOGRAM OF THE CHEST; CT SCAN OF THE ABDOMEN AND PELVIS WITH IV CONTRAST CLINICAL HISTORY: Generalized abdominal pain. Atypical chest pain. COMPARISON STUDY: Chest CT scans dated 04/11/2020 and 04/02/2017. Abdominal CT dated 09/29/2019. Abdomi nal ultrasound dated 04/12/2020. TECHNIQUE: Following the IV administration of 119 of Optiray 320, CT angiogram of the chest is perfor med from the upper abdomen to the thoracic inlet utilizing the pulmonary embolus protocol. Images are reviewed in the axial, sagittal, coronal planes. 3-D MIPS images are created and assessed. Subsequen tly, CT scan of the abdomen and pelvis was performed from the lung bases to the proximal femora. Imag es are reviewed in the axial, sagittal, and coronal planes. IV contrast was administered without comp lication. A dose lowering technique was utilized adhering to the principles of ALARA. CT DOSE: 2328.41 mGy.cm FINDINGS: CHEST: Thyroid: Imaged portions of the thyroid gland are normal in size and attenuation. Thoracic aorta: The thoracic aorta is normal in caliber and demonstrates standard 3-vessel arch anato my. No dissection is seen. Pulmonary vasculature: The pulmonary trunk is normal in caliber. There are no filling defects identif ied in the main, lobar, or segmental pulmonary arteries to indicate pulmonary embolus. Heart: The heart is top normal in size and without pericardial effusion. The coronary arteries are de nsely calcified. Lungs and pleural spaces: Evaluation of the lung parenchyma is modestly degraded by motion artifact. There is no airspace consolidation or pleural effusion. The trachea and central airways are clear. Mi ld scarring/atelectasis is seen at the lung bases. Mediastinum: There is no mediastinal lymphadenopathy. Demi: Clear. Axillae: There is no axillary lymphadenopathy. Bony thorax: The skeletal structures are osteopenic. No lytic or blastic lesions are identified. ABDOMEN AND PELVIS: Liver: The contrast-enhanced liver is normal in size and contour. The liver demonstrates diffusely di minished attenuation consistent with hepatic steatosis. There is no intrahepatic biliary ductal dilat ation. The hepatic veins and portal veins are patent. Gallbladder: Surgically absent. Spleen: Normal in size and attenuation. Pancreas: Unremarkable. Adrenal glands: Unremarkable. Kidneys: The contrast enhanced kidneys demonstrate cortical atrophy and are without hydronephrosis. T he kidneys enhance symmetrically. Numerous small renal cysts measure up to 2.4 cm. Additional subcent imeter cortical hypodensities also likely represent cysts but are too small for definitive characteri zation. There are bilateral nonobstructing renal calculi (at least 4 on the right and at least 2 on t he left). No ureteral stone is seen. Abdominal vasculature: The abdominal aorta is normal in course and caliber noting mild atheroscleroti c calcification. Stomach and bowel: There is a small hiatal hernia. No bowel obstruction is seen. There is mild to mod erate colonic diverticulosis without CT evidence of acute diverticulitis. Residual enteric contrast i s noted in the colon. The appendix is well-visualized and normal. Peritoneum: There is no intraperitoneal free air or abdominal ascites. There is a small fat-containin g supraumbilical hernia. Findings suggest previous umbilical hernia repair. Lymphadenopathy: None. Pelvic viscera: The prostate gland is markedly enlarged and heterogeneous, measuring 6.7 cm in transv erse diameter. There is median lobe hypertrophy. The bladder wall is thickened and trabeculated indic ating chronic outlet obstruction. There are numerous small bladder calculi. There are right larger th an left fat-containing inguinal hernias. Skeletal structures: The skeletal structures are osteopenic. Mild to moderate lumbosacral spondylosis is observed. No lytic or blastic lesions are seen. IMPRESSION: 1. There is no evidence of pulmonary embolus in the main, lobar, or segmental pulmonary arteries. 2. There is no airspace consolidation or pleural effusion. 3. There are no acute infectious or inflammatory findings in the abdomen or pelvis. 4. Hepatic steatosis. 5. Bilateral nephrolithiasis. 6. There are small bladder calculi. 7. Marked prostatomegaly with evidence of chronic bladder outlet obstruction. 8. Mild to moderate colonic diverticulosis without CT evidence of acute diverticulitis. 9. There are right larger than left fat-containing inguinal hernias. 10. Additional findings as above. ACT 112: Positive. There are findings on this exam that require communication between the performing entity and the patient following Patient Test Result Information Act ([place] Act 112) guidelines. Electronically signed by: Jason Villegas M.D. 04/12/2020 7:21 PM
[2020-04-12] MEDS: HEPARIN SODIUM/DEXTROSE 25,000 UNITS/500 ML BAG IV SCH (20:18)
[2020-04-12] MEDS: Heparin IV Standard *NO* Bolus IV SCH ×3 (20:19→20:28)
[2020-04-12] MEDS: PANTOprazole 40 MG TAB PO SCH (20:26)
[2020-04-12] MEDS: TROLAMINE SALICYLATE 10% CRM 255 APPLN/85 GM TUBE EXT SCH (20:27)
[2020-04-13] MEDS: ACETAMINOPHEN 500 MG TAB PO SCH ×3 (01:47→15:43)
[2020-04-13 02:36] LABS: INR 1.5 (0.9-1.1); Prothrombin Time 15.6 Seconds (9.0-12.0)
[2020-04-13 02:46] LABS: Partial Thromboplastin Ratio 4.4
[2020-04-13 02:48] LABS: Calcium 8.9 mg/dl (8.5-10.1); Creatinine Clr Calc Pharmacy 72.6 ml/min; Est GFR (African American) 59.7; Est GFR (Non-African American) 51.5; Potassium 3.9 mmol/L (3.5-5.1)
[2020-04-13 02:50] LABS: Partial Thromboplastin Time 124.1 Seconds (21.0-31.0)
[2020-04-13] MEDS: HEPARIN SODIUM/DEXTROSE 25,000 UNITS/500 ML BAG IV SCH ×2 (05:08→13:19)
--- NOTE | 2020-04-13 07:03 | Electrocardiogram Report ---
Test Reason : Blood Pressure : / mmHG Vent. Rate : 074 BPM Atrial Rate : 074 BPM P-R Int : 188 ms QRS Dur : 098 ms QT Int : 404 ms P-R-T Axes : 031 030 024 degrees QTc Int : 448 ms Normal sinus rhythm Normal ECG When compared with ECG of 11-APR-2020 12:18, No significant change was found Confirmed by Vincent Dominique ([id number]) on 04/13/2020 7:03:28 AM Referred By: REFERRED SELF Confirmed By:Vincent Dominique
--- NOTE | 2020-04-13 07:16 | Electrocardiogram Report ---
Test Reason : Blood Pressure : / mmHG Vent. Rate : 064 BPM Atrial Rate : 064 BPM P-R Int : 194 ms QRS Dur : 100 ms QT Int : 424 ms P-R-T Axes : 056 062 064 degrees QTc Int : 437 ms Normal sinus rhythm Normal ECG When compared with ECG of 11-APR-2020 21:03, No significant change was found Confirmed by Vincent Dominique ([id number]) on 04/13/2020 7:16:06 AM Referred By: REFERRED SELF Confirmed By:Vincent Dominique
[2020-04-13] MEDS: TROLAMINE SALICYLATE 10% CRM 255 APPLN/85 GM TUBE EXT SCH ×2 (08:56→20:21)
[2020-04-13] MEDS: PANTOprazole 40 MG TAB PO SCH ×2 (08:56→20:20)
[2020-04-13] MEDS: CHLORTHALIDONE 25 MG TAB PO SCH (08:56)
--- NOTE | 2020-04-13 10:42 | Surgery Consultation ---
Date of Consultation April 13, 2020 Assessment & Plan (1) Musculoskeletal pain: no abdominal wall hernias abdomen benign would treat gastritis no surgical issues CT with possible inguinal hernias but no hernia sac or bulge appreciated, work- up as outpatient History of Present Illness Attending Physician: Dot Leyva, DO History of Present Illness 69YO male with epigastric pain and burning discomfort described by the patient as radiating into his substernal area for the past two weeks. This started after an episode of exertion. He is significantly short of breath with exertion and exertion worsens his symptoms. ACS was ruled out with negative serial troponins and serial EKGs. He does however haveclear coronary artery calcification on CT imaging. He has gastritis seen on EGD imaging today and a biopsy was taken to rule out H pylori, but no ulcers were seen or other pathology. He has had his gallbladder removed in the . He is also s/p h/o incarcerated umbilical hernia repair in July 2014. The pain is worse with movement and has no other GI associated symptoms.. Allergies Allergy/AdvReac Type Severity Reaction Status Date / Time morphine AdvReac Intermediate anxiety Verified 04/03/20 15:57 Home Medications Medication Instructions Recorded Confirmed Type chlorthalidone 25 mg PO DAILY 04/11/20 04/11/20 History cimetidine [Tagamet] 400 mg PO BID 04/11/20 04/11/20 History omeprazole 20 mg PO DAILY 04/11/20 04/11/20 History warfarin 25 mg PO MOFR 04/11/20 04/11/20 History warfarin 30 mg PO SUTUWETHSA 04/11/20 04/11/20 History Patient History Medical History Arthritis Chronic prostatitis CKD (chronic kidney disease), stage III Claustrophobia DVT (deep venous thrombosis) "After knee surgery" Dyslipidemia Fatty liver GERD (gastroesophageal reflux disease) History of Clostridium difficile colitis Hyperhomocysteinemia Hypertension IBS (irritable bowel syndrome) Migraine Obesity (BMI 30-39.9) Surgical History H/O arthroscopic knee surgery "for meniscus repair on 08/29/13" H/O hernia repair "Incarcerated umbilical hernia 08/03/2014" History of carpal tunnel surgery S/P cholecystectomy Family History Father , 97 No problems noted. Mother , 90 No problems noted. Social History Smoking Status: Never smoker Hx Alcohol Use: No Hx Substance Use: No Preferred Language: Belarusian Communication Ability: Effective Visual Impairment: No Limitations Hearing Ability: Normal Beliefs That Will Affect Care: None marital status: Current Living Situation: Spouse current occupational status: retired Other Information That Helps Us Care for You: No Feels Safe at Home: Yes Safety Concerns: Feels Safe At This Time Assistive Devices: None Review of Systems Constitutional: no fever, no chills, no fatigue and no anorexia Eyes: + problem reported Ear, Nose, Mouth, Throat: no problem reported Respiratory: + dyspnea and + dyspnea on exertion Cardiovascular: + chest pain and + dyspnea on exertion Gastrointestinal: no abdominal pain, no nausea, no vomiting, no dysphagia and no change in bowel habits Genitourinary: no dysuria Musculoskeletal: no problem reported Integumentary: no rash Neurologic: no localized weakness and no generalized weakness Psychiatric: no behavioral changes Physical Exam Constitutional: well developed, well nourished and + obese Eyes: PERRL, conjunctivae normal, anicteric sclerae ENMT: external ear and nose normal, oropharynx normal Neck: trachea midline Respiratory: normal respiratory effort, lungs clear to auscultation Cardiovascular: RRR, no murmur, no edema Gastrointestinal (Abdomen): Inspection/Auscultation: abdomen normal to inspection and normal bowel sounds; abdomen not distended Percussion/Palpation: abdomen soft; abdomen nontender, no guarding, abdomen not rigid and no hernia Musculoskeletal: Head/Neck/Chest: normocephalic and head atraumatic Skin: no rashes, warm and dry Psychiatric: Orientation: alert and oriented x 3 Genitourinary: no inguinal hernia (no sac palpated) Results & Data ([facility]) Vital Signs (Past 12 Hours) Vital Signs Temp Pulse Pulse Resp BP Pulse Ox 04/13/20 07:57 63 04/13/20 07:35 36.6 C 71 18 131/80 96 04/13/20 03:00 36.5 C 64 17 121/75 97 04/12/20 22:55 36.6 C 89 20 135/[address] ANGIOGRAM OF THE CHEST; CT SCAN OF THE ABDOMEN AND PELVIS WITH IV CONTRAST CLINICAL HISTORY: Generalized abdominal pain. Atypical chest pain. COMPARISON STUDY: Chest CT scans dated 04/11/2020 and 04/02/2017. Abdominal CT dated 09/29/2019. Abdominal ultrasound dated 04/12/2020. TECHNIQUE: Following the IV administration of 119 of Optiray 320, CT angiogram of the chest is performed from the upper abdomen to the thoracic inlet utilizing the pulmonary embolus protocol. Images are reviewed in the axial, sagittal, coronal planes. 3-D MIPS images are created and assessed. Subsequently, CT scan of the abdomen and pelvis was performed from the lung bases to the proximal femo ra. Images are reviewed in the axial, sagittal, and coronal planes. IV contrast was administered without complication. A dose lowering technique was utilized adhering to the principles of ALARA. CT DOSE: 2328.41 mGy.cm FINDINGS: CHEST: Thyroid: Imaged portions of the thyroid gland are normal in size and attenuation. Thoracic aorta: The thoracic aorta is normal in caliber and demonstrates allyson dard 3-vessel arch anatomy. No dissection is seen. Pulmonary vasculature: The pulmonary trunk is normal in caliber. There are no filling defects identified in the main, lobar, or segmental pulmonary arteries to indicate pulmonary embolus. Heart: The heart is top normal in size and without pericardial effusion. The coronary arteries are densely calcified. Lungs and pleural spaces: Evaluation of the lung parenchyma is modestly degraded by motion artifact. There is no airspace consolidation or pleural effusion. The trachea and central airways are clear. Mild scarring/atelectasis is seen at the lung bases. Mediastinum: There is no mediastinal lymphadenopathy. Demi: Clear. Axillae: There is no axillary lymphadenopathy. Bony thorax: The skeletal structures are osteopenic. No lytic or blastic lesions are identified. ABDOMEN AND PELVIS: Liver: The contrast-enhanced liver is normal in size and contour. The liver demonstrates diffusely diminished attenuation consistent with hepatic steatosis. There is no intrahepatic biliary ductal dilatation. The hepatic veins and portal veins are patent. Gallbladder: Surgically absent. Spleen: Normal in size and attenuation. Pancreas: Unremarkable. Adrenal glands: Unremarkable. Kidneys: The contrast enhanced kidneys demonstrate cortical atrophy and are without hydronephrosis. The kidneys enhance symmetrically. Numerous small renal cysts measure up to 2.4 cm. Additional subcentimeter cortical hypodensities also likely represent cysts but are too small for definitive characterization. There are bilateral nonobstructing renal calculi (at least 4 on the right and at least 2 on the left). No ureteral stone is seen. Abdominal vasculature: The abdominal aorta is normal in course and caliber noting mild atherosclerotic calcification. Stomach and bowel: There is a small hiatal hernia. No bowel obstruction is seen. There is mild to moderate colonic diverticulosis without CT evidence of acute diverticulitis. Residual enteric contrast is noted in the colon. The appendix is well-visualized and normal. Peritoneum: There is no intraperitoneal free air or abdominal ascites. There is a small fat-containing supraumbilical hernia. Findings suggest previous umbilical hernia repair. Lymphadenopathy: None. Pelvic viscera: The prostate gland is markedly enlarged and heterogeneous, measuring 6.7 cm in transverse diameter. There is median lobe hypertrophy. The bladder wall is thickened and trabeculated indicating chronic outlet obstruction. There are numerous small bladder calculi. There are right larger than left fat-containing inguinal hernias. Skeletal structures: The skeletal structures are osteopenic. Mild to moderate lumbosacral spondylosis is observed. No lytic or blastic lesions are seen. IMPRESSION: 1. There is no evidence of pulmonary embolus in the main, lobar, or segmental pulmonary arteries. 2. There is no airspace consolidation or pleural effusion. 3. There are no acute infectious or inflammatory findings in the abdomen or pelvis. 4. Hepatic steatosis. 5. Bilateral nephrolithiasis. 6. There are small bladder calculi. 7. Marked prostatomegaly with evidence of chronic bladder outlet obstruction. 8. Mild to moderate colonic diverticulosis without CT evidence of acute diverticulitis. 9. There are right larger than left fat-containing inguinal hernias.
[2020-04-13 11:29] LABS: Partial Thromboplastin Ratio 3.2
[2020-04-13 12:08] LABS: Partial Thromboplastin Time 88.4 Seconds (21.0-31.0)
--- NOTE | 2020-04-13 12:19 | Electrocardiogram Report ---
Test Reason : Blood Pressure : / mmHG Vent. Rate : 069 BPM Atrial Rate : 069 BPM P-R Int : 186 ms QRS Dur : 098 ms QT Int : 414 ms P-R-T Axes : 032 036 037 degrees QTc Int : 443 ms Normal sinus rhythm Normal ECG When compared with ECG of 12-APR-2020 07:22, No significant change was found Confirmed by Lucio aMlin ([id number]) on 04/13/2020 12:19:20 PM Referred By: REFERRED SELF Confirmed By:Lucio Malin
[2020-04-13] MEDS: FAMOTIDINE 20 MG TAB PO PRN (15:42)
--- NOTE | 2020-04-13 15:59 | Cardiology Progress Note ---
Date of Service April 13, 2020 Assessment & Plan (1) Chest pain: Patient with past history of tracheomalacia. EGD performed 04/12/2020 without significant esophageal pathology, mild antral inflammation. EKG and cardiac enzymes negative thus far, normal resting wall motion. Nonischemic dobutamine stress echocardiogram in 2018, the patient recalls that the discomfort for which she was assessed at that time was different than what he is feeling now. Noted dense coronary artery calcification on CT of the chest, negative for recurrent pulmonary embolism. He is on long-term Coumadin due to history of recurrent DVT. At present, I recommend we will hold his Coumadin. Continue heparin bridge, and proceed with ischemic work-up on Wednesday. Most recent lipid panel was in 2018, LDL cholesterol 122, start atorvastatin. Hold off on aspirin for now given antral gastric inflammation. Admission and Anticipated Discharge Date Admission Date: April 12, 2020 Subjective Patient seen in cardiology follow-up. He notes ongoing constant generalized abdominal discomfort. There is a separate discomfort that he describes as a midline "tightness "in his chest and he specifically describes this with exertion such as walking to the bathroom and cleaning up this morning. It is better now that he lies supine. Review of Systems Review of Systems: All systems reviewed & are unremarkable except as noted in HPI & below Physical Exam Physical Exam: Temp Pulse Resp BP Pulse Ox 36.6 C 80 18 139/82 97 04/13/20 14:54 04/13/20 15:24 04/13/20 14:54 04/13/20 14:54 04/13/20 14:54 Constitutional: WD/WN, vitals as above Respiratory: normal respiratory effort, lungs clear to auscultation Cardiovascular: RRR, no murmur, no edema Gastrointestinal (Abdomen): normal bowel sounds, soft, nontender, no hepatosplenomegaly Neurologic: PERRL, EOMI, accommodation nl, no face palsy, no dysarthria Results & Data ([facility]) Vital Signs (Past 12 Hours) Vital Signs Temp Pulse Pulse Resp BP Pulse Ox 04/13/20 15:24 80 04/13/20 14:54 36.6 C 99 H 18 139/82 97 04/13/20 07:57 63 04/13/20 07:35 36.6 C 71 18 131/80 96 Laboratory Results Coagulation 04/13/20 04/13/20 04/13/20 Range/Units 02:06 02:06 10:56 PT 15.6 H (9.0-12.0) Seconds APTT 124.1 H* 88.4 H* (21.0-31.0) Seconds Comprehensive Metabolic Panel 04/13/20 Range/Units 02:06 Sodium 135 L (136-145) mmol/L Potassium 3.9 (3.5-5.1) mmol/L Chloride 100 (98-107) mmol/L Carbon Dioxide 29 (21-32) mmol/L BUN 16 (7-18) mg/dl Creatinine 1.37 (0.6-1.4) mg/dl Glucose 101 H (70-99) mg/dl Calcium 8.9 (8.5-10.1) mg/dl Intake and Output 04/13/20 04/13/20 04/13/20 06:59 14:59 22:59 Intake Total 476.833 / 1211.833 306.383 / 353.466 47.083 / 353.466 Output Total 802 / 802 Balance 476.833 / 1211.833 -495.617 / -448.534 47.083 / -448.534 Intake: IV 326.833 / 926.833 206.383 / 253.466 47.083 / 253.466 HEPARIN SODIUM/DEXTROSE 25,000 326.833 / 326.833 206.383 / 253.466 47.083 / 253.466 units In 500 ml @ 1,250 UNITS/ HR 25 mls/hr IV .Q20H [facility] Rx#: [id number] Oral 150 / 285 100 / 100 Output: Urine 800 / 800 # Bowel Movements 2 / 2 Other: # Unmeasured Voids 1 Weight 128.9 kg Weight Measurement Method Standing Scale (1) Chest pain Chest pain type: unspecified Qualified Code(s): R07.9 - Chest pain, unspecified
[2020-04-13] MEDS ORDERED: ATORVASTATIN 10 MG TAB PO ONE (16:04)
--- NOTE | 2020-04-13 16:53 | Hospitalist Progress Note ---
Date of Service April 13, 2020 Assessment & Plan (1) Chest pain: Lateral side wall pain is likely a musculoskeletal etiology per history and clinical TTP on palpation. CT chest without evidence of acute or displaced rib fractures or pulmonary pathology. No pleural or pericardial effusions present. Will treat supportively with scheduled Tylenol and heat PRN (2) Epigastric burning sensation: This is an atypical abdominal burning discomfort described by the patient as radiating into his substernal area for the past two weeks. Worse with exertion which continues today. Echo WNL. Cardiology starting trial Imdur and pursuing ischemic workup on Wednesday. He did have some gastritis seen on EGD imaging and a biopsy was taken to rule out H pylori, but no ulcers were seen or other pathology; path is pending on this. It is still uncertain if the cause of this pain may be GI related. GI cocktail PRN ordered and he will continue on scheduled PPI with PRN H2 blockers for reflux or burning symptoms. He did suggest that food seemed to make the burning worse to some degree and appears to be avoiding food because of this. No evidence of incarcerated hernia or other acute abdominal pathology seen on CT imaging with surgery exam benign. He has developed acute diarrhea, which is now being tested for infection. C-diff is higher risk in someone on chronic PPI therpay. (3) Chronic deep vein thrombosis (DVT): chronic DVT present in RLE. Continues on warfarin with subtherapeutic INR. Heparin drip while hospitalized. Of note, despite h/o hyperhomocysteinemia,per my review of outpatient records, the patient underwent a hypercoagulable workup per Dr. Dickson ([facility]) in 2013 that was negative. Will discuss with hematology whether or not persistent, long-term anticoagulation is needed. Pt appears to be a high metabolizer of warfarin, typically requiring very high doses. He states that NOACs were offered in the past but not covered under insurance. (4) GERD (gastroesophageal reflux disease): cont PPI scheduled with H2 osorio PRN (5) CKD (chronic kidney disease), stage III: at baseline and improved creatinine since admission. (6) Tracheomalacia: chronic, possibly related to significant acid reflux. (7) HTN (hypertension): at goal, cont chlorthalidone per home regimen. (8) Obesity (BMI 30.0-34.9): (9) DVT prophylaxis: heparin/warfarin Full Code Dispo-cont on telemetry pending ischemic workup on Wednesday. Dot Leyva DO [facility] Hospitalist Admission and Anticipated Discharge Date Admission Date: April 12, 2020 Subjective cc: burning epigastric/substernal chest discomfort worse with exertion today still present, worse with exertion when he went to brush teeth and go to the bathroom developed multiple loose watery stools that started at [address] abd was unremarkable last night and surgery evaluation felt abdomen was benign. No GI cocktail tried so far. Cardiology started Imdur trial and pursuing cardiac workup after the weekend. Cont telemetry monitoring for now. Still having MSK pain on the lateral right chest wall as expected. Patient didn't receive heating pad yet; ok to try ice. States Myoflex doesn't help much. Review of Systems Review of Systems: All systems reviewed & are unremarkable except as noted in Subjective Physical Exam Physical Exam: CONSTITUTIONAL: WNWD, vitals as above, generally well- appearing EYES: normal conjunctivae, no scleral icterus ENT: external ear and nose normal, oropharynx clear, MMM RESPIRATORY: clear to auscultation bilaterally, no crackles, rales or wheezes, normal respiratory effort CARDIOVASCULAR: regular rate and rhythm, S1 and 2 heard without murmurs, gallops or rubs, no JVD, no peripheral edema CHEST: inspection of chest was normal GASTROINTESTINAL: soft, TTP over well-healed scar in RLQ, some guarding, nondistended MUSCULOSKELETAL: strength 5/5 throughout, head is normocephalic and atraumatic, left lateral chest wall very TTP in intercostal spaces laterally along mid- axillary line and around to the posterior intercostal area. SKIN: warm and dry, no ecchymosis. NEUROLOGIC: CN 2-12 grossly intact, normal cognition, normal speech, no gross focal deficits. PSYCHIATRIC: alert cooperative and oriented Results & Data Results & Data ([facility]) Vital Signs (Past 12 Hours) Vital Signs Temp Pulse Pulse Resp BP Pulse Ox 04/13/20 15:24 80 04/13/20 14:54 36.6 C 99 H 18 139/82 97 04/13/20 07:57 63 04/13/20 07:35 36.6 C 71 18 131/80 96 Laboratory Results [facility] 04/13/20 02:06 Sodium 135 L Potassium 3.9 Chloride 100 Carbon Dioxide 29 BUN 16 Creatinine 1.37 Glucose 101 H Calcium 8.9 Medications Administered Current Inpatient Medications Acetaminophen (Acetaminophen 500 Mg Tab) 1,000 mg PO Q8H [facility] Stop: 05/12/20 15:59 Last Admin: 04/13/20 15:43 Dose: 1,000 mg Documented by: Al Hydrox/Mg Hydrox/Simethicone (Aluminum/Magnesium Susp 30 Ml Udc) 15 ml PO Q4H PRN PRN Reason: Dyspepsia Stop: 05/11/20 18:33 Atorvastatin Calcium (Atorvastatin 10 Mg Tab) 10 mg PO QAM [facility] Stop: 05/14/20 08:59 Chlorthalidone (Chlorthalidone 25 Mg Tab) 25 mg PO DAILY [facility] Stop: 05/12/20 08:59 Last Admin: 04/13/20 08:56 Dose: 25 mg Documented by: Al Hydrox/Mg Hydrox/Simethicone 72 ml/ Lidocaine HCl 24 ml/ BARCODE IDENTIFIER 1 ea 0 ml PO Q8H PRN PRN Reason: abdominal burning Stop: 05/12/20 15:29 Famotidine (Famotidine 20 Mg Tab) 20 mg PO Q12H PRN PRN Reason: breakthrough heartburn Stop: 05/12/20 15:32 Last Admin: 04/13/20 15:42 Dose: 20 mg Documented by: Heparin Sodium/Dextrose (Heparin Sodium/Dextrose) 25,000 units in 500 mls @ 25 mls/hr IV .Q20H [facility]; Protocol Stop: 05/12/20 19:59 Last Titration: 04/13/20 15:12 Dose: 1,250 units/hr, 25 mls/hr Documented by: Isosorbide Mononitrate (Isosorbide [place] Extended Rel 30 Mg Tabcr) 15 mg PO QAM [facility] Stop: 05/13/20 16:14 Magnesium Hydroxide (Magnesium Hydroxide Susp 30 Ml Udc) 30 ml PO Q12H PRN PRN Reason: Constipation Stop: 05/11/20 18:33 Ondansetron HCl (Ondansetron Inj 2 Mg/Ml 2 Ml Vial) 4 mg IV Q6H PRN PRN Reason: Nausea Stop: 05/11/20 18:33 Pantoprazole Sodium (Pantoprazole 40 Mg Tab) 40 mg PO BID [facility] Stop: 05/12/20 20:59 Last Admin: 04/13/20 08:56 Dose: 40 mg Documented by: Polyethylene Glycol (Polyethylene (Miralax) 17 Gm Pack) 17 gm PO DAILY PRN PRN Reason: Constipation Stop: 05/11/20 18:33 Trolamine Salicylate (Trolamine Salicylate 10% Crm 255 Appln/85 Gm Tube) 1 appln EXT BID TRACY Stop: 05/12/20 20:59 Last Admin: 04/13/20 08:56 Dose: 1 appln Documented by: (1) Chest pain Chest pain type: unspecified Qualified Code(s): R07.9 - Chest pain, unspecified
[2020-04-13] MEDS: ISOSORBIDE MONO EXTENDED REL 30 MG TABCR PO SCH (17:10)
[2020-04-13] MEDS: ALUMINUM/MAGNESIUM SUSP 72 ML, LIDOCAINE HCL VISCOUS 2% 24 ML, BARCODE IDENTIFIER 1 EA PO PRN (17:11)
[2020-04-13 20:16] LABS: Partial Thromboplastin Ratio 3.7
[2020-04-14] MEDS: ACETAMINOPHEN 500 MG TAB PO SCH ×3 (00:22→15:24)
[2020-04-14 03:31] LABS: Hematocrit (blood only) 43.5 % (42-52); Hemoglobin 15.3 g/dL (14.0-18.0); Mean Corpuscular Hemoglobin 31.7 pg (25-34); Mean Corpuscular Hgb Conc 35.2 g/dL (32-36); Mean Corpuscular Volume 90.1 fL (80-100); Mean Platelet Volume 9.7 fL (7.4-10.4); Platelet Count 206 K/uL (130-400); RDW Coefficient of Variation 13.4 % (11.5-14.5); RDW Standard Deviation 43.7 fL (36.4-46.3); Red Blood Count 4.83 M/uL (4.7-6.1)
[2020-04-14 03:40] LABS: INR 2.1 (0.9-1.1)
[2020-04-14 03:47] LABS: BUN Creatinine Ratio 12.3 (10-20); Creatinine Clr Calc Pharmacy 65.8 ml/min; Est GFR (African American) 53.1; Est GFR (Non-African American) 45.8; Magnesium 2.4 mg/dl (1.8-2.4); Phosphorus 3.2 mg/dl (2.5-4.9); Potassium 3.7 mmol/L (3.5-5.1)
[2020-04-14 03:55] LABS: Partial Thromboplastin Time 83.9 Seconds (21.0-31.0)
[2020-04-14] MEDS: traMADol HCL 50 MG TABLET PO PRN ×2 (05:41→15:28)
[2020-04-14] MEDS: CHLORTHALIDONE 25 MG TAB PO SCH (08:36)
[2020-04-14] MEDS: FAMOTIDINE 20 MG TAB PO PRN (08:37)
[2020-04-14] MEDS: ATORVASTATIN 10 MG TAB PO SCH (08:37)
[2020-04-14] MEDS: ISOSORBIDE MONO EXTENDED REL 30 MG TABCR PO SCH (08:37)
[2020-04-14] MEDS: PANTOprazole 40 MG TAB PO SCH ×2 (08:37→20:22)
[2020-04-14] MEDS: TROLAMINE SALICYLATE 10% CRM 255 APPLN/85 GM TUBE EXT SCH ×2 (08:37→20:22)
[2020-04-14 10:28] LABS: Partial Thromboplastin Ratio 2.8
[2020-04-14 10:34] LABS: Partial Thromboplastin Time 78.5 Seconds (21.0-31.0)
--- NOTE | 2020-04-14 12:27 | Cardiology Progress Note ---
Date of Service April 14, 2020 Assessment & Plan (1) Chest pain: Separate from the patient's generalized persistent abdominal discomfort, he describes a "tightness "Chest with physical exertion. Serial troponin I measurements and EKG measurements negative. Previous nonischemic dobutamine stress echocardiogram 2018. Diffuse calcification of the left anterior descending coronary artery noted on angiography of the chest (no pulmonary embolism). Recommend proceeding with cardiac catheterization for definitive delineation of his coronary anatomy. Holding off on starting aspirin given anticoagulation, and history of stridorous, GERD. Aspirin load prior to cardiac catheterization. (2) History of DVT (deep vein thrombosis): Was on heparin infusion as INR was below 2. Today, INR 2.1 DC heparin infusion. Vitamine K 2.5 mg x 1 for goal INR of < 1.6 for cardiac cath. outpatient coumadin dose confirmed from [facility] note 03/29/20 "25 mg (10 mg x 2.5) every Mon, Fri; 30 mg (10 mg x 3) all other days" (3) Tracheomalacia: Respiratory status stable. Will need to be cautious with sedation. (4) Dyslipidemia: Mildly elevated LDL, history of hepatic steatosis. Atorvastatin 10 mg daily added. (5) CKD (chronic kidney disease), stage III: Patient received contrast for CT scan earlier this hospital stay, creatinine on presentation was 1.6, down to 1.37 yesterday, increased to 1.51 today. -Proceed with gentle IV hydration, normal saline, at 80 mL/h. In anticipation of cardiac catheterization. NPO after MN. Admission and Anticipated Discharge Date Admission Date: April 12, 2020 Subjective Patient seen in cardiology follow-up of chief complaint of "chest burning ". Patient states he feels well sitting in bedside chair or in bed, but with exertion such as walking to the bathroom and cleaning up this morning he had recurrence of chest pressure. He is tolerating the addition of low-dose isosorbide mononitrate well thus far. Telemetry reveals sinus rhythm in the 70s. Review of Systems Review of Systems: All systems reviewed & are unremarkable except as noted in HPI & below Physical Exam Physical Exam: Temp Pulse Resp BP Pulse Ox 36.3 C L 83 18 107/69 95 04/14/20 11:08 04/14/20 11:08 04/14/20 11:08 04/14/20 11:08 04/14/20 11:08 Constitutional: WD/WN, vitals as above Respiratory: normal respiratory effort, lungs clear to auscultation Cardiovascular: RRR, no murmur, no edema Gastrointestinal (Abdomen): normal bowel sounds, soft, nontender, no hepato splenomegaly Neurologic: PERRL, EOMI, accommodation nl, no face palsy, no dysarthria Results & Data ([facility]) Vital Signs (Past 12 Hours) Vital Signs Temp Pulse Pulse Resp BP Pulse Ox 04/14/20 11:08 36.3 C L 83 18 107/69 95 04/14/20 07:11 63 04/14/20 07:09 36.6 C 72 18 120/76 94 04/14/20 02:58 36.5 C 71 18 116/71 95 Laboratory Results Coagulation 04/13/20 04/14/20 04/14/20 Range/Units 19:35 03:18 03:18 PT 21.0 H (9.0-12.0) Seconds APTT 102.0 H* 83.9 H* (21.0-31.0) Seconds 04/14/20 Range/Units 09:51 PT (9.0-12.0) Seconds APTT 78.5 H* (21.0-31.0) Seconds CBC 04/14/20 Range/Units 03:18 WBC 6.70 (4.8-10.8) K/uL RBC 4.83 (4.7-6.1) M/uL Hgb 15.3 (14.0-18.0) g/dL Hct 43.5 (42-52) % Plt Count 206 (130-400) K/uL Comprehensive Metabolic Panel 04/14/20 Range/Units 03:18 Sodium 136 (136-145) mmol/L Potassium 3.7 (3.5-5.1) mmol/L Chloride 99 (98-107) mmol/L Carbon Dioxide 34 H (21-32) mmol/L BUN 19 H (7-18) mg/dl Creatinine 1.51 H (0.6-1.4) mg/dl Glucose 127 H (70-99) mg/dl Calcium 9.0 (8.5-10.1) mg/dl Intake and Output 04/13/20 04/14/20 04/14/20 22:59 06:59 14:59 Intake Total 1009.583 / 1552.116 236.15 / 1552.116 129.517 / 129.517 Output Total 805 Balance 1006.583 / 747.116 236.15 / 747.116 129.517 / 129.517 Intake: IV 179.583 / 522.116 136.15 / 522.116 129.517 / 129.517 HEPARIN SODIUM/DEXTROSE 25,000 179.583 / 522.116 136.15 / 522.116 129.517 / 129.517 units In 500 ml @ 950 UNITS/HR 19 mls/hr IV .Q24H [facility] Rx#: [id number] Oral 830 / 1030 100 / 1030 Output: # Bowel Movements 3 / 5 Other: Weight 127.6 kg Weight Measurement Method Standing Scale (1) Chest pain Chest pain type: unspecified Qualified Code(s): R07.9 - Chest pain, unspecified
[2020-04-14] MEDS ORDERED: PHYTONADIONE 5 MG TAB PO ONE (12:45)
[2020-04-14] MEDS: SODIUM CHLORIDE 0.9% 1000ML 1,000 ML IV SCH (13:30)
--- NOTE | 2020-04-14 16:02 | Hospitalist Progress Note ---
Date of Service April 14, 2020 Assessment & Plan (1) Chest pain: Lateral side wall pain is likely a musculoskeletal etiology per history and clinical TTP on palpation. CT chest without evidence of acute or displaced rib fractures or pulmonary pathology. No pleural or pericardial effusions present. Cont supportive treatment with scheduled Tylenol and heat PRN (2) Epigastric burning sensation: This is an atypical abdominal burning discomfort described by the patient as radiating into his substernal area for the past two weeks. Worse with exertion which continues today-patient requires 1-2 hours to recover after exertion. Echo WNL. Cardiology starting trial Imdur and pursuing ischemic workup on Wednesday. He did have some gastritis seen on EGD imaging and a biopsy was taken to rule out H pylori, but no ulcers were seen or other pathology; path is pending on this. It is still uncertain if the cause of this pain may be GI related. GI cocktail was somewhat helpful last night but he seems unimpressed with this. He will continue on scheduled PPI with PRN H2 blockers for reflux or burning symptoms. He did suggest that food seemed to make the burning worse to some degree and appears to be avoiding food because of this. Only tolerating dry toast and not eating much. Loose stools present yesterday have not returned. No evidence of incarcerated hernia or other acute abdominal pathology seen on CT imaging with surgery exam benign. (3) Chronic deep vein thrombosis (DVT): chronic DVT present in RLE. Continues on warfarin with heparin bridge. INR 2.1 today. Cont heparin until tomorrow. Of note, despite h/o hyperhomocysteinemia, per my review of outpatient records, the patient underwent a hypercoagulable workup per Dr. Dickson ([facility]) in 2013 that was negative. Will discuss with hematology whether or not persistent, long-term anticoagulation is needed. Pt appears to be a high metabolizer of warfarin, typically requiring very high doses. He states that NOACs were offered in the past but not covered under insurance. Cont warfarin at current dosage. (4) GERD (gastroesophageal reflux disease): cont PPI scheduled with H2 osorio PRN (5) CKD (chronic kidney disease), stage III: at baseline and improved creatinine since admission. (6) Tracheomalacia: chronic, possibly related to significant acid reflux. (7) HTN (hypertension): at goal, cont chlorthalidone per home regimen. (8) Obesity (BMI 30.0-34.9): (9) DVT prophylaxis: heparin/warfarin Full Code Dispo-cont on telemetry pending ischemic workup tomorrow. Dot Leyva DO [facility] Hospitalist Admission and Anticipated Discharge Date Admission Date: April 12, 2020 Subjective cc: epigastric burning and dyspnea on exertion Patient still reports symptoms are present today. No significant improvement or worsening overall. He is tolerating the Imdur so far. We discussed again the ability of him to order a GI cocktail as needed for symptom management. He verbalized understanding of this process. He continues to remain without heat or ice and was encouraged to ask the nurses for ice as needed. K pad ordered but not present in the room. He is awaiting further ischemic work-up per cardiology in the morning. Of note, loose stools have resolved and he is only tolerating dry toast at this point. Review of Systems Review of Systems: All systems reviewed & are unremarkable except as noted in Subjective Physical Exam Physical Exam: CONSTITUTIONAL: WNWD, vitals as above, generally well- appearing EYES: normal conjunctivae, no scleral icterus ENT: external ear and nose normal, oropharynx clear, MMM RESPIRATORY: clear to auscultation bilaterally, no crackles, rales or wheezes, normal respiratory effort CARDIOVASCULAR: regular rate and rhythm, S1 and 2 heard without murmurs, gallops or rubs, no JVD, no peripheral edema CHEST: inspection of chest was normal GASTROINTESTINAL: soft, TTP over well-healed scar in RLQ, some guarding, nondistended MUSCULOSKELETAL: strength 5/5 throughout, head is normocephalic and atraumatic, left lateral chest wall very TTP in intercostal spaces laterally along mid- axillary line and around to the posterior intercostal area. SKIN: warm and dry, no ecchymosis. NEUROLOGIC: CN 2-12 grossly intact, normal cognition, normal speech, no gross focal deficits. PSYCHIATRIC: alert cooperative and oriented Results & Data Results & Data ([facility]) Vital Signs (Past 12 Hours) Vital Signs Temp Pulse Pulse Resp BP Pulse Ox 04/14/20 14:46 63 04/14/20 14:42 36.5 C 57 L 18 122/77 93 04/14/20 11:08 36.3 C L 83 18 107/69 95 04/14/20 07:11 63 04/14/20 07:09 36.6 C 72 18 120/76 94 Laboratory Results Short CBC 04/14/20 Range/Units 03:18 WBC 6.70 (4.8-10.8) K/uL Hgb 15.3 (14.0-18.0) g/dL Hct 43.5 (42-52) % Plt Count 206 (130-400) K/uL BMP 04/14/20 03:18 Sodium 136 Potassium 3.7 Chloride 99 Carbon Dioxide 34 H BUN 19 H Creatinine 1.51 H Glucose 127 H Calcium 9.0 Medications Administered Current Inpatient Medications Acetaminophen (Acetaminophen 500 Mg Tab) 1,000 mg PO Q8H [facility] Stop: 05/12/20 15:59 Last Admin: 04/14/20 15:24 Dose: 1,000 mg Documented by: Al Hydrox/Mg Hydrox/Simethicone (Aluminum/Magnesium Susp 30 Ml Udc) 15 ml PO Q4H PRN PRN Reason: Dyspepsia Stop: 05/11/20 18:33 Aspirin (Aspirin 81 Mg Chew) 324 mg PO ONE ONE Stop: 04/15/20 07:01 Atorvastatin Calcium (Atorvastatin 10 Mg Tab) 10 mg PO QAM [facility] Stop: 05/14/20 08:59 Last Admin: 04/14/20 08:37 Dose: 10 mg Documented by: Chlorthalidone (Chlorthalidone 25 Mg Tab) 25 mg PO DAILY [facility] Stop: 05/12/20 08:59 Last Admin: 04/14/20 08:36 Dose: 25 mg Documented by: Al Hydrox/Mg Hydrox/Simethicone 72 ml/ Lidocaine HCl 24 ml/ BARCODE IDENTIFIER 1 ea 0 ml PO Q8H PRN PRN Reason: abdominal burning Stop: 05/12/20 15:29 Last Admin: 04/13/20 17:11 Dose: 24 ml Documented by: Famotidine (Famotidine 20 Mg Tab) 20 mg PO Q12H PRN PRN Reason: breakthrough heartburn Stop: 05/12/20 15:32 Last Admin: 04/14/20 08:37 Dose: 20 mg Documented by: Sodium Chloride (Nss 1000ml) 1,000 mls @ 80 mls/hr IV .[id number] [facility] Stop: 05/14/20 12:44 Last Admin: 04/14/20 13:30 Dose: 80 mls/hr Documented by: Isosorbide Mononitrate (Isosorbide [place] Extended Rel 30 Mg Tabcr) 15 mg PO QAM [facility] Stop: 05/13/20 16:14 Last Admin: 04/14/20 08:37 Dose: 15 mg Documented by: Magnesium Hydroxide (Magnesium Hydroxide Susp 30 Ml Udc) 30 ml PO Q12H PRN PRN Reason: Constipation Stop: 05/11/20 18:33 Ondansetron HCl (Ondansetron Inj 2 Mg/Ml 2 Ml Vial) 4 mg IV Q6H PRN PRN Reason: Nausea Stop: 05/11/20 18:33 Pantoprazole Sodium (Pantoprazole 40 Mg Tab) 40 mg PO BID [facility] Stop: 05/12/20 20:59 Last Admin: 04/14/20 08:37 Dose: 40 mg Documented by: Polyethylene Glycol (Polyethylene (Miralax) 17 Gm Pack) 17 gm PO DAILY PRN PRN Reason: Constipation Stop: 05/11/20 18:33 Tramadol HCl (Tramadol Hcl 50 Mg Tablet) 50 mg PO Q4H PRN PRN Reason: Pain Stop: 05/13/20 18:42 Last Admin: 04/14/20 15:28 Dose: 50 mg Documented by: Trolamine Salicylate (Trolamine Salicylate 10% Crm 255 Appln/85 Gm Tube) 1 appln EXT BID [facility] Stop: 05/12/20 20:59 Last Admin: 04/14/20 08:37 Dose: 1 appln Documented by: (1) Chest pain Chest pain type: unspecified Qualified Code(s): R07.9 - Chest pain, unspecified
[2020-04-14] MEDS: HEPARIN SODIUM/DEXTROSE 25,000 UNITS/500 ML BAG IV SCH ×2 (19:27→19:28)
[2020-04-14] MEDS: ALUMINUM/MAGNESIUM SUSP 72 ML, LIDOCAINE HCL VISCOUS 2% 24 ML, BARCODE IDENTIFIER 1 EA PO PRN (20:23)
[2020-04-15] MEDS: ACETAMINOPHEN 500 MG TAB PO SCH ×4 (00:51→23:49)
[2020-04-15] MEDS: SODIUM CHLORIDE 0.9% 1000ML 1,000 ML IV SCH (02:03)
[2020-04-15] MEDS ORDERED: ASPIRIN 81 MG CHEW PO ONE (07:00)
[2020-04-15] MEDS: ATORVASTATIN 10 MG TAB PO SCH (07:47)
[2020-04-15] MEDS: PANTOprazole 40 MG TAB PO SCH ×2 (07:48→20:16)
[2020-04-15] MEDS: TROLAMINE SALICYLATE 10% CRM 255 APPLN/85 GM TUBE EXT SCH (07:50)
[2020-04-15 07:53] LABS: INR 1.5 (0.9-1.1); Prothrombin Time 15.5 Seconds (9.0-12.0)
[2020-04-15] MEDS ORDERED: TROLAMINE SALICYLATE 10% CRM 255 APPLN/85 GM TUBE EXT PRN (08:42)
[2020-04-15 09:14] LABS: BUN Creatinine Ratio 10.5 (10-20); Calcium 9.2 mg/dl (8.5-10.1); Est GFR (African American) 56.2; Est GFR (Non-African American) 48.5; Potassium 3.5 mmol/L (3.5-5.1)
[2020-04-15] MEDS ORDERED: MIDAZOLAM HCL 1 MG/ML 2ML VIAL ONE (11:36)
[2020-04-15] MEDS ORDERED: HEPARIN (PORCINE) 1000 UNIT/ML 10 ML (CATH LAB USE ONLY) ONE ×2 (11:36→12:23)
[2020-04-15] MEDS ORDERED: fentaNYL citrate 100 MCG/2 ML VIAL ONE (11:36)
[2020-04-15] MEDS ORDERED: niCARdipine HCL INJ 2.5 MG/ML 10 ML AMP ONE (11:36)
[2020-04-15] MEDS ORDERED: NITROGLYCERIN/D5W 100MCG/ML 20ML SYR ONE (11:37)
--- NOTE | 2020-04-15 11:58 | Pre Anesthesia Assessment ---
Date of Service April 15, 2020 Pre Sedation Assessment Vital Signs Temp Pulse Pulse Resp BP BP Pulse Ox 04/15/20 10:26 98.1 F 72 18 169/92 H 96 04/15/20 09:00 67 04/15/20 07:13 98.2 F 66 18 133/79 95 04/15/20 04:10 97.7 F 62 18 122/76 96 04/14/20 23:01 97.5 F L 67 18 134/76 97 04/14/20 22:19 65 04/14/20 19:22 97.3 F L 68 18 127/80 97 04/14/20 14:46 63 04/14/20 14:42 97.7 F 57 L 18 122/77 93 Cardiovascular RRR, no murmur, no edema Respiratory normal respiratory effort, lungs clear to auscultation Pre-Sedation Airway Assessment Smoking Status: Never smoker Hx Sleep Apnea: No Short, Thick Neck: No Thyromental Distance: > or= 3.5 Finger Breadths Oral Cavity: + WNL Mallampati Class: III ASA: ASA3 NPO Status Date of Last Intake of Fluids: 04/15/20 Time of Last Intake of Fluids: 08:00 Date of Last Intake of Solid Food: 04/14/20 Time of Last Intake of Solid Foods: 17:00 Procedure Planning Contraindications for Sedation: none Current Medications Reviewed: Yes Notes The planned sedation has been discussed with the patient. Informed Consent was obtained. I have identified the patient, determined the appropriateness of sedation and have assessed the patient immediately prior to the procedure. All medicine(s) and interventions are by my order.
[2020-04-15] MEDS ORDERED: diphenhydrAMINE 50 MG/ML VIAL ONE (12:06)
[2020-04-15] MEDS ORDERED: CLOPIDOGREL BISULFATE 300 MG TAB ONE (12:54)
--- NOTE | 2020-04-15 12:59 | Post Anesthesia Assessment ---
Date of Service April 15, 2020 Post Sedation Assessment Vital Signs Temp Pulse Pulse Resp BP BP Pulse Ox 04/15/20 10:26 98.1 F 72 18 169/92 H 96 04/15/20 09:00 67 04/15/20 07:13 98.2 F 66 18 133/79 95 04/15/20 04:10 97.7 F 62 18 122/76 96 04/14/20 23:01 97.5 F L 67 18 134/76 97 04/14/20 22:19 65 04/14/20 19:22 97.3 F L 68 18 127/80 97 04/14/20 14:46 63 04/14/20 14:42 97.7 F 57 L 18 122/77 93 Recovery Score Activity: Moves 4 extremities Respiration: Deep Breath/Cough Circulation: +/-20% PreAnes Value Consciousness: Fully Awake Oxygen Saturation: > 92% On Room Air Post Anesthesia Score: 10 Discharge Sedation Level of Care: Fast Track Phase II Post Sedation Plan On clinical assessment, the patient appears to have tolerated the sedation without complications. Patient is recovering as anticipated. Patient will continue to be monitored by nursing and may be discharged when sedation discharge criteria are met per below protocol. Upon Completions of procedure up to 15 minutes continue every 5 minute vital signs and the P.A.R. score; then discharge to a Phase I or Fast Track to Phase II per the following guidelines: * Discharge Patient to appropriate Phase II area if PAR is 8 or greater or return to pre- procedure baseline. The post - procedure orders will be as directed. * If PAR score is less than 8 or not return to pre-procedure baseline then patient will follow Phase I monitoring till PAR is reached for Phase II. The Phase I may be done in procedure room or may call to secure a Phase I area. * If naloxone or flumazenil are used for reversal, hold in Phase I for continued monitoring from when last reversal dose was given for a minimum of 60 minutes or longer pending the nurse and/or physician discretion of patient condition before discharge to Phase II. Please call the Sedation Physician to re-evaluate and complete post-note for discharge to Phase II area. Do NOT discharge from procedure sedation or Phase 1 until post- sedation evaluation note is complete by procedure /sedation MD Sedation Discharge Instructions to be given to the patient at discharge to home.
--- NOTE | 2020-04-15 13:03 | Cardiac Catheterization ---
[facility] Data: [employer] Cardiac Status Clinical evaluation leading to the procedure CAD Presenation: Unstable angina Anginal Classification: CCS III Heart Failure: No Cardiogenic Shock within 24 Hours: No Cardiac Arrest within 24 Hours: No Imaging Studies Past 6 Months: Yes Stress Studies Past 6 Months: No Diagnostic Physicians Name: Fracisco Hopper MD Status: Elective Closure Device Percutaneous Entry Location: Radial Closure Device: Radial Band Recommendations: PCI without planned CABG Lesion Segment Name: mid LAD Culprit Artery: Yes Stenosis Prior to Rx (%): 80 Chronic Total Occlusion: No IVUS: No FFR: No Pre-Procedure BLANCA Flow: 3 Previously Treated Lesion: No Lesion Complexity: Non-High/Non-C Lesion Length (mm): 15 Thrombus Present: No Bifurcation Lesion: No Guidewire Across Lesion: Stenosis Post-Procedure (%): 0 Post-Procedure BLANCA Flow: 3 Devices(s) Deployed: Yes Yes Intraprocedure Events Significant Disection: No Perforation: No Cardiac Cath Procedure Full Procedure Date April 15, 2020 Pre-Procedure Diagnosis Pre-Procedure Diagnosis: Angina AUC Score AUC Score: 7 Post-Procedure Diagnosis Post-Procedure Diagnosis: Severe CAD, Successful PCI and Normal Intracardiac Pressures Procedure(s) Performed Procedure(s) Performed: Coronary Angiography, Left Heart Cath and Drug Eluting Stent Power Operator Fracisco Hopper MD Clerical Coordinator(s) Carter Estimated Blood Loss Estimated Blood Loss: 10 Medication(s) Medication(s): Clopidogrel, Fentanyl, Heparin, Lidocaine 1%, Nicardipine, Nitroglycerin and Versed Summary of Findings Indication: Angina Access: 6R right radial artery Catheters: [place], EBU 3.5 guide Findings: LM -large caliber, 10 to 20% ostial LAD -moderately calcified, 40% proximal disease, 80% hazy mid segment stenosis just after takeoff of large second diagonal with 60% stenosis in latemid LAD. Distal vessel wraps around apex without significant disease. D1 with 30% proximal disease. D2 without disease. Circumflex -medium caliber vessel without significant disease. RCA -dominant, large caliber, mid segment luminal irregularities LVEDP -9 -- PCI -- Antithrombotic therapy: Heparin, clopidogrel Procedure: Left main cannulated with EBU 3.5 guide BMW wire placed into second diagonal Prowater wire passed across lesion into distal LAD Mid LAD lesion predilated with 2.5 compliant balloon Latemid LAD stenosis stented with 2.5 x 12 mm Neo drug-eluting stent Second drug-eluting stent (2.5 x 15 mm Neo) placed more proximally just after takeoff of second diagonal overlapping with proximal aspect of initial stent Stent post-dilated with stent balloon IC vasodilators administered for spasm Post procedure BLANCA 3 flow, stent well expanded with minimal residual stenosis and no apparent cardiac complications. Arterial Closure: TR band Summary: 1. Severe single vessel coronary artery disease -80% mid, 60% latemid LAD lesions 2. Normal intracardiac filling pressure 3. Successful PCI of mid LAD with 2 overlapping drug-eluting stents (2.5 x 15, 2.5 x 12 [place]). Recommendations: To PCU for continued monitoring Loaded with clopidogrel 600 mg in [employer] Continue dual therapy with clopidogrel, anticoagulation for at least 6-month Can discontinue aspirin on discharge in the setting of GI issues Consult cardiac Rehab Hemodynamics Rest Ao:: 136/77/102 Final Ao: 131/81/103 LV: 145/9 Recommendations Recommendations: PCI without planned CABG Specimens Specimens: None Radiation Exposure (mGy) 2661 Contrast (mls) 180 Fluids (cc crystalloids) Fluids (cc crystalloids): 150 Drains Drains: none Anesthesia moderate Procedural Complication(s) None Disposition PCU I attest to the content of the Intraoperative Record and any orders documented therein. Any exceptions are noted below. [facility] Card Cath Procedure Codes Cardiac Catheterization Procedure 1: Cardiovascular Cath Procedures: 50382 Coronaries and LHC (+/-LV) Moderate Sedation Procedure 1: Sedation/Anesthesia: 67816 Mod Sedation by the same physician;Init15 Min Child Age 5 & Up Procedure 2: Sedation/Anesthesia: 97207 Mod Sedation by the same physician; Ea [id number] Minutes Stenting Procedure 1: Cardiovascular Stent Procedures: 24476 Perc transcatheter placement of intracoronary stent(s), with ang PG Care Time/CCT Total # of Minutes Spent Total Time Spent with Patient: Total time spent is greater than 50% in coordination of care (as documented) at patient's floor/unit and/or counseling patient:
--- NOTE | 2020-04-15 14:24 | Hospitalist Progress Note ---
Date of Service April 15, 2020 Assessment & Plan (1) Chest pain: Has a MSK component that is still TTP from recent trauma. Also received two stents today to coronaries with some improvement in symptoms. However, he is still reporting having some epigastric burning pain to some extent and not tolerating solid foods well. Cont to convalesce overnight and reassess in the morning. (2) CAD (coronary artery disease): medical management including statin, betablocker therapy and aspirin and plavix (3) Epigastric burning sensation: plan as above. Supportive care with H2 osorio PRN and GI cocktail PRN (4) Chronic deep vein thrombosis (DVT): chronic DVT present in RLE. AC adjusted today-warfarin switched to Eliquis per cardiology. Should take in addition to ASA x 7 days and Plavix in setting of new stents. (5) GERD (gastroesophageal reflux disease): cont PPI scheduled with H2 osorio PRN (6) CKD (chronic kidney disease), stage III: at baseline; received perioperative IVF to lessen the risk of contrast induced nephropathy. (7) Tracheomalacia: chronic, possibly related to significant acid reflux. (8) HTN (hypertension): at goal, cont chlorthalidone per home regimen. (9) Obesity (BMI 30.0-34.9): (10) DVT prophylaxis: Eliquis Full Code Dispo-to home once eating reliably. [facility] Admission and Anticipated Discharge Date Admission Date: April 12, 2020 Subjective cc: epigastric burning and dyspnea on exertion Patient went to cath today and received 2 stents to coronaries. Still reports some burning epigastric pain Still not eating much for dinner Reports an improvement in back discomfort Review of Systems Review of Systems: All systems reviewed & are unremarkable except as noted in Subjective Physical Exam Physical Exam: CONSTITUTIONAL: WNWD, vitals as above, generally well- appearing EYES: normal conjunctivae, no scleral icterus ENT: external ear and nose normal, oropharynx clear, MMM RESPIRATORY: clear to auscultation bilaterally, no crackles, rales or wheezes, normal respiratory effort CARDIOVASCULAR: regular rate and rhythm, S1 and 2 heard without murmurs, gallops or rubs, no JVD, no peripheral edema CHEST: inspection of chest was normal GASTROINTESTINAL: soft, TTP over well-healed scar in RLQ, some guarding, nondistended MUSCULOSKELETAL: strength 5/5 throughout, head is normocephalic and atraumatic, left lateral chest wall very TTP in intercostal spaces laterally along mid- axillary line and around to the posterior intercostal area. R Radial artery site is clean and covered with tegaderm. SKIN: warm and dry, no ecchymosis. NEUROLOGIC: CN 2-12 grossly intact, normal cognition, normal speech, no gross focal deficits. PSYCHIATRIC: alert cooperative and oriented Results & Data Results & Data ([facility]) Vital Signs (Past 12 Hours) Vital Signs Temp Pulse Pulse Resp BP Pulse Ox 04/15/20 13:35 70 18 133/67 95 04/15/20 13:20 73 18 138/70 94 04/15/20 13:05 77 18 138/78 95 04/15/20 10:26 36.7 C 72 18 169/92 H 96 04/15/20 09:00 67 04/15/20 07:13 36.8 C 66 18 133/79 95 04/15/20 04:10 36.5 C 62 18 122/76 96 Laboratory Results BMP 04/15/20 07:14 Sodium 137 Potassium 3.5 Chloride 100 Carbon Dioxide 30 BUN 15 Creatinine 1.44 H Glucose 119 H Calcium 9.2 Medications Administered Current Inpatient Medications Acetaminophen (Acetaminophen 500 Mg Tab) 1,000 mg PO Q8H [facility] Stop: 05/12/20 15:59 Last Admin: 04/15/20 07:47 Dose: 1,000 mg Documented by: Al Hydrox/Mg Hydrox/Simethicone (Aluminum/Magnesium Susp 30 Ml Udc) 15 ml PO Q4H PRN PRN Reason: Dyspepsia Stop: 05/11/20 18:33 Aspirin (Aspirin 81 Mg Ectab) 81 mg PO [facility] Stop: 05/16/20 08:59 Atorvastatin Calcium (Atorvastatin 10 Mg Tab) [facility] [place] Stop: 05/14/20 08:59 Last Admin: 04/15/20 07:47 Dose: 10 mg Documented by: Chlorthalidone (Chlorthalidone 25 Mg Tab) 25 mg PO DAILY [facility] Stop: 05/12/20 08:59 Last Admin: 04/14/20 08:36 Dose: 25 mg Documented by: Clopidogrel Bisulfate (Clopidogrel Bisulfate 75 Mg Tab) [facility] [place] Stop: 05/16/20 08:59 Al Hydrox/Mg Hydrox/Simethicone 72 ml/ Lidocaine HCl 24 ml/ BARCODE IDENTIFIER 1 ea 0 ml PO Q8H PRN PRN Reason: abdominal burning Stop: 05/12/20 15:29 Last Admin: 04/14/20 20:23 Dose: 24 ml Documented by: Famotidine (Famotidine 20 Mg Tab) 20 mg PO Q12H PRN PRN Reason: breakthrough heartburn Stop: 05/12/20 15:32 Last Admin: 04/14/20 08:37 Dose: 20 mg Documented by: Magnesium Hydroxide (Magnesium Hydroxide Susp 30 Ml Udc) 30 ml PO Q12H PRN PRN Reason: Constipation Stop: 05/11/20 18:33 Ondansetron HCl (Ondansetron Inj 2 Mg/Ml 2 Ml Vial) 4 mg IV Q6H PRN PRN Reason: Nausea Stop: 05/11/20 18:33 Pantoprazole Sodium (Pantoprazole 40 Mg Tab) 40 mg PO BID [facility] Stop: 05/12/20 20:59 Last Admin: 04/15/20 07:48 Dose: 40 mg Documented by: Polyethylene Glycol (Polyethylene (Miralax) 17 Gm Pack) 17 gm PO DAILY PRN PRN Reason: Constipation Stop: 05/11/20 18:33 Tramadol HCl (Tramadol Hcl 50 Mg Tablet) 50 mg PO Q4H PRN PRN Reason: Pain Stop: 05/13/20 18:42 Last Admin: 04/14/20 15:28 Dose: 50 mg Documented by: Trolamine Salicylate (Trolamine Salicylate 10% Crm 255 Appln/85 Gm Tube) 1 appln EXT BID PRN PRN Reason: muscle aches Stop: 05/12/20 20:59 (1) Chest pain Chest pain type: unspecified Qualified Code(s): R07.9 - Chest pain, unspecified
--- NOTE | 2020-04-15 15:06 | Cardiology Progress Note ---
Date of Service April 15, 2020 Assessment & Plan (1) Chest pain: After the diagnostic catheterization films were obtained, Dr Hopper of interventional cardiology and I reviewed the findings in the tutorial laboratory supervisor control room. Patient was found to have 80% hazy mid segment stenosis just after the takeoff second diagonal branch patient underwent PCI, stents to the mid and late-mid LAD Antithrombotic plan: Initiated in [employer]. Plan for 1 week of aspirin 81 mg daily, then discontinue given history of gastritis and need for anticoagulation. Clopidogrel for at least 6 months. DC coumadin, start Eliquis 5 mg BID, I called outpatient pharmacy, cost of 30 day supply -$47. Start metoprolol. Did not tolerate Imdur due to headache. Hold chlorthalidone, trend creatinine. (2) DVT (deep venous thrombosis): h/o recurrent DVT. On coumadin x 5 years. Transition to Eliquis given PCI to minimize risk of labile INRs and bleeding. Pt agreeable with transition / cost of Eliquis. (3) GERD (gastroesophageal reflux disease): Agree with protonix 40 mg BID. (4) Dyslipidemia: Atorvastatin 10 mg started this admission. Case discussed by phone with Dr Leyva. Admission and Anticipated Discharge Date Admission Date: April 12, 2020 Subjective Mr Hill is seen in follow-up of exertional chest tightness. He was assessed prior to, and then after already catheterization today. Most recently, he was assessed PCU, 240-2. Post PCI EKG revealed no significant repolarization changes, patient without anginal symptoms at present. Physical Exam Physical Exam: Temp Pulse Resp BP Pulse Ox 36.7 C 70 18 133/67 95 04/15/20 10:26 04/15/20 13:35 04/15/20 13:35 04/15/20 13:35 04/15/20 13:35 Constitutional: WD/WN, vitals as above Respiratory: normal respiratory effort, lungs clear to auscultation Cardiovascular: RRR, no murmur, no edema Neurologic: PERRL, EOMI, accommodation nl, no face palsy, no dysarthria Results & Data ([facility]) Vital Signs (Past 12 Hours) Vital Signs Temp Pulse Pulse Resp BP Pulse Ox 04/15/20 13:35 70 18 133/67 95 04/15/20 13:20 73 18 138/70 94 04/15/20 13:05 77 18 138/78 95 04/15/20 10:26 36.7 C 72 18 169/92 H 96 04/15/20 09:00 67 04/15/20 07:13 36.8 C 66 18 133/79 95 04/15/20 04:10 36.5 C 62 18 122/76 96 (1) Chest pain Chest pain type: unspecified Qualified Code(s): R07.9 - Chest pain, un specified
[2020-04-15] MEDS: APIXABAN 5 MG TABLET PO SCH (20:16)
[2020-04-16 06:09] LABS: Basophils # (auto) 0.01 K/uL (0-0.2); Basophils % (auto) 0.2 %; Eosinophils # (auto) 0.11 K/uL (0-0.5); Eosinophils % (auto) 1.9 %; Hemoglobin 14.8 g/dL (14.0-18.0); Immature Granulocytes # (auto) 0.01 K/uL (0.00-0.02); Immature Granulocytes % (auto) 0.2 %; Lymphocytes # (auto) 1.46 K/uL (1.2-3.4); Mean Corpuscular Hemoglobin 30.6 pg (25-34); Mean Corpuscular Hgb Conc 33.6 g/dL (32-36); Mean Corpuscular Volume 90.9 fL (80-100); Mean Platelet Volume 9.6 fL (7.4-10.4); Monocytes # (auto) 0.55 K/uL (0.11-0.59); Monocytes % (auto) 9.4 %; Neutrophils % (auto) 63.3 %; Platelet Count 172 K/uL (130-400); RDW Coefficient of Variation 13.4 % (11.5-14.5); RDW Standard Deviation 44.3 fL (36.4-46.3); Red Blood Count 4.84 M/uL (4.7-6.1); White Blood Count 5.84 K/uL (4.8-10.8)
[2020-04-16 06:36] LABS: Calcium 9.4 mg/dl (8.5-10.1); Est GFR (African American) 56.2; Est GFR (Non-African American) 48.5; Potassium 3.6 mmol/L (3.5-5.1)
[2020-04-16] MEDS: APIXABAN 5 MG TABLET PO SCH ×2 (08:50→20:18)
[2020-04-16] MEDS: METOPROLOL SUCC 25MG EXT REL TAB PO SCH (08:50)
[2020-04-16] MEDS: CLOPIDOGREL BISULFATE 75 MG TAB PO SCH (08:51)
[2020-04-16] MEDS: ASPIRIN 81 MG ECTAB PO SCH (08:52)
[2020-04-16] MEDS: ACETAMINOPHEN 500 MG TAB PO SCH ×3 (08:55→23:58)
[2020-04-16] MEDS: PANTOprazole 40 MG TAB PO SCH ×2 (09:41→20:18)
[2020-04-16] MEDS: ATORVASTATIN 10 MG TAB PO SCH (09:41)
--- NOTE | 2020-04-16 10:33 | Electrocardiogram Report ---
Test Reason : Blood Pressure : / mmHG Vent. Rate : 073 BPM Atrial Rate : 073 BPM P-R Int : 182 ms QRS Dur : 102 ms QT Int : 414 ms P-R-T Axes : 022 017 021 degrees QTc Int : 456 ms Normal sinus rhythm Normal ECG When compared with ECG of 13-APR-2020 08:31, No significant change was found Confirmed by Fracisco Duvall ([id number]) on 04/16/2020 10:33:25 AM Referred By: REFERRED SELF Confirmed By:Andre Duvall
--- NOTE | 2020-04-16 11:21 | Cardiology Progress Note ---
Date of Service April 16, 2020 Assessment & Plan (1) CAD (coronary artery disease): Status post PCI 2 drug-eluting stents to the mid and late-mid LAD on 04/15/2020. ASA 81 mg daily (day 1/7 day planned course) Clopidogrel 75 mg daily x 6 months. Eliquis 5 mg BID (for h/o DVT) Metoprolol, atorvastatin. (2) HTN (hypertension): Chlorthalidone held given contrast administration. Metoprolol started in the meantime, blood pressure well controlled. Future considerations include adding ACEi or ARB given HTN and stage III CKD. (3) Hypertension: (4) History of DVT (deep vein thrombosis): History of recurrent lower extremity DVT for which patient has been on Coumadin 5 years. Transitioning to Eliquis for ease of administration, especially given clopidogrel therapy. (5) Epigastric burning sensation: As previously noted, the patient described to discomfort from a generalized abdominal discomfort and a separate exertional chest "tightness ". PCI perfor med with thoughts that this would help the exertional chest tightness. In terms of his generalized abdominal discomfort, inferior food, ongoing evaluation persist. He is on proton pump inhibitor therapy. He has been seen by GI and general surgery. It appears vascular surgery has been consulted for concerns of possible mesenteric ischemia. Given his degree of chronic kidney disease, and the fact that he has already received 2 doses of IV contrast, (CTA of chest 04/12/2020) diagnostic cardiac cath, PCI, 04/15/2020, would hold off on additional contrast load for now to ensure renal function stable 48 hours post cath prior to consideration of any additional radiographic contrast. Admission and Anticipated Discharge Date Admission Date: April 12, 2020 Subjective Chief complaint chief complaint: Follow-up chest tightness with exertion, cardiac catheterization, PCI LAD 04/15/2020 Subjective: Patient believes that perhaps his chest tightness with exertion is better, he still has the ongoing abdominal discomfort, which I had anticipated would not be helped with the stent. Vital signs are stable, lab results reveals stable hemoglobin and function. Telemetry reveals sinus rhythm mostly in the 60 to 70 bpm range, his heart rate does increase to 120 bpm with ambulation. Physical Exam Physical Exam: Temp Pulse Resp BP Pulse Ox 36.8 C 86 20 126/68 98 04/16/20 08:08 04/16/20 08:08 04/16/20 08:08 04/16/20 08:08 04/16/20 08:08 Constitutional: WD/WN, vitals as above Respiratory: normal respiratory effort, lungs clear to auscultation Cardiovascular: RRR, no murmur, no edema Vessels: no JVD Extremities: no edema Right wrist, radial artery access site from yesterday clean dry and intact, no ecchymosis, no hematoma Neurologic: PERRL, EOMI, accommodation nl, no face palsy, no dysarthria Results & Data ([facility]) Vital Signs (Past 12 Hours) Vital Signs Temp Pulse Pulse Resp BP Pulse Ox 04/16/20 08:08 36.8 C 86 20 126/68 98 04/16/20 08:00 93 H 04/16/20 03:52 36.5 C 74 16 158/78 H 96 04/16/20 00:00 69 04/15/20 23:54 36.3 C L 74 18 153/82 H 96 Laboratory Results CBC 04/16/20 Range/Units 05:33 WBC 5.84 (4.8-10.8) K/uL RBC 4.84 (4.7-6.1) M/uL Hgb 14.8 (14.0-18.0) g/dL Hct 44.0 (42-52) % Plt Count 172 (130-400) K/uL Neut # (Auto) 3.70 (1.4-6.5) K/uL Lymph # (Auto) 1.46 (1.2-3.4) K/uL [place] # (Auto) 0.55 (0.11-0.59) K/uL Eos # (Auto) 0.11 (0-0.5) K/uL Baso # (Auto) 0.01 (0-0.2) K/uL Comprehensive Metabolic Panel 04/16/20 Range/Units 05:33 Sodium 135 L (136-145) mmol/L Potassium 3.6 (3.5-5.1) mmol/L Chloride 99 (98-107) mmol/L Carbon Dioxide 32 (21-32) mmol/L BUN 13 (7-18) mg/dl Creatinine 1.44 H (0.6-1.4) mg/dl Glucose 96 (70-99) mg/dl Calcium 9.4 (8.5-10.1) mg/dl Intake and Output 04/15/20 04/16/20 04/16/20 22:59 06:59 14:59 Other: # Unmeasured Voids 2
--- NOTE | 2020-04-16 13:51 | Hospitalist Progress Note ---
Date of Service April 16, 2020 Assessment & Plan (1) Chest pain: Has a MSK component that is still TTP from recent trauma on lateral left chest wall (midaxillary line). Also received two stents today to coronaries with some improvement in symptoms. However, he is still reporting having some epigastric burning pain to some extent and not tolerating solid foods well. Uncertain etiologies. Trying scheduled carafate and pepcid IV today; requested assessment by vascular team to consider intestinal angina but feel this is less likely. Record review reveals usp IBS issues that is diarrhea predominant. Patient was on trials of Bentyl and Levsin in the past with only some improvement. Burnign sensation is new, however, ove rthe past three weeks only. confirms these reports. Concerning feature is that he is unable to reliably tolerate PO. EGD results unremarkable and path was negative, no H pylori present. May need to recall GI to help. Reassess symptom improvement with carafate tomorrow, although consider the downside of decreased absorption of new cardiac medications with longer term use, and help patient avoid these interactions. (2) CAD (coronary artery disease): stent placement on 04/15, medical management including statin, betablocker therapy and aspirin and plavix (3) Epigastric burning sensation: plan as above. Supportive care with H2 osorio, GI cocktail PRN, scheduled carafate added today. Also given trial aTivan PO PRN. (4) Chronic deep vein thrombosis (DVT): chronic DVT present in RLE. AC adjusted since admission from warfarin switched to Eliquis per cardiology. Should take in addition to ASA x 7 days and Plavix in setting of new stents. (5) GERD (gastroesophageal reflux disease): cont PPI, pepcid, carafate. (6) CKD (chronic kidney disease), stage III: at baseline; received perioperative IVF to lessen the risk of contrast induced nephropathy. (7) Tracheomalacia: chronic, possibly related to significant acid reflux. (8) HTN (hypertension): at goal, cont chlorthalidone per home regimen. (9) Obesity (BMI 30.0-34.9): (10) DVT prophylaxis: Eliquis Full Code Dispo-to home once eating reliably. Dot Leyva DO [facility] Hospitalist Admission and Anticipated Discharge Date Admission Date: April 12, 2020 Subjective cc: epigastric burning/chest pain -doing well post cath yesterday -still experiencing burning pain in epigastric region that is persistent -avoiding food -no BM since Wednesday Review of Systems Review of Systems: All systems reviewed & are unremarkable except as noted in Subjective Physical Exam Physical Exam: CONSTITUTIONAL: WNWD, vitals as above, generally well-appe aring EYES: normal conjunctivae, no scleral icterus ENT: external ear and nose normal, oropharynx clear, MMM RESPIRATORY: clear to auscultation bilaterally, no crackles, rales or wheezes, normal respiratory effort CARDIOVASCULAR: regular rate and rhythm, S1 and 2 heard without murmurs, gallops or rubs, no JVD, no peripheral edema CHEST: inspection of chest was normal GASTROINTESTINAL: soft, TTP over well-healed scar in RLQ but otherwise nontender, nondistended MUSCULOSKELETAL: strength 5/5 throughout, head is normocephalic and atraumatic, left lateral chest wall very TTP in intercostal spaces laterally along mid- axillary line and around to the posterior intercostal area. R Radial artery site is clean SKIN: warm and dry, no ecchymosis. NEUROLOGIC: CN 2-12 grossly intact, normal cognition, normal speech, no gross focal deficits. PSYCHIATRIC: alert cooperative and oriented Results & Data Results & Data ([facility]) Vital Signs (Past 12 Hours) Vital Signs Temp Pulse Pulse Resp BP Pulse Ox 04/16/20 11:54 36.8 C 74 18 134/61 96 04/16/20 08:08 36.8 C 86 20 126/68 98 04/16/20 08:00 93 H 04/16/20 03:52 36.5 C 74 16 158/78 H 96 Laboratory Results Short CBC 04/16/20 Range/Units 05:33 WBC 5.84 (4.8-10.8) K/uL Hgb 14.8 (14.0-18.0) g/dL Hct 44.0 (42-52) % Plt Count 172 (130-400) K/uL BMP 04/16/20 05:33 Sodium 135 L Potassium 3.6 Chloride 99 Carbon Dioxide 32 BUN 13 Creatinine 1.44 H Glucose 96 Calcium 9.4 Medications Administered Current Inpatient Medications Acetaminophen (Acetaminophen 500 Mg Tab) 1,000 mg PO Q8H [facility]ACY Stop: 05/12/20 15:59 Last Admin: 04/16/20 08:55 Dose: 1,000 mg Documented by: Al Hydrox/Mg Hydrox/Simethicone (Aluminum/Magnesium Susp 30 Ml Udc) 15 ml PO Q4H PRN PRN Reason: Dyspepsia Stop: 05/11/20 18:33 Apixaban (Apixaban 5 Mg Tablet) 5 mg PO BID [facility] Stop: 05/15/20 20:59 Last Admin: 04/16/20 08:50 Dose: 5 mg Documented by: Aspirin (Aspirin 81 Mg Ectab) 81 mg PO [facility] Stop: 05/16/20 08:59 Last Admin: 04/16/20 08:52 Dose: 81 mg Documented by: Atorvastatin Calcium (Atorvastatin 10 Mg Tab) 10 mg PO [facility] Stop: 05/14/20 08:59 Last Admin: 04/16/20 09:41 Dose: 10 mg Documented by: Chlorthalidone (Chlorthalidone 25 Mg Tab) 25 mg PO DAILY [facility] Stop: 05/12/20 08:59 Last Admin: 04/14/20 08:36 Dose: 25 mg Documented by: Clopidogrel Bisulfate (Clopidogrel Bisulfate 75 Mg Tab) 75 mg PO [facility] Stop: 05/16/20 08:59 Last Admin: 04/16/20 08:51 Dose: 75 mg Documented by: Al Hydrox/Mg Hydrox/Simethicone 72 ml/ Lidocaine HCl 24 ml/ [employer] 1 ea 0 ml PO Q8H PRN PRN Reason: abdominal burning Stop: 05/12/20 15:29 Last Admin: 04/14/20 20:23 Dose: 24 ml Documented by: Famotidine 20 mg/ Syringe 5 mls @ 2.5 mls/min IV Q12H [facility] Stop: 05/16/20 13:44 Magnesium Hydroxide (Magnesium Hydroxide Susp 30 Ml Udc) 30 ml PO Q12H PRN PRN Reason: Constipation Stop: 05/11/20 18:33 Metoprolol Succinate (Metoprolol Succ 25mg Ext Rel Tab) 12.5 mg PO [facility] Stop: 05/16/20 08:59 Last Admin: 04/16/20 08:50 Dose: 12.5 mg Documented by: Ondansetron HCl (Ondansetron Inj 2 Mg/Ml 2 Ml Vial) 4 mg IV Q6H PRN PRN Reason: Nausea Stop: 05/11/20 18:33 Pantoprazole Sodium (Pantoprazole 40 Mg Tab) 40 mg PO BID [facility] Stop: 05/12/20 20:59 Last Admin: 04/16/20 09:41 Dose: 40 mg Documented by: Polyethylene Glycol (Polyethylene (Miralax) 17 Gm Pack) 17 gm PO DAILY PRN PRN Reason: Constipation Stop: 05/11/20 18:33 Sucralfate (Sucralfate 1 Gm/10 Ml Udc) 1 gm PO QID [facility]ACY Stop: 05/16/20 16:59 Tramadol HCl (Tramadol Hcl 50 Mg Tablet) 50 mg PO Q4H PRN PRN Reason: Pain Stop: 05/13/20 18:42 Last Admin: 04/14/20 15:28 Dose: 50 mg Documented by: Trolamine Salicylate (Trolamine Salicylate 10% Crm 255 Appln/85 Gm Tube) 1 appln EXT BID PRN PRN Reason: muscle aches Stop: 05/12/20 20:59 (1) Chest pain Chest pain type: unspecified Qualified Code(s): R07.9 - Chest pain, unspec ified
[2020-04-16] MEDS: FAMOTIDINE 20 MG in SYRINGE 3 ML IV SCH ×2 (15:17→20:20)
[2020-04-16] MEDS: SUCRALFATE 1 GM/10 ML UDC PO SCH ×2 (16:45→20:17)
[2020-04-16] MEDS ORDERED: LORazepam 0.5 MG TAB PO PRN (16:51)
[2020-04-17] MEDS: ACETAMINOPHEN 500 MG TAB PO SCH ×3 (07:46→23:27)
[2020-04-17] MEDS: SUCRALFATE 1 GM/10 ML UDC PO SCH ×4 (07:46→20:49)
[2020-04-17] MEDS: METOPROLOL SUCC 25MG EXT REL TAB PO SCH (08:34)
[2020-04-17] MEDS: ASPIRIN 81 MG ECTAB PO SCH (08:34)
[2020-04-17] MEDS: APIXABAN 5 MG TABLET PO SCH ×2 (08:34→20:50)
[2020-04-17] MEDS: ATORVASTATIN 10 MG TAB PO SCH (08:34)
[2020-04-17] MEDS: CHLORTHALIDONE 25 MG TAB PO SCH (08:34)
[2020-04-17] MEDS: CLOPIDOGREL BISULFATE 75 MG TAB PO SCH (08:34)
[2020-04-17] MEDS: PANTOprazole 40 MG TAB PO SCH ×2 (08:34→20:49)
[2020-04-17] MEDS: FAMOTIDINE 20 MG in SYRINGE 3 ML IV SCH ×2 (08:36→20:55)
--- NOTE | 2020-04-17 16:40 | Cardiology Progress Note ---
Date of Service April 17, 2020 Assessment & Plan (1) CAD (coronary artery disease): Status post drug-eluting stent x2 to the LAD. Day 2 of planned 7 day course of ASA 81 mg daily. Clopidogrel 75 mg daily for the 6 months. (2) HTN (hypertension): Continue chlorthalidone, metoprolol succinate. Future considerations include ACEi / ARB given CKD. (3) Dyslipidemia: Atorvastatin 10 mg daily. (4) DVT (deep venous thrombosis): History of recurrent DVT. Coumadin discontinued in favor of Eliquis 5 mg twice daily given PCI, need for antiplatelet therapy. Admission and Anticipated Discharge Date Admission Date: April 12, 2020 Subjective Patient seen in follow-up of coronary heart disease, hypertension, dyslipidemia. Exertional chest tightness has resolved post PCI the LAD. Generalized abdominal discomfort persists. Physical Exam Physical Exam: Temp Pulse Resp BP Pulse Ox 36.4 C L 63 20 132/84 96 04/17/20 15:21 04/17/20 15:21 04/17/20 15:21 04/17/20 15:21 04/17/20 15:21 Constitutional: WD/WN, vitals as above Respiratory: normal respiratory effort, lungs clear to auscultation Cardiovascular: RRR, no murmur, no edema Neurologic: PERRL, EOMI, accommodation nl, no face palsy, no dysarthria Results & Data ([facility]) Vital Signs (Past 12 Hours) Vital Signs Temp Pulse Pulse Resp BP Pulse Ox 04/17/20 15:21 36.4 C L 63 20 132/84 96 04/17/20 11:42 37.0 C 88 18 134/64 95 04/17/20 08:00 65 04/17/20 07:11 36.6 C 85 18 125/82 94 Laboratory Results Intake and Output 04/17/20 04/17/20 04/17/20 06:59 14:59 22:59 Intake Total 80 / 475 550 / 550 Balance 80 / 125 550 / 550 Intake: Oral 80 / 475 550 / 550 Other: # Unmeasured Voids 2 3 Weight 127.2 kg Weight Measurement Method Standing Scale Patient Weight 04/18/20 06:59 Weight 127.2 kg
--- NOTE | 2020-04-17 18:49 | Hospitalist Progress Note ---
Date of Service April 17, 2020 Assessment & Plan (1) Chest pain: Has a MSK component that is still TTP from recent trauma on lateral left chest wall (midaxillary line). S/P cardiac cath with successful PCI of mid LAD with 2 overlapping drug-eluting stents performed by Dr. Hopper on 04/15/20 Continue dual antiplatelet therapy with Plavix and aspirin (Aspirin can be discontinued after 7 days, day #2 today) Cardiology on board Cardiac rehab referral outpatient Continue metoprolol and statin Continue monitor closely Also received two stents today to coronaries with some improvement in symptoms. However, he is still reporting having some epigastric burning pain to some extent and not tolerating solid foods well. Uncertain etiologies. Trying scheduled carafate and pepcid IV today; requested assessment by vascular team to consider intestinal angina but feel this is less likely. Record review reveals longterm IBS issues that is diarrhea predominant. Patient was on trials of Bentyl and Levsin in the past with only some improvement. Burnign sensation is new, however, ove rthe past three weeks only. confirms these reports. Concerning feature is that he is unable to reliably tolerate PO. EGD results unremarkable and path was negative, no H pylori present. May need to recall GI to help. Reassess symptom improvement with carafate tomorrow, although consider the downside of decreased absorption of new cardiac medications with longer term use, and help patient avoid these interactions. (2) Epigastric burning sensation: S/P EGD showed normal esophagus. Erythematous mucosa in the antrum. CT abd/pelvis was unremarkable Continue to have burning abdominal pain Case discussed with GI that recommended to discontinue Carafate since it does not provide any relief and can interfere with absorption of others meds Will do a trial of gabapentin since pt said that he has been having burning abdominal pain General Surgery and Vascular surgery were consulted- No surgical intervention indicated Vascular surgery reviewed his CT scan and asked to cancel the consult since no procedure required (3) CAD (coronary artery disease): S/P cardiac cath with successful PCI of mid LAD with 2 overlapping drug- eluting stents performed by Dr. Hopper on 04/15/20 Continue medical management including statin, beta osorio therapy and aspirin and plavix (4) Chronic deep vein thrombosis (DVT): Chronic DVT present in RLE. Coumadin was switched to Eliquis per cardiology Will monitor for abnormal bleeding since pt is on Plavix and Aspirin (Will d/c aspirin after 7 days ) (5) GERD (gastroesophageal reflux disease): Continue PPI, pepcid Will d/c carafate as per GI since it does not seem to provide any relief (6) CKD (chronic kidney disease), stage III: Creatinine at baseline Will monitor BMP (7) Tracheomalacia: chronic, possibly related to significant acid reflux. (8) HTN (hypertension): at goal, cont chlorthalidone per home regimen. (9) Obesity (BMI 30.0-34.9): (10) DVT prophylaxis: Eliquis Full Code Dispo Will discharge once medically stable Admission and Anticipated Discharge Date Admission Date: April 12, 2020 Subjective Pt was seen and examined for follow up of abdominal burning pain Sitting at the edge of the bed with no distress Pt said that he continues to have diffuse burning abdominal pain that radiating to his back and shoulder He said that pain does not worsening with activity or eating He said that the pain has been the same in the last 3 to 4 weeks Denies any chest pain, palpitation, dizziness, fever and SOB Physical Exam Physical Exam: General- No acute distress Head- atraumatic Eyes- PERRL, EOMI, ENT- oropharynx clear Neck- supple, no JVD Lungs- clear to auscultation Heart- regular rhythm; no murmur Abdomen- normal bowel sounds, +bowel sound Extremities- no calf tenderness Neuro- alert, oriented x 3; PERRL, EOMI; no facial palsy; no dysarthria Skin- warm & dry Results & Data Results & Data ([facility]) Vital Signs (Past 12 Hours) Vital Signs Temp Pulse Pulse Resp BP Pulse Ox 04/17/20 15:21 36.4 C L 63 20 132/84 96 04/17/20 11:42 37.0 C 88 18 134/64 95 04/17/20 08:00 65 04/17/20 07:11 36.6 C 85 18 125/82 94 (1) Chest pain Chest pain type: unspecified Qualified Code(s): R07.9 - Chest pain, unspecified
[2020-04-18] MEDS: CHLORTHALIDONE 25 MG TAB PO SCH (07:58)
[2020-04-18] MEDS: CLOPIDOGREL BISULFATE 75 MG TAB PO SCH (07:58)
[2020-04-18] MEDS: ASPIRIN 81 MG ECTAB PO SCH (07:58)
[2020-04-18] MEDS: APIXABAN 5 MG TABLET PO SCH ×2 (07:58→20:10)
[2020-04-18] MEDS: METOPROLOL SUCC 25MG EXT REL TAB PO SCH (07:58)
[2020-04-18] MEDS: PANTOprazole 40 MG TAB PO SCH ×2 (07:58→20:10)
[2020-04-18] MEDS: SUCRALFATE 1 GM/10 ML UDC PO SCH (07:59)
[2020-04-18] MEDS: ATORVASTATIN 10 MG TAB PO SCH (07:59)
[2020-04-18] MEDS: ACETAMINOPHEN 500 MG TAB PO SCH ×2 (08:03→16:54)
[2020-04-18] MEDS: FAMOTIDINE 20 MG in SYRINGE 3 ML IV SCH ×2 (08:03→21:07)
[2020-04-18 08:18] LABS: Hematocrit (blood only) 44.5 % (42-52); Hemoglobin 14.9 g/dL (14.0-18.0); Mean Corpuscular Hemoglobin 30.2 pg (25-34); Mean Corpuscular Hgb Conc 33.5 g/dL (32-36); Mean Corpuscular Volume 90.1 fL (80-100); Mean Platelet Volume 9.5 fL (7.4-10.4); Platelet Count 172 K/uL (130-400); RDW Coefficient of Variation 13.3 % (11.5-14.5); RDW Standard Deviation 43.7 fL (36.4-46.3); Red Blood Count 4.94 M/uL (4.7-6.1)
[2020-04-18] MEDS: GABAPENTIN 100 MG CAP PO SCH ×2 (08:47→20:09)
[2020-04-18 08:53] LABS: Albumin Level 3.7 gm/dl (3.4-5.0); BUN Creatinine Ratio 9.1 (10-20); Calcium 9.8 mg/dl (8.5-10.1); Creatinine Clr Calc Pharmacy 69.7 ml/min; Est GFR (African American) 57.7; Est GFR (Non-African American) 49.8; Potassium 3.2 mmol/L (3.5-5.1)
[2020-04-18 08:56] LABS: Bilirubin,Total 1.2 mg/dl (0.2-1); Globulin 3.9 gm/dl (2.5-4.0); Total Protein 7.6 gm/dl (6.4-8.2)
[2020-04-18] MEDS ORDERED: POTASSIUM CHLORIDE 10 MEQ TABCR PO ONE (10:30)
--- NOTE | 2020-04-18 16:22 | Cardiology Progress Note ---
Date of Service April 18, 2020 Assessment & Plan (1) CAD (coronary artery disease): 1) CAD (coronary artery disease): Status post drug-eluting stent x2 to the LAD. Day 2 of planned 7 day course of ASA 81 mg daily. Clopidogrel 75 mg daily for the 6 months. (2) HTN (hypertension): Continue chlorthalidone, metoprolol succinate. Future considerations include ACEi / ARB given CKD. -Potassium was low 3.2 today, received replacement as ordered by the primary team. (3) Dyslipidemia: Atorvastatin 10 mg daily. (4) DVT (deep venous thrombosis): History of recurrent DVT. Coumadin discontinued in favor of Eliquis 5 mg twice daily given PCI, need for antiplatelet therapy. Admission and Anticipated Discharge Date Admission Date: April 12, 2020 Subjective Patient seen in cardiology follow-up of coronary heart disease, hypertension, dyslipidemia. Ongoing generalized vague abdominal pain noted. Blood pressure stable, well controlled, telemetry reveals stable sinus rhythm in the 60 to 70 bpm range. Review of Systems Review of Systems: All systems reviewed & are unremarkable except as noted in HPI & below Physical Exam Physical Exam: Temp Pulse Resp BP Pulse Ox 36.7 C 66 18 128/81 93 04/18/20 15:48 04/18/20 15:48 04/18/20 15:48 04/18/20 15:48 04/18/20 15:48 Constitutional: WD/WN, vitals as above Respiratory: normal respiratory effort, lungs clear to auscultation Cardiovascular: RRR, no murmur, no edema Neurologic: PERRL, EOMI, accommodation nl, no face palsy, no dysarthria Results & Data ([facility]) Vital Signs (Past 12 Hours) Vital Signs Temp Pulse Resp BP Pulse Ox 04/18/20 15:48 36.7 C 66 18 128/81 93 04/18/20 11:54 36.8 C 77 18 124/72 04/18/20 07:40 37.0 C 66 18 133/69 95
--- NOTE | 2020-04-18 19:06 | Hospitalist Progress Note ---
Date of Service April 18, 2020 Assessment & Plan (1) Chest pain: Has a MSK component that is still TTP from recent trauma on lateral left chest wall (midaxillary line). S/P cardiac cath with successful PCI of mid LAD with 2 overlapping drug-eluting stents performed by Dr. Hopper on 04/15/20 Continue dual antiplatelet therapy with Plavix and aspirin (Aspirin can be discontinued after 7 days, day #3 today) Cardiology on board Cardiac rehab referral outpatient Continue metoprolol and statin Continue monitor closely (2) Epigastric burning sensation: S/P EGD showed normal esophagus. Erythematous mucosa in the antrum. CT abd/pelvis was unremarkable Continue to have burning abdominal pain Case discussed with GI that recommended to discontinue Carafate since it does not provide any relief and can interfere with absorption of others meds Will do a trial of gabapentin since pt said that he has been having burning abdominal pain General Surgery and Vascular surgery were consulted- No surgical intervention indicated Vascular surgery reviewed his CT scan and asked to cancel the consult since no procedure required Lipase mildly elevated, will repeat in am Continue PPI Will monitor closely (3) CAD (coronary artery disease): S/P cardiac cath with successful PCI of mid LAD with 2 overlapping drug- eluting stents performed by Dr. Hopper on 04/15/20 Continue medical management including statin, beta osorio therapy and aspirin and plavix (4) Chronic deep vein thrombosis (DVT): Chronic DVT present in RLE. Coumadin was switched to Eliquis per cardiology Will monitor for abnormal bleeding since pt is on Plavix and Aspirin (Will d/c aspirin after 7 days ) (5) GERD (gastroesophageal reflux disease): Continue PPI, pepcid Will d/c carafate as per GI since it does not seem to provide any relief (6) CKD (chronic kidney disease), stage III: Creatinine at baseline Will monitor BMP (7) Tracheomalacia: chronic, possibly related to significant acid reflux. (8) HTN (hypertension): at goal, cont chlorthalidone per home regimen. (9) Obesity (BMI 30.0-34.9): (10) DVT prophylaxis: Eliquis Full Code Dispo Will discharge once medically stable Admission and Anticipated Discharge Date Admission Date: April 12, 2020 Subjective Pt was seen and examined for follow up of abdominal pain Lying in bed with no distress Pt said that he continues to have burning abdominal discomfort He said that the pain is the same He said that he had an episode of diarrhea today and stool was negative for Cdiff Denies any palpitation, fever, SOB, dizzness and CP Physical Exam Physical Exam: General- No acute distress Head- atraumatic Eyes- PERRL, EOMI, ENT- oropharynx clear Neck- supple, no JVD Lungs- clear to auscultation Heart- regular rhythm; no murmur Abdomen- normal bowel sounds, +bowel sound Extremities- no calf tenderness Neuro- alert, oriented x 3; PERRL, EOMI; no facial palsy; no dysarthria Skin- warm & dry Results & Data Results & Data ([facility]) Vital Signs (Past 12 Hours) Vital Signs Temp Pulse Resp BP Pulse Ox 04/18/20 15:48 36.7 C 66 18 128/81 93 04/18/20 11:54 36.8 C 77 18 124/72 04/18/20 07:40 37.0 C 66 18 133/69 95 (1) Chest pain Chest pain type: unspecified Qualified Code(s): R07.9 - Chest pain, unspecified
[2020-04-19] MEDS: ACETAMINOPHEN 500 MG TAB PO SCH ×2 (00:14→08:10)
[2020-04-19 07:42] LABS: BUN Creatinine Ratio 9.3 (10-20); Calcium 9.8 mg/dl (8.5-10.1); Creatinine Clr Calc Pharmacy 66.9 ml/min; Est GFR (African American) 54.8; Est GFR (Non-African American) 47.3; Potassium 3.1 mmol/L (3.5-5.1)
[2020-04-19] MEDS: FAMOTIDINE 20 MG in SYRINGE 3 ML IV SCH (08:05)
[2020-04-19] MEDS: METOPROLOL SUCC 25MG EXT REL TAB PO SCH (08:05)
[2020-04-19] MEDS: CHLORTHALIDONE 25 MG TAB PO SCH (08:05)
[2020-04-19] MEDS: PANTOprazole 40 MG TAB PO SCH (08:06)
[2020-04-19] MEDS: CLOPIDOGREL BISULFATE 75 MG TAB PO SCH (08:06)
[2020-04-19] MEDS: GABAPENTIN 100 MG CAP PO SCH (08:06)
[2020-04-19] MEDS: ASPIRIN 81 MG ECTAB PO SCH (08:06)
[2020-04-19] MEDS: ATORVASTATIN 10 MG TAB PO SCH (08:06)
[2020-04-19] MEDS: APIXABAN 5 MG TABLET PO SCH (08:06)
[2020-04-19] MEDS ORDERED: POTASSIUM CHLORIDE CRTAB 20 MEQ TABCR PO STA (08:25)
[2020-04-19 12:12] VITALS: PULSE 79; TEMP 97.9; O2SAT 98
--- NOTE | 2020-04-19 13:02 | Hospitalist Progress Note ---
Date of Service April 19, 2020 Assessment & Plan (1) Chest pain: Has a MSK component that is still TTP from recent trauma on lateral left chest wall (midaxillary line). S/P cardiac cath with successful PCI of mid LAD with 2 overlapping drug-eluting stents performed by Dr. Hopper on 04/15/20 Continue dual antiplatelet therapy with Plavix and aspirin (Aspirin can be discontinued after 7 days, day #4 today) Cardiology on board Cardiac rehab referral outpatient Continue metoprolol and statin Ok from cardiology standpoint to discharge home Will need follow up with cardiology in 1 -2 weeks (2) Epigastric burning sensation: S/P EGD showed normal esophagus. Erythematous mucosa in the antrum. CT abd/pelvis was unremarkable Continue to have burning abdominal pain Case discussed with GI that recommended to discontinue Carafate since it does not provide any relief and can interfere with absorption of others meds Will do a trial of gabapentin since pt said that he has been having burning abdominal pain General Surgery and Vascular surgery were consulted- No surgical intervention indicated Vascular surgery reviewed his CT scan and asked to cancel the consult since no procedure required Repeat Lipase today normal Continue PPI Follow up with Gastro outpatient (3) CAD (coronary artery disease): S/P cardiac cath with successful PCI of mid LAD with 2 overlapping drug- eluting stents performed by Dr. Hopper on 04/15/20 Continue medical management including statin, beta osorio therapy and aspirin and plavix Aspirin will discontinue in 3 more days (4) Chronic deep vein thrombosis (DVT): Chronic DVT present in RLE. Coumadin was switched to Eliquis per cardiology Will monitor for abnormal bleeding since pt is on Plavix and Aspirin (Will d/c aspirin after 7 days ) (5) GERD (gastroesophageal reflux disease): Continue PPI, pepcid Will d/c carafate as per GI since it does not seem to provide any relief (6) CKD (chronic kidney disease), stage III: Creatinine at baseline Will monitor BMP (7) Tracheomalacia: chronic, possibly related to significant acid reflux. (8) HTN (hypertension): at goal, cont chlorthalidone per home regimen. Hypokalemia Potassium 3.1 K replaced today Continue monitor BMP (9) Obesity (BMI 30.0-34.9): BMI 33.9 Counseling on weight loss (10) DVT prophylaxis: Eliquis Full Code Dispo Discharge home today Admission and Anticipated Discharge Date Admission Date: April 12, 2020 Subjective Pt was seen and examined for follow up of abdominal pain Sitting in chair with no distress Pt said that he was able to tolerate his diet He said that the pain is the same He said that he is not having any more diarrhea He would like to go home today Denies any palpitation, fever, SOB, dizziness and CP Physical Exam Physical Exam: General- No acute distress Head- atraumatic Eyes- PERRL, EOMI, ENT- oropharynx clear Neck- supple, no JVD Lungs- clear to auscultation Heart- regular rhythm; no murmur Abdomen- normal bowel sounds, +bowel sound, +tenderness around the umbilical area Extremities- no calf tenderness Neuro- alert, oriented x 3; PERRL, EOMI; no facial palsy; no dysarthria Skin- warm & dry Results & Data Results & Data ([facility]) Vital Signs (Past 12 Hours) Vital Signs Temp Pulse Resp BP Pulse Ox 04/19/20 12:11 36.6 C 79 18 126/62 98 04/19/20 07:55 37.0 C 63 18 127/81 96 04/19/20 04:33 36.5 C 62 16 135/80 96 (1) Chest pain Chest pain type: unspecified Qualified Code(s): R07.9 - Chest pain, unspecified
[2020-04-19 13:35] VITALS: BP 147/81
--- NOTE | 2020-04-21 09:12 | Discharge Summary ---
Date of Service April 19, 2020 Admission HPI Per Admitting Provider This is a 69 yr old M who has a significant pmh of HTN, HLD, hx of DVT, hyper homocysteinemia, tracheomalacia, IBS, Fibromyalgia, CKD 3, hx of migraine, GERD who presents to ED 2/2 to off an on chest pain and burning in stomach x several weeks. Was seen 3 weeks ago due to burning in stomach and having burning chest pain to right and left side. He was prescribed prilosec and has been taking it with out relief. Was then seen in clinic by Dr. Monsalve and Vivien Moreno. He had a full lab work up and CXR which was negative for fracture. He was recently treated with azithromycin and prednisone for possible infection. He started to feel better but then came back. He states chest pain is left sided an radiates to R side and goes down into abdomen. Feels burning in his epigastrum constantly for the past 3 days ago. The chest pain comes and goes. Does not get worse with activity or laying down. He hasn't ate since Wednesday ( 4 days ago) and has not slept either. When he lays down feels like he can't breathe. When we had snow storm several weeks ago symptoms started a week after. He thought maybe he pulled something, but never improved. He denies fever, chills, cough, nausea, vomit, change in stool, melena, hematochezia, dysuria, increased urg/freq with urination. Overall poor appetite because of the burning. Nothing makes him symptoms better or worse. He has tried peptobismal and PPI and no relief. Sx worse at night. "I feel like burning in stomach is causing tightness in chest." He does admit to a fall and hit head after falling backwards on step. Chest pain occurred prior to this fall. He takes coumadin 2/2 to hx of DVT. Dx with dvt in 2014 after knee surgery. Last dose was 2 days ago. Dx with tracheomalacia 1 year ago and was felt 2/2 to prolonged GERD. He did not have any surgical procedure to correct. He had a dobutamine stress test in 2018 which was unremarkable. Admission Exam Per Admitting Provider Constitutional: WD/WN, vitals as above, NAD, sitting up in bed, pleasant, conversing easily Head: Normocephalic, Atraumatic Eyes: PERRL, conjunctivae normal, anicteric sclerae ENMT: external ear and nose normal, oropharynx normal Neck: trachea midline, no thyromegaly normal visual inspection Respiratory: normal respiratory effort, lungs clear to auscultation, no wheeze, rales, rhonchi. Normal insp/exp effort, no accessory muscle use Cardiovascular: RRR, no murmur, no edema Vessels: no JVD or carotid bruit Chest: Pain to palpation to left upper chest wall and left posterior thorax, normal inspection of chest Abdomen: normal bowel sounds, soft, nontender, no hepatosplenomegaly Musculoskeletal: no cyanosis or clubbing, extremities motor strength 5/5 Skin: no rashes, warm and dry normal turgor Neurologic: PERRL, EOMI, accommodation nl, no face palsy, no dysarthria CN's II-XI intact bilaterally and moves all extremities Psychiatric: A+Ox3, euthymic affect : deferred Principal Diagnosis Chest pain Epigastric burning sensation: CAD (coronary artery disease): Chronic deep vein thrombosis (DVT): GERD (gastroesophageal reflux disease): CKD (chronic kidney disease), stage III: Tracheomalacia: HTN (hypertension): Discharge Exam General- No acute distress Head- atraumatic Eyes- PERRL, EOMI, ENT- oropharynx clear Neck- supple, no JVD Lungs- clear to auscultation Heart- regular rhythm; no murmur Abdomen- normal bowel sounds, +bowel sound, +tenderness around the umbilical area Extremities- no calf tenderness Neuro- alert, oriented x 3; PERRL, EOMI; no facial palsy; no dysarthria Skin- warm & dry Discharge Data Allergies Allergy/AdvReac Type Severity Reaction Status Date / Time morphine AdvReac Intermediate anxiety Verified 04/03/20 15:57 Consultations 04/11/20 13:36 ED Decision to Admit Stat 04/11/20 18:34 Consult Cardiology Routine 04/12/20 08:50 Consult Gastroenterology Routine 04/12/20 18:14 Consult General Surgery Routine 04/15/20 13:19 Consult Cardiac Rehabilitation Routine Procedures Performed Operation Date: 04/12/20 16:00 Actual Procedures p EGD Biopsy Cytology - Zoey Evans MD Operation Date: 04/15/20 09:30 Actual Procedures p Cath, Left with Cors and Vent - Aries R. Hopper, MD s Cineradiography w/Routine Exam - Aries Hopper MD p Drug Eluting Stent SGl Vessel - Aries Hopper MD Ordered Studies 04/11/20 14:20 CT chest diagnostic wo con Routine 04/12/20 15:30 US venous doppler LE BI Urgent 04/12/20 16:30 US liver Urgent 04/12/20 18:12 CT abd pelvis IV con only Urgent CT angio chest PE protocol Urgent 04/15/20 06:51 CL Cath Imgs for PACS use only Routine CT ANGIOGRAM OF THE CHEST; CT SCAN OF THE ABDOMEN AND PELVIS WITH IV CONTRAST CLINICAL HISTORY: Generalized abdominal pain. Atypical chest pain. COMPARISON STUDY: Chest CT scans dated 04/11/2020 and 04/02/2017. Abdominal CT dated 09/29/2019. Abdominal ultrasound dated 04/12/2020. TECHNIQUE: Following the IV administration of 119 of Optiray 320, CT angiogram of the chest is performed from the upper abdomen to the thoracic inlet utilizing the pulmonary embolus protocol. Images are reviewed in the axial, sagittal, coronal planes. 3-D MIPS images are created and assessed. Subsequently, CT scan of the abdomen and pelvis was performed from the lung bases to the proximal femora. Images are reviewed in the axial, sagittal, and coronal planes. IV contrast was administered without complication. A dose lowering technique was utilized adhering to the principles of ALARA. CT DOSE: 2328.41 mGy.cm FINDINGS: CHEST: Thyroid: Imaged portions of the thyroid gland are normal in size and attenuation. Thoracic aorta: The thoracic aorta is normal in caliber and demonstrates standard 3-vessel arch anatomy. No dissection is seen. Pulmonary vasculature: The pulmonary trunk is normal in caliber. There are no filling defects identified in the main, lobar, or segmental pulmonary arteries to indicate pulmonary embolus. Heart: The heart is top normal in size and without pericardial effusion. The coronary arteries are densely calcified. Lungs and pleural spaces: Evaluation of the lung parenchyma is modestly degraded by motion artifact. There is no airspace consolidation or pleural effusion. The trachea and central airways are clear. Mild scarring/atelectasis is seen at the lung bases. Mediastinum: There is no mediastinal lymphadenopathy. Demi: Clear. Axillae: There is no axillary lymphadenopathy. Bony thorax: The skeletal structures are osteopenic. No lytic or blastic lesions are identified. ABDOMEN AND PELVIS: Liver: The contrast-enhanced liver is normal in size and contour. The liver demonstrates diffusely diminished attenuation consistent with hepatic steatosis. There is no intrahepatic biliary ductal dilatation. The hepatic veins and portal veins are patent. Gallbladder: Surgically absent. Spleen: Normal in size and attenuation. Pancreas: Unremarkable. Adrenal glands: Unremarkable. Kidneys: The contrast enhanced kidneys demonstrate cortical atrophy and are without hydronephrosis. The kidneys enhance symmetrically. Numerous small renal cysts measure up to 2.4 cm. Additional subcentimeter cortical hypodensities also likely represent cysts but are too small for definitive characterization. There are bilateral nonobstructing renal calculi (at least 4 on the right and at least 2 on the left). No ureteral stone is seen. Abdominal vasculature: The abdominal aorta is normal in course and caliber noting mild atherosclerotic calcification. Stomach and bowel: There is a small hiatal hernia. No bowel obstruction is seen. There is mild to moderate colonic diverticulosis without CT evidence of acute diverticulitis. Residual enteric contrast is noted in the colon. The appendix is well-visualized and normal. Peritoneum: There is no intraperitoneal free air or abdominal ascites. There is a small fat-containing supraumbilical hernia. Findings suggest previous umbilical hernia repair. Lymphadenopathy: None. Pelvic viscera: The prostate gland is markedly enlarged and heterogeneous, measuring 6.7 cm in transverse diameter. There is median lobe hypertrophy. The bladder wall is thickened and trabeculated indicating chronic outlet obstruction. There are numerous small bladder calculi. There are right larger than left fat-containing inguinal hernias. Skeletal structures: The skeletal structures are osteopenic. Mild to moderate lumbosacral spondylosis is observed. No lytic or blastic lesions are seen. IMPRESSION: 1. There is no evidence of pulmonary embolus in the main, lobar, or segmental pulmonary arteries. 2. There is no airspace consolidation or pleural effusion. 3. There are no acute infectious or inflammatory findings in the abdomen or pelvis. 4. Hepatic steatosis. 5. Bilateral nephrolithiasis. 6. There are small bladder calculi. 7. Marked prostatomegaly with evidence of chronic bladder outlet obstruction. 8. Mild to moderate colonic diverticulosis without CT evidence of acute diverticulitis. 9. There are right larger than left fat-containing inguinal hernias. 10. Additional findings as above. ACT 112: Positive. There are findings on this exam that require communication between the performing entity and the patient following Patient Test Result Information Act ([place] Act 112) guidelines. Electronically signed by: Jason Villegas M.D. 04/12/2020 7:21 PM Dictated: 04/12/201909Transcribed: 04/12/201909 CT ANGIOGRAM OF THE CHEST; CT SCAN OF THE ABDOMEN AND PELVIS WITH IV CONTRAST CLINICAL HISTORY: Generalized abdominal pain. Atypical chest pain. COMPARISON STUDY: Chest CT scans dated 04/11/2020 and 04/02/2017. Abdominal CT dated 09/29/2019. Abdominal ultrasound dated 04/12/2020. TECHNIQUE: Following the IV administration of 119 of Optiray 320, CT angiogram of the chest is performed from the upper abdomen to the thoracic inlet utilizing the pulmonary embolus protocol. Images are reviewed in the axial, sagittal, coronal planes. 3-D MIPS images are created and assessed. Subsequently, CT scan of the abdomen and pelvis was performed from the lung bases to the proximal femora. Images are reviewed in the axial, sagittal, and coronal planes. IV contrast was administered without complication. A dose lowering technique was utilized adhering to the principles of ALARA. CT DOSE: 2328.41 mGy.cm FINDINGS: CHEST: Thyroid: Imaged portions of the thyroid gland are normal in size and attenuation. Thoracic aorta: The thoracic aorta is normal in caliber and demonstrates standard 3-vessel arch anatomy. No dissection is seen. Pulmonary vasculature: The pulmonary trunk is normal in caliber. There are no filling defects identified in the main, lobar, or segmental pulmonary arteries to indicate pulmonary embolus. Heart: The heart is top normal in size and without pericardial effusion. The coronary arteries are densely calcified. Lungs and pleural spaces: Evaluation of the lung parenchyma is modestly degraded by motion artifact. There is no airspace consolidation or pleural effusion. The trachea and central airways are clear. Mild scarring/atelectasis is seen at the lung bases. Mediastinum: There is no mediastinal lymphadenopathy. Demi: Clear. Axillae: There is no axillary lymphadenopathy. Bony thorax: The skeletal structures are osteopenic. No lytic or blastic lesions are identified. ABDOMEN AND PELVIS: Liver: The contrast-enhanced liver is normal in size and contour. The liver demonstrates diffusely diminished attenuation consistent with hepatic steatosis. There is no intrahepatic biliary ductal dilatation. The hepatic veins and portal veins are patent. Gallbladder: Surgically absent. Spleen: Normal in size and attenuation. Pancreas: Unremarkable. Adrenal glands: Unremarkable. Kidneys: The contrast enhanced kidneys demonstrate cortical atrophy and are without hydronephrosis. The kidneys enhance symmetrically. Numerous small renal cysts measure up to 2.4 cm. Additional subcentimeter cortical hypodensities also likely represent cysts but are too small for definitive characterization. There are bilateral nonobstructing renal calculi (at least 4 on the right and at least 2 on the left). No ureteral stone is seen. Abdominal vasculature: The abdominal aorta is normal in course and caliber noting mild atherosclerotic calcification. Stomach and bowel: There is a small hiatal hernia. No bowel obstruction is seen. There is mild to moderate colonic diverticulosis without CT evidence of acute diverticulitis. Residual enteric contrast is noted in the colon. The appendix is well-visualized and normal. Peritoneum: There is no intraperitoneal free air or abdominal ascites. There is a small fat-containing supraumbilical hernia. Findings suggest previous umbilical hernia repair. Lymphadenopathy: None. Pelvic viscera: The prostate gland is markedly enlarged and heterogeneous, measuring 6.7 cm in transverse diameter. There is median lobe hypertrophy. The bladder wall is thickened and trabeculated indicating chronic outlet obstruction. There are numerous small bladder calculi. There are right larger than left fat-containing inguinal hernias. Skeletal structures: The skeletal structures are osteopenic. Mild to moderate lumbosacral spondylosis is observed. No lytic or blastic lesions are seen. IMPRESSION: 1. There is no evidence of pulmonary embolus in the main, lobar, or segmental pulmonary arteries. 2. There is no airspace consolidation or pleural effusion. 3. There are no acute infectious or inflammatory findings in the abdomen or pelvis. 4. Hepatic steatosis. 5. Bilateral nephrolithiasis. 6. There are small bladder calculi. 7. Marked prostatomegaly with evidence of chronic bladder outlet obstruction. 8. Mild to moderate colonic diverticulosis without CT evidence of acute diverticulitis. 9. There are right larger than left fat-containing inguinal hernias. 10. Additional findings as above. ACT 112: Positive. There are findings on this exam that require communication between the performing entity and the patient following Patient Test Result Information Act ([place] Act 112) guidelines. Electronically signed by: Jason Villegas M.D. 04/12/2020 7:21 PM Dictated: 04/12/201909Transcribed: 04/12/201909 ULTRASOUND RIGHT UPPER QUADRANT ABDOMEN CLINICAL HISTORY: Epigastric abdominal pain. COMPARISON STUDY: Abdominal CT dated 09/29/2019. TECHNIQUE: Real-time, grayscale, and color flow sonography of the right upper quadrant of the abdomen was performed. Images are reviewed in the transverse and longitudinal planes. FINDINGS: Liver: The liver is normal in size and demonstrates heterogeneously increased echotexture consistent with hepatic steatosis. There is no intrahepatic biliary ductal dilatation. The main portal vein is patent. Gallbladder: The gallbladder is surgically absent. The common bile duct measures up to 0.4 cm in diameter. Pancreas: Not visualized due to overlying bowel gas. Right kidney: Survey images of the right kidney demonstrate mild cortical atrophy. Renal calculi are noted. There is no hydronephrosis. Ascites: None. IMPRESSION: 1. No acute sonographic abnormality is seen in the right upper quadrant noting status post cholecystectomy. 2. Right-sided nephrolithiasis. 3. Hepatic steatosis. ACT 112: Negative or not required by law. Electronically signed by: Jason Villegas M.D. 04/12/2020 6:35 PM Dictated: 04/12/20 1833Transcribed: 04/12/201832 BILATERAL LOWER EXTREMITY VENOUS DOPPLER HISTORY: Follow up study in a patient with history of DVT. History of prior thrombus within the left posterior tibial vein with chronic thrombus of the right popliteal vein h/o recurrent DVT, r/o dvt COMPARISON STUDY: Duplex venous Doppler study 04/02/2017 FINDINGS: Chronic nonocclusive thrombus of the right popliteal vein redemonstrated. Chronic nonocclusive thrombus is also again noted involving one of the duplicated left posterior tibial veins. No acute deep venous thrombosis identified. IMPRESSION: 1. No acute deep venous thrombus. 2. Chronic nonocclusive deep venous thrombi of the right popliteal and left posterior tibial veins redemonstrated. ACT 112: Negative or not required by law. Electronically signed by: Vamsi Rosales M.D. 04/12/2020 5:08 PM Dictated: 04/12/20 1704Transcribed: 04/12/20 1704 KUB HISTORY: Acute epigastric abdominal pain epigastric pain; r/o abnormal before EGD COMPARISON: CT abdomen and pelvis 09/29/2019 FINDINGS: Nonobstructive bowel gas pattern. Nondilated air-filled loops of large and small bowel. Bilateral nephrolithiasis without ureteral calculi identified. Pelvic basin calcifications redemonstrated. No renal calculi. No ureteral calculi. No pneumoperitoneum or pneumatosis. No fracture. IMPRESSION: 1. Nonobstructive bowel gas pattern. 2. Bilateral nephrolithiasis. ACT 112: Negative or not required by law. The above report was generated using voice recognition software. It may contain grammatical, syntax or spelling errors. Electronically signed by: Vamsi Rosales M.D. 04/12/2020 12:45 PM Dictated: 04/12/20 1244Transcribed: 04/12/[address] chest diagnostic wo con CT DOSE: 914.26 mGy.cm HISTORY: Atypical chest pain TECHNIQUE: Multiaxial CT images of the chest were performed without contrast. A dose lowering technique was utilized adhering to the principles of ALARA. COMPARISON: Chest CTA 04/02/2017. FINDINGS: No mediastinal or hilar lymphadenopathy. Normal caliber thoracic aorta. Severe calcified plaque within the left coronary artery. The heart is normal in size. No pleural or pericardial effusions. Normal esophagus. Hepatic steatosis. The visualized unenhanced spleen and adrenal glands are unremarkable. There is a partially visualized exophytic hypodense lesion within the upper pole the right kidney. This is likely stable compared to 09/29/[address] No suspicious lytic or blastic osseous lesions. No pneumothorax. The central airways are patent. There is a punctate calcified granuloma within the left lower lobe. Otherwise, the lungs are clear. No focal lung consolidations to suggest pneumonia. IMPRESSION: 1. No acute process within the chest. 2. Hepatic steatosis. 3. Severe calcified plaque within the left coronary artery. ACT 112: Negative or not required by law. Electronically signed by: Francis Logan M.D. 04/11/2020 3:13 PM Dictated: 04/11/20 1505Transcribed: 04/11/20 1505 XR chest 1V portable HISTORY: Atypical Chest Pain COMPARISON: None. FINDINGS: The lungs are clear. Cardiac silhouette is normal in size. No pleural effusions. No pneumothorax. IMPRESSION: No acute process. ACT 112: Negative or not required by law. Electronically signed by: Francis Logan M.D. 04/11/2020 12:48 PM Dictated: 04/11/20 1246Transcribed: 04/11/20 1246 Hospital Course (1) Chest pain: Has a MSK component that is still TTP from recent trauma on lateral left chest wall (midaxillary line). S/P cardiac cath with successful PCI of mid LAD with 2 overlapping drug-eluting stents performed by Dr. Hopper on 04/15/20 Continue dual antiplatelet therapy with Plavix and aspirin (Aspirin can be discontinued after 7 days, day #4 today) Cardiology on board Cardiac rehab referral outpatient Continue metoprolol and statin Ok from cardiology standpoint to discharge home Will need follow up with cardiology in 1 -2 weeks (2) Epigastric burning sensation: S/P EGD showed normal esophagus. Erythematous mucosa in the antrum. CT abd/pelvis was unremarkable Continue to have burning abdominal pain Case discussed with GI that recommended to discontinue Carafate since it does not provide any relief and can interfere with absorption of others meds Will do a trial of gabapentin since pt said that he has been having burning abdominal pain General Surgery and Vascular surgery were consulted- No surgical intervention indicated Vascular surgery reviewed his CT scan and asked to cancel the consult since no procedure required Repeat Lipase today normal Continue PPI Follow up with Gastro outpatient (3) CAD (coronary artery disease): S/P cardiac cath with successful PCI of mid LAD with 2 overlapping drug- eluting stents performed by Dr. Hopper on 04/15/20 Continue medical management including statin, beta osorio therapy and aspirin and plavix Aspirin will discontinue in 3 more days (4) Chronic deep vein thrombosis (DVT): Chronic DVT present in RLE. Coumadin was switched to Eliquis per cardiology Will monitor for abnormal bleeding since pt is on Plavix and Aspirin (Will d/c aspirin after 7 days ) (5) GERD (gastroesophageal reflux disease): Continue PPI, pepcid Will d/c carafate as per GI since it does not seem to provide any relief (6) CKD (chronic kidney disease), stage III: Creatinine at baseline Will monitor BMP (7) Tracheomalacia: chronic, possibly related to significant acid reflux. (8) HTN (hypertension): at goal, cont chlorthalidone per home regimen. Hypokalemia Potassium 3.1 K replaced today Continue monitor BMP (9) Obesity (BMI 30.0-34.9): BMI 33.9 Counseling on weight loss (10) DVT prophylaxis: Eliquis Full Code Dispo Discharge home today Total Time Total Time Spent Total Time Spent (In Minutes): 35 minutes Total Time Includes: Examination of the Patient, Discharge Planning, Medication Reconciliation, Communication With Other Providers and Other Discharge Plan Discharge Items Patient Disposition: Home - Self-Care Reason For Visit: CHEST PAIN Discharge Diagnosis: Chest pain Epigastric burning sensation: CAD (coronary artery disease): Chronic deep vein thrombosis (DVT): GERD (gastroesophageal reflux disease): CKD (chronic kidney disease), stage III: Tracheomalacia: HTN (hypertension): Activity: Resume your previous activity Non-emergency contact: Primary Care Provider Call non-emergency contact if: you have any medication questions Follow-up/Referrals: Zan Monsalve MD [Primary Care Provider] - 04/25/20 3:00 pm ( ) Diet: Heart Healthy Addtl Attending Provider Instructions: Follow up with your primary care provider Dr. Monsalve on 04/18/2020 at 3:00 PM Follow up with gastroenterology for the abdominal discomfort ( Office will call for the appoitment) Follow up with your cardiology in 1-2 weeks (office will call for the appointment) Your primary care provider or senior ui ux developer will refer you for the cardiac rehab Continue aspirin for 3 more days, then discontinuing it and continue plavix and Eliquis Monitor for any abnormal bleeding Seek medical attention if you develop any bleeding Check BMP in 1 week to monitor your electrolytes and renal function Keep the area for the cardiac cath clean and dry to avoid any infection Do not use creams, lotions or ointment on the wound site Do not take a bath, tub soak, go in a Jacuzzi, or swim in a pool or verde for one week after the procedure. Do not participate in strenuous activities for 5 days after the procedure. Gradually increase your activities until you reach your normal activity level within two days after the procedure. Avoid heavy lifting (more than 10 pounds) and pushing or pulling heavy objects for the first 5 days after the procedure. Medication Instructions:Eliquis Your condition is typically treated with an anticoagulant. Anticoagulants will thin your blood to help prevent new clots. You should take her medication exactly as directed. Never skip a dose. Never take a double dose. If you miss a dose, take it as soon as you remember. Avoid NSAIDs (Motrin, Aleve, Naproxen, Ibuprofen, Advil, Meloxicam,..) due to risks of bleeding Call your Primary Care doctor if you experience any of the following: Swelling or Pain in your leg Sudden, continuous pain deep in a muscle Pain that worsens when you are active or when you stand still for a long time Chest Pain Sudden Shortness of Breath Rapid or pounding heart beat Fainting Dizziness Cough with blood or bloody sputum Sweating more than normal Bruises Heavy or uncontrolled bleeding Blood in your urine, stool or vomit Black or tarry stools Pending Studies at Discharge: No Stand-Alone Forms: My [facility] Advaction, Smoking Cessation Medications and DC Order Prescriptions: New Eliquis 5 mg Tablet 5 mg PO BID 30 Days Qty: 60 RF: 0 atorvastatin 10 mg Tablet 10 mg PO QAM 30 Days Qty: 30 RF: 0 clopidogrel 75 mg Tablet 75 mg PO QAM 30 Days Qty: 30 RF: 0 aspirin 81 mg Tablet,Delayed Release (Dr/Ec) 81 mg PO QAM 4 Days Qty: 4 RF: 0 metoprolol succinate 25 mg Tablet Extended Release 24 Hr 12.5 mg PO QAM 30 Days Qty: 15 RF: 0 potassium chloride 20 mEq tablet extended release 20 meq PO DAILY Qty: 30 RF: 0 pantoprazole 40 mg Tablet,Delayed Release (Dr/Ec) 40 mg PO DAILY 30 Days Qty: 30 RF: 0 Continued cimetidine 400 mg Tablet 400 mg PO BID RF: 0 chlorthalidone 25 mg Tablet 25 mg PO DAILY RF: 0 Discontinued warfarin 10 mg Tablet 25 mg PO MOFR RF: 0 warfarin 10 mg Tablet 30 mg PO SUTUWETHSA RF: 0 omeprazole 20 mg Capsule,Delayed Release(Dr/Ec) 20 mg PO DAILY RF: 0 Discharge Orders: Discharge Order (Routine); Ordered 04/19/20 Ordered By: Mundo Yap Admission Data Admit Date/Time: 04/12/20 15:29 Attending Provider: Mundo Yap Admit Provider: Maribel Manzo I. Primary Care Provider: Zan Monsalve Other Providers: Maribel Manzo I. ; Xu Batista ; Wong Montemayor ; Xu Copeland ; Dot Leyva Other Interventions: Discharge Summary Assessment (RN) Last Done: 04/19/20 13:33
== END 2020-04-19 14:49 | disposition home or self-care (01) | DRG 247 ==
LOC: 2N 12:11 → ED 12:11 → SUATTDRO 13:48 → 2N 17:08 → SUATTDRO 04-12 15:29 → 2S 04-15 14:58